=== PATIENT | female | born 1985 | race Caucasian/White ===

== ENCOUNTER → 2019-12-25 13:24 | Outpatient (BNVA) | payer OTHER, SELFPAY | PROVIDERS: Family Provider Family Medicine; Visit Provider Nurse Practitioner Family | DX: J02.0 Streptococcal pharyngitis (principal) | CPT/HCPCS: 87880 ==

== ENCOUNTER 2020-05-31 12:28 | Emergency (ER) | payer SELFPAY ==
[2020-05-31] VITALS (7 sets, daily range): BP systolic 106–176; BP diastolic 87–99; PULSE 81–88; RESP 15–20; TEMP 36.7; O2SAT 95–100; BMI 77.4
--- NOTE | 2020-05-31 13:11 | XRR_ITS ---
PROCEDURE INFORMATION: Exam: XR Chest, 1 View Exam date and time: 05/31/2020 1:32 PM Age: 35 years old Clinical indication: Chest pain; Type not specified; Patient HX: C/O pain left side of neck and radiates down arm and chest pressure TECHNIQUE: Imaging protocol: XR of the chest Views: 1 view. COMPARISON: CR Chest 1 [place] [id number] 03/29/2019 8:18 PM FINDINGS: Lungs: Unremarkable. No consolidation. Pleural space: Unremarkable. No pleural effusion. No pneumothorax. Heart/Mediastinum: Unremarkable. No cardiomegaly. Bones/joints: Unremarkable. XR/XR chest 1V portable [id number] IMPRESSION: No acute findings.
--- NOTE | 2020-05-31 13:11 | ECG_ITS ---
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 Measurements Intervals [place] Rate: 91 P: 27 MI: 183 QRS: 8 QRSD: 82 T: 18 QT: 357 QTc: 441 Interpretive Statements SINUS RHYTHM Left ventricular hypertrophy Compared to ECG 03/29/2019 23:51:33 No significant changes Electronically Signed On 05-31-2020 14:09:14 CDT by Gabe Kunz M.D. [id number]
[2020-05-31] MEDS: nitroglycerin 0.4 mg sublingual Tablet SUBLINGUAL (13:54)
[2020-05-31 13:58] LABS: Basophils % 0.4 %; Eosinophils # 0.2 10^3/uL (0.0-0.8); Eosinophils % 2.4 %; Hematocrit 39.5 % (37.0-47.0); Hemoglobin 12.5 g/dL (11.5-15.3); Lymphocytes # 2.2 10^3/uL (0.8-4.8); Lymphocytes % 27.1 %; Mean Corpuscular HGB Conc 31.6 g/dL (30.0-36.0); Mean Corpuscular Hemoglobin 26.3 pg (28.0-34.0); Mean Corpuscular Volume 83.2 fL (81-99); Mean Platelet Volume 8.9 fL (7.4-10.4); Monocytes # 0.3 10^3/uL (0.2-0.9); Monocytes % 3.6 %; Neutrophils # 5.44 10^3/uL (1.8-7.7); Neutrophils % 66.1 %; Nucleated Red Blood Cells % 0 %; Platelet Count 198 10^3/cmm (130-400); Red Blood Count 4.75 10^6/uL (4.1-5.3); Red Cell Distribution Width 14.6 % (12.1-15.1); White Blood Count 8.2 10^3/uL (4.0-10.0)
[2020-05-31 14:06] LABS: Alanine Aminotransferase 14 U/L (0-33); Albumin Level 3.9 g/dL (3.5-5.2); Alkaline Phosphatase 74 IU/L (35-105); Anion Gap 13.2 (5-19); Aspartate Amino Transferase 16 U/L (0-32); Blood Urea Nitrogen 10 mg/dL (6-20); Calcium 8.8 mg/dL (8.5-10.5); Carbon Dioxide 28 mmol/L (22-29); Chloride 100 mmol/L (98-107); Globulin 3.2 g/dL (1.3-4.6); Glomerular Filtration Rate 140.4 mL/min (90-130); Glucose 123 mg/dL (65-115); Lipase 17 U/L (13-60); Osmolality Calculated 281 mOsm/kg (285-295); Potassium 4.2 mmol/L (3.5-5.1); Sodium 137 mmol/L (136-145); Total Bilirubin 0.3 mg/dL (0.15-1.2); Total Protein 7.1 g/dL (6.6-8.7)
[2020-05-31 14:07] LABS: Troponin(5th) Baseline 6 ng/L (0-10)
--- NOTE | 2020-05-31 15:11 | ECG_ITS ---
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 Measurements Intervals [place] Rate: 79 P: 34 ID: [id number] QRS: 7 QRSD: 92 T: 11 QT: 390 QTc: 447 Interpretive Statements SINUS RHYTHM MINIMAL VOLTAGE CRITERIA FOR LVH, CONSIDER NORMAL VARIANT [MEETS CRITERIA IN ONE OF: R(aVL), S(V1), R(V5), R(V5/V6)+S(V1)] Compared to ECG 05/31/2020 12:54:29 No significant changes Electronically Signed On 05-31-2020 16:12:25 CDT by Gabe Kunz M.D. [id number]
--- NOTE | 2020-05-31 15:17 | ED_ITS ---
HPI - Chest Pain General: Chief Complaint: Chest Pain Stated Complaint: Left neck/arm pain Time Seen by Provider: 05/31/20 12:56 Source: patient Mode of arrival: ambulatory Limitations: no limitations History of Present Illness: MD complaint: chest heaviness Onset (ago): hour(s) (3) Timing of current episode: constant Prior episodes: No Onset: during rest Pain location: left chest Pain radiation: left arm and neck Severity: moderate Quality: heaviness Relieving factors: nothing Exacerbating factors: nothing Associated symptoms: Reports no associated symptoms; Deny abdominal pain, dyspnea, fever(s), nausea, palpitations or vomiting Treatment prior to arrival: aspirin Review of Systems General: Reports: 10 or more systems reviewed and unremarkable except in HPI and below Const: Denies: fever(s), chills or body aches Eyes: Denies: change in vision or blurry vision ENMT: Denies: throat pain, enlarged tonsils, odynophagia, hoarseness, mouth pain or swelling of lips/tongue Card: Reports: chest pain; Denies: palpitations, irregular heart rhythm, edema or swelling of feet/ankles Resp: Denies: dyspnea, productive cough or non-productive cough GI: Denies: abdominal pain, nausea or vomiting : Denies: flank pain, difficulty voiding, dysuria, urinary frequency, urinary urgency or urinary hesitancy Musc: Denies: neck pain, back pain or extremity swelling Skin/Breast: Denies: rash, pruritus or erythema Neuro: Denies: headache(s), numbness in extremities or weakness in extremities Endo: Denies: polyuria, polydipsia or tired all the time PFS ED PFSH: Medical History (Reviewed 05/31/20 @ 15:22 by Amarilys Zhang [place] [facility] [place] Bowel obstruction Essential hypertension Surgical History (Reviewed 05/31/20 @ 15:22 by Amarilys Zhang MD, [facility] [place] H/O: hysterectomy History of cholecystectomy Family History (Reviewed 05/31/20 @ 15:22 by Amarilys Zhang MD, [facility] Other CAD (coronary artery disease) Diabetes Hypertension Social History (Reviewed 05/31/20 @ 15:22 by mAarilys Zhang MD, [facility] Smoking and tobacco status: former smoker Alcohol intake: never Physical Exam Const: COMMON NORMALS: no acute distress, average body habitus, patient oriented x3, no limitations, alert and well nourished NUTRITIONAL APPEARANCE: obese HENMT: COMMON NORMALS: normocephalic, atraumatic and moist oral mucous membranes HEAD & SCALP: normocephalic and atraumatic Neck/C-Spine: COMMON NORMALS: no meningeal signs and no JVD Resp: COMMON NORMALS: normal respiratory effort, No retractions, No use of accessory muscles, clear to auscultation bilaterally and percussion normal AUSCULTATION: clear to auscultation bilaterally PERCUSSION: percussion normal Cardio: COMMON NORMALS: no JVD, regular rate, regular rhythm, S1 normal heart sound present, S2 normal heart sound present, No gallops present (Cardio), No clicks present (Cardio), No murmurs present (Cardio), No rub (Cardio) and Peripheral pulses 2+ throughout RATE: regular rate RHYTHM: regular rhythm HEART SOUNDS: S1 normal heart sound present and S2 normal heart sound present PERIPHERAL PULSES: Peripheral pulses 2+ throughout GI: COMMON NORMALS: Normal to inspection, nondistended, normoactive bowel sounds present, Soft to palpation, non-tender, No hepatosplenomegaly present, no masses and no bruits PALPATION: Yes Soft to palpation and Yes No hepatosplenomegaly present Extremity: COMMON NORMALS: normal to inspection, full ROM, capillary refill normal, no calf tenderness and no pedal edema Neuro: COMMON NORMALS: patient oriented x3 SENSORIUM/ORIENTATION: Yes alert MENINGEAL SIGNS: Yes no meningeal signs Skin: COMMON NORMALS: no rashes or lesions noted, no wounds, turgor normal, no jaundice, no petechiae and no mottling GENERAL SKIN EXAM: no rashes or lesions noted and turgor normal Course Reevaluation(s): Reevaluation #1: Discussed her lab and imaging findings with her, negative for acute findings. Negative high-sensitivity troponin x2. Using the PERC rules she is very low risk for PE. We will discharge her home with no new orders. She voiced understanding and is in agreement with the plan Time: 16:35 Vital Signs: Vital signs: Vital Signs Temperature 98.0 F 05/31/20 12:42 Pulse Rate 82 05/31/20 16:40 Respiratory Rate 15 05/31/20 16:40 Blood Pressure 106/87 05/31/20 16:40 Pulse Oximetry 97 05/31/20 16:40 MDM - Chest Pain MDM Narrative: Medical decision making narrative: 35-year-old female patient who presents with chest pain of a few hours duration. Evaluation in the emergency department was unremarkable with negative high-sensitivity troponin x2. By the PERC rules PE is ruled out. She is discharged home with no new orders. Differential Diagnosis: Cardiac arrest differential diagnosis: Likely acute massive pulmonary embolism, acute respiratory failure and acute myocardial infarction Medical Records: Attestation: I reviewed the patient's medical records. Lab Data: Attestation: I reviewed the patient's lab results. Labs: Lab Results 05/31/20 05/31/20 05/31/20 Range/Units 13:38 13:38 13:38 WBC 8.2 (4.0-10.0) 10^3/ uL RBC 4.75 (4.1-5.3) 10^6/u L Hgb 12.5 (11.5-15.3) g/dL Hct 39.5 (37.0-47.0) % MCV 83.2 (81-99) fL MCH 26.3 L (28.0-34.0) pg MCHC 31.6 (30.0-36.0) g/dL RDW 14.6 (12.1-15.1) % Plt Count 198 (130-400) 10^3/c mm MPV 8.9 (7.4-10.4) fL Neut % (Auto) 66.1 % Lymph % (Auto) 27.1 % [place] % (Auto) 3.6 % Eos % (Auto) 2.4 % Baso % (Auto) 0.4 % Neut # (Auto) 5.44 (1.8-7.7) 10^3/u L Lymph # (Auto) 2.2 (0.8-4.8) 10^3/u L [place] # (Auto) 0.3 (0.2-0.9) 10^3/u L Eos # (Auto) 0.2 (0.0-0.8) 10^3/u L Baso # (Auto) 0.0 (0.0-0.1) 10^3/u L Nucleated RBC % (a uto) 0 % Nucleated RBCs # 0.0 /100WBC Sodium 137 (136-145) mmol/L Potassium 4.2 (3.5-5.1) mmol/L Chloride 100 (98-107) mmol/L Carbon Dioxide 28 (22-29) mmol/L Anion Gap 13.2 (5-19) BUN 10 (6-20) mg/dL Creatinine 0.5 (0.5-0.9) mg/dL GFR Calculation 140.4 H (90-130) mL/min Glucose 123 H (65-115) mg/dL Calculated Osmolal ity 281 L (285-295) mOsm/k g Calcium 8.8 (8.5-10.5) mg/dL Total Bilirubin 0.3 (0.15-1.2) mg/dL AST 16 (0-32) U/L ALT 14 (0-33) U/L Alkaline Phosphata se 74 (35-105) IU/L Troponin T Baselin e 6 (0-10) ng/L Troponin T 120 Min agdaagux (0-10) ng/L Delta Troponin T (0-10) ABS# Total Protein 7.1 (6.6-8.7) g/dL Albumin 3.9 (3.5-5.2) g/dL Globulin 3.2 (1.3-4.6) g/dL Lipase 17 (13-60) U/L / Range/Units 15:42 WBC (4.0-10.0) 10^3/ uL RBC (4.1-5.3) 10^6/u L Hgb (11.5-15.3) g/dL Hct (37.0-47.0) % MCV (81-99) fL MCH (28.0-34.0) pg MCHC (30.0-36.0) g/dL RDW (12.1-15.1) % Plt Count (130-400) 10^3/c mm MPV (7.4-10.4) fL Neut % (Auto) % Lymph % (Auto) % [place] % (Auto) % Eos % (Auto) % Baso % (Auto) % Neut # (Auto) (1.8-7.7) 10^3/u L Lymph # (Auto) (0.8-4.8) 10^3/u L [place] # (Auto) (0.2-0.9) 10^3/u L Eos # (Auto) (0.0-0.8) 10^3/u L Baso # (Auto) (0.0-0.1) 10^3/u L Nucleated RBC % (a uto) % Nucleated RBCs # /100WBC Sodium (136-145) mmol/L Potassium (3.5-5.1) mmol/L Chloride (98-107) mmol/L Carbon Dioxide (22-29) mmol/L Anion Gap (5-19) BUN (6-20) mg/dL Creatinine (0.5-0.9) mg/dL GFR Calculation (90-130) mL/min Glucose (65-115) mg/dL Calculated Osmolal ity (285-295) mOsm/k g Calcium (8.5-10.5) mg/dL Total Bilirubin (0.15-1.2) mg/dL AST (0-32) U/L ALT (0-33) U/L Alkaline Phosphata se (35-105) IU/L Troponin T Baselin e (0-10) ng/L Troponin T 120 Min agda[place] 6.00 (0-10) ng/L Delta Troponin T 0 (0-10) ABS# Total Protein (6.6-8.7) g/dL Albumin (3.5-5.2) g/dL Globulin (1.3-4.6) g/dL Lipase (13-60) U/L Imaging Data^: CXR: Radiologist's impression: [place] [address] XRay Report Signed Patient: Daniela Pulido #: [id number] : 1985Acct#:[id number] Age/Sex: 35 / FADM Date: 05/31/20 Loc: ERRoom/Bed: Attending Dr: Ordering Provider/Ordering MD: Amarilys Zhang [place] [facility] of Service: 05/31/20 Procedure(s): XR chest 1V portable 21999 Accession Number(s): [id number] Report Number: [id number] PROCEDURE INFORMATION: Exam: XR Chest, 1 View Exam date and time: 05/31/2020 1:32 PM Age: 35 years old Clinical indication: Chest pain; Type not specified; Patient HX: C/O pain left side of neck and radiates down arm and chest pressure TECHNIQUE: Imaging protocol: XR of the chest Views: 1 view. COMPARISON: CR Chest 1 [place] [id number] 03/29/2019 8:18 PM FINDINGS: Lungs: Unremarkable. No consolidation. Pleural space: Unremarkable. No pleural effusion. No pneumothorax. Heart/Mediastinum: Unremarkable. No cardiomegaly. Bones/joints: Unremarkable. XR/XR chest 1V portable [id number] IMPRESSION: No acute findings. Dictated By:Js Tavera MD Signed By:Js Tavera MDSigned Date/Time:05/31/201347 DD/ 46 Discharge Plan Discharge Patient Disposition: Home Clinical Impression: Non-cardiac chest pain Condition: Stable Prescriptions: Continued aspirin [Aspir-81] 81 mg tablet,delayed release (DR/EC) 81 mg PO DAILY RF: 0 metoprolol succinate 100 mg tablet extended release 24 hr 100 mg PO DAILY Qty: 30 RF: 0 amlodipine [Norvasc] 5 mg tablet 5 mg PO DAILY Qty: 30 RF: 0 metolazone 2.5 mg tablet 2.5 mg PO DAILY Qty: 30 RF: 0 cyclobenzaprine 10 mg tablet 10 mg PO BEDTIME RF: 0 Discharge Orders: Discharge Order (Routine); Ordered 05/31/20 Ordered By: Amarilys Zhang Referrals: Roxanna Love DO [Primary Care Provider] - 1-3 days Patient Instructions: Noncardiac Chest Pain (ED) Activity Restrictions/Additional Instructions: Return for any new or worsening symptoms. Follow-up with your primary care provider within 3 days. Discharge Date/Time: 05/31/20 16:46 Coding Level of Care Code ED Patient Observer for Chg Fwd Exam Comprehensive
[2020-05-31 16:24] LABS: Troponin 5 2HR Delta 0 ABS# (0-10)
== END 2020-05-31 16:46 | disposition home or self-care (01) ==
PROVIDERS: Emergency Provider Family Medicine; PCP Family Medicine
DX: R07.89 Other chest pain (principal); Z79.82 Long term (current) use of aspirin; I10 Essential (primary) hypertension; Z87.891 Personal history of nicotine dependence
CPT/HCPCS: 12345; 36415; 71045; 80053; 83690; 84484; 85025; 93005; 93010; 99283; 99284

== ENCOUNTER 2020-07-15 14:38 | Emergency (ER) | payer SELFPAY ==
[2020-07-15 14:39] VITALS: BP 166/100; PULSE 103; RESP 18; TEMP 36.6; O2SAT 96; BMI 77.4
[2020-07-15 15:10] VITALS: PULSE 84
--- NOTE | 2020-07-15 16:02 | USR_ITS ---
PROCEDURE INFORMATION: Exam: US Duplex Left Lower Extremity Veins, Limited Exam date and time: 07/15/2020 4:03 PM Age: 35 years old Clinical indication: Swelling (edema) of limb; Lower extremity, left; Additional info: Redness and pain to the left lower leg TECHNIQUE: Imaging protocol: Real-time Duplex ultrasound of the Left Lower Extremity with 2-D whitt scale, color Doppler flow and spectral waveform analysis with image documentation. Limited exam focused on the left lower extremity veins. COMPARISON: No relevant prior studies available. FINDINGS: Left deep veins: Unremarkable. The common femoral, femoral, proximal profunda femoral, popliteal, posterior tibial and peroneal veins are patent without thrombus. Normal compressibility, augmentation response and Doppler waveforms. Left superficial veins: Unremarkable. Saphenofemoral junction is patent without thrombus. Soft tissues: Unremarkable. US/CV venous duplex [facility] [address] IMPRESSION: No sonographic evidence of deep vein thrombosis.
--- NOTE | 2020-07-15 16:03 | ED_ITS ---
HPI - Extremity Problem General: Chief complaint: Extremity Injury, Lower Stated complaint: LEFT HIP AND LEG PAIN Time Seen by Provider: 07/15/20 15:56 History of Present Illness: HPI Narrative: 35-year-old female patient presents to the emergency department with a left lower extremity complaint. She reports sustained a fall 2 to 3 days ago, states tripped over the water hose. She reports since, she has experienced pain behind the left knee that radiates to the left calf. She reports history of sciatica but states her sciatic pain is not bad. She states pain to the left lower leg is new in onset, denies left knee pain. She reports pain is worse with ambulation. MD Complaint: extremity pain (Left lower leg) Onset (ago): day(s) (2) Pain Consistency: intermittent Location: left and lower extremity Severity scale (1-10): 4 Quality: burning, aching and dull Radiation: none Relieving factors: rest Exacerbating factors: range of motion and weight bearing Associated symptoms: Reports no associated symptoms; Deny chest pain, fever(s) or rash Review of Systems General: Reports: 10 or more systems reviewed and unremarkable except in HPI and below Const: Denies: fever(s), chills or diaphoresis Eyes: Denies: blurry vision or eye redness ENMT: Denies: throat pain, dental pain or disequilibrium Card: Denies: chest pain, palpitations or irregular heart rhythm Resp: Denies: dyspnea, productive cough, non-productive cough or wheezing GI: Denies: abdominal pain, nausea or vomiting : Denies: difficulty voiding or dysuria Musc: Reports: extremity pain (Left lower leg); Denies: neck pain or back pain Skin/Breast: Denies: rash or pruritus Neuro: Denies: headache(s), weakness in extremities or behavioral changes Yang/Lymph: Denies: easy bruising PFSH ED PFSH: Medical History (Updated 06/26/20 @ 10:11 by Roxanna Love DO) Bowel obstruction Essential hypertension Surgical History H/O: hysterectomy History of cholecystectomy Family History Other CAD (coronary artery disease) Diabetes Hypertension Social History (Reviewed 09/09/20 @ 09:53 by MARY Akbar Smoking and tobacco status: former smoker Alcohol intake: never Physical Exam Const: COMMON NORMALS: no acute distress, patient oriented x3, healthy appearing, alert and well nourished GENERAL APPEARANCE: cooperative, comfortable and well hydrated NUTRITIONAL APPEARANCE: obese HENMT: COMMON NORMALS: normocephalic, Normal external nose present and moist oral mucous membranes HEAD & SCALP: normocephalic NOSE: Normal external nose present Eye: COMMON NORMALS: Equal, round and reactive pupils present and EOMs intact bilaterally GENERAL EYE: appearance normal, both eyes and all related structures PUPIL: Yes Equal, round and reactive pupils present Neck/C-Spine: COMMON NORMALS: full ROM and no lymphadenopathy GENERAL: Yes normal visual inspection and Yes trachea midline CERVICAL SPINE: Yes cervical ROM normal, Yes normal cervical lordosis, No pain with cervical ROM, No Cervical spine tenderness and No Paracervical muscle tenderness Lymph: LYMPHATIC: no lymphadenopathy noted Chest: COMMONS NORMALS: normal inspection of the chest Resp: COMMON NORMALS: normal respiratory effort and clear to auscultation bilaterally AUSCULTATION: clear to auscultation bilaterally Cardio: COMMON NORMALS: regular rhythm, S1 normal heart sound present, S2 normal heart sound present and Peripheral pulses 2+ throughout RHYTHM: regular rhythm HEART SOUNDS: S1 normal heart sound present and S2 normal heart sound present PERIPHERAL PULSES: Peripheral pulses 2+ throughout GI: COMMON NORMALS: Soft to palpation and non-tender INSPECTION: Yes normal to inspection PALPATION: Yes Soft to palpation : COMMON NORMALS: Yes no CVA tenderness BLADDER/KIDNEY EXAM: Yes no CVA tenderness Back/Pelvis: COMMON NORMALS: no CVA tenderness and thoracic and lumbar spine normal to inspection Extremity: COMMON NORMALS: normal to inspection and capillary refill normal GENERAL: Yes normal exam except as noted LEFT LOWER EXTREMITY: Yes lower leg Left lower leg: Yes inspection (Lymphedema present, ) Neuro: COMMON NORMALS: patient oriented x3 and no focal motor deficits SENSORIUM/ORIENTATION: Yes alert Psych: COMMON NORMALS: mental status grossly normal, Normal thought process present and cooperative ACTIVITY/MOTOR BEHAVIOR: Yes appropriate eye contact THOUGHT PROCESS: Normal thought process present Skin: COMMON NORMALS: no rashes or lesions noted and turgor normal GENERAL SKIN EXAM: no rashes or lesions noted and turgor normal Course Vital Signs: Vital signs: Vital Signs Temperature 97.8 F 07/15/20 14:39 Pulse Rate 84 07/15/20 15:10 Respiratory Rate 18 07/15/20 14:39 Blood Pressure 166/100 07/15/20 14:39 Pulse Oximetry 96 07/15/20 14:39 Discharge Plan Discharge Prescriptions: No Action aspirin [Aspir-81] 81 mg tablet,delayed release (DR/EC) 81 mg PO DAILY RF: 0 bumetanide 0.5 mg tablet 0.5 mg PO DAILY Qty: 30 RF: 0 pantoprazole [Protonix] 40 mg tablet,delayed release (DR/EC) 40 mg PO DAILY Qty: 30 RF: 0 metoprolol succinate 100 mg tablet extended release 24 hr 100 mg PO DAILY Qty: 30 RF: 0 metolazone 2.5 mg tablet 2.5 mg PO DAILY Qty: 30 RF: 0 amlodipine [Norvasc] 5 mg tablet 5 mg PO DAILY Qty: 30 RF: 0 cyclobenzaprine 10 mg tablet 10 mg PO BEDTIME RF: 0 Coding Level of Care Code ED Undercollar Baster for Chg Fwd Exam Comprehensive
--- NOTE | 2020-07-15 17:32 | ED_ITS ---
HPI - Extremity Problem General: Chief complaint: Extremity Injury, Lower Stated complaint: LEFT HIP AND LEG PAIN Time Seen by Provider: 07/15/20 15:56 History of Present Illness: Pain Consistency: intermittent Location: left and lower extremity Severity scale (1-10): 4 Quality: burning, aching and dull Relieving factors: rest Exacerbating factors: range of motion and weight bearing Associated symptoms: Deny chest pain, fever(s) or rash Review of Systems General: Reports: 10 or more systems reviewed and unremarkable except in HPI and below Const: Denies: fever(s), chills or diaphoresis Eyes: Denies: blurry vision or eye redness ENMT: Denies: throat pain, dental pain or disequilibrium Card: Denies: chest pain, palpitations or irregular heart rhythm Resp: Denies: dyspnea, productive cough, non-productive cough or wheezing GI: Denies: abdominal pain, nausea or vomiting : Denies: difficulty voiding or dysuria Musc: Denies: back pain Skin/Breast: Denies: rash or pruritus Neuro: Reports: difficulty walking (LLE due to pain); Denies: headache(s), weakness in extremities or behavioral changes Yang/Lymph: Denies: easy bruising PFSH ED PFSH: Medical History (Updated 07/15/20 @ 17:34 by BERNIE Barrera) Bowel obstruction Essential hypertension Surgical History H/O: hysterectomy History of cholecystectomy Family History Other CAD (coronary artery disease) Diabetes Hypertension Social History Smoking and tobacco status: former smoker Alcohol intake: never Physical Exam Const: COMMON NORMALS: no acute distress, patient oriented x3, healthy appearing and alert GENERAL APPEARANCE: cooperative, comfortable and well hydrated HENMT: COMMON NORMALS: normocephalic, Normal external nose present and moist oral mucous membranes HEAD & SCALP: normocephalic NOSE: Normal external nose present Eye: COMMON NORMALS: Equal, round and reactive pupils present and EOMs intact bilaterally GENERAL EYE: appearance normal, both eyes and all related structures PUPIL: Yes Equal, round and reactive pupils present Neck/C-Spine: COMMON NORMALS: full ROM and no lymphadenopathy GENERAL: Yes normal visual inspection and Yes trachea midline CERVICAL SPINE: Yes cervical ROM normal Lymph: LYMPHATIC: no lymphadenopathy noted Chest: COMMONS NORMALS: normal inspection of the chest Resp: COMMON NORMALS: normal respiratory effort and clear to auscultation bilaterally AUSCULTATION: clear to auscultation bilaterally Cardio: COMMON NORMALS: regular rhythm, S1 normal heart sound present and S2 normal heart sound present RHYTHM: regular rhythm HEART SOUNDS: S1 normal heart sound present and S2 normal heart sound present GI: COMMON NORMALS: Soft to palpation and non-tender INSPECTION: Yes normal to inspection PALPATION: Yes Soft to palpation : COMMON NORMALS: Yes no CVA tenderness BLADDER/KIDNEY EXAM: Yes no CVA tenderness and No CVA tenderness Back/Pelvis: COMMON NORMALS: no CVA tenderness GENERAL BACK: No CVA tenderness THORACIC SPINE/UPPER BACK: Yes normal to inspection and Yes thoracic ROM normal LUMBAR SPINE/LOWER BACK: Yes straight leg raise positive left SACROILIAC JOINTS: Yes SI joint(s) abnormal SI joint details: tender to palpation (left) and pain elicited by compression of iliac crest maneuver SACRUM: no ecchymosis and no erythema COCCYX: no swelling Extremity: COMMON NORMALS: normal to inspection, full ROM and capillary refill normal GENERAL: Yes normal exam except as noted LEFT LOWER EXTREMITY: Yes lower leg (lymphedema present, ) Left lower leg: Yes inspection (no erythema or discoloration), Yes palpation (tenderness to the posterior knee and calf) and Yes neurovascular exam (intact distally) Neuro: COMMON NORMALS: patient oriented x3 and no focal motor deficits SENSORIUM/ORIENTATION: Yes alert Psych: COMMON NORMALS: mental status grossly normal, Normal thought process present and cooperative ACTIVITY/MOTOR BEHAVIOR: Yes appropriate eye contact THOUGHT PROCESS: Normal thought process present Skin: COMMON NORMALS: no rashes or lesions noted and turgor normal GENERAL SKIN EXAM: no rashes or lesions noted and turgor normal Course ED course: 35-year-old female patient presents to the emergency department with left lower extremity pain. She experienced a fall 2 days ago. Reports left lower extremity pain following the fall. Denied knee pain, left lower extremity venous ultrasound completed due to lymphedema and patient statement of redness and swelling with increased warmth of the area. No DVT appreciated on ultrasound. Presumed possible sciatic radiculopathy since she has longstanding history of sciatic pain. Questions were answered, results were discussed with the patient of testing completed today. She agrees to go home and apply heat and take Flexeril and Tylenol as needed for pain. Vital Signs: Vital signs: Vital Signs Temperature 97.8 F 07/15/20 14:39 Pulse Rate 84 07/15/20 15:10 Respiratory Rate 18 07/15/20 14:39 Blood Pressure 166/100 07/15/20 14:39 Pulse Oximetry 96 07/15/20 14:39 MDM - Extremity (Nontraumatic) Imaging Data^: US Vascular: Radiologist's impression: No sonographic evidence of DVT Discharge Plan Discharge Patient Disposition: Home Clinical Impression: Sciatic leg pain Acute leg pain Qualifiers: Laterality: left Qualified Code(s): M79.605 - Pain in left leg Condition: Stable Prescriptions: No Action aspirin [Aspir-81] 81 mg tablet,delayed release (DR/EC) 81 mg PO DAILY RF: 0 bumetanide 0.5 mg tablet 0.5 mg PO DAILY Qty: 30 RF: 0 pantoprazole [Protonix] 40 mg tablet,delayed release (DR/EC) 40 mg PO DAILY Qty: 30 RF: 0 metoprolol succinate 100 mg tablet extended release 24 hr 100 mg PO DAILY Qty: 30 RF: 0 metolazone 2.5 mg tablet 2.5 mg PO DAILY Qty: 30 RF: 0 amlodipine [Norvasc] 5 mg tablet 5 mg PO DAILY Qty: 30 RF: 0 cyclobenzaprine 10 mg tablet 10 mg PO BEDTIME RF: 0 Discharge Orders: Discharge Order (Routine); Ordered 07/15/20 Ordered By: Sophie Acuna Referrals: Roxanna Love DO [Primary Care Provider] - Discharge Diet: Advance as tolerated Discharge Activity: Resume usual activity Patient Instructions: Sciatica (ED), Fall Prevention (ED) Activity Restrictions/Additional Instructions: Warm compresses several times daily to the affected area Continue Flexeril as directed Keep the left lower extremity elevated to help with pain Monitor for redness and increased swelling, return to the emergency room if worsening symptoms occur such as inability to feel your leg or loss of bladder or bowel control Coding Level of Care Code 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
== END 2020-07-15 17:42 | disposition home or self-care (01) ==
PROVIDERS: Emergency Provider Nurse Practitioner Family; PCP Family Medicine
DX: M79.605 Pain in left leg (principal); Z79.82 Long term (current) use of aspirin; I10 Essential (primary) hypertension; Z87.891 Personal history of nicotine dependence
CPT/HCPCS: 12345; 93971; 99281; 99282

== ENCOUNTER 2020-07-18 06:32 | Emergency (ER) | payer SELFPAY ==
[2020-07-18 06:33] VITALS: BP 164/101; PULSE 97; RESP 19; TEMP 36.7; O2SAT 96; BMI 77.4
[2020-07-18 06:39] VITALS: BP 164/101; PULSE 94; RESP 16; O2SAT 97
--- NOTE | 2020-07-18 06:41 | XR_ITS ---
WS: [id number] Left femur and thigh, AP and lateral views, 07/18/2020 Clinical Data: fall, pain Comparison: None. Findings: No fractures or dislocations are seen. The soft tissues are normal. The visualized knee shows no abno rmalities. XR/XR femur LT min 2V* [id number] Impression: Negative left femur and thigh.
--- NOTE | 2020-07-18 06:41 | XR_ITS ---
WS: [id number] Left leg including the tibia and fibula, AP and lateral views, 07/18/2020 Clinical Data: fall, pain Comparison: None. Findings: No fractures or dislocations are seen. The tibia and fibula are intact. The soft tissues are normal. XR/XR tibia fibula LT 2V [id number] Impression: Negative for fracture.
--- NOTE | 2020-07-18 06:47 | W.ED.EXTPRO ---
HPI - Extremity Problem General: Chief complaint: Extremity Injury, Lower Stated complaint: LEG/HIP PAIN Time Seen by Provider: 07/18/20 06:35 History of Present Illness: HPI Narrative: This patient is a 35-year-old female who comes in today for evaluation of left leg pain. She fell 4 or 5 days ago and was seen 2 days ago here in the ER for continued leg pain. She had an ultrasound of the leg which did not show a DVT. She has a history of sciatica and the pain was attributed to that. She returns today by ambulance with continued severe pain. She has been taking Tylenol at home for it. She said the whole leg feels numb. The pain is mainly along the lateral and posterior thigh and lower leg. She says that when she fell she tripped over a hose and fell forward doing a face plant . She does not think she landed directly on her knee or hip. She is morbidly obese with a BMI of 77. She has significant lymphedema in both legs chronically. She has not been able to ambulate due to the pain. Dr. Love is her PCP. She takes medications for high blood pressure and also takes a diuretic. She also has reflux and takes pantoprazole. MD Complaint: extremity pain Onset (ago): day(s) (4-5) Location: left Severity scale (1-10): 10 Quality: burning, aching and constant Radiation: distal Relieving factors: nothing Exacerbating factors: range of motion and palpation Associated symptoms: Reports no associated symptoms; Deny chest pain, fever(s) or rash Context: other (Recent fall, history of sciatica) Review of Systems General: Reports: 10 or more systems reviewed and unremarkable except in HPI and below Const: Denies: fever(s), chills, fatigue or malaise Eyes: Denies: change in vision ENMT: Denies: odynophagia Card: Denies: chest pain or swelling of feet/ankles Resp: Denies: dyspnea, productive cough or non-productive cough GI: Reports: abdominal pain (Left lower quadrant); Denies: nausea or vomiting : Denies: flank pain or difficulty voiding Musc: Reports: extremity pain; Denies: neck pain or back pain Skin/Breast: Denies: rash Neuro: Reports: numbness in extremities (Entire left leg); Denies: headache(s) or weakness in extremities Yang/Lymph: Denies: easy bruising or easy bleeding [facility] ED PFSH: Medical History (Updated 07/18/20 @ 09:49 by Snow Beck MD) Bowel obstruction Essential hypertension Morbid obesity with BMI of 70 and over, adult Surgical History H/O: hysterectomy History of cholecystectomy Family History Other CAD (coronary artery disease) Diabetes Hypertension Social History Smoking and tobacco status: former smoker Alcohol intake: never Physical Exam Const: COMMON NORMALS: patient oriented x3, no limitations and alert GENERAL APPEARANCE: cooperative HENMT: HEAD & SCALP: normal to inspection FACE & SINUS: normal facial exam Eye: GENERAL EYE: appearance normal, both eyes and all related structures Neck/C-Spine: COMMON NORMALS: supple, no meningeal signs and no JVD Chest: COMMONS NORMALS: normal inspection of the chest Resp: COMMON NORMALS: normal respiratory effort, No use of accessory muscles and clear to auscultation bilaterally AUSCULTATION: clear to auscultation bilaterally Cardio: COMMON NORMALS: no JVD, regular rate, regular rhythm and No murmurs present (Cardio) RATE: regular rate RHYTHM: regular rhythm GI: COMMON NORMALS: Soft to palpation INSPECTION: Yes normal to inspection AUSCULTATION: Yes normoactive bowel sounds PALPATION: Yes Soft to palpation Back/Pelvis: COMMON NORMALS: thoracic and lumbar spine normal to inspection Extremity: NARRATIVE EXTREMITY EXAM: Exam is markedly limited by obesity and lymphedema. Not able to palpate any deformities or visualize any ecchymosis on the left lower extremity. She screams with touching the leg anywhere. I was able to detect a DP pulse with the Doppler. She seemed to have normal sensation over the leg and foot. Any attempt to move the leg also elicited screams. Neuro: COMMON NORMALS: patient oriented x3, moves all extremities, no focal motor deficits and no sensory deficits noted SENSORIUM/ORIENTATION: Yes alert MENINGEAL SIGNS: Yes no meningeal signs Psych: COMMON NORMALS: mental status grossly normal, cooperative and normal affect Skin: COMMON NORMALS: no rashes or lesions noted and turgor normal GENERAL SKIN EXAM: no rashes or lesions noted and turgor normal Course ED course: Initial concern was for a missed popliteal artery injury given that she was complaining initially of falling on her knee. After exam and history I think that is unlikely. The foot is pink and warm. There is a DP pulse. The mechanism is not consistent with a knee dislocation. I am more suspicious of a back injury or sciatica. Unfortunately the patient is too large for our CT scanner. I will get plain x-rays of the leg which were not done previously, just to make sure there are no occult fractures. I will try pain control and treatment for sciatica but if this is not successful she may require transfer to a facility capable of imaging. Reevaluation(s): Reevaluation #1: After pain medication patient was much calmer and I was able to get a better exam. She does have numbness on the lateral aspect of her lower extremity and foot. It is difficult to evaluate for motor function because of her pain and difficult to elicit reflexes due to her body habitus. I think she probably needs imaging of her lumbar spine as she may have a disc rupture related to her fall. She is too large for our CT table here and I will try to find another facility that might be able to accommodate her. Vital Signs: Vital signs: Vital Signs Temperature 98.0 F 07/18/20 06:33 Pulse Rate 86 07/18/20 11:19 Respiratory Rate 18 07/18/20 11:19 Blood Pressure 146/94 07/18/20 11:19 Pulse Oximetry 97 07/18/20 11:19 MDM - Extremity (Nontraumatic) Lab Data: Labs: Lab Results 07/18/20 07/18/20 07/18/20 Range/Units 07:45 07:45 07:45 WBC 8.6 (4.0-10.0) 10^3/ uL RBC 4.32 (4.1-5.3) 10^6/u L Hgb 11.0 L (11.5-15.3) g/dL Hct 35.5 L (37.0-47.0) % MCV 82.2 (81-99) fL MCH 25.5 L (28.0-34.0) pg MCHC 31.0 (30.0-36.0) g/dL RDW 14.3 (12.1-15.1) % Plt Count 158 (130-400) 10^3/c mm MPV 8.5 (7.4-10.4) fL Neut % (Auto) 73.8 % Lymph % (Auto) 20.0 % Cannon % (Auto) 4.3 % Eos % (Auto) 1.0 % Baso % (Auto) 0.2 % Neut # (Auto) 6.32 (1.8-7.7) 10^3/u L Lymph # (Auto) 1.7 (0.8-4.8) 10^3/u L Cannon # (Auto) 0.4 (0.2-0.9) 10^3/u L Eos # (Auto) 0.1 (0.0-0.8) 10^3/u L Baso # (Auto) 0.0 (0.0-0.1) 10^3/u L Nucleated RBC % (a uto) 0 % Nucleated RBCs # 0.0 /100WBC Sodium 137 (136-145) mmol/L Potassium 3.8 (3.5-5.1) mmol/L Chloride 101 (98-107) mmol/L Carbon Dioxide 26 (22-29) mmol/L Anion Gap 13.8 (5-19) BUN 12 (6-20) mg/dL Creatinine 0.4 L (0.5-0.9) mg/dL GFR Calculation 181.6 H (90-130) mL/min Glucose 137 H (65-115) mg/dL Calculated Osmolal ity 286 (285-295) mOsm/k g Calcium 8.8 (8.5-10.5) mg/dL Total Bilirubin 0.2 (0.15-1.2) mg/dL AST 15 (0-32) U/L ALT 16 (0-33) U/L Alkaline Phosphata se 54 (35-105) IU/L Total Protein 7.0 (6.6-8.7) g/dL Albumin 3.7 (3.5-5.2) g/dL Globulin 3.3 (1.3-4.6) g/dL HCG, Qual Negative (Negative) Discharge Plan Discharge Patient Disposition: Transfer to ED Clinical Impression: Morbid obesity with BMI of 70 and over, adult, Acute left lumbar radiculopathy Acute leg pain Qualifiers: Laterality: left Qualified Code(s): M79.605 - Pain in left leg Condition: Stable Prescriptions: No Action aspirin [Aspir-81] 81 mg tablet,delayed release (DR/EC) 81 mg PO DAILY RF: 0 bumetanide 0.5 mg tablet 0.5 mg PO DAILY Qty: 30 RF: 0 pantoprazole [Protonix] 40 mg tablet,delayed release (DR/EC) 40 mg PO DAILY Qty: 30 RF: 0 metoprolol succinate 100 mg tablet extended release 24 hr 100 mg PO DAILY Qty: 30 RF: 0 metolazone 2.5 mg tablet 2.5 mg PO DAILY Qty: 30 RF: 0 amlodipine [Norvasc] 5 mg tablet 5 mg PO DAILY Qty: 30 RF: 0 cyclobenzaprine 10 mg tablet 10 mg PO BEDTIME Qty: 30 RF: 1 Referrals: Roxanna Love DO [Primary Care Provider] - Discharge Date/Time: 07/18/20 11:23 Coding Level of Care Code ED Home Based Assistant for Chg Fwd Exam Comprehensive
[2020-07-18 07:41] VITALS: RESP 18; O2SAT 98
[2020-07-18] MEDS: fentaNYL 50 mcg/mL INJ 2mL 100 MCG IVP ×3 (07:41→11:17)
[2020-07-18 07:56] LABS: Basophils % 0.2 %; Eosinophils # 0.1 10^3/uL (0.0-0.8); Hematocrit 35.5 % (37.0-47.0); Lymphocytes # 1.7 10^3/uL (0.8-4.8); Mean Corpuscular Hemoglobin 25.5 pg (28.0-34.0); Mean Corpuscular Volume 82.2 fL (81-99); Mean Platelet Volume 8.5 fL (7.4-10.4); Monocytes # 0.4 10^3/uL (0.2-0.9); Monocytes % 4.3 %; Neutrophils # 6.32 10^3/uL (1.8-7.7); Neutrophils % 73.8 %; Nucleated Red Blood Cells % 0 %; Platelet Count 158 10^3/cmm (130-400); Red Blood Count 4.32 10^6/uL (4.1-5.3); Red Cell Distribution Width 14.3 % (12.1-15.1); White Blood Count 8.6 10^3/uL (4.0-10.0)
[2020-07-18 08:09] LABS: Alanine Aminotransferase 16 U/L (0-33); Albumin Level 3.7 g/dL (3.5-5.2); Alkaline Phosphatase 54 IU/L (35-105); Anion Gap 13.8 (5-19); Aspartate Amino Transferase 15 U/L (0-32); Blood Urea Nitrogen 12 mg/dL (6-20); Calcium 8.8 mg/dL (8.5-10.5); Carbon Dioxide 26 mmol/L (22-29); Chloride 101 mmol/L (98-107); Globulin 3.3 g/dL (1.3-4.6); Glomerular Filtration Rate 181.6 mL/min (90-130); Glucose 137 mg/dL (65-115); Osmolality Calculated 286 mOsm/kg (285-295); Potassium 3.8 mmol/L (3.5-5.1); Sodium 137 mmol/L (136-145); Total Bilirubin 0.2 mg/dL (0.15-1.2)
[2020-07-18 08:12] LABS: HCG, Serum Qual Negative (Negative)
[2020-07-18 08:26] VITALS: RESP 18
[2020-07-18] MEDS: dexamethasone 10 mg/mL INJ IVP (09:33)
[2020-07-18 11:17] VITALS: RESP 18; O2SAT 98
[2020-07-18 11:19] VITALS: BP 146/94; PULSE 86; RESP 18; O2SAT 97
== END 2020-07-18 11:23 ==
PROVIDERS: Emergency Provider Emergency Medicine; PCP Family Medicine
DX: M79.605 Pain in left leg (principal); M54.16 Radiculopathy, lumbar region; Z79.82 Long term (current) use of aspirin; E66.01 Morbid (severe) obesity due to excess calories; Z68.45 Body mass index [BMI] 70 or greater, adult; I10 Essential (primary) hypertension; Z87.891 Personal history of nicotine dependence
CPT/HCPCS: 12345; 36415; 51702; 73552; 73590; 80053; 84703; 85025; 96374; 96375; 96376; 99282; 99285; J1100; J3010

== ENCOUNTER 2021-03-08 00:03 | Emergency (ER) | payer SELFPAY ==
[2021-03-08] VITALS (9 sets, daily range): BP systolic 152–208; BP diastolic 107–120; PULSE 100–120; RESP 13–28; TEMP 36.6–36.7; O2SAT 95–98; BMI 79.9
--- NOTE | 2021-03-08 00:07 | XRR_ITS ---
PROCEDURE INFORMATION: Exam: XR Chest Exam date and time: 03/08/2021 12:11 AM Age: 35 years old Clinical indication: Chest pressure; Patient HX: Chest pain TECHNIQUE: Imaging protocol: XR of the chest. Views: 1 view. COMPARISON: CR XR chest 1V portable [id number] 05/31/2020 1:22 PM FINDINGS: Lungs: The lungs are clear. Pleural spaces: Unremarkable. No pleural effusion. No pneumothorax. Heart/Mediastinum: Unremarkable. No cardiomegaly. Bones/joints: Unremarkable. XR/XR chest 1V portable [id number] IMPRESSION: Normal study.
--- NOTE | 2021-03-08 00:11 | W.ED.CHESTPA ---
HPI - Chest Pain General: Chief Complaint: Chest Pain Stated Complaint: CP Time Seen by Provider: 03/08/21 00:05 Source: patient Mode of arrival: ambulatory Limitations: no limitations History of Present Illness: HPI narrative: Patient is a 35-year-old female who presents to ED today for evaluation of chest pain that occurred early this morning while at rest. She states pain has been intermittent and fluctuating throughout the day. She describes the pain as a heaviness. There is no radiation to her discomfort. She feels mildly short of breath. She has had similar chest pains previously that were noncardiac. She has no known cardiac or pulmonary history. She does have a history of HTN which is untreated stating she lost her insurance. Patient is morbidly obese. She has a BMI of almost 80. She has chronic lower extremity lymphedema. She is complaining of pain to the left lateral aspect of her leg. She tells me this has been present for almost 8 months now. She has not noticed any redness or swelling to the extremity. MD complaint: chest pain Onset (ago): hour(s) Prior episodes: Yes Onset: during rest Pain location: left chest Pain radiation: none Quality: heaviness Relieving factors: nothing Exacerbating factors: nothing Associated symptoms: Reports dyspnea; Deny abdominal pain, fever(s), nausea, palpitations, syncope or vomiting Treatment prior to arrival: none Risk Factors: Coronary artery disease risk factors: hypertension Thoracic aortic dissection risk factors: none Related Data: On Oral Contraceptives: No Review of Systems Const: Denies: fever(s), chills, body aches, fatigue or malaise Eyes: Denies: change in vision or blurry vision Card: Reports: chest pain and edema (chronic); Denies: palpitations, irregular heart rhythm, lightheadedness, syncope, pre-syncope, dyspnea on exertion or leg pain with exertion Resp: Reports: dyspnea; Denies: productive cough, pain on inspiration, hemoptysis or chest congestion GI: Denies: abdominal pain, nausea, vomiting, heartburn or diarrhea : Denies: dysuria Musc: Reports: extremity pain (lateral left leg pain-present for over 8 mo ) and extremity swelling (chronic bilateral LEs); Denies: neck pain, back pain, joint pain or joint swelling Skin/Breast: Denies: rash Neuro: Denies: headache(s), numbness in extremities, weakness in extremities, sensory changes or dizziness [facility] ED PFSH: Medical History (Updated 03/08/21 @ 01:05 by MALISSA Jacome) Bowel obstruction Essential hypertension Morbid obesity with BMI of 70 and over, adult Surgical History H/O: hysterectomy History of cholecystectomy Family History Other CAD (coronary artery disease) Diabetes Hypertension Social History Smoking and tobacco status: former smoker Alcohol intake: never Physical Exam Const: COMMON NORMALS: no acute distress, patient oriented x3, no limitations and alert GENERAL APPEARANCE: cooperative NUTRITIONAL APPEARANCE: obese morbidly obese (BMI is almost 80) ORIENTATION/CONSCIOUSNESS: Yes awake, Yes oriented to person, Yes oriented to place and Yes oriented to time HENMT: COMMON NORMALS: normocephalic and atraumatic HEAD & SCALP: normocephalic and atraumatic Resp: COMMON NORMALS: normal respiratory effort and clear to auscultation bilaterally AUSCULTATION: clear to auscultation bilaterally Cardio: COMMON NORMALS: regular rate and regular rhythm RATE: regular rate RHYTHM: regular rhythm Extremity: NARRATIVE EXTREMITY EXAM: bilateral LE lymphedema Neuro: COMMON NORMALS: patient oriented x3 SENSORIUM/ORIENTATION: Yes alert, Yes oriented to person, Yes oriented to place and Yes oriented to time Course Vital Signs: Vital signs: Vital Signs Temperature 98.0 F 03/08/21 01:22 Pulse Rate 101 H 03/08/21 01:22 Respiratory Rate 18 03/08/21 01:22 Blood Pressure 152/115 03/08/21 01:22 Pulse Oximetry 96 03/08/21 01:22 MDM - Chest Pain MDM Narrative: Medical decision making narrative: Patient initially tachycardic but that was immediately after walking to her room. This improved with rest. She was very hypertensive upon arrival. She states she does not take her BP reguarly at home but when she does it is often very elevated. This was being treated with metoprolol but states she hasn't had this medications in several months due to loss of insurance. Patient's work up here including trop was negative. CXR normal. EKG w/o ischemic changes. Will place pt back on her BP meds and have CM work on getting her financial aids officer and PCP. We spoke about weight loss and looking into bariatric surgery which she seemed receptive to-states she actually had sought this out previously but had some other medical issues at the time that needed addressed. Return to ED precautions given regarding worsening chest pains/SOB. Lab Data: Labs: Lab Results 03/08/21 03/08/21 03/08/21 Range/Units 00:24 00:24 00:24 WBC 10.9 H (4.0-10.0) 10^3/ uL RBC 5.25 (4.1-5.3) 10^6/u L Hgb 13.3 (11.5-15.3) g/dL Hct 42.8 (37.0-47.0) % MCV 81.5 (81-99) fL MCH 25.3 L (28.0-34.0) pg MCHC 31.1 (30.0-36.0) g/dL RDW 13.5 (12.1-15.1) % Plt Count 203 (130-400) 10^3/c mm MPV 8.7 (7.4-10.4) fL Neut % (Auto) 65.0 % Lymph % (Auto) 28.3 % Beaver % (Auto) 4.4 % Eos % (Auto) 1.6 % Baso % (Auto) 0.2 % Neut # (Auto) 7.08 (1.8-7.7) 10^3/u L Lymph # (Auto) 3.1 (0.8-4.8) 10^3/u L Beaver # (Auto) 0.5 (0.2-0.9) 10^3/u L Eos # (Auto) 0.2 (0.0-0.8) 10^3/u L Baso # (Auto) 0.0 (0.0-0.1) 10^3/u L Nucleated RBC % (a uto) 0 % Nucleated RBCs # 0.0 /100WBC Sodium 141 (136-145) mmol/L Potassium 3.7 (3.5-5.1) mmol/L Chloride 102 (98-107) mmol/L Carbon Dioxide 27 (22-29) mmol/L Anion Gap 15.7 (5-19) BUN 12 (6-20) mg/dL Creatinine 0.5 (0.5-0.9) mg/dL GFR Calculation 140.4 H (90-130) mL/min Glucose 121 H (65-115) mg/dL Calculated Osmolal ity 293 (285-295) mOsm/k g Calcium 8.9 (8.5-10.5) mg/dL Total Bilirubin 0.2 (0.15-1.2) mg/dL AST 13 (0-32) U/L ALT 12 (0-33) U/L Alkaline Phosphata se 79 (35-105) IU/L Troponin T Baselin e 6 (0-10) ng/L Total Protein 7.8 (6.6-8.7) g/dL Albumin 4.2 (3.5-5.2) g/dL Globulin 3.6 (1.3-4.6) g/dL Imaging Data^: CXR: Radiologist's impression: [address] [id number] ReportSigned Patient: Daniela Pulido #: [id number]: [id number]#:[id number]/Sex: 35 / FADM Date: 03/08/21Loc: ERRoom/Bed:Attending Dr: Ordering Provider/Ordering MD: Michelle King Date of Service: 03/08/21 Procedure(s): XR chest 1V portable [id number] Accession Number(s): [id number] Report Number: [id number] PROCEDURE INFORMATION: Exam: XR Chest Exam date and time: 03/08/2021 12:11 AM Age: 35 years old Clinical indication: Chest pressure; Patient HX: Chest pain TECHNIQUE: Imaging protocol: XR of the chest. Views: 1 view. COMPARISON: CR XR chest 1V portable [id number] 05/31/2020 1:22 PM FINDINGS: Lungs: The lungs are clear. Pleural spaces: Unremarkable. No pleural effusion. No pneumothorax. Heart/Mediastinum: Unremarkable. No cardiomegaly. Bones/joints: Unremarkable. XR/XR chest 1V portable [id number] IMPRESSION: Normal study. Dictated By:Iker Godoy MDSigned By:Iker Godoy MDSigned Date/Time:03/08/21 0126DD/ 0124 EKG Data^: EKG 1: EKG interpretation date: 03/08/21 EKG interpretation time: 00:22 Interpretation: Sinus tachycardia Rate [address] elevation or depression changes noted Signed off by Dr. Macdonald Discharge Plan Discharge Patient Disposition: Home Clinical Impression: Lymphedema, Non-cardiac chest pain Hypertension Qualifiers: Hypertension type: essential hypertension Qualified Code(s): I10 - Essential (primary) hypertension Condition: Stable Prescriptions: New metoprolol succinate 50 mg tablet extended release 24 hr 50 mg PO BID Qty: 60 RF: 0 Discontinued metoprolol succinate 100 mg tablet extended release 24 hr 100 mg PO DAILY Qty: 14 RF: 0 No Action aspirin [Aspir-81] 81 mg tablet,delayed release (DR/EC) 81 mg PO DAILY RF: 0 pantoprazole [Protonix] 40 mg tablet,delayed release (DR/EC) 40 mg PO DAILY Qty: 30 RF: 0 cyclobenzaprine 10 mg tablet 10 mg PO BEDTIME Qty: 14 RF: 0 bumetanide 0.5 mg tablet 0.5 mg PO DAILY Qty: 14 RF: 0 metolazone 2.5 mg tablet 2.5 mg PO DAILY Qty: 14 RF: 0 amlodipine [Norvasc] 5 mg tablet 5 mg PO DAILY Qty: 14 RF: 0 Discharge Orders: Discharge ED (Routine); Ordered 03/08/21 Ordered By: Michelle King Patient Instructions: Chest Pain - Noncardiac Activity Restrictions/Additional Instructions: As discussed case management should reach out to you in regards to setting you up with a primary care provider. Please fill your blood pressure medication and begin taking it. Please keep a blood pressure log to follow-up with primary care. Return to the emergency department for worsening or nonresolving chest pain, severe shortness of breath/difficulty breathing, fevers, any other concerns you may have. Coding Level of Care Code ED Manager Civil for Chg Fwd Exam Expanded Problem Focused
[2021-03-08 00:34] LABS: Basophils % 0.2 %; Eosinophils # 0.2 10^3/uL (0.0-0.8); Eosinophils % 1.6 %; Hematocrit 42.8 % (37.0-47.0); Hemoglobin 13.3 g/dL (11.5-15.3); Lymphocytes # 3.1 10^3/uL (0.8-4.8); Lymphocytes % 28.3 %; Mean Corpuscular HGB Conc 31.1 g/dL (30.0-36.0); Mean Corpuscular Hemoglobin 25.3 pg (28.0-34.0); Mean Corpuscular Volume 81.5 fL (81-99); Mean Platelet Volume 8.7 fL (7.4-10.4); Monocytes # 0.5 10^3/uL (0.2-0.9); Monocytes % 4.4 %; Neutrophils # 7.08 10^3/uL (1.8-7.7); Nucleated Red Blood Cells % 0 %; Platelet Count 203 10^3/cmm (130-400); Red Blood Count 5.25 10^6/uL (4.1-5.3); Red Cell Distribution Width 13.5 % (12.1-15.1); White Blood Count 10.9 10^3/uL (4.0-10.0)
[2021-03-08] MEDS: metoprolol tartrate 1 mg/1 mL SDV 5 mL 5 MG IV (00:34)
[2021-03-08 00:50] LABS: Troponin(5th) Baseline 6 ng/L (0-10)
[2021-03-08 00:52] LABS: Alanine Aminotransferase 12 U/L (0-33); Albumin Level 4.2 g/dL (3.5-5.2); Alkaline Phosphatase 79 IU/L (35-105); Anion Gap 15.7 (5-19); Aspartate Amino Transferase 13 U/L (0-32); Blood Urea Nitrogen 12 mg/dL (6-20); Calcium 8.9 mg/dL (8.5-10.5); Carbon Dioxide 27 mmol/L (22-29); Chloride 102 mmol/L (98-107); Globulin 3.6 g/dL (1.3-4.6); Glomerular Filtration Rate 140.4 mL/min (90-130); Glucose 121 mg/dL (65-115); Osmolality Calculated 293 mOsm/kg (285-295); Potassium 3.7 mmol/L (3.5-5.1); Sodium 141 mmol/L (136-145); Total Bilirubin 0.2 mg/dL (0.15-1.2); Total Protein 7.8 g/dL (6.6-8.7)
--- NOTE | 2021-03-11 14:34 | DCPLANNER ---
Addendum entered by Elena Aggarwal 03/11/21 14:53: Patient returned lining caser phone call, would like to be set up at [facility]. career services manager will fax patients information to [facility], and informed patient to call [facility] next week and ask about getting established with a provider. Original Note: career services manager had message to speak with patient about getting established with a primary care physician. career services manager called phone number [phone], unable to speak with patient at this time, a voicemail was left for patient to return lining caser phone call.
== END 2021-03-08 01:39 | disposition home or self-care (01) ==
PROVIDERS: Emergency Provider Physician Assistant
DX: R07.89 Other chest pain (principal); I89.0 Lymphedema, not elsewhere classified; I10 Essential (primary) hypertension; Z79.82 Long term (current) use of aspirin; Z87.891 Personal history of nicotine dependence
CPT/HCPCS: 71045; 80053; 84484; 85025; 96374; 99284; J3490

== ENCOUNTER 2022-07-08 12:38 | Emergency (ER) | payer BC, MEDICAID, SELFPAY ==
[2022-07-08 13:23] VITALS: BP 153/97; PULSE 118; RESP 16; TEMP 36.7; O2SAT 96; BMI 78.2
[2022-07-08 14:08] LABS: Basophils % 0.2 %; Eosinophils # 0.1 10^3/uL (0.0-0.8); Eosinophils % 0.5 %; Hematocrit 44.2 % (37.0-47.0); Hemoglobin 14.4 g/dL (11.5-15.3); Lymphocytes # 1.8 10^3/uL (0.8-4.8); Lymphocytes % 16.5 %; Mean Corpuscular HGB Conc 32.6 g/dL (30.0-36.0); Mean Corpuscular Hemoglobin 27.6 pg (28.0-34.0); Mean Corpuscular Volume 84.8 fl (81-99); Mean Platelet Volume 9.1 fL (7.4-10.4); Monocytes # 0.4 10^3/uL (0.2-0.9); Monocytes % 3.3 %; Neutrophils # 8.56 10^3/uL (1.8-7.7); Nucleated Red Blood Cells % 0 %; Platelet Count 222 10^3/cmm (130-400); Red Blood Count 5.21 10^6/uL (4.1-5.3); Red Cell Distribution Width 13.5 % (12.1-15.1); White Blood Count 10.8 10^3/uL (4.0-10.0)
[2022-07-08 14:26] LABS: Alanine Aminotransferase 11 U/L (0-33); Albumin Level 4.2 g/dL (3.5-5.2); Alkaline Phosphatase 73 U/L (35-105); Anion Gap 16.7 (5-19); Aspartate Amino Transferase 13 U/L (0-32); Blood Urea Nitrogen 6 mg/dL (6-20); Calcium 9.4 mg/dL (8.5-10.5); Carbon Dioxide 26 mmol/L (22-29); Chloride 100 mmol/L (98-107); Glomerular Filtration Rate 138.8 mL/min (90-130); Glucose 116 mg/dL (65-115); Lipase 17 U/L (13-60); Osmolality Calculated 287 mOsm/kg (285-295); Potassium 3.7 mmol/L (3.5-5.1); Sodium 139 mmol/L (136-145); Total Bilirubin 0.4 mg/dL (0.15-1.2); Total Protein 8.2 g/dL (6.6-8.7)
--- NOTE | 2022-07-08 19:03 | W.ED.ABDPA2 ---
HPI - Abdominal Pain General: Chief Complaint: Abdominal Pain Stated Complaint: abd pain Time Seen by Provider: 07/08/22 18:56 History of Present Illness: 37-year-old female presents with abdominal pain. Patient reports that it started this morning when she was awake. That located in lower left quadrant to the umbilicus. She not sure if it started in the low middle or the side but she is kind that generalized area now. She complains of some pain in her left leg. She has some nausea and vomiting but no diarrhea. Patient is passing gas. Patient reports that she has had a history of a prior bowel obstruction, hysterectomy and a gallbladder surgery. She denies any fever, chills, cough. She denies any burning or stinging with urination Associated Symptoms: Reports nausea and vomiting; Denies chills, constipation, diarrhea, dysuria and fever(s) Review of Systems Const: Denies: fever(s) or chills Eyes: Denies: change in vision or blurry vision ENMT: Denies: throat pain or ear or mastoid pain Card: Reports: lightheadedness; Denies: chest pain or palpitations Resp: Denies: dyspnea, productive cough or wheezing GI: Reports: abdominal pain, nausea and vomiting; Denies: diarrhea or constipation : Denies: flank pain, difficulty voiding or dysuria Musc: Denies: neck pain or back pain Skin/Breast: Denies: rash or pruritus Neuro: Denies: headache(s) [facility] ED PFSH: Medical History (Updated 07/08/22 @ 20:55 by Adin Reyes DO) Bowel obstruction Essential hypertension Morbid obesity with BMI of 70 and over, adult Surgical History H/O: hysterectomy History of cholecystectomy Family History Other CAD (coronary artery disease) Diabetes Hypertension Social History Smoking and tobacco status: former smoker Alcohol intake: never Physical Exam Const: GENERAL APPEARANCE: cooperative NUTRITIONAL APPEARANCE: obese morbidly obese HENMT: COMMON NORMALS: hearing grossly normal bilaterally and moist oral mucous membranes Resp: COMMON NORMALS: normal respiratory effort, No use of accessory muscles and clear to auscultation bilaterally AUSCULTATION: clear to auscultation bilaterally Cardio: COMMON NORMALS: regular rhythm RATE: tachycardic RHYTHM: regular rhythm GI: COMMON NORMALS: Soft to palpation PALPATION: Yes Soft to palpation and Yes Tenderness to palpation present (GI) Details: LUQ : COMMON NORMALS: Yes no CVA tenderness BLADDER/KIDNEY EXAM: Yes no CVA tenderness Back/Pelvis: COMMON NORMALS: no CVA tenderness Extremity: COMMON NORMALS: capillary refill normal OTHER: Bilateral lower extremity lymphedema Neuro: COMMON NORMALS: moves all extremities and no focal motor deficits Psych: COMMON NORMALS: mental status grossly normal, Normal thought process present, cooperative and normal affect THOUGHT PROCESS: Normal thought process present Skin: COMMON NORMALS: no rashes or lesions noted GENERAL SKIN EXAM: no rashes or lesions noted Course Vital Signs: Vital signs: Vital Signs Temperature 98.1 F 07/08/22 13:23 Pulse Rate 110 H 07/08/22 19:39 Respiratory Rate 18 07/08/22 19:39 Blood Pressure 160/107 07/08/22 19:39 Pulse Oximetry 95 07/08/22 19:39 Oxygen Delivery Me thod 07/08/22 19:39 MDM - Abdominal Pain Medical Decision Making Patient with questionable diverticulitis on CT with questionable urinary tract infection. I will treat her for both with Cipro and Flagyl. Better with some nausea medication and a couple hydrocodone's. If her symptoms continue or worsen she is to follow-up with her primary care provider. Patient stable and discharged home Lab Data : 07/08/22 14:03 07/08/22 14:03 Labs/Radiology: Radiology Impressions Abdomen/Pelvis CT 07/08/22 20:02 IMPRESSION: 1. Mid sigmoid colon demonstrates several diverticula with perhaps minimal edema seen about 1 diverticula, series 4, image 84, perhaps reflecting a mild diverticulitis in the appropriate clinical setting. 2. Cholecystectomy. Laboratory Results WBC 10.8 10^3/uL (4.0-10.0) H 07/08/22 14:03 RBC 5.21 10^6/uL (4.1-5.3) 07/08/22 14:03 Hgb 14.4 g/dL (11.5-15.3) 07/08/22 14:03 Hct 44.2 % (37.0-47.0) 07/08/22 14:03 MCV 84.8 fl (81-99) 07/08/22 14:03 MCH 27.6 pg (28.0-34.0) L 07/08/22 14:03 MCHC 32.6 g/dL (30.0-36.0) 07/08/22 14:03 RDW 13.5 % (12.1-15.1) 07/08/22 14:03 Plt Count 222 10^3/cmm (130-400) 07/08/22 14:03 MPV 9.1 fL (7.4-10.4) 07/08/22 14:03 Neut % (Auto) 79.0 % 07/08/22 14:03 Lymph % (Auto) 16.5 % 07/08/22 14:03 Braxton % (Auto) 3.3 % 07/08/22 14:03 Eos % (Auto) 0.5 % 07/08/22 14:03 Baso % (Auto) 0.2 % 07/08/22 14:03 Neut # (Auto) 8.56 10^3/uL (1.8-7.7) H 07/08/22 14:03 Lymph # (Auto) 1.8 10^3/uL (0.8-4.8) 07/08/22 14:03 Braxton # (Auto) 0.4 10^3/uL (0.2-0.9) 07/08/22 14:03 Eos # (Auto) 0.1 10^3/uL (0.0-0.8) 07/08/22 14:03 Baso # (Auto) 0.0 10^3/uL (0.0-0.1) 07/08/22 14:03 Nucleated RBC % (auto) 0 % 07/08/22 14:03 Nucleated RBCs # 0.0 /100WBC 07/08/22 14:03 Sodium 139 mmol/L (136-145) 07/08/22 14:03 Potassium 3.7 mmol/L (3.5-5.1) 07/08/22 14:03 Chloride 100 mmol/L (98-107) 07/08/22 14:03 Carbon Dioxide 26 mmol/L (22-29) 07/08/22 14:03 Anion Gap 16.7 (5-19) 07/08/22 14:03 BUN 6 mg/dL (6-20) 07/08/22 14:03 Creatinine 0.5 mg/dL (0.5-0.9) 07/08/22 14:03 GFR Calculation 138.8 mL/min (90-130) H 07/08/22 14:03 Glucose 116 mg/dL (65-115) H 07/08/22 14:03 Calculated Osmolality 287 mOsm/kg (285-295) 07/08/22 14:03 Calcium 9.4 mg/dL (8.5-10.5) 07/08/22 14:03 Total Bilirubin 0.4 mg/dL (0.15-1.2) 07/08/22 14:03 AST 13 U/L (0-32) 07/08/22 14:03 ALT 11 U/L (0-33) 07/08/22 14:03 Alkaline Phosphatase 73 U/L (35-105) 07/08/22 14:03 Total Protein 8.2 g/dL (6.6-8.7) 07/08/22 14:03 Albumin 4.2 g/dL (3.5-5.2) 07/08/22 14:03 Globulin 4.0 g/dL (1.3-4.6) 07/08/22 14:03 Lipase 17 U/L (13-60) 07/08/22 14:03 Urine Color Yellow (Yellow) 07/08/22 19:25 Urine Appearance Sl hazy (CLEAR) 07/08/22 19:25 Urine pH 6 (5-7) 07/08/22 19:25 Ur Specific Gaylord 1.015 (1.005-1.030) 07/08/22 19:25 Urine Protein Neg (Negative) 07/08/22 19:25 Urine Glucose (UA) Norm (Normal) 07/08/22 19:25 Urine Ketones 2+ (Negative) H 07/08/22 19:25 Urine Blood Neg (Negative) 07/08/22 19:25 Urine Nitrate Negative (Negative) 07/08/22 19:25 Urine Bilirubin Neg (Negative) 07/08/22 19:25 Urine Urobilinogen Norm mg/dL (Negative) 07/08/22 19:25 Ur Leukocyte Esterase Negative (Negative) 07/08/22 19:25 Urine RBC 0-4 /hpf (0-2) H 07/08/22 19:25 Urine WBC 0-4 /hpf (0-5) H 07/08/22 19:25 Ur Squamous Epith Cells 5-10 /hpf (0-5) H 07/08/22 19:25 Amorphous Sediment Not Reportable 07/08/22 19:25 Urine Bacteria 4+ /hpf (NONE) H 07/08/22 19:25 Urine Mucus 2+ /hpf 07/08/22 19:25 Discharge Plan Discharge Patient Disposition: Home Clinical Impression: Diverticulitis Condition: Stable Prescriptions: New ciprofloxacin HCl 500 mg tablet 500 mg PO Q12H Qty: 14 0RF metronidazole 500 mg tablet 500 mg PO Q8H 7 Days Qty: 21 0RF ondansetron HCl 4 mg tablet 4 mg PO Q6H PRN (Reason: nausea and vomiting) Qty: 20 0RF hydrocodone-acetaminophen 5-325 mg tablet 1 tab PO Q12H PRN (Reason: pain) Qty: 5 0RF No Action aspirin [Aspir-81] 81 mg tablet,delayed release (DR/EC) 81 mg PO DAILY pantoprazole [Protonix] 40 mg tablet,delayed release (DR/EC) 40 mg PO DAILY Qty: 30 0RF Rx Instructions: 340 B cyclobenzaprine 10 mg tablet 10 mg PO BEDTIME Qty: 14 0RF bumetanide 0.5 mg tablet 0.5 mg PO DAILY Qty: 14 0RF metolazone 2.5 mg tablet 2.5 mg PO DAILY Qty: 14 0RF amlodipine [Norvasc] 5 mg tablet 5 mg PO DAILY Qty: 14 0RF metoprolol succinate 50 mg tablet extended release 24 hr 50 mg PO BID Qty: 60 0RF Discharge Orders: Discharge ED (Routine); Ordered 07/08/22 Ordered By: Adin Reyes Discharge Diet: Advance as tolerated Discharge Activity: Resume usual activity Patient Instructions: Opioid Safety, Pain Management, Diverticulitis (ED), Diverticulitis Diet (ED) Activity Restrictions/Additional Instructions: Follow-up with your primary care provider in 5 to 7 days for recheck of your symptoms and further outpatient evaluation as needed Coding Level of Care Code ED Diamond Cleaver for g Fwd Exam Comprehensive
[2022-07-08] MEDS: ondansetron 2 mg/ML SDV 2 mL 4 MG IVP (19:34)
[2022-07-08] MEDS: ketorolac 30 mg/mL INJ 15 MG IVP (19:34)
[2022-07-08 19:39] VITALS: BP 160/107; PULSE 110; RESP 18; O2SAT 95
[2022-07-08 19:46] LABS: Add Urine Microscopic? YES; Bacteria Urine 4+ /hpf; Bilirubin Urine Neg (Negative); Blood Urine Neg (Negative); Glucose Urine UA Norm (Normal); Ketones Urine 2+ (Negative); Leukocyte Esterase Urine Negative (Negative); Mucus Urine 2+ /hpf; Nitrate Urine Negative (Negative); Protein Urine Neg (Negative); RBC Urine 0-4 /hpf (0-2); Specific Gravity, Urine 1.015 (1.005-1.030); Urine Appearance SL Hazy (CLEAR); Urine Color Yellow (Yellow); Urobilinogen Urine Norm (Negative); WBC Urine 0-4 /hpf (0-5); pH Urine 6 (5-7)
[2022-07-08 19:47] LABS: Add Urine Culture? Yes
--- NOTE | 2022-07-08 20:02 | CTR_ITS ---
PROCEDURE INFORMATION: Exam: CT Abdomen And Pelvis With Contrast Exam date and time: 07/08/2022 8:12 PM Age: 37 years old Clinical indication: Abdominal pain; Generalized; Prior surgery; Surgery date: 6+ months; Surgery type: Hyst, bowel obstruction, gall bladder; Additional info: Stone vs divertic TECHNIQUE: Imaging protocol: Computed tomography of the abdomen and pelvis with contrast. Radiation optimization: All CT scans at this facility use at least one of these dose optimization techniques: automated exposure control; mA and/or kV adjustment per patient size (includes targeted exams where dose is matched to clinical indication); or iterative reconstruction. Contrast material: OMNIPAQUE 350; Contrast volume: 80 ml; Contrast route: INTRAVENOUS (IV); COMPARISON: CT abdomen pelvis w con* [id number] 09/10/2017 12:04 AM RADIATION DOSE METRICS: Total DLP (mGy-cm): 1989.7 FINDINGS: Liver: Normal. No mass. Gallbladder and bile ducts: Cholecystectomy. Pancreas: Normal. No ductal dilation. Spleen: Normal. No splenomegaly. Adrenal glands: Normal. No mass. Kidneys and ureters: Normal. No hydronephrosis. Stomach and bowel: Mid sigmoid colon demonstrates several diverticula with perhaps minimal edema seen about 1 diverticula, series 4, image 84, perhaps reflecting a mild diverticulitis in the appropriate clinical setting. Appendix: No evidence of appendicitis. Intraperitoneal space: Unremarkable. No free air. No significant fluid collection. Vasculature: Unremarkable. No abdominal aortic aneurysm. Lymph nodes: Unremarkable. No enlarged lymph nodes. Urinary bladder: Unremarkable as visualized. Reproductive: Unremarkable as visualized. Bones/joints: Unremarkable. No acute fracture. Soft tissues: Unremarkable. CT/CT abdomen pelvis w con* [id number] IMPRESSION: 1. Mid sigmoid colon demonstrates several diverticula with perhaps minimal edema seen about 1 diverticula, series 4, image 84, perhaps reflecting a mild diverticulitis in the appropriate clinical setting. 2. Cholecystectomy.
[2022-07-08] MEDS: iohexol 350 mg/mL 100 mL Btl IV (20:13)
[2022-07-08 21:17] VITALS: BP 149/97; PULSE 102; RESP 16; TEMP 36.6; O2SAT 95
== END 2022-07-08 21:35 | disposition home or self-care (01) ==
PROVIDERS: Family Medicine; Emergency Provider Student in an Organized Health Care Education/Training Program
DX: K57.92 Diverticulitis of intestine, part unspecified, without perforation or abscess without bleeding (principal); Z79.82 Long term (current) use of aspirin; I10 Essential (primary) hypertension; Z87.891 Personal history of nicotine dependence
CPT/HCPCS: 36415; 74177; 80053; 81001; 83690; 85025; 87086; 96374; 96375; 99285; J1885; J2405; Q9967

== ENCOUNTER 2023-02-16 19:51 | Emergency (ER) | payer BC, MEDICAID, SELFPAY ==
[2023-02-16 20:05] VITALS: BP 163/116; PULSE 99; RESP 18; TEMP 36.7; O2SAT 96; BMI 66.4
[2023-02-16 21:10] LABS: Basophils % 0.2 %; Eosinophils # 0.2 10^3/uL (0.0-0.8); Eosinophils % 1.5 %; Hematocrit 41.4 % (37.0-47.0); Hemoglobin 12.9 g/dL (11.5-15.3); Lymphocytes # 2.7 10^3/uL (0.8-4.8); Lymphocytes % 23.3 %; Mean Corpuscular HGB Conc 31.2 g/dL (30.0-36.0); Mean Corpuscular Hemoglobin 25.5 pg (28.0-34.0); Mean Platelet Volume 8.7 fL (7.4-10.4); Monocytes # 0.4 10^3/uL (0.2-0.9); Monocytes % 3.4 %; Neutrophils # 8.18 10^3/uL (1.8-7.7); Neutrophils % 71.2 %; Nucleated Red Blood Cells % 0 %; Platelet Count 195 10^3/cmm (130-400); Red Blood Count 5.05 10^6/uL (4.1-5.3); Red Cell Distribution Width 13.9 % (12.1-15.1); White Blood Count 11.5 10^3/uL (4.0-10.0)
[2023-02-16 21:26] LABS: HCG, Serum Qual Negative (Negative)
[2023-02-16 21:31] LABS: Alanine Aminotransferase 8 U/L (0-33); Alkaline Phosphatase 81 U/L (35-105); Anion Gap 15.4 (5-19); Aspartate Amino Transferase 12 U/L (0-32); Blood Urea Nitrogen 8 mg/dL (6-20); Calcium 9.1 mg/dL (8.5-10.5); Carbon Dioxide 26 mmol/L (22-29); Chloride 99 mmol/L (98-107); Globulin 3.9 g/dL (1.3-4.6); Glomerular Filtration Rate 138.8 mL/min (90-130); Glucose 103 mg/dL (65-115); Lipase 41 U/L (13-60); Osmolality Calculated 283 mOsm/kg (285-295); Potassium 3.4 mmol/L (3.5-5.1); Sodium 137 mmol/L (136-145); Total Bilirubin 0.2 mg/dL (0.15-1.2); Total Protein 7.9 g/dL (6.6-8.7)
--- NOTE | 2023-02-16 22:11 | CTR_ITS ---
PROCEDURE INFORMATION: Exam: CT Abdomen And Pelvis With Contrast Exam date and time: 02/16/2023 10:54 PM Age: 37 years old Clinical indication: Nausea and vomiting; Abdominal pain; Generalized; Prior surgery; Surgery type: Gb. Hysterectomy; Patient HX: Diffuse abd pain with n/v. History of diverticulitis. TECHNIQUE: Imaging protocol: Computed tomography of the abdomen and pelvis with contrast. Radiation optimization: All CT scans at this facility use at least one of these dose optimization techniques: automated exposure control; mA and/or kV adjustment per patient size (includes targeted exams where dose is matched to clinical indication); or iterative reconstruction. Contrast material: OMNI 350; Contrast volume: 100 ml; Contrast route: INTRAVENOUS (IV); REPORTING DATA: Count of CT and Cardiac NM exams in prior 12 months: This patient has received [address] and 0 known cardiac nuclear medicine studies in the 12 months prior to the current study. COMPARISON: CT abdomen pelvis w con* [id number] 07/08/2022 8:12 PM RADIATION DOSE METRICS: Total DLP (mGy-cm): 1305.7 FINDINGS: Liver: Liver is enlarged measuring 24 cm which is unchanged. Gallbladder and bile ducts: Cholecystectomy is unchanged. Pancreas: Normal. No ductal dilation. Spleen: The spleen is mildly enlarged measuring 13 cm which is also similar. Adrenal glands: Normal. No mass. Kidneys and ureters: Normal. No hydronephrosis. Stomach and bowel: There is wall thickening of the colon beyond the mid transverse segment extending to the rectum. There are sigmoid colonic diverticuli present which do not appear to be the source of inflammation. There is no evidence of bowel obstruction. Appendix: No evidence of appendicitis. Intraperitoneal space: Unremarkable. No free air. No significant fluid collection. Vasculature: Unremarkable. No abdominal aortic aneurysm. Lymph nodes: Unremarkable. No enlarged lymph nodes. Urinary bladder: Unremarkable as visualized. Reproductive: Hysterectomy changes are stable. Bones/joints: Unremarkable. No acute fracture. Soft tissues: Fat containing supraumbilical ventral abdominal wall hernias are unchanged. CT/CT abdomen pelvis w con* [id number] IMPRESSION: 1. Wall thickening of the mid to distal colon suspicious for colitis. This is likely infectious/inflammatory. No bowel obstruction. Colonic diverticuli are again seen which do not themselves appear inflamed. 2. Stable hepatosplenomegaly.
--- NOTE | 2023-02-16 22:14 | ED_ITS ---
HPI - Abdominal Pain General: Chief Complaint: Abdominal Pain Stated Complaint: abd pain vomiting Time Seen by Provider: 02/16/23 21:47 Source: patient Mode of arrival: ambulatory Limitations: no limitations History of Present Illness: 37-year-old female states she has been having abdominal pain over the last 2 days she states she is also been having some diarrhea she denies any constipation she has a history of bowel obstruction in the past. States pain is in her left lower quadrant rates it a 5 out of 10 she has had no dysuria denies any fevers Associated Symptoms: Reports nausea and vomiting; Denies chills, diarrhea, dysuria and fever(s) Review of Systems Const: Denies: fever(s), chills, body aches or change in appetite Eyes: Denies: eye discomfort ENMT: Denies: throat pain or dental pain Card: Denies: chest pain Resp: Denies: dyspnea GI: Reports: abdominal pain, nausea and vomiting; Denies: diarrhea : Denies: dysuria Musc: Denies: neck pain or back pain Skin/Breast: Denies: rash Neuro: Denies: headache(s) PFSH ED PFSH: Medical History Bowel obstruction Essential hypertension Morbid obesity with BMI of 70 and over, adult Surgical History H/O: hysterectomy History of cholecystectomy Family History Other CAD (coronary artery disease) Diabetes Hypertension Social History Smoking and tobacco status: former smoker Alcohol intake: never Substance/Drug Use: never Physical Exam Const: COMMON NORMALS: no acute distress and patient oriented x3 HENMT: COMMON NORMALS: normocephalic and atraumatic HEAD & SCALP: normocephalic and atraumatic Eye: COMMON NORMALS: conjunctivae normal CONJUNCTIVA: Yes conjunctivae normal Neck/C-Spine: COMMON NORMALS: full ROM and supple Chest: COMMONS NORMALS: normal inspection of the chest and normal palpation of entire chest wall Resp: COMMON NORMALS: normal respiratory effort, No retractions, No use of accessory muscles and clear to auscultation bilaterally AUSCULTATION: clear to auscultation bilaterally Cardio: COMMON NORMALS: regular rate, regular rhythm and No murmurs present (Cardio) RATE: regular rate RHYTHM: regular rhythm GI: COMMON NORMALS: Normal to inspection, nondistended, normoactive bowel sounds present, Soft to palpation, non-tender and no masses PALPATION: Yes Soft to palpation Extremity: COMMON NORMALS: normal to inspection and full ROM Neuro: COMMON NORMALS: patient oriented x3, moves all extremities and no focal motor deficits Psych: COMMON NORMALS: mental status grossly normal, Normal thought process present and cooperative THOUGHT PROCESS: Normal thought process present Skin: COMMON NORMALS: no rashes or lesions noted and no wounds GENERAL SKIN EXAM: no rashes or lesions noted Course Vital Signs: Vital signs: Vital Signs Temperature 98.0 F 02/16/23 20:05 Pulse Rate 97 02/16/23 22:32 Respiratory Rate 16 02/16/23 22:35 Blood Pressure 137/109 02/16/23 22:32 Pulse Oximetry 95 02/16/23 22:32 Oxygen Delivery Me thod Room Air 02/16/23 20:05 MDM - Abdominal Pain Medical Decision Making Patient presents with abdominal pain CT does show a colitis her pains improved here abdominal discharge is benign we will start her on Cipro Flagyl along with [place] and Zofran she is to follow-up with PCP and return if worsening. Lab Data 02/16/23 21:00 02/16/23 21:00 Labs/Radiology: Radiology Impressions Abdomen/Pelvis CT 02/16/23 22:11 IMPRESSION: 1. Wall thickening of the mid to distal colon suspicious for colitis. This is likely infectious/inflammatory. No bowel obstruction. Colonic diverticuli are again seen which do not themselves appear inflamed. 2. Stable hepatosplenomegaly. Laboratory Results WBC 11.5 10^3/uL (4.0-10.0) H 02/16/23 21:00 RBC 5.05 10^6/uL (4.1-5.3) 02/16/23 21:00 Hgb 12.9 g/dL (11.5-15.3) 02/16/23 21:00 Hct 41.4 % (37.0-47.0) 02/16/23 21:00 MCV 82.0 fl (81-99) 02/16/23 21:00 MCH 25.5 pg (28.0-34.0) L 02/16/23 21:00 MCHC 31.2 g/dL (30.0-36.0) 02/16/23 21:00 RDW 13.9 % (12.1-15.1) 02/16/23 21:00 Plt Count 195 10^3/cmm (130-400) 02/16/23 21:00 MPV 8.7 fL (7.4-10.4) 02/16/23 21:00 Neut % (Auto) 71.2 % 02/16/23 21:00 Lymph % (Auto) 23.3 % 02/16/23 21:00 [place] % (Auto) 3.4 % 02/16/23 21:00 Eos % (Auto) 1.5 % 02/16/23 21:00 Baso % (Auto) 0.2 % 02/16/23 21:00 Neut # (Auto) 8.18 10^3/uL (1.8-7.7) H 02/16/23 21:00 Lymph # (Auto) 2.7 10^3/uL (0.8-4.8) 02/16/23 21:00 [place] # (Auto) 0.4 10^3/uL (0.2-0.9) 02/16/23 21:00 Eos # (Auto) 0.2 10^3/uL (0.0-0.8) 02/16/23 21:00 Baso # (Auto) 0.0 10^3/uL (0.0-0.1) 02/16/23 21:00 Nucleated RBC % (auto) 0 % 02/16/23 21:00 Nucleated RBCs # 0.0 /100WBC 02/16/23 21:00 Sodium 137 mmol/L (136-145) 02/16/23 21:00 Potassium 3.4 mmol/L (3.5-5.1) L 02/16/23 21:00 Chloride 99 mmol/L (98-107) 02/16/23 21:00 Carbon Dioxide 26 mmol/L (22-29) 02/16/23 21:00 Anion Gap 15.4 (5-19) 02/16/23 21:00 BUN 8 mg/dL (6-20) 02/16/23 21:00 Creatinine 0.5 mg/dL (0.5-0.9) 02/16/23 21:00 GFR Calculation 138.8 mL/min (90-130) H 02/16/23 21:00 Glucose 103 mg/dL (65-115) 02/16/23 21:00 Calculated Osmolality 283 mOsm/kg (285-295) L 02/16/23 21:00 Calcium 9.1 mg/dL (8.5-10.5) 02/16/23 21:00 Total Bilirubin 0.2 mg/dL (0.15-1.2) 02/16/23 21:00 AST 12 U/L (0-32) 02/16/23 21:00 ALT 8 U/L (0-33) 02/16/23 21:00 Alkaline Phosphatase 81 U/L (35-105) 02/16/23 21:00 Total Protein 7.9 g/dL (6.6-8.7) 02/16/23 21:00 Albumin 4.0 g/dL (3.5-5.2) 02/16/23 21:00 Globulin 3.9 g/dL (1.3-4.6) 02/16/23 21:00 Lipase 41 U/L (13-60) 02/16/23 21:00 HCG, Qual Negative (Negative) 02/16/23 21:00 Discharge Plan Discharge Patient Disposition: Home Clinical Impression: Colitis Condition: Stable Prescriptions: New hydrocodone-acetaminophen 5-325 mg tablet 1 tab PO Q6H PRN (Reason: pain) Qty: 14 0RF metronidazole 500 mg tablet 500 mg PO Q8H 7 Days Qty: 21 0RF Cipro 500 mg tablet 500 mg PO BID Qty: 14 0RF ondansetron 4 mg tablet,disintegrating 4 mg PO Q6H PRN (Reason: nausea and vomiting) Qty: 14 0RF No Action aspirin [Aspir-81] 81 mg tablet,delayed release (DR/EC) 81 mg PO DAILY pantoprazole [Protonix] 40 mg tablet,delayed release (DR/EC) 40 mg PO DAILY Qty: 30 0RF Rx Instructions: 340 B cyclobenzaprine 10 mg tablet 10 mg PO BEDTIME Qty: 14 0RF bumetanide 0.5 mg tablet 0.5 mg PO DAILY Qty: 14 0RF metolazone 2.5 mg tablet 2.5 mg PO DAILY Qty: 14 0RF amlodipine [Norvasc] 5 mg tablet 5 mg PO DAILY Qty: 14 0RF metoprolol succinate 50 mg tablet extended release 24 hr 50 mg PO BID Qty: 60 0RF ciprofloxacin HCl 500 mg tablet 500 mg PO Q12H Qty: 14 0RF ondansetron HCl 4 mg tablet 4 mg PO Q6H PRN (Reason: nausea and vomiting) Qty: 20 0RF hydrocodone-acetaminophen 5-325 mg tablet 1 tab PO Q12H PRN (Reason: pain) Qty: 5 0RF Discharge Orders: Discharge ED (Routine); Ordered 02/17/23 Ordered By: Alessia Macdonald Referrals: Iker Jama MD [Primary Care Provider] - 1-3 days Discharge Diet: Advance as tolerated Discharge Activity: Resume usual activity Patient Instructions: Colitis (ED), Opioid Safety Coding Level of Care Code ED Refresh Technician for Lissette Parker
[2023-02-16 22:32] VITALS: BP 137/109; PULSE 97; RESP 16; O2SAT 95
[2023-02-16] MEDS: ondansetron 2 mg/ML SDV 2 mL 4 MG IVP (22:34)
[2023-02-16 22:35] VITALS: RESP 16
[2023-02-16] MEDS: HYDROmorphone 1 mg/mL INJ 1 mL IVP (22:35)
[2023-02-16] MEDS: iohexol 350 mg/mL 500 mL Btl (per mL) IV (22:57)
[2023-02-17 00:25] VITALS: BP 138/102; PULSE 95; RESP 16; O2SAT 95
== END 2023-02-17 00:27 | disposition home or self-care (01) ==
PROVIDERS: Emergency Provider Emergency Medicine; PCP Family Medicine
DX: K52.9 Noninfective gastroenteritis and colitis, unspecified (principal); Z79.82 Long term (current) use of aspirin; I10 Essential (primary) hypertension; Z87.891 Personal history of nicotine dependence
CPT/HCPCS: 36415; 74177; 80053; 83690; 84703; 85025; J1170; J2405; Q9967

== ENCOUNTER 2023-11-25 14:14 | Outpatient (RCR) | payer OTHER, SELFPAY | END 2023-11-25 23:59 | disposition home or self-care (01) | LOC: SPT 14:14 | PROVIDERS: PCP Physician Assistant; Visit Provider Physician Assistant | DX: I89.0 Lymphedema, not elsewhere classified (principal) | CPT/HCPCS: 97161 ==

== ENCOUNTER 2023-12-16 11:17 | Inpatient (IN) | payer OTHER, SELFPAY ==
[2023-12-16] VITALS (8 sets, daily range): BP systolic 121–168; BP diastolic 72–100; PULSE 93–121; RESP 17–20; TEMP 36.9–38.7; O2SAT 92–98; BMI 61.3
--- NOTE | 2023-12-16 11:49 | XR_ITS ---
WS: [id number] Exam: XR chest 1V portable [id number] Date/Time of Exam: 12/16/2023 11:49 AM Reason For Exam: fever Comparison 03/08/2021. Findings: The lungs are clear and fully expanded. Costophrenic angles are sharp. No infiltrates. Bronchovascula r relief appears normal. Cardiac silhouette is unremarkable. Bony elements are intact. IMPRESSION: Unremarkable chest radiograph.
[2023-12-16] MEDS: sodium chloride 0.9% 1,000 ML 999 ML IV ×3 (11:51→13:20)
[2023-12-16] MEDS: ondansetron 2 mg/ML SDV 2 mL 4 MG IVP ×2 (11:51→20:56)
[2023-12-16] MEDS: acetaminophen 500 mg Tablet 1000 MG PO (11:51)
[2023-12-16 11:52] LABS: Basophils % 0.2 %; Hematocrit 39.1 % (36-47); Lymphocytes # 1.3 10^3/uL (0.8-4.8); Lymphocytes % 6.3 %; Mean Corpuscular HGB Conc 31.7 g/dL (30-55); Mean Corpuscular Hemoglobin 25.9 pg (27-33); Mean Corpuscular Volume 81.8 fl (85-98); Mean Platelet Volume 8.5 fL (7.4-10.4); Monocytes # 0.5 10^3/uL (0.2-0.9); Monocytes % 2.3 %; Neutrophils % 90.4 %; Nucleated Red Blood Cells % 0 %; Platelet Count 167 10^3/cmm (157-399); Red Blood Count 4.78 10^6/uL (3.85-5.65); Red Cell Distribution Width 13.9 % (12.1-15.1); White Blood Count 19.79 10^3/uL (3.29-11.43)
--- NOTE | 2023-12-16 11:58 | ED_ITS ---
HPI - Nausea/Vomiting/Diarrhea 2 General: Chief complaint: Nausea/Vomiting/Diarrhea Stated complaint: n/v/d, fever Time Seen by Provider: 12/16/23 11:28 Source: patient Mode of arrival: ambulatory Limitations: no limitations History of Present Illness: 38-year-old female states she had nausea vomiting diarrhea along with fever over the last 2 days. States she also has erythema to her right lower leg and some burning in her abdomen. She denies any chest pain or shortness of breath. She states she has felt like this before when she had cellulitis in the past she is also had a history of C. difficile has had some diarrhea. Associated nausea: Yes Associated symtoms: Reports nausea; Denies chest pain, dysuria or headache(s) Review of Systems 2 Const: Reports: fever(s) and chills; Denies: change in appetite Eyes: Denies: eye discomfort ENMT: Denies: throat pain or dental pain Card: Denies: chest pain Resp: Denies: dyspnea GI: Reports: abdominal pain, nausea, vomiting and diarrhea : Denies: dysuria Musc: Denies: neck pain or back pain Skin/Breast: Reports: rash Neuro: Denies: headache(s) PFSH ED 2 PFSH: Medical History Bowel obstruction Essential hypertension Morbid obesity with BMI of 70 and over, adult Surgical History H/O: hysterectomy History of cholecystectomy Family History Other CAD (coronary artery disease) Diabetes Hypertension Social History Smoking and tobacco/nicotine status: former use of tobacco/nicotine Alcohol intake: never Substance/Drug Use: never Physical Exam 2 Const: COMMON NORMALS: patient oriented x3 GENERAL APPEARANCE: ill appearing HENMT: COMMON NORMALS: normocephalic and atraumatic HEAD & SCALP: n ormocephalic and atraumatic Eye: COMMON NORMALS: conjunctivae normal CONJUNCTIVA: Yes conjunctivae normal Neck/C-Spine: COMMON NORMALS: full ROM and supple Chest: COMMONS NORMALS: normal inspection of the chest Resp: COMMON NORMALS: normal respiratory effort, No retractions, No use of accessory muscles and clear to auscultation bilaterally AUSCULTATION: clear to auscultation bilaterally Cardio: COMMON NORMALS: regular rate, regular rhythm and No murmurs present (Cardio) RATE: regular rate RHYTHM: regular rhythm GI: COMMON NORMALS: Normal to inspection, nondistended, normoactive bowel sounds present, Soft to palpation, non-tender and no masses PALPATION: Yes Soft to palpation Extremity: COMMON NORMALS: full ROM NARRATIVE EXTREMITY EXAM: Erythema noted to right lower leg Neuro: COMMON NORMALS: patient oriented x3, moves all extremities and no focal motor deficits Psych: COMMON NORMALS: mental status grossly normal, Normal thought process present and cooperative THOUGHT PROCESS: Normal thought process present Skin: COMMON NORMALS: no rashes or lesions noted and no wounds GENERAL SKIN EXAM: no rashes or lesions noted Course 2 Vital Signs: Vital signs: Vital Signs Temperature 101.6 F H 12/16/23 11:25 Pulse Rate 121 H 12/16/23 11:25 Respiratory Rate 17 12/16/23 11:25 Blood Pressure 148/86 12/16/23 11:25 Pulse Oximetry 98 12/16/23 11:25 Oxygen Delivery Me thod Room Air 12/16/23 11:25 MDM - Nausea/Vomiting/Diarrhea Medical Decision Making Patient presents here with fever she does have cellulitis to her right lower leg she has an elevated white count patient was given sepsis fluid boluses based off her ideal body weight as her BMI is greater than 30. She is given antibiotics and had blood cultures done here as well spoke to hospitalist will admit. Medical Records I reviewed the patient's medical records. Lab Data I reviewed the patient's lab results. 12/16/23 11:46 12/16/23 11:46 Laboratory Results WBC 19.79 10^3/uL (3.29-11.43) H 12/16/23 11:46 RBC 4.78 10^6/uL (3.85-5.65) 12/16/23 11:46 Hgb 12.40 g/dL (11.27-16.99) 12/16/23 11:46 Hct 39.1 % (36-47) 12/16/23 11:46 MCV 81.8 fl (85-98) L 12/16/23 11:46 MCH 25.9 pg (27-33) L 12/16/23 11:46 MCHC 31.7 g/dL (30-55) 12/16/23 11:46 RDW 13.9 % (12.1-15.1) 12/16/23 11:46 Plt Count 167 10^3/cmm (157-399) 12/16/23 11:46 MPV 8.5 fL (7.4-10.4) 12/16/23 11:46 Neut % (Auto) 90.4 % 12/16/23 11:46 Lymph % (Auto) 6.3 % 12/16/23 11:46 [place] % (Auto) 2.3 % 12/16/23 11:46 Eos % (Auto) 0.0 % 12/16/23 11:46 Baso % (Auto) 0.2 % 12/16/23 11:46 Neut # (Auto) 17.90 10^3/uL (1.8-7.7) H 12/16/23 11:46 Lymph # (Auto) 1.3 10^3/uL (0.8-4.8) 12/16/23 11:46 [place] # (Auto) 0.5 10^3/uL (0.2-0.9) 12/16/23 11:46 Eos # (Auto) 0.0 10^3/uL (0.0-0.8) 12/16/23 11:46 Baso # (Auto) 0.0 10^3/uL (0.0-0.1) 12/16/23 11:46 Nucleated RBC % (auto) 0 % 12/16/23 11:46 Nucleated RBCs # 0.0 /100WBC 12/16/23 11:46 Sodium 134 mmol/L (136-145) L 12/16/23 11:46 Potassium 3.8 mmol/L (3.5-5.1) 12/16/23 11:46 Chloride 97 mmol/L (98-107) L 12/16/23 11:46 Carbon Dioxide 26 mmol/L (22-29) 12/16/23 11:46 Anion Gap 14.8 (5-19) 12/16/23 11:46 BUN 6 mg/dL (6-20) 12/16/23 11:46 Creatinine 0.5 mg/dL (0.5-0.9) 12/16/23 11:46 GFR Calculation 138.1 mL/min (90-130) H 12/16/23 11:46 Glucose 109 mg/dL (65-115) 12/16/23 11:46 Calculated Osmolality 276 mOsm/kg (285-295) L 12/16/23 11:46 Lactic Acid 1.1 mmol/L (0.5-2.2) 12/16/23 11:46 Calcium 8.9 mg/dL (8.5-10.5) 12/16/23 11:46 Total Bilirubin 0.4 mg/dL (0.15-1.2) 12/16/23 11:46 AST 14 U/L (0-32) 12/16/23 11:46 ALT 11 U/L (0-33) 12/16/23 11:46 Alkaline Phosphatase 85 U/L (35-105) 12/16/23 11:46 Total Protein 7.7 g/dL (6.6-8.7) 12/16/23 11:46 Albumin 3.6 g/dL (3.5-5.2) 12/16/23 11:46 Globulin 4.1 g/dL (1.3-4.6) 12/16/23 11:46 Lipase 15 U/L (13-60) 12/16/23 11:46 HCG, Qual Negative (Negative) 12/16/23 11:46 Urine Color Yellow (Yellow) 12/16/23 14:00 Urine Appearance Sl hazy (CLEAR) A 12/16/23 14:00 Urine pH 7 (5-7) 12/16/23 14:00 Ur Specific [place] 1.000 (1.005-1.030) L 12/16/23 14:00 Urine Protein Neg (Negative) 12/16/23 14:00 Urine Glucose (UA) Norm (Normal) 12/16/23 14:00 Urine Ketones Negative (Negative) 12/16/23 14:00 Urine Blood 2+ (Negative) H 12/16/23 14:00 Urine Nitrate Negative (Negative) 12/16/23 14:00 Urine Bilirubin Neg (Negative) 12/16/23 14:00 Urine Urobilinogen Norm mg/dL (Negative) 12/16/23 14:00 Ur Leukocyte Esterase Trace (Negative) H 12/16/23 14:00 Urine RBC 0-4 /hpf (0-2) H 12/16/23 14:00 Urine WBC 0-4 /hpf (0-5) H 12/16/23 14:00 Ur Squamous Epith Cells 5-10 /hpf (0-5) H 12/16/23 14:00 Amorphous Sediment Not Reportable 12/16/23 14:00 Urine Bacteria 1+ /hpf (NONE) H 12/16/23 14:00 Influenza Type A Ag negative (Negative) 12/16/23 12:14 Influenza Type B Ag negative (Negative) 12/16/23 12:14 SARS-CoV-2 Ag (Rapid) negative (Negative) 12/16/23 12:14 All radiology interpretation(s) finalized by discharge Discharge Plan Discharge Patient Disposition: Admitted As Inpatient Clinical Impression: Cellulitis Condition: Stable Coding Level of Care Code ED Early Breastfeeding Care Specialist for Lissette Pakrer
--- NOTE | 2023-12-16 11:59 | CT_ITS ---
WS: [id number] CT ABDOMEN AND PELVIS WITH CONTRAST HISTORY: abd pain TECHNIQUE: Imaging performed of the abdomen and pelvis with IV contrast. Single phase imaging of the abdomen. Coronal and sagittal reformats are submitted. All CT scans at [facility] use at [address] one of these dose optimization techniques: automated exposure control; mA and/or kV adjustment per patient size (includes targeted exams where dose is matched to clinical indication); or iterative re construction. IV CONTRAST: Omnipaque 350; 100 mL IV. Oral contrast: No DLP: 1407.02 mGy.cm COMPARISON: 02/16/2023 Lower thorax: Lung bases are clear. Heart is normal size. Small hiatal hernia. Liver/biliary system: Normal size with no intrahepatic dilatation. Gallbladder: Prior cholecystectomy. Pancreas: Normal size pancreas and pancreatic duct. No adjacent inflammation. Spleen: Normal size spleen. No mass or infarct. Adrenal glands: Normal. Right kidney: Normal. Left kidney: Normal. Aorta: Normal. Lymphadenopathy: None. Free fluid: None. GI tract: Normal stomach. No small bowel obstruction. Moderate diverticular disease in the distal col on. There is no evidence for acute diverticulitis. Quality of the imaging is suboptimal due to body h abitus. Abdominal wall: Ventral abdominal wall hernias. There are multiple cysts ventral abdominal wall herni as along the midline containing fat only. Pelvis: No free fluid or adenopathy within the pelvis. Small inguinal lymph nodes. Bones: Unremarkable. IMPRESSION: 1. No renal calcification or obstruction. 2. Sigmoid diverticulosis without acute diverticulitis. 3. Prior cholecystectomy. 4. Midline abdominal wall hernias containing fat only. 5. No adenopathy or ascites.
[2023-12-16 12:15] LABS: HCG, Serum Qual Negative (Negative)
[2023-12-16 12:34] LABS: Alanine Aminotransferase 11 U/L (0-33); Albumin Level 3.6 g/dL (3.5-5.2); Alkaline Phosphatase 85 U/L (35-105); Anion Gap 14.8 (5-19); Aspartate Amino Transferase 14 U/L (0-32); Blood Urea Nitrogen 6 mg/dL (6-20); Calcium 8.9 mg/dL (8.5-10.5); Carbon Dioxide 26 mmol/L (22-29); Chloride 97 mmol/L (98-107); Creatinine Clr Calc Pharmacy 251.7335; Globulin 4.1 g/dL (1.3-4.6); Glomerular Filtration Rate 138.1 mL/min (90-130); Glucose 109 mg/dL (65-115); Lipase 15 U/L (13-60); Osmolality Calculated 276 mOsm/kg (285-295); Potassium 3.8 mmol/L (3.5-5.1); Sodium 134 mmol/L (136-145); Total Bilirubin 0.4 mg/dL (0.15-1.2); Total Protein 7.7 g/dL (6.6-8.7)
[2023-12-16 12:37] LABS: Lactic Sepsis W/Reflex 1.1 mmol/L (0.5-2.2)
[2023-12-16] MEDS: iohexol 350 mg/mL 500 mL Btl (per mL) IV (12:45)
[2023-12-16 12:46] LABS: Influenza A by IFA negative (Negative); Influenza B by IFA negative (Negative)
[2023-12-16 12:47] LABS: SARS Covid-2 Antigen negative (Negative)
--- NOTE | 2023-12-16 12:58 | PC.PHAR ---
Pt states she lost significant amount of weight and has been taken off all meds except for Omeprazole 40 mg daily. 12/16/23
[2023-12-16] MEDS: vancomycin 1,000 MG in sodium chloride 0.9% 250 ML 250 MG IV (14:18)
[2023-12-16 14:32] LABS: Glucose Urine UA Norm (Normal); Ketones Urine Negative (Negative); Protein Urine Neg (Negative); Urine Appearance SL Hazy (CLEAR); Urine Color Yellow (Yellow); pH Urine 7 (5-7)
[2023-12-16 14:33] LABS: Add Urine Microscopic? YES; Bacteria Urine 1+ /hpf; Bilirubin Urine Neg (Negative); Blood Urine 2+ (Negative); Leukocyte Esterase Urine Trace (Negative); Nitrate Urine Negative (Negative); RBC Urine 0-4 /hpf (0-2); Urobilinogen Urine Norm (Negative); WBC Urine 0-4 /hpf (0-5)
[2023-12-16 14:34] LABS: Add Urine Culture? No
[2023-12-16 14:52] LABS: Erythrocyte Sedimentation Rate 36 mm/hr (0-15)
[2023-12-16 15:29] LABS: NT Pro B Type Natriuretic Pept 443 pg/mL (0-125); Procalcitonin 2.12 ng/mL (0-0.5)
[2023-12-16 15:40] LABS: C Reactive Protein 167.4 mg/L (0.0-4.9)
--- NOTE | 2023-12-16 16:33 | P.HP_ITS ---
Providers/Chief Complaint 2 Admitting Physician: Tip Anderson MD Primary Care Provider: Makenzie Wheleer Chief Complaint: n/v/d, fever History of Present Illness Daniela Pulido is a 38 year old female with a past medical history of morbid obesity, history of right lower extremity cellulitis, history of lymphedema, GERD, history of bowel obstruction, history of hysterectomy, who presents [facility] due to 3-day history of nausea vomiting diarrhea fatigue, malaise, feeling unwell now developing right lower extremity erythema swelling, tenderness. Patient tells me that her symptoms started about 3 days ago with nausea vomiting diarrhea no recent travel no known exposures, no bloody or black stools, poor oral intake, did feel lightheaded, she did report nonspecific diffuse abdominal pain she has had diverticulitis in the past, she tells me it does not seem similar to that. But starting the last 24 hours she started to develop right lower extremity swelling, erythema, tenderness, she tells me that she has had cellulitis in this area before, requiring IV antibiotics. She does report a prior history of C. difficile colitis back in August Review of Systems 2 Const: Reports: fever(s), chills, body aches, fatigue and malaise Card: Denies: chest pain Resp: Denies: dyspnea GI: Reports: abdominal pain, nausea and vomiting Musc: Denies: back pain Neuro: Denies: headache(s), numbness in extremities or weakness in extremities Medications/Allergies Home Medications Medication Instructions Recorded Confirmed Last Taken Type omeprazole 40 mg capsule,delayed 40 mg PO DAILY 12/16/23 12/16/23 12/15/23 History release Allergies Allergy/AdvReac Type Severity Reaction Status Date / Time amphetamine [From Adderall] Allergy SOB Verified 03/08/21 00:16 dextroamphetamine Allergy SOB Verified 03/08/21 00:16 [From Adderall] morphine Allergy RASH Verified 03/08/21 00:16 PFSH Acute 2 PFSH: Medical History Morbid obesity with BMI of 70 and over, adult Bowel obstruction Essential hypertension Surgical History H/O: hysterectomy History of cholecystectomy Family History Other CAD (coronary artery disease) Diabetes Hypertension Social History Smoking and tobacco/nicotine status: former use of tobacco/nicotine Alcohol intake: never Substance/Drug Use: never Vitals/I&O/Wt Last Vital Signs Temp 101.6 F H 12/16/23 11:25 Pulse 96 12/16/23 16:05 Resp 17 12/16/23 16:05 BP 148/86 12/16/23 16:05 Pulse Ox 97 12/16/23 16:05 O2 Del Method Room Air 12/16/23 15:45 12/16/23 12/16/23 12/16/23 06:59 14:59 22:59 Intake Total 666 / 666 1000 / 1666 Balance 666 / 666 1000 / 1666 Weight last 48 hrs Weight 172.365 kg Physical Exam 2 Const: COMMON NORMALS: no acute distress and patient oriented x3 HENMT: COMMON NORMALS: normocephalic HEAD & SCALP: normocephalic Eye: COMMON NORMALS: Equal, round and reactive pupils present and EOMs intact bilaterally Neck/C-Spine: COMMON NORMALS: no JVD OTHER: Kernig's sign negative, Brudzinski sign negative Resp: COMMON NORMALS: normal respiratory effort, No retractions, No use of accessory muscles and clear to auscultation bilaterally AUSCULTATION: clear to auscultation bilaterally Cardio: COMMON NORMALS: no JVD, regular rate, regular rhythm, S1 normal heart sound present and S2 normal heart sound present RATE: regular rate RHYTHM: regular rhythm HEART SOUNDS: S1 normal heart sound present and S2 normal heart sound present GI: COMMON NORMALS: Normal to inspection, nondistended, normoactive bowel sounds present, Soft to palpation and non-tender Extremity: COMMON NORMALS: no pedal edema OTHER: Right lower extremity, right todd, erythema, swelling, tenderness measuring 10 x 10 cm Neuro: COMMON NORMALS: patient oriented x3, CN's II-XII intact bilaterally, moves all extremities and no focal motor deficits Psych: COMMON NORMALS: mental status grossly normal Data 12/16/23 11:46 12/16/23 11:46 Micro: Microbiology 12/16/23 14:00 Blood Culture - Preliminary Blood SPECIMEN COLLECTED 12/16/23 14:05 Blood Culture - Preliminary Blood SPECIMEN COLLECTED A&P Assessment and plan (1) Diarrhea: (2) Cellulitis: (3) Dehydration: (4) Sepsis: (5) Morbid obesity with BMI of 70 and over, adult: (6) GERD (gastroesophageal reflux disease): Qualifiers: Esophagitis presence: esophagitis presence not specified Qualified Code(s): K21.9 - Gastro-esophageal reflux disease without esophagitis (7) Sinus tachycardia: Plan Diarrhea, intractable nausea, vomiting -CT scan abdomen pelvis no acute findings but does have history of diverticulitis, does have diverticula -Abdominal pain is nonspecific, no significant abdominal tenderness on examination, no guarding, no rebound, rigidity -Has a history of C. difficile Plan -Viral versus bacterial versus C. difficile diarrhea -For now IV hydration -Stool studies -Clear liquid diet -Monitor closely Cellulitis with evidence of sepsis -Patient is febrile, source of infection right lower extremity cellulitis, elevated Pro-Efren at 2, CRP 167.4, white blood cell count 19, febrile at 101.6, tachycardic heart rate of 121 Plan -Will monitor closely -Blood cultures -Broad-spectrum antibiotic therapy, vancomycin, Zosyn -Venous ultrasound for DVT Dehydration IV fluids Morbid obesity Spoke to patient ? Spoke to nursing staff ? Spoke to ER provider Full code ?Lovenox for DVT prophylaxis Attestations 2 Medical Necessity Statement*: Patient requires hospitalization, inpatient, greater than 2 midnights, for dehydration, diarrhea, viral versus bacterial versus C. difficile diarrhea, dehydration, with evidence of sepsis right lower extremity cellulitis Diagnoses Diarrhea R19.7 Cellulitis L03.90 Dehydration E86.0 Sepsis A41.9 Morbid obesity with BMI of 70 and over, adult E66.01; Z68.45 Gastroesophageal reflux disease, esophagitis presence not specified K21.9 Esophagitis presence: esophagitis presence not specified Sinus tachycardia R00.0
--- NOTE | 2023-12-16 16:36 | USCV_ITS ---
Daniela Pulido Age: 38 Gender: F : 1985 Exam Date: 12/16/2023 20:47 Ordering Phys: Tip Anderson MD Technologist: LUISA Exam Location: [facility] – [place] Indication: chronic cellulitis RLE since August 2023. No history of DVT per patient. 5'6 380 lbs HISTORY: chronic cellulitis RLE since August 2023. No history of DVT per patient. 5'6 380 lbs PROCEDURES: Venous duplex imaging was performed in only the right lower extremity. The following venous structures were evaluated: common femoral vein, profunda vein, proximal portion of the greater saphenous vein, superficial femoral vein, and the popliteal vein. In addition, the posterior tibial veins were evaluated. FINDINGS: Normal 2-D Doppler and augmentation and compressibility throughout the lower extremity venous structures. Additional imaging through the proximal calf veins also reveals no thrombus. Limited evaluation of the greater saphenous vein is patent with no thrombus. CONCLUSIONS No DVT right lower extremity. Dr. Erlinda Delong DO (Electronically Signed) Final Date: 17 December 2023 07:42 S
[2023-12-16] MEDS: sodium chloride 0.9% 1,000 ML 75 ML IV (17:08)
[2023-12-16] MEDS: enoxaparin 40 mg/0.4 mL Syringe SUBCUT (17:09)
[2023-12-16] MEDS: piperacillin-tazobactam 3.375 GM in sodium chloride 0.9% (plus) 50 ML IV (17:09)
[2023-12-16 17:24] LABS: Chol HDL Ratio 2.07 mg/dL (0.0-4.40); Cholesterol 120 mg/dL (0-200); HDL Cholesterol 58 mg/dL (60-100); LDL Cholesterol Calculated 54 mg/dL (50-129); LDL HDL Ratio 0.93 RATIO (0.00-3.22); Thyroid Stimulating Hormone 1.34 uIU/mL (0.27-4.20); Triglycerides 42 mg/dL (0-150)
[2023-12-16] MEDS: pantoprazole 40 mg SDV IVP (17:28)
[2023-12-16 17:32] LABS: Estmated Average Glucose 103; Hemoglobin A1C 5.2 % (4.0-6.0)
[2023-12-16 20:03] LABS: Adenovirus Not Detected (NOT DETECT); Chlamydia Pneumoniae Not Detected (NOT DETECT); Coronavirus 229E,HKU1,NL63,OC4 Not Detected (NOT DETECT); Human Metapneumovirus Not Detected (NOT DETECT); Human Rhinovirus/Enterovirus Not Detected (NOT DETECT); Influenza A Not Detected (NOT DETECT); Influenza A H1 Not Detected (NOT DETECT); Influenza A H1-2009 Not Detected (NOT DETECT); Influenza A H3 Not Detected (NOT DETECT); Influenza B Not Detected (NOT DETECT); Mycoplasma Pneumoniae Not Detected (NOT DETECT); Parainfluenza Virus Type 1 Not Detected (NOT DETECT); Parainfluenza Virus Type 2 Not Detected (NOT DETECT); Parainfluenza Virus Type 3 Not Detected (NOT DETECT); Parainfluenza Virus Type 4 Not Detected (NOT DETECT); Respiratory Syncytial Virus A Not Detected (NOT DETECT); Respiratory Syncytial Virus B Not Detected (NOT DETECT); SARS-COV-2 Not Detected (NOT DETECT)
[2023-12-16] MEDS: oxyCODONE-APAP 5-325 mg Tablet 1 TAB PO (21:38)
[2023-12-16] MEDS: vancomycin 1,250 MG/250 ML PIGGYBACK 250 MG IV (22:41)
[2023-12-17] VITALS (11 sets, daily range): BP systolic 112–137; BP diastolic 70–86; PULSE 85–94; RESP 16–18; TEMP 36.7–37.1; O2SAT 94–96
[2023-12-17] MEDS: piperacillin-tazobactam 3.375 GM in sodium chloride 0.9% (plus) 50 ML IV ×3 (01:16→17:38)
[2023-12-17] MEDS: oxyCODONE-APAP 5-325 mg Tablet 1 TAB PO ×2 (05:01→19:37)
[2023-12-17] MEDS: vancomycin 1,250 MG/250 ML PIGGYBACK 250 MG IV ×3 (06:24→23:34)
[2023-12-17] MEDS: sodium chloride 0.9% 1,000 ML 75 ML IV ×2 (06:25→23:34)
--- NOTE | 2023-12-17 08:27 | XR_ITS ---
WS: [id number] Exam: XR tibia fibula RT 2V [id number] Date/Time of Exam: 12/17/2023 8:27 AM Reason For Exam: right leg pain No acute fracture or dislocation. No sign of bone destruction. No significant soft tissue abnormality . IMPRESSION: 1. Unremarkable RIGHT tibia and fibula.
--- NOTE | 2023-12-17 09:59 | PC.CHAP ---
Pastoral Care Encounter/Spiritual Assessment Type of Contact [] Declined archival records clerk visit [] Patient/Family/Request visit [] Outpatient visit [] Follow-up visit [] Physician referral [] Code/Alert [x] Routine visit [] Staff referral [] Actively dying [] Patient sleeping [] Family support [] [] Out of room [] Palliative care [] [] Receiving care in room [] Pre-surgical visit [] Trauma [] Long length of stay [] ICU visit [] Other: Relational/Emotional Strength [x] Patient feels connected with others/family/visitors/staff [] Distress [] Loneliness/isolation [] Abandonment Spirituality of Patient [x] Person of Bailey [] Attends Orthodoxy of their Bailey [x] Believes in Prayer [] Reads Bible or Evangelical materials [] There are Spiritual issues to be addressed Sweat Band Separator Interventions [x] Prayer [x] Active listening [] Non-anxious presence [x] Spiritual/emotional support [] Crisis/trauma care [] Spiritual counseling [] Bereavement support [] Provided bereavement packet [] Provided Bible/devotional materials [] Provided toy/stuffed animal, coloring book to patient or family member [] Provided Communion [] Anointing/Childwold [] Salvation [x] Completed spiritual assessment [] Other: Impact on Illness or Injury [] Angry [] Fearful [] Anxious [] Often cries [] Exhaustion [] Unable to work [] Unable to attend jainism [] Unable to walk/stand [] Unable to read [] Unable to drive [] Unable to eat/drink [] Unable to sleep [] Unable to be with family [] Patient intubated [] Other: Summary Time spent with patient 5 min
[2023-12-17 10:09] LABS: Basophils % 0.3 %; Eosinophils # 0.1 10^3/uL (0.0-0.8); Eosinophils % 1.4 %; Hematocrit 33.9 % (36-47); Lymphocytes # 1.3 10^3/uL (0.8-4.8); Lymphocytes % 18.5 %; Mean Corpuscular HGB Conc 31.3 g/dL (30-55); Mean Corpuscular Volume 83.3 fl (85-98); Mean Platelet Volume 8.5 fL (7.4-10.4); Monocytes # 0.4 10^3/uL (0.2-0.9); Monocytes % 5.3 %; Neutrophils # 5.18 10^3/uL (1.8-7.7); Neutrophils % 74.2 %; Nucleated Red Blood Cells % 0 %; Platelet Count 117 10^3/cmm (157-399); Red Blood Count 4.07 10^6/uL (3.85-5.65); Red Cell Distribution Width 13.9 % (12.1-15.1); White Blood Count 6.98 10^3/uL (3.29-11.43)
[2023-12-17 10:30] LABS: Alanine Aminotransferase 12 U/L (0-33); Alkaline Phosphatase 72 U/L (35-105); Anion Gap 13.2 (5-19); Aspartate Amino Transferase 16 U/L (0-32); Blood Urea Nitrogen 6 mg/dL (6-20); Calcium 7.8 mg/dL (8.5-10.5); Carbon Dioxide 25 mmol/L (22-29); Chloride 102 mmol/L (98-107); Creatinine Clr Calc Pharmacy 212.4182; Globulin 3.4 g/dL (1.3-4.6); Glomerular Filtration Rate 111.9 mL/min (90-130); Glucose 85 mg/dL (65-115); Magnesium 1.7 mg/dL (1.7-2.3); Osmolality Calculated 281 mOsm/kg (285-295); Phosphorus 2.9 mg/dL (2.5-4.5); Potassium 3.2 mmol/L (3.5-5.1); Sodium 137 mmol/L (136-145); Total Bilirubin 0.2 mg/dL (0.15-1.2); Total Protein 6.4 g/dL (6.6-8.7)
--- NOTE | 2023-12-17 11:05 | P.PN_ITS ---
Subjective 2 Subjective: Patient was seen this morning, she denies any fevers overnight, her diarrhea has improved she wants to try something more substantial to eat, her right lower extremity cellulitis continues to be red hot she tells me venous ultrasound is negative for DVT will order x-ray Vitals/I&O/Wt Last Vital Signs Temp 98.0 F 12/17/23 08:00 Pulse 94 12/17/23 08:00 Resp 16 12/17/23 08:00 BP 128/83 12/17/23 08:00 Pulse Ox 95 12/17/23 08:00 O2 Del Method Room Air 12/17/23 08:00 12/16/23 12/17/23 12/17/23 22:59 06:59 14:59 Intake Total 2019.4 1896.25 / 5514.65 300 / 300 Balance 2019.4 189. / 5514.65 300 / 300 Weight last 48 hrs Weight 175.654 kg Weight 172.365 kg Physical Exam 2 Const: COMMON NORMALS: no acute distress and patient oriented x3 Resp: COMMON NORMALS: normal respiratory effort, No retractions, No use of accessory muscles and clear to auscultation bilaterally AUSCULTATION: clear to auscultation bilaterally Cardio: COMMON NORMALS: regular rate, regular rhythm, S1 normal heart sound present and S2 normal heart sound present RATE: regular rate RHYTHM: r egular rhythm HEART SOUNDS: S1 normal heart sound present and S2 normal heart sound present GI: COMMON NORMALS: Normal to inspection, nondistended, normoactive bowel sounds present and non-tender Extremity: COMMON NORMALS: no pedal edema NARRATIVE EXTREMITY EXAM: Right leg, tibia, fibula just above the ankle significant erythema, swelling, measuring now 5 x 10 cm, irregular borders, red, hot, erythematous Neuro: COMMON NORMALS: patient oriented x3 Psych: COMMON NORMALS: mental status grossly normal Data 12/17/23 10:00 12/17/23 10:00 Micro: Microbiology 12/16/23 14:00 Blood Culture - Preliminary Blood SPECIMEN COLLECTED 12/16/23 14:05 Blood Culture - Preliminary Blood SPECIMEN COLLECTED A&P Assessment and plan (1) Diarrhea: (2) Cellulitis: (3) Dehydration: (4) Sepsis: (5) Morbid obesity with BMI of 70 and over, adult: (6) GERD (gastroesophageal reflux disease): Qualifiers: Esophagitis presence: esophagitis presence not specified Qualified Code(s): K21.9 - Gastro-esophageal reflux disease without esophagitis (7) Sinus tachycardia: Plan Diarrhea, intractable nausea, vomiting -CT scan abdomen pelvis no acute findings but does have history of diverticulitis, does have diverticula -Abdominal pain is nonspecific, no significant abdominal tenderness on examination, no guarding, no rebound, rigidity -Has a history of C. difficile Plan -Viral versus bacterial versus C. difficile diarrhea -For now continue IV hydration -Stool studies -Advance to GI soft diet -Monitor closely Cellulitis with evidence of sepsis -Patient is febrile, source of infection right lower extremity cellulitis, elevated Pro-Efren at 2, CRP 167.4, white blood cell count 19, febrile at 101.6, tachycardic heart rate of 121 Plan -Will monitor closely -Blood cultures -Broad-spectrum antibiotic therapy, vancomycin, Zosyn -Venous ultrasound for DVT negative for DVT -As erythema continues to worsen, and continues to extend will do CT right lower extremity Dehydration IV fluids Morbid obesity Spoke to patient ? Spoke to nursing staff ? Spoke to ER provider Full code ?Lovenox for DVT prophylaxis Plan for today continue IV antibiotics, x-ray right lower extremity, CT right lower extremity, advance diet, continue IV fluids Attestations 2 Medical Necessity Statement*: Patient requires hospitalization for diarrhea, cellulitis right lower extremity Diagnoses Diarrhea R19.7 Cellulitis L03.90 Dehydration E86.0 Sepsis A41.9 Morbid obesity with BMI of 70 and over, adult E66.01; Z68.45 Gastroesophageal reflux disease, esophagitis presence not specified K21.9 Esophagitis presence: esophagitis presence not specified Sinus tachycardia R00.0
--- NOTE | 2023-12-17 11:06 | CT_ITS ---
WS: [id number] CT RIGHT LOWER EXTREMITY, NONCONTRAST HISTORY: swelling, erythema, pain Technique: All CT scans at [facility] use at least one of these dose optimization techniques: automated exposure control; mA and/or kV adjustment per patient size (includes targeted exams where dose is matched to clinical indication); or iterative reconstruction. DLP: 412.27 mGy.cm COMPARISON: Radiograph 12/17/2023 There is extensive subcutaneous edema increasing distally in the lower extremity. There is a large am ount of dependent edema but there is no focal collection identified. Majority of the edema is subcuta neous with a small amount extending into the muscle groups. No mass or mass effect. No significant radha int effusion. Mild lateral subluxation of the patella. No fractures. IMPRESSION: Extensive subcutaneous edema. No focal collections identified on this unenhanced exam. Findings are m ost consistent with pitting edema and possible cellulitis. No fracture.
[2023-12-17] MEDS: pantoprazole 40 mg SDV IVP (16:29)
[2023-12-17] MEDS: enoxaparin 40 mg/0.4 mL Syringe SUBCUT (17:25)
[2023-12-17] MEDS: ondansetron 2 mg/ML SDV 2 mL 4 MG IVP (19:37)
[2023-12-18] VITALS (7 sets, daily range): BP systolic 111–151; BP diastolic 73–91; PULSE 68–89; RESP 16–18; TEMP 36.4–36.9; O2SAT 94–98
[2023-12-18] MEDS: piperacillin-tazobactam 3.375 GM in sodium chloride 0.9% (plus) 50 ML IV ×3 (01:49→17:58)
[2023-12-18] MEDS: acetaminophen 325 mg Tablet 650 MG PO (01:53)
[2023-12-18 03:12] LABS: Basophils % 0.3 %; Eosinophils # 0.2 10^3/uL (0.0-0.8); Eosinophils % 2.9 %; Hematocrit 34.4 % (36-47); Lymphocytes # 1.7 10^3/uL (0.8-4.8); Lymphocytes % 26.9 %; Mean Corpuscular HGB Conc 30.5 g/dL (30-55); Mean Corpuscular Hemoglobin 25.5 pg (27-33); Mean Corpuscular Volume 83.5 fl (85-98); Mean Platelet Volume 9.1 fL (7.4-10.4); Monocytes # 0.3 10^3/uL (0.2-0.9); Monocytes % 4.8 %; Neutrophils # 4.01 10^3/uL (1.8-7.7); Neutrophils % 64.8 %; Nucleated Red Blood Cells % 0 %; Platelet Count 138 10^3/cmm (157-399); Red Blood Count 4.12 10^6/uL (3.85-5.65); Red Cell Distribution Width 13.6 % (12.1-15.1)
[2023-12-18 03:42] LABS: Alanine Aminotransferase 12 U/L (0-33); Albumin Level 3.1 g/dL (3.5-5.2); Alkaline Phosphatase 84 U/L (35-105); Aspartate Amino Transferase 13 U/L (0-32); Blood Urea Nitrogen 6 mg/dL (6-20); Calcium 7.9 mg/dL (8.5-10.5); Carbon Dioxide 26 mmol/L (22-29); Chloride 104 mmol/L (98-107); Creatinine Clr Calc Pharmacy 254.9019; Globulin 3.3 g/dL (1.3-4.6); Glomerular Filtration Rate 138.1 mL/min (90-130); Glucose 101 mg/dL (65-115); Magnesium 1.7 mg/dL (1.7-2.3); Osmolality Calculated 288 mOsm/kg (285-295); Phosphorus 2.7 mg/dL (2.5-4.5); Sodium 140 mmol/L (136-145); Total Bilirubin 0.2 mg/dL (0.15-1.2); Total Protein 6.4 g/dL (6.6-8.7)
[2023-12-18] MEDS: vancomycin 1,250 MG/250 ML PIGGYBACK 250 MG IV ×2 (08:15→16:34)
[2023-12-18 09:49] LABS: C.Diff PCR (Lab) POSITIVE (Negative); Clostridioides Difficile Toxin NEGATIVE (Negative)
[2023-12-18] MEDS: potassium chloride ER 20 mEq Tablet 40 MEQ PO (11:16)
[2023-12-18] MEDS: vancomycin 125 mg Capsule PO ×3 (11:17→21:37)
[2023-12-18] MEDS: sodium chloride 0.9% 1,000 ML 50 ML IV (14:03)
--- NOTE | 2023-12-18 15:03 | P.PN_ITS ---
Subjective 2 Subjective: Patient was seen this morning, she was ambulatory to the bathroom, her right lower extremity cellulitis area is improving her C. difficile was positive, her diarrhea is persisting, we discussed starting on p.o. vancomycin, she is agreeable this is her second episode of C. difficile Vitals/I&O/Wt Last Vital Signs Temp 98.2 F 12/18/23 12:23 Pulse 89 12/18/23 12:23 Resp 18 12/18/23 12:23 BP 146/91 12/18/23 12:23 Pulse Ox 96 12/18/23 12:23 O2 Del Method Room Air 12/18/23 12:23 12/18/23 12/18/23 12/18/23 06:59 14:59 22:59 Intake Total 300 / 2120 2500.0 / 2500.0 Balance 300 / 2120 2500.0 / 2500.0 Weight last 48 hrs Weight 175.54 kg Weight 175.654 kg Physical Exam 2 Const: COMMON NORMALS: no acute distress and patient oriented x3 Resp: COMMON NORMALS: normal respiratory effort, No retractions, No use of accessory muscles and clear to auscultation bilaterally AUSCULTATION: clear to auscultation bilaterally Cardio: COMMON NORMALS: regular rate, regular rhythm, S1 normal heart sound present and S2 normal heart sound present RATE: regular rate RHYTHM: r egular rhythm HEART SOUNDS: S1 normal heart sound present and S2 normal heart sound present GI: COMMON NORMALS: Normal to inspection, nondistended, normoactive bowel sounds present and non-tender Extremity: COMMON NORMALS: no pedal edema Neuro: COMMON NORMALS: patient oriented x3 Psych: COMMON NORMALS: mental status grossly normal Data 12/18/23 02:36 12/18/23 02:36 Micro: Microbiology 12/18/23 06:38 Stool Lactoferrin - Final Stool Occult Blood (FIT) - Final 12/16/23 14:00 Blood Culture - Preliminary Blood NEGATIVE TO DATE 12/16/23 14:05 Blood Culture - Preliminary Blood NEGATIVE TO DATE A&P Assessment and plan (1) Diarrhea: (2) Cellulitis: (3) Dehydration: (4) Sepsis: (5) Morbid obesity with BMI of 70 and over, adult: (6) GERD (gastroesophageal reflux disease): Qualifiers: Esophagitis presence: esophagitis presence not specified Qualified Code(s): K21.9 - Gastro-esophageal reflux disease without esophagitis (7) Sinus tachycardia: (8) C. difficile diarrhea: Plan Diarrhea, intractable nausea, vomiting -CT scan abdomen pelvis no acute findings but does have history of diverticulitis, does have diverticula -Abdominal pain is nonspecific, no significant abdominal tenderness on examination, no guarding, no rebound, rigidity -C. difficile diarrhea Plan -Start p.o. vancomycin -For now continue IV hydration -Stool studies -Advance to GI soft diet -Monitor closely Cellulitis with evidence of sepsis -Patient is febrile, source of infection right lower extremity cellulitis, elevated Pro-Efren at 2, CRP 167.4, white blood cell count 19, febrile at 101.6, tachycardic heart rate of 121 -CT extensive subcutaneous edema. No focal collections identified on this unenhanced exam. Findings are most consistent with pitting edema and possible cellulitis. No fracture. -Area of erythema, is improving Plan -Will monitor closely -Blood cultures -Broad-spectrum antibiotic therapy, vancomycin, Zosyn -Venous ultrasound for DVT negative for DVT Dehydration IV fluids Morbid obesity Spoke to patient ? Spoke to nursing staff ? Spoke to ER provider Full code ?Lovenox for DVT prophylaxis Plan for today continue IV antibiotics, add p.o. vancomycin, plan on discharging the next 24 hours Attestations 2 Medical Necessity Statement*: Patient requires hospitalization for C. difficile colitis, C. difficile diarrhea, cellulitis requiring IV antibiotics Diagnoses Diarrhea R19.7 Cellulitis L03.90 Dehydration E86.0 Sepsis A41.9 Morbid obesity with BMI of 70 and over, adult E66.01; Z68.45 Gastroesophageal reflux disease, esophagitis presence not specified K21.9 Esophagitis presence: esophagitis presence not specified Sinus tachycardia R00.0 C. difficile diarrhea A04.72
[2023-12-18 16:21] LABS: Vancomycin Trough 14.9 ug/mL (10-15)
[2023-12-18] MEDS: pantoprazole 40 mg SDV IVP (16:34)
[2023-12-18] MEDS: enoxaparin 40 mg/0.4 mL Syringe SUBCUT (16:37)
[2023-12-18] MEDS: oxyCODONE-APAP 5-325 mg Tablet 1 TAB PO (21:42)
[2023-12-19] VITALS: BP 143/83; PULSE 74; RESP 17; TEMP 36.6; O2SAT 96
[2023-12-19] MEDS: vancomycin 1,250 MG/250 ML PIGGYBACK 250 MG IV ×2 (00:16→08:16)
[2023-12-19 02:30] VITALS: PULSE 80
[2023-12-19] MEDS: vancomycin 125 mg Capsule PO ×2 (02:58→09:01)
[2023-12-19] MEDS: piperacillin-tazobactam 3.375 GM in sodium chloride 0.9% (plus) 50 ML IV ×2 (02:59→10:11)
[2023-12-19 03:51] VITALS: BP 110/72; PULSE 76; RESP 18; TEMP 36.3; O2SAT 96
[2023-12-19 04:30] LABS: Basophils % 0.4 %; Eosinophils # 0.2 10^3/uL (0.0-0.8); Hematocrit 32.6 % (36-47); Lymphocytes # 1.8 10^3/uL (0.8-4.8); Lymphocytes % 32.3 %; Mean Corpuscular HGB Conc 30.7 g/dL (30-55); Mean Corpuscular Hemoglobin 25.4 pg (27-33); Mean Corpuscular Volume 82.7 fl (85-98); Mean Platelet Volume 9.8 fL (7.4-10.4); Monocytes # 0.3 10^3/uL (0.2-0.9); Monocytes % 4.6 %; Neutrophils # 3.38 10^3/uL (1.8-7.7); Neutrophils % 59.5 %; Nucleated Red Blood Cells % 0 %; Platelet Count 128 10^3/cmm (157-399); Red Blood Count 3.94 10^6/uL (3.85-5.65); Red Cell Distribution Width 13.6 % (12.1-15.1); White Blood Count 5.67 10^3/uL (3.29-11.43)
[2023-12-19 04:42] LABS: Alanine Aminotransferase 14 U/L (0-33); Albumin Level 3.1 g/dL (3.5-5.2); Alkaline Phosphatase 92 U/L (35-105); Anion Gap 10.2 (5-19); Aspartate Amino Transferase 25 U/L (0-32); Blood Urea Nitrogen 5 mg/dL (6-20); Carbon Dioxide 25 mmol/L (22-29); Chloride 104 mmol/L (98-107); Globulin 3.2 g/dL (1.3-4.6); Glomerular Filtration Rate 178.6 mL/min (90-130); Glucose 87 mg/dL (65-115); Magnesium 1.7 mg/dL (1.7-2.3); Osmolality Calculated 279 mOsm/kg (285-295); Phosphorus 2.8 mg/dL (2.5-4.5); Potassium 3.2 mmol/L (3.5-5.1); Sodium 136 mmol/L (136-145); Total Bilirubin 0.2 mg/dL (0.15-1.2); Total Protein 6.3 g/dL (6.6-8.7)
[2023-12-19 06:27] VITALS: PULSE 73
[2023-12-19 07:47] VITALS: BP 145/83; PULSE 73; RESP 16; TEMP 36.7; O2SAT 98
[2023-12-19] MEDS: sodium chloride 0.9% 1,000 ML 50 ML IV (08:16)
[2023-12-19] MEDS: ondansetron 2 mg/ML SDV 2 mL 4 MG IVP (09:46)
[2023-12-19] MEDS: potassium chloride ER 20 mEq Tablet 40 MEQ PO (10:11)
--- NOTE | 2023-12-19 11:58 | P.DS_ITS ---
Discharge Providers Date of Admission: 12/16/23 13:46 Date of Discharge: December 19, 2023 Attending Provider at Admission: Tip Anderson MD Attending Provider at Discharge: Tip Anderson MD Primary Care Provider: Makenzie Wheeler Diagnoses at Discharge Discharge Diagnosis (1) Diarrhea: Status: Acute (2) Cellulitis: Status: Acute (3) Dehydration: Status: Acute (4) Sepsis: Status: Acute (5) Morbid obesity with BMI of 70 and over, adult: Status: Acute (6) GERD (gastroesophageal reflux disease): Status: Acute Qualifiers: Esophagitis presence: esophagitis presence not specified Qualified Code(s): K21.9 - Gastro-esophageal reflux disease without esophagitis (7) Sinus tachycardia: Status: Acute (8) C. difficile diarrhea: Status: Acute Reason for Visit Reason for Visit: n/v/d, fever Hospital Course Hospital Course Daniela Pulido is a 38 year old female with a past medical history of morbid obesity, history of right lower extremity cellulitis, history of lymphedema, GERD, history of bowel obstruction, history of hysterectomy, who presents [facility] due to 3-day history of nausea vomiting diarrhea fatigue, malaise, feeling unwell now developing right lower extremity erythema swelling, tenderness. Patient tells me that her symptoms started about 3 days ago with nausea vomiting diarrhea no recent travel no known exposures, no bloody or black stools, poor oral intake, did feel lightheaded, she did report nonspecific diffuse abdominal pain she has had diverticulitis in the past, she tells me it does not seem similar to that. But starting the last 24 hours she started to develop right lower extremity swelling, erythema, tenderness, she tells me that she has had cellulitis in this area before, requiring IV antibiotics. She does report a prior history of C. difficile colitis back in August Patient presented to [facility] for diarrhea, intractable nausea, vomiting, received IV fluids, stool studies positive for C. difficile diarrhea, received p.o. vancomycin, overall clinically improved, having regular soft bowel movement, Patient had evidence of cellulitis with evidence of sepsis during hospitalization, CT showed no underlying abscess, received IV antibiotics, overall clinically improved, discharged on p.o. doxycycline Physical Exam Const: COMMON NORMALS: no acute distress and patient oriented x3 Resp: COMMON NORMALS: normal respiratory effort, No retractions, No use of accessory muscles and clear to auscultation bilaterally AUSCULTATION: clear to auscultation bilaterally Cardio: COMMON NORMALS: regular rate, regular rhythm, S1 normal heart sound present and S2 normal heart sound present RATE: regular rate RHYTHM: regular rhythm HEART SOUNDS: S1 normal heart sound present and S2 normal heart sound present GI: COMMON NORMALS: Normal to inspection, nondistended, normoactive bowel sounds present and non-tender Extremity: COMMON NORMALS: no pedal edema Neuro: COMMON NORMALS: patient oriented x3 Psych: COMMON NORMALS: mental status grossly normal Discharge Data Studies Completed and Pending Completed Studies During Hospitalization Category Date Time Status CT abdomen pelvis w con* [id number] Stat Cat Scan 12/16/23 11:[address] lower leg RT wo con* [id number] Routine Cat Scan 12/17/23 11:06 Completed CXRP [XR chest 1V portable [id number]] Stat Exams 12/16/23 11:49 Completed XR tibia fibula RT 2V [id number] Routine Exams 12/17/23 08:27 [place] [id number] Routine Ultrasound 12/16/23 16:36 Completed Pending at discharge Category Date Time Status Blood Culture Stat Lab 12/16/23 14:00 Results OVA and Parasites, Conc and PE Routine Lab 12/16/23 06:38 Received Salmonella / Shigella / Campy Routine Lab 12/16/23 06:38 Received Laboratory Results WBC 5.67 10^3/uL (3.29-11.43) 12/19/23 02:23 RBC 3.94 10^6/uL (3.85-5.65) 12/19/23 02:23 Hgb 10.00 g/dL (11.27-16.99) L 12/19/23 02:23 Hct 32.6 % (36-47) L 12/19/23 02:23 MCV 82.7 fl (85-98) L 12/19/23 02:23 MCH 25.4 pg (27-33) L 12/19/23 02:23 MCHC 30.7 g/dL (30-55) 12/19/23 02:23 RDW 13.6 % (12.1-15.1) 12/19/23 02:23 Plt Count 128 10^3/cmm (157-399) L 12/19/23 02:23 MPV 9.8 fL (7.4-10.4) 12/19/23 02:23 Neut % (Auto) 59.5 % 12/19/23 02:23 Lymph % (Auto) 32.3 % 12/19/23 02:23 [place] % (Auto) 4.6 % 12/19/23 02:23 Eos % (Auto) 3.0 % 12/19/23 02:23 Baso % (Auto) 0.4 % 12/19/23 02:23 Neut # (Auto) 3.38 10^3/uL (1.8-7.7) 12/19/23 02:23 Lymph # (Auto) 1.8 10^3/uL (0.8-4.8) 12/19/23 02:23 [place] # (Auto) 0.3 10^3/uL (0.2-0.9) 12/19/23 02:23 Eos # (Auto) 0.2 10^3/uL (0.0-0.8) 12/19/23 02:23 Baso # (Auto) 0.0 10^3/uL (0.0-0.1) 12/19/23 02:23 Nucleated RBC % (auto) 0 % 12/19/23 02:23 Nucleated RBCs # 0.0 /100WBC 12/19/23 02:23 ESR 36 mm/hr (0-15) H 12/16/23 11:46 Sodium 136 mmol/L (136-145) 12/19/23 02:23 Potassium 3.2 mmol/L (3.5-5.1) L 12/19/23 02:23 Chloride 104 mmol/L (98-107) 12/19/23 02:23 Carbon Dioxide 25 mmol/L (22-29) 12/19/23 02:23 Anion Gap 10.2 (5-19) 12/19/23 02:23 BUN 5 mg/dL (6-20) L 12/19/23 02:23 Creatinine 0.4 mg/dL (0.5-0.9) L 12/19/23 02:23 GFR Calculation 178.6 mL/min (90-130) H 12/19/23 02:23 Glucose 87 mg/dL (65-115) 12/19/23 02:23 Estimat Average Glucose 103 12/16/23 11:46 Hemoglobin A1c 5.2 % (4.0-6.0) 12/16/23 11:46 Calculated Osmolality 279 mOsm/kg (285-295) L 12/19/23 02:23 Lactic Acid 1.1 mmol/L (0.5-2.2) 12/16/23 11:46 Calcium 8.0 mg/dL (8.5-10.5) L 12/19/23 02:23 Phosphorus 2.8 mg/dL (2.5-4.5) 12/19/23 02:23 Magnesium 1.7 mg/dL (1.7-2.3) 12/19/23 02:23 Total Bilirubin 0.2 mg/dL (0.15-1.2) 12/19/23 02:23 AST 25 U/L (0-32) 12/19/23 02:23 ALT 14 U/L (0-33) 12/19/23 02:23 Alkaline Phosphatase 92 U/L (35-105) 12/19/23 02:23 C-Reactive Protein 167.4 mg/L (0.0-4.9) H 12/16/23 11:46 NT-Pro-B Natriuret Pep 443 pg/mL (0-125) H 12/16/23 11:46 Total Protein 6.3 g/dL (6.6-8.7) L 12/19/23 02:23 Albumin 3.1 g/dL (3.5-5.2) L 12/19/23 02:23 Globulin 3.2 g/dL (1.3-4.6) 12/19/23 02:23 Triglycerides 42 mg/dL (0-150) 12/16/23 11:46 Cholesterol 120 mg/dL (0-200) 12/16/23 11:46 LDL Cholesterol, Calc 54 mg/dL (50-129) 12/16/23 11:46 HDL Cholesterol 58 mg/dL (60-100) L 12/16/23 11:46 LDL/HDL Ratio 0.93 RATIO (0.00-3.22) 12/16/23 11:46 Cholesterol/HDL Ratio 2.07 mg/dL (0.0-4.40) 12/16/23 11:46 Lipase 15 U/L (13-60) 12/16/23 11:46 Procalcitonin 2.12 ng/mL (0-0.5) H 12/16/23 11:46 TSH 1.34 uIU/mL (0.27-4.20) 12/16/23 11:46 HCG, Qual Negative (Negative) 12/16/23 11:46 Urine Color Yellow (Yellow) 12/16/23 14:00 Urine Appearance Sl hazy (CLEAR) A 12/16/23 14:00 Urine pH 7 (5-7) 12/16/23 14:00 Ur Specific [place] 1.000 (1.005-1.030) L 12/16/23 14:00 Urine Protein Neg (Negative) 12/16/23 14:00 Urine Glucose (UA) Norm (Normal) 12/16/23 14:00 Urine Ketones Negative (Negative) 12/16/23 14:00 Urine Blood 2+ (Negative) H 12/16/23 14:00 Urine Nitrate Negative (Negative) 12/16/23 14:00 Urine Bilirubin Neg (Negative) 12/16/23 14:00 Urine Urobilinogen Norm mg/dL (Negative) 12/16/23 14:00 Ur Leukocyte Esterase Trace (Negative) H 12/16/23 14:00 Urine RBC 0-4 /hpf (0-2) H 12/16/23 14:00 Urine WBC 0-4 /hpf (0-5) H 12/16/23 14:00 Ur Squamous Epith Cells 5-10 /hpf (0-5) H 12/16/23 14:00 Amorphous Sediment Not Reportable 12/16/23 14:00 Urine Bacteria 1+ /hpf (NONE) H 12/16/23 14:00 Vancomycin Trough 14.9 ug/mL (10-15) 12/18/23 15:48 Adenovirus (PCR) Not detected (NOT DETECT) 12/16/23 17:05 C. pneumoniae DNA (PCR) Not detected (NOT DETECT) 12/16/23 17:05 C. difficile (PCR) Positive (Negative) H 12/18/23 06:38 C.difficile Tox Confrm Negative (Negative) 12/18/23 06:38 Coronavirus 229E (PCR) Not detected (NOT DETECT) 12/16/23 17:05 Human Metapneumovir PCR Not detected (NOT DETECT) 12/16/23 17:05 Influenza A (H1) PCR Not detected (NOT DETECT) 12/16/23 17:05 Influ A (H1/09) PCR Not detected (NOT DETECT) 12/16/23 17:05 Influenza A (H3) PCR Not detected (NOT DETECT) 12/16/23 17:05 Influenza Type A Ag negative (Negative) 12/16/23 12:14 Influenza Type A (PCR) Not detected (NOT DETECT) 12/16/23 17:05 Influenza Type B Ag negative (Negative) 12/16/23 12:14 Influenza Type B (PCR) Not detected (NOT DETECT) 12/16/23 17:05 M. pneumoniae (PCR) Not detected (NOT DETECT) 12/16/23 17:05 Parainfluenza 1 (PCR) Not detected (NOT DETECT) 12/16/23 17:05 Parainfluenza 2 (PCR) Not detected (NOT DETECT) 12/16/23 17:05 Parainfluenza 3 (PCR) Not detected (NOT DETECT) 12/16/23 17:05 Parainfluenza 4 (PCR) Not detected (NOT DETECT) 12/16/23 17:05 RSV Type A (PCR) Not detected (NOT DETECT) 12/16/23 17:05 RSV Type B (PCR) Not detected (NOT DETECT) 12/16/23 17:05 Entero/Rhino (PCR) Not detected (NOT DETECT) 12/16/23 17:05 SARS-CoV-2 (PCR) Not detected (NOT DETECT) 12/16/23 17:05 SARS-CoV-2 Ag (Rapid) negative (Negative) 12/16/23 12:14 Vitals Last Vital Signs Temp 98.1 F 12/19/23 07:47 Pulse 73 12/19/23 07:47 Resp 16 12/19/23 07:47 BP 145/83 12/19/23 07:47 Pulse Ox 98 12/19/23 07:47 O2 Del Method Room Air 12/19/23 07:47 Discharge Plan Discharge Patient Disposition: Home Condition: Stable Prescriptions: New vancomycin 125 mg Capsule 125 mg PO Q6H 10 Days Qty: 40 0RF doxycycline hyclate 100 mg tablet 100 mg PO BID 7 Days Qty: 14 0RF Continued omeprazole 40 mg capsule,delayed release(DR/EC) 40 mg PO DAILY Discharge Orders: Discharge Order (Routine); Ordered 12/19/23 Ordered By: Tip Anderson Referrals: Makenzie Wheeler PA [Primary Care Provider] - 12/23/23 10:00 am Discharge Diet: Regular and Cardiac Discharge Activity: Resume usual activity Patient Instructions: C. Diff (Clostridioides Difficile) Infection (DC), Opioid Safety Activity Restrictions/Additional Instructions: - For your C. difficile infection please hand wash, try to use a different restroom facility for the rest of her family, avoid food handling -Continue antibiotics for cellulitis -Follow-up with primary care provider in 2 to 3 days Discharge Attestations Time Spent in Discharge Care*: greater than 30 min Quality Metrics Clinical Quality Measures [ No reported AMI, CVA or VTE this stay] Coding Level of Care Code 64917 Total time (in minutes) for Discharge: 45 Diagnoses Diarrhea R19.7 Cellulitis L03.90 Dehydration E86.0 Sepsis A41.9 Morbid obesity with BMI of 70 and over, adult E66.01; Z68.45 Gastroesophageal reflux disease, esophagitis presence not specified K21.9 Esophagitis presence: esophagitis presence not specified Sinus tachycardia R00.0 C. difficile diarrhea A04.72
== END 2023-12-19 13:33 | disposition home or self-care (01) | DRG 872 ==
LOC: ER 13:35 → MEDSURG 15:14
PROVIDERS: Admitting Provider Family Medicine; Emergency Provider Emergency Medicine; PCP Physician Assistant; Visit Provider Family Medicine
DX: A41.9 Sepsis, unspecified organism (principal); L03.115 Cellulitis of right lower limb; Z68.44 Body mass index [BMI] 60.0-69.9, adult; A04.71 Enterocolitis due to Clostridium difficile, recurrent; E66.01 Morbid (severe) obesity due to excess calories; K21.9 Gastro-esophageal reflux disease without esophagitis; I10 Essential (primary) hypertension; Z87.891 Personal history of nicotine dependence; Z11.52 Encounter for screening for COVID-19
CPT/HCPCS: 36415; 71045; 73590; 73700; 74177; 80053; 80061; 80202; 81001; 82274; 83036; 83605; 83630; 83690; 83735; 83880; 84100; 84145; 84443; 84703; 85025; 85651; 86140; 87040; 87045; 87177; 87209; 87324; 87426; 87427; 87449; 87486; 87493; 87581; 87633; 87804; 93971; 96365; 96366; 96372; 96375; 99285; C9113; J1650; J2405; J2543; J3370; J7030; J7050; Q9967

== ENCOUNTER 2024-08-04 12:26 | Emergency (ER) | payer OTHER, SELFPAY ==
[2024-08-04 12:35] VITALS: BP 161/88; PULSE 135; RESP 21; TEMP 37.9; O2SAT 97; BMI 62.1
--- NOTE | 2024-08-04 12:45 | ED_ITS ---
HPI - Abdominal Pain 2 General: Chief Complaint: Abdominal Pain Stated Complaint: NVD, abd pain, lockwood stool Time Seen by Provider: 08/04/24 12:40 Source: patient Mode of arrival: ambulatory Limitations: no limitations History of Present Illness: 39-year-old female states over the last few days been having abdominal cramping along with nausea vomiting diarrhea. She has had low-grade fevers as well states her diarrhea is getting very foul-smelling. States she has had multiple diagnoses of C. difficile in the past. Associated Symptoms: Reports diarrhea, fever(s), nausea and vomiting; Denies chills and dysuria Related Data Home Medications Medication Instructions Recorded Confirmed No Known Home Medications 08/04/24 08/04/24 Allergies Allergy/AdvReac Type Severity Reaction Status Date / Time amphetamine [From Adderall] Allergy SOB Verified 08/04/24 12:38 dextroamphetamine Allergy SOB Verified 08/04/24 12:38 [From Adderall] morphine Allergy RASH Verified 08/04/24 12:38 Review of Systems 2 Const: Reports: fever(s) and fatigue; Denies: chills, body aches or change in appetite Eyes: Denies: blurry vision or eye discomfort ENMT: Denies: throat pain or dental pain Card: Denies: chest pain Resp: Denies: dyspnea GI: Reports: abdominal pain, nausea, vomiting and diarrhea : Denies: dysuria Musc: Denies: neck pain or back pain Skin/Breast: Denies: rash Neuro: Denies: headache(s) PFSH ED 2 PFSH: Medical History Morbid obesity with BMI of 70 and over, adult Bowel obstruction Essential hypertension Surgical History H/O: hysterectomy History of cholecystectomy Family History Other CAD (coronary artery disease) Diabetes Hypertension Social History Smoking and tobacco/nicotine status: former use of tobacco/nicotine Alcohol intake: never Substance/Drug Use: never Physical Exam 2 Const: COMMON NORMALS: patient oriented x3 HENMT: COMMON NORMALS: normocephalic and atraumatic HEAD & SCALP: n ormocephalic and atraumatic Eye: COMMON NORMALS: conjunctivae normal CONJUNCTIVA: Yes conjunctivae normal Neck/C-Spine: COMMON NORMALS: full ROM and supple Chest: COMMONS NORMALS: normal inspection of the chest Resp: COMMON NORMALS: normal respiratory effort, No retractions, No use of accessory muscles and clear to auscultation bilaterally AUSCULTATION: clear to auscultation bilaterally Cardio: COMMON NORMALS: regular rate, regular rhythm and No murmurs present (Cardio) RATE: regular rate RHYTHM: regular rhythm GI: COMMON NORMALS: Normal to inspection, nondistended, normoactive bowel sounds present, Soft to palpation, non-tender and no masses PALPATION: Yes Soft to palpation Extremity: COMMON NORMALS: normal to inspection and full ROM Neuro: COMMON NORMALS: patient oriented x3, moves all extremities and no focal motor deficits Psych: COMMON NORMALS: mental status grossly normal, Normal thought process present and cooperative THOUGHT PROCESS: Normal thought process present Skin: COMMON NORMALS: no rashes or lesions noted and no wounds GENERAL SKIN EXAM: no rashes or lesions noted Course 2 Vital Signs: Vital signs: Vital Signs Temperature 101.1 F H 08/04/24 16:12 Pulse Rate 107 H 08/04/24 16:12 Respiratory Rate 21 H 08/04/24 12:35 Blood Pressure 163/118 08/04/24 16:12 Pulse Oximetry 96 08/04/24 16:12 Oxygen Delivery Me thod Room Air 08/04/24 12:35 MDM - Abdominal Pain Medical Decision Making Patient presents with fever does have a UTI CT scan of her abdomen is negative no signs of severe infections C. difficile is negative we will start her on Keflex she is follow-up with PCP she is return if worsening she understands agrees to plan Medical Records I reviewed the patient's medical records. Lab Data I reviewed the patient's lab results. 08/04/24 12:59 08/04/24 12:59 Labs/Radiology: Radiology Impressions Abdomen/Pelvis CT 08/04/24 13:57 IMPRESSION: 1. No evidence of acute intra-abdominal or pelvic pathology. 2. Multiple chronic and incidental findings as above. Laboratory Results WBC 16.51 10^3/uL (3.29-11.43) H 08/04/24 12:59 RBC 4.91 10^6/uL (3.85-5.65) 08/04/24 12:59 Hgb 12.50 g/dL (11.27-16.99) 08/04/24 12:59 Hct 40.2 % (36-47) 08/04/24 12:59 MCV 81.9 fl (85-98) L 08/04/24 12:59 MCH 25.5 pg (27-33) L 08/04/24 12:59 MCHC 31.1 g/dL (30-55) 08/04/24 12:59 RDW 14.4 % (12.1-15.1) 08/04/24 12:59 Plt Count 164 10^3/cmm (157-399) 08/04/24 12:59 MPV 8.8 fL (7.4-10.4) 08/04/24 12:59 Neut % (Auto) 92.5 % 08/04/24 12:59 Lymph % (Auto) 3.3 % 08/04/24 12:59 [place] % (Auto) 3.1 % 08/04/24 12:59 Eos % (Auto) 0.1 % 08/04/24 12:59 Baso % (Auto) 0.2 % 08/04/24 12:59 Neut # (Auto) 15.26 10^3/uL (1.8-7.7) H 08/04/24 12:59 Lymph # (Auto) 0.5 10^3/uL (0.8-4.8) L 08/04/24 12:59 [place] # (Auto) 0.5 10^3/uL (0.2-0.9) 08/04/24 12:59 Eos # (Auto) 0.0 10^3/uL (0.0-0.8) 08/04/24 12:59 Baso # (Auto) 0.0 10^3/uL (0.0-0.1) 08/04/24 12:59 Nucleated RBC % (auto) 0 % 08/04/24 12:59 Nucleated RBCs # 0.0 /100WBC 08/04/24 12:59 Sodium 136 mmol/L (136-145) 08/04/24 12:59 Potassium 3.7 mmol/L (3.5-5.1) 08/04/24 12:59 Chloride 98 mmol/L (98-107) 08/04/24 12:59 Carbon Dioxide 26 mmol/L (22-29) 08/04/24 12:59 Anion Gap 15.7 (5-19) 08/04/24 12:59 BUN 13 mg/dL (6-20) 08/04/24 12:59 Creatinine 0.6 mg/dL (0.5-0.9) 08/04/24 12:59 GFR Calculation 111.3 mL/min (90-130) 08/04/24 12:59 Glucose 132 mg/dL (65-115) H 08/04/24 12:59 Calculated Osmolality 284 mOsm/kg (285-295) L 08/04/24 12:59 Lactic Acid 1.9 mmol/L (0.5-2.2) 08/04/24 12:59 Calcium 8.7 mg/dL (8.5-10.5) 08/04/24 12:59 Total Bilirubin 0.4 mg/dL (0.15-1.2) 08/04/24 12:59 AST 19 U/L (0-32) 08/04/24 12:59 ALT 9 U/L (0-33) 08/04/24 12:59 Alkaline Phosphatase 105 U/L (35-105) 08/04/24 12:59 Total Protein 8.1 g/dL (6.6-8.7) 08/04/24 12:59 Albumin 4.2 g/dL (3.5-5.2) 08/04/24 12:59 Globulin 3.9 g/dL (1.3-4.6) 08/04/24 12:59 Lipase 18 U/L (13-60) 08/04/24 12:59 HCG, Qual Negative (Negative) 08/04/24 12:59 Urine Color Yellow (Yellow) 08/04/24 14:20 Urine Appearance Clear (CLEAR) 08/04/24 14:20 Urine pH 8.5 (5-7) A 08/04/24 14:20 Ur Specific [place] 1.023 (1.005-1.030) 08/04/24 14:20 Urine Protein Trace (Negative) A 08/04/24 14:20 Urine Glucose (UA) Negative (Normal) 08/04/24 14:20 Urine Ketones Negative (Negative) 08/04/24 14:20 Urine Blood Negative (Negative) 08/04/24 14:20 Urine Nitrate Negative (Negative) 08/04/24 14:20 Urine Bilirubin Negative (Negative) 08/04/24 14:20 Urine Urobilinogen 0.2 mg/dL (Negative) 08/04/24 14:20 Ur Leukocyte Esterase Trace (Negative) A 08/04/24 14:20 Urine RBC 11-20 /hpf (0-2) H 08/04/24 14:20 Urine WBC 0-5 /hpf (0-5) 08/04/24 14:20 Ur Squamous Epith Cells 6-10 /hpf (0-5) 08/04/24 14:20 Amorphous Sediment Not Reportable 08/04/24 14:20 Urine Bacteria 4+ /hpf (NONE) H 08/04/24 14:20 Hyaline Casts 2.05 /lpf 08/04/24 14:20 C. difficile (PCR) Negative (Negative) 08/04/24 13:15 All radiology interpretation(s) finalized by discharge Discharge Plan Discharge Patient Disposition: Home Clinical Impression: Acute cystitis Condition: Stable Prescriptions: No Action No Known Home Medications Discharge Orders: Discharge ED (Routine); Ordered 08/04/24 Ordered By: Alessia Macdonald Discharge Diet: Advance as tolerated Discharge Activity: Resume usual activity Patient Instructions: Urinary Tract Infection in Women (ED) Coding Level of Care Code ED Supervisor Modern Languages for Lissette Parker
[2024-08-04 13:35] LABS: Basophils % 0.2 %; Eosinophils % 0.1 %; Hematocrit 40.2 % (36-47); Lymphocytes # 0.5 10^3/uL (0.8-4.8); Lymphocytes % 3.3 %; Mean Corpuscular HGB Conc 31.1 g/dL (30-55); Mean Corpuscular Hemoglobin 25.5 pg (27-33); Mean Corpuscular Volume 81.9 fl (85-98); Mean Platelet Volume 8.8 fL (7.4-10.4); Monocytes # 0.5 10^3/uL (0.2-0.9); Monocytes % 3.1 %; Neutrophils # 15.26 10^3/uL (1.8-7.7); Neutrophils % 92.5 %; Nucleated Red Blood Cells % 0 %; Platelet Count 164 10^3/cmm (157-399); Red Blood Count 4.91 10^6/uL (3.85-5.65); Red Cell Distribution Width 14.4 % (12.1-15.1); White Blood Count 16.51 10^3/uL (3.29-11.43)
[2024-08-04 13:39] LABS: HCG, Serum Qual Negative (Negative)
[2024-08-04 13:41] VITALS: BP 149/86; PULSE 117; O2SAT 95
[2024-08-04 13:44] LABS: Lactic Sepsis W/Reflex 1.9 mmol/L (0.5-2.2)
[2024-08-04 13:45] LABS: Alanine Aminotransferase 9 U/L (0-33); Albumin Level 4.2 g/dL (3.5-5.2); Alkaline Phosphatase 105 U/L (35-105); Anion Gap 15.7 (5-19); Aspartate Amino Transferase 19 U/L (0-32); Blood Urea Nitrogen 13 mg/dL (6-20); Calcium 8.7 mg/dL (8.5-10.5); Carbon Dioxide 26 mmol/L (22-29); Chloride 98 mmol/L (98-107); Creatinine Clr Calc Pharmacy 209.5241; Globulin 3.9 g/dL (1.3-4.6); Glomerular Filtration Rate 111.3 mL/min (90-130); Glucose 132 mg/dL (65-115); Lipase 18 U/L (13-60); Osmolality Calculated 284 mOsm/kg (285-295); Potassium 3.7 mmol/L (3.5-5.1); Sodium 136 mmol/L (136-145); Total Bilirubin 0.4 mg/dL (0.15-1.2); Total Protein 8.1 g/dL (6.6-8.7)
--- NOTE | 2024-08-04 13:57 | CTR_ITS ---
PROCEDURE INFORMATION: Exam: CT Abdomen And Pelvis With Contrast Exam date and time: 08/04/2024 3:14 PM Age: 39 years old Clinical indication: Abdominal pain; Generalized; Additional info: Abd pain TECHNIQUE: Imaging protocol: Computed tomography of the abdomen and pelvis with contrast. Radiation optimization: All CT scans at this facility use at least one of these dose optimization techniques: automated exposure control; mA and/or kV adjustment per patient size (includes targeted exams where dose is matched to clinical indication); or iterative reconstruction. Contrast material: OMNIPAQUE 350; Contrast volume: 100 ml; Contrast route: INTRAVENOUS (IV); COMPARISON: CT abdomen pelvis w con* [id number] 12/16/2023 12:39 PM RADIATION DOSE METRICS: Total DLP (mGy-cm): 1389.23 FINDINGS: Lungs: Visualized lung bases are clear. Liver: Normal appearance of the liver. Gallbladder and biliary ducts: The patient is status post cholecystectomy. Pancreas: Normal appearance of the pancreas. No ductal dilation. Spleen: Normal appearance of the spleen. Adrenal glands: Normal appearance of both adrenal glands. Kidneys and ureters: Normal appearance of both kidneys. No evidence of nephrolithiasis or hydronephrosis. No renal mass or cyst is seen. Normal appearance of both ureters without hydroureter or ureteral stone. Stomach and bowel: Tiny hiatal hernia of the stomach.Normal appearance of the small bowel without luminal dilation suggested. There is mild scattered colonic diverticular disease without evidence of diverticulitis. Appendix: The appendix is identified and normal in appearance. No evidence of appendicitis. Intraperitoneal space: Unremarkable. No free air. No significant fluid collection. Vasculature: Pelvic calcifications, likely representing incidental phleboliths. Normal appearance of the abdominal aorta. No evidence of atherosclerotic disease or aneurysm. Lymph nodes: Unremarkable. No enlarged lymph nodes. Urinary bladder: Normal appearance of the urinary bladder. No intravesicular stone. Reproductive: Patient is status post hysterectomy. Bones/joints: Mild to moderate scattered spinal degenerative changes. No fracture or aggressive osseous lesion. Soft tissues: Multiple small fatty anterior abdominal wall hernias redemonstrated. CT/CT abdomen pelvis w con* [id number] IMPRESSION: 1. No evidence of acute intra-abdominal or pelvic pathology. 2. Multiple chronic and incidental findings as above.
[2024-08-04 14:11] LABS: C.Diff PCR (Lab) NEGATIVE (Negative)
[2024-08-04 14:18] VITALS: BP 152/94; PULSE 126; O2SAT 96
[2024-08-04 14:25] LABS: Bilirubin Urine Negative (Negative); Blood Urine Negative (Negative); Glucose Urine UA Negative (Normal); Ketones Urine Negative (Negative); Leukocyte Esterase Urine Trace (Negative); Nitrate Urine Negative (Negative); Protein Urine Trace (Negative); Specific Gravity, Urine 1.023 (1.005-1.030); Urine Appearance Clear (CLEAR); Urine Color Yellow (Yellow); Urobilinogen Urine 0.2 mg/dL (Negative); pH Urine 8.5 (5-7)
[2024-08-04 14:30] LABS: Add Urine Microscopic? YES; Bacteria Urine 4+ /hpf; Hyaline Casts Urine 2.05 /lpf; WBC Urine 0-5 /hpf (0-5)
[2024-08-04 14:41] LABS: UA Slide Review UA Slide Review Perf
[2024-08-04 14:42] LABS: Add Urine Culture? Yes
[2024-08-04] MEDS: sodium chloride 0.9% 1,000 ML 999 ML IV ×2 (15:05→16:49)
[2024-08-04] MEDS: iohexol 350 mg/mL 500 mL Btl (per mL) IV (15:25)
[2024-08-04 16:12] VITALS: BP 163/118; PULSE 107; TEMP 38.4; O2SAT 96
[2024-08-04] MEDS: cefTRIAXone 1,000 mg SDV 1000 MG IVP (16:49)
[2024-08-04] MEDS: acetaminophen 500 mg Tablet 1000 MG PO (16:50)
[2024-08-04 18:00] VITALS: BP 134/78; PULSE 119; TEMP 37.6; O2SAT 95
== END 2024-08-04 18:02 | disposition home or self-care (01) ==
PROVIDERS: Emergency Provider Emergency Medicine
DX: N30.00 Acute cystitis without hematuria (principal); Z87.891 Personal history of nicotine dependence; I10 Essential (primary) hypertension
CPT/HCPCS: 36415; 74177; 80053; 81001; 82274; 83605; 83630; 83690; 84703; 85025; 87040; 87045; 87086; 87177; 87209; 87427; 87449; 87493; 96361; 96374; 99285; J0696; J7030

== ENCOUNTER 2025-01-02 18:42 | Emergency (ER) | payer OTHER, SELFPAY ==
[2025-01-02] VITALS (8 sets, daily range): BP systolic 127–164; BP diastolic 80–103; PULSE 90–103; RESP 18; TEMP 36.8; O2SAT 94–100; BMI 67.8
--- NOTE | 2025-01-02 19:32 | ED_ITS ---
HPI - Abdominal Pain 2 General: Chief Complaint: Abdominal Pain Stated Complaint: n/v, abd pain Time Seen by Provider: 01/02/25 19:00 Source: patient Mode of arrival: ambulatory Limitations: no limitations History of Present Illness: Patient is a 39-year-old female with past medical history of small bowel obstruction and hypertension who presents to the emergency department complaining of left lower quadrant abdominal pain beginning this morning. States that the pain awoke her, has gradually worsened throughout the day has been constant. States that she feels like her entire abdomen is on fire. Also notes some epigastric pain that feels like reflux. Denies history of diverticulitis, does note 1 episode of diarrhea today as well as nausea and vomiting. Notes that the pain radiates across her right lower quadrant, she still has her appendix. History of cholecystectomy and hysterectomy. States that she tried to drink some water and this seemed to make it worse, however she does not report any other specific alleviating or exacerbating factors. States she has never had this specific pain before. She is not reporting any fevers, hematuria or dysuria, vaginal bleeding or discharge. Currently rating the pain a 9/10, is the worst it has been all day. She does arrive hypertensive, states that she does not take any medications for this. Otherwise is afebrile and minimally tachycardic. She does not have any other symptoms to report at this time, or any other pertinent historical factors. Notes that she took a Zofran a few hours prior to coming in. MD elicited complaint: abdominal pain Pertinent past history: other (Cholecystectomy, hysterectomy, SBO) Onset (ago): hour(s) Pain Consistency: constant Location: LLQ Severity: severe Pain scale (0-10): 9 Quality: burning Radiation: RLQ Exacerbating factors: eating (And drinking) Relieving factors: nothing Associated Symptoms: Reports diarrhea, nausea and vomiting; Denies bloating, change in stool character, chills, constipation, dysuria, fever(s), hematochezia and hematuria Related Data Allergies Allergy/AdvReac Type Severity Reaction Status Date / Time amphetamine (From Adderall) Allergy SOB Verified 01/02/25 19:01 dextroamphetamine (From Allergy SOB Verified 01/02/25 19:01 Adderall) morphine Allergy RASH Verified 01/02/25 19:01 Review of Systems 2 General: Reports: 10 or more systems reviewed and unremarkable except in HPI and below Const: Denies: fever(s), chills, change in appetite, change in weight or diaphoresis ENMT: Denies: throat pain or hoarseness Card: Denies: chest pain, palpitations or lightheadedness Resp: Denies: dyspnea, productive cough or wheezing GI: Reports: abdominal pain, nausea, vomiting and diarrhea; Denies: constipation, bloating, change in stool character or hematochezia : Denies: flank pain, difficulty voiding, dysuria, urinary frequency, urinary urgency, hematuria, vaginal bleeding or vaginal discharge Musc: Denies: neck pain or back pain Skin/Breast: Denies: rash or new lesions Neuro: Denies: headache(s) or dizziness PFSH ED 2 PFSH: Medical History Morbid obesity with BMI of 70 and over, adult Bowel obstruction Essential hypertension Surgical History H/O: hysterectomy History of cholecystectomy Family History Other CAD (coronary artery disease) Diabetes Hypertension Social History Smoking and tobacco/nicotine status: former use of tobacco/nicotine Alcohol intake: never Substance/Drug Use: never Physical Exam 2 Const: COMMON NORMALS: patient oriented x3, no limitations and alert G ENERAL APPEARANCE: cooperative and in distress (Clutching left lower quadrant) NUTRITIONAL APPEARANCE: obese morbidly obese ORIENTATION/CONSCIOUSNESS: Yes awake HENMT: COMMON NORMALS: normocephalic, atraumatic, hearing grossly normal bilaterally, external ears normal, Normal external nose present, Normal nasal mucous membranes and turbinates present and moist oral mucous membranes HEAD & SCALP: normocephalic and atraumatic NOSE: Normal external nose present and Normal nasal mucous membranes and turbinates present EXTERNAL EAR: Yes external ears normal Eye: COMMON NORMALS: Equal, round and reactive pupils present, EOMs intact bilaterally, conjunctivae normal and normal visual garibay by confrontation C ONJUNCTIVA: Yes conjunctivae normal PUPIL: Yes Equal, round and reactive pupils present Neck/C-Spine: COMMON NORMALS: full ROM, supple, no meningeal signs and no JVD Resp: COMMON NORMALS: normal respiratory effort, No retractions, No use of accessory muscles and clear to auscultation bilaterally AUSCULTATION: clear to auscultation bilaterally, no crackles, no rales, no rhonchi and no wheezes Cardio: COMMON NORMALS: no JVD, regular rate, regular rhythm, S1 normal heart sound present, S2 normal heart sound present, No gallops present (Cardio), No clicks present (Cardio), No murmurs present (Cardio), No rub (Cardio) and Peripheral pulses 2+ throughout RATE: regular rate RHYTHM: regular rhythm HEART SOUNDS: S1 normal heart sound present and S2 normal heart sound present PERIPHERAL PULSES: Peripheral pulses 2+ throughout GI: COMMON NORMALS: Normal to inspection, nondistended, normoactive bowel sounds present, Soft to palpation, No hepatosplenomegaly present and no masses INSPECTION: Yes central obesity AUSCULTATION: Yes normoactive bowel sounds PALPATION: Yes Soft to palpation, Yes Tenderness to palpation present (GI) Details: LLQ, No Guarding due to palpation present (GI), No Rigid due to palpation and Yes No hepatosplenomegaly present RECTAL EXAM: deferred : COMMON NORMALS: Yes no CVA tenderness BLADDER/KIDNEY EXAM: Yes no CVA tenderness Back/Pelvis: COMMON NORMALS: no CVA tenderness Extremity: COMMON NORMALS: normal to inspection and full ROM Neuro: COMMON NORMALS: patient oriented x3, moves all extremities, no focal motor deficits and no sensory deficits noted SENSORIUM/ORIENTATION: Yes alert MENINGEAL SIGNS: Yes no meningeal signs Psych: COMMON NORMALS: mental status grossly normal, cooperative and speech normal SPEECH: Yes normal speech Skin: COMMON NORMALS: no rashes or lesions noted GENERAL SKIN EXAM: no rashes or lesions noted Course 2 Vital Signs: Vital signs: Vital Signs Temperature 98.3 F 01/02/25 18:59 Pulse Rate 90 01/02/25 21:28 Respiratory Rate 18 01/02/25 18:59 Blood Pressure 139/88 01/02/25 21:28 Pulse Oximetry 100 01/02/25 21:28 Oxygen Delivery Me thod Room Air 01/02/25 21:28 MDM - Abdominal Pain Medical Decision Making Patient presenting with acute onset left lower quadrant pain this morning. No history of diverticulitis, did have a history of small bowel obstruction though has still been having normal bowel movements. Elevated blood pressure at time of exam, likely secondary to pain. Was started with an IV, given medications for nausea and pain that notably caused her blood pressure to normalize. Her lab work was all unremarkable with no signs of infection, urinalysis included. CT did not show any acute findings, specifically no signs of acute diverticulitis as she was primarily tender in the left lower quadrant. She is stable for discharge home and conservative treatment, I did encourage her to follow-up with her regular doctor next couple days to make sure that her condition is improving. In the meantime if she is having any worsening of her condition she is informed to return, she verbalized understanding with this. Lab Data 01/02/25 19:42 01/02/25 19:42 Labs/Radiology: Radiology Impressions Abdomen/Pelvis CT 01/02/25 19:54 IMPRESSION: 1. No acute abdominopelvic findings. 2. Mild colonic diverticulosis without CT evidence of acute diverticulitis. 3. Hepatomegaly. Laboratory Results WBC 9.36 10^3/uL (3.29-11.43) 01/02/25 19:42 RBC 4.99 10^6/uL (3.85-5.65) 01/02/25 19:42 Hgb 12.30 g/dL (11.27-16.99) 01/02/25 19:42 Hct 40.4 % (36-47) 01/02/25 19:42 MCV 81.0 fl (85-98) L 01/02/25 19:42 MCH 24.6 pg (27-33) L 01/02/25 19:42 MCHC 30.4 g/dL (30-55) 01/02/25 19:42 RDW 14.4 % (12.1-15.1) 01/02/25 19:42 Plt Count 209 10^3/cmm (157-399) 01/02/25 19:42 MPV 8.6 fL (7.4-10.4) 01/02/25 19:42 Neut % (Auto) 66.8 % 01/02/25 19:42 Lymph % (Auto) 27.1 % 01/02/25 19:42 [place] % (Auto) 3.6 % 01/02/25 19:42 Eos % (Auto) 1.6 % 01/02/25 19:42 Baso % (Auto) 0.3 % 01/02/25 19:42 Neut # (Auto) 6.24 10^3/uL (1.8-7.7) 01/02/25 19:42 Lymph # (Auto) 2.5 10^3/uL (0.8-4.8) 01/02/25 19:42 [place] # (Auto) 0.3 10^3/uL (0.2-0.9) 01/02/25 19:42 Eos # (Auto) 0.2 10^3/uL (0.0-0.8) 01/02/25 19:42 Baso # (Auto) 0.0 10^3/uL (0.0-0.1) 01/02/25 19:42 Nucleated RBC % (auto) 0 % 01/02/25 19:42 Nucleated RBCs # 0.0 /100WBC 01/02/25 19:42 Sodium 142 mmol/L (136-145) 01/02/25 19:42 Potassium 3.6 mmol/L (3.5-5.1) 01/02/25 19:42 Chloride 103 mmol/L (98-107) 01/02/25 19:42 Carbon Dioxide 29 mmol/L (22-29) 01/02/25 19:42 Anion Gap 13.6 (5-19) 01/02/25 19:42 BUN 9 mg/dL (6-20) 01/02/25 19:42 Creatinine 0.5 mg/dL (0.5-0.9) 01/02/25 19:42 GFR Calculation 137.4 mL/min (90-130) H 01/02/25 19:42 Glucose 109 mg/dL (65-115) 01/02/25 19:42 Calculated Osmolality 293 mOsm/kg (285-295) 01/02/25 19:42 Calcium 9.2 mg/dL (8.5-10.5) 01/02/25 19:42 Total Bilirubin 0.2 mg/dL (0.15-1.2) 01/02/25 19:42 AST 10 U/L (0-32) 01/02/25 19:42 ALT 9 U/L (0-33) 01/02/25 19:42 Alkaline Phosphatase 84 U/L (35-105) 01/02/25 19:42 Total Protein 7.7 g/dL (6.6-8.7) 01/02/25 19:42 Albumin 4.0 g/dL (3.5-5.2) 01/02/25 19:42 Globulin 3.7 g/dL (1.3-4.6) 01/02/25 19:42 Lipase 26 U/L (13-60) 01/02/25 19:42 HCG, Qual Negative (Negative) 01/02/25 19:42 Urine Color Yellow (Yellow) 01/02/25 19:30 Urine Appearance Clear (CLEAR) 01/02/25 19: Urine pH 6.0 (5-7) 01/02/25 19: Ur Specific [place] 1.022 (1.005-1.030) 01/02/25 19: Urine Protein Negative (Negative) 01/02/25 19: Urine Glucose (UA) Negative (Normal) 01/02/25 19: Urine Ketones Negative (Negative) 01/02/25 19:30 Urine Blood Negative (Negative) 01/02/25 19:30 Urine Nitrate Negative (Negative) 01/02/25 19:30 Urine Bilirubin Negative (Negative) 01/02/25 19: Urine Urobilinogen 0.2 mg/dL (Negative) 01/02/25 19:30 Ur Leukocyte Esterase Negative (Negative) 01/02/25 19:30 Urine RBC 0-2 /hpf (0-2) 01/02/25 19:30 Urine WBC 0-5 /hpf (0-5) 01/02/25 19:30 Ur Squamous Epith Cells 0-5 /hpf (0-5) 01/02/25 19:30 Amorphous Sediment Not Reportable 01/02/25 19:30 Urine Bacteria Trace /hpf (NONE) 01/02/25 19: Hyaline Casts 0.40 /lpf 01/02/25 19:30 All radiology interpretation(s) finalized by discharge Discharge Plan Discharge Patient Disposition: Home Clinical Impression: Abdominal pain Qualifiers: Abdominal location: left lower quadrant Qualified Code(s): R10.32 - Left lower quadrant pain Condition: Stable Discharge Orders: Discharge ED (Routine); Ordered 01/02/25 Ordered By: Darrel Froy Torres Patient Instructions: Abdominal Pain (ED) Activity Restrictions/Additional Instructions: Follow-up with your regular doctor for reevaluation. Drink plenty of fluids, GI soft diet. May try MiraLAX for any constipation. Please return if you start having any bloody stools, worsening pain, or any other concerns. Print Language: Ukrainian Coding Level of Care Code ED Manager Of Training for Lissette Parker
[2025-01-02] MEDS: ondansetron 2 mg/ML SDV 2 mL 8 MG IVP (19:41)
[2025-01-02] MEDS: HYDROmorphone 0.5 MG/0.5 ML INJ IVP ×2 (19:42→21:27)
[2025-01-02 19:46] LABS: Bilirubin Urine Negative (Negative); Blood Urine Negative (Negative); Glucose Urine UA Negative (Normal); Ketones Urine Negative (Negative); Leukocyte Esterase Urine Negative (Negative); Nitrate Urine Negative (Negative); Protein Urine Negative (Negative); Specific Gravity, Urine 1.022 (1.005-1.030); Urine Appearance Clear (CLEAR); Urine Color Yellow (Yellow); Urobilinogen Urine 0.2 mg/dL (Negative)
[2025-01-02 19:51] LABS: Add Urine Microscopic? YES; Bacteria Urine Trace /hpf; RBC Urine 0-2 /hpf (0-2); Squamous Epithelial Cell Urine 0-5 /hpf (0-5); WBC Urine 0-5 /hpf (0-5)
[2025-01-02 19:52] LABS: Basophils % 0.3 %; Eosinophils # 0.2 10^3/uL (0.0-0.8); Eosinophils % 1.6 %; Hematocrit 40.4 % (36-47); Lymphocytes # 2.5 10^3/uL (0.8-4.8); Lymphocytes % 27.1 %; Mean Corpuscular HGB Conc 30.4 g/dL (30-55); Mean Corpuscular Hemoglobin 24.6 pg (27-33); Mean Platelet Volume 8.6 fL (7.4-10.4); Monocytes # 0.3 10^3/uL (0.2-0.9); Monocytes % 3.6 %; Neutrophils # 6.24 10^3/uL (1.8-7.7); Neutrophils % 66.8 %; Nucleated Red Blood Cells % 0 %; Platelet Count 209 10^3/cmm (157-399); Red Blood Count 4.99 10^6/uL (3.85-5.65); Red Cell Distribution Width 14.4 % (12.1-15.1); White Blood Count 9.36 10^3/uL (3.29-11.43)
--- NOTE | 2025-01-02 19:54 | CTR_ITS ---
PROCEDURE INFORMATION: Exam: CT Abdomen And Pelvis With Contrast Exam date and time: 01/02/2025 8:52 PM Age: 39 years old Clinical indication: Abdominal pain; Generalized; Prior surgery; Surgery date: 6+ months; Surgery type: Gb, hysterectomy; Additional info: Severe llq pain, n/v TECHNIQUE: Imaging protocol: Computed tomography of the abdomen and pelvis with contrast. Radiation optimization: All CT scans at this facility use at least one of these dose optimization techniques: automated exposure control; mA and/or kV adjustment per patient size (includes targeted exams where dose is matched to clinical indication); or iterative reconstruction. Contrast material: OMNIPAQUE 350; Contrast volume: 100 ml; Contrast route: INTRAVENOUS (IV); COMPARISON: CT abdomen pelvis w con* [id number] 08/04/2024 3:14 PM RADIATION DOSE METRICS: Total DLP (mGy-cm): 1448.83 FINDINGS: Lungs: Unremarkable. Liver: Hepatomegaly. Gallbladder and biliary ducts: Status post cholecystectomy. Pancreas: Normal. No ductal dilation. Spleen: Normal. No splenomegaly. Adrenal glands: Normal. No mass. Kidneys and ureters: Normal. No hydronephrosis. Stomach and bowel: Mild colonic diverticulosis. Appendix: No evidence of appendicitis. Intraperitoneal space: Unremarkable. No free air. No significant fluid collection. Vasculature: Unremarkable. No abdominal aortic aneurysm. Lymph nodes: Unremarkable. No enlarged lymph nodes. Urinary bladder: Unremarkable as visualized. Reproductive: Uterus is surgically absent. Bones/joints: Unremarkable. No acute fracture. Soft tissues: Small fat containing umbilical and paraumbilical hernias. CT/CT abdomen pelvis w con* [id number] IMPRESSION: 1. No acute abdominopelvic findings. 2. Mild colonic diverticulosis without CT evidence of acute diverticulitis. 3. Hepatomegaly.
[2025-01-02 20:01] LABS: HCG, Serum Qual Negative (Negative)
[2025-01-02 20:08] LABS: Alanine Aminotransferase 9 U/L (0-33); Alkaline Phosphatase 84 U/L (35-105); Anion Gap 13.6 (5-19); Aspartate Amino Transferase 10 U/L (0-32); Blood Urea Nitrogen 9 mg/dL (6-20); Calcium 9.2 mg/dL (8.5-10.5); Carbon Dioxide 29 mmol/L (22-29); Chloride 103 mmol/L (98-107); Creatinine Clr Calc Pharmacy 266.5728; Globulin 3.7 g/dL (1.3-4.6); Glomerular Filtration Rate 137.4 mL/min (90-130); Glucose 109 mg/dL (65-115); Lipase 26 U/L (13-60); Osmolality Calculated 293 mOsm/kg (285-295); Potassium 3.6 mmol/L (3.5-5.1); Sodium 142 mmol/L (136-145); Total Bilirubin 0.2 mg/dL (0.15-1.2); Total Protein 7.7 g/dL (6.6-8.7)
[2025-01-02] MEDS: iohexol 350 mg/mL 500 mL Btl (per mL) IV (20:53)
== END 2025-01-02 22:27 | disposition home or self-care (01) ==
PROVIDERS: Emergency Provider Physician Assistant
DX: R10.32 Left lower quadrant pain (principal); Z87.891 Personal history of nicotine dependence; I10 Essential (primary) hypertension
CPT/HCPCS: 74177; 80053; 81001; 83690; 84703; 85025; 96374; 96375; 96376; 99285; J1171; J2405

== ENCOUNTER 2025-01-03 20:25 | Emergency (ER) | payer OTHER, SELFPAY ==
[2025-01-03 20:27] VITALS: BP 157/103; PULSE 98; RESP 18; TEMP 36.6; O2SAT 100; BMI 67.8
--- NOTE | 2025-01-03 21:31 | XRR_ITS ---
PROCEDURE INFORMATION: Exam: XR Chest Exam date and time: 01/03/2025 9:34 PM Age: 39 years old Clinical indication: Pain; Right-sided; Additional info: Upper abd pain TECHNIQUE: Imaging protocol: Radiologic exam of the chest. Views: 1 view. COMPARISON: CR XR chest 1V portable [id number] 03/08/2021 12:19 AM FINDINGS: Lungs: Unremarkable. No consolidation. Pleural spaces: Unremarkable. No pleural effusion. No pneumothorax. Heart/Mediastinum: Cardiomegaly. Bones/joints: Unremarkable. XR/XR chest 1V portable [id number] IMPRESSION: 1. Cardiomegaly. 2. No focal consolidation.
[2025-01-03 21:34] LABS: Basophils % 0.2 %; Eosinophils # 0.2 10^3/uL (0.0-0.8); Eosinophils % 1.6 %; Hematocrit 38.7 % (36-47); Lymphocytes # 2.2 10^3/uL (0.8-4.8); Lymphocytes % 23.4 %; Mean Corpuscular Hemoglobin 24.9 pg (27-33); Mean Corpuscular Volume 80.3 fl (85-98); Mean Platelet Volume 8.4 fL (7.4-10.4); Monocytes # 0.4 10^3/uL (0.2-0.9); Neutrophils # 6.63 10^3/uL (1.8-7.7); Neutrophils % 70.4 %; Nucleated Red Blood Cells % 0 %; Platelet Count 194 10^3/cmm (157-399); Red Blood Count 4.82 10^6/uL (3.85-5.65); Red Cell Distribution Width 14.4 % (12.1-15.1); White Blood Count 9.42 10^3/uL (3.29-11.43)
--- NOTE | 2025-01-03 21:37 | ED_ITS ---
HPI - Abdominal Pain 2 General: Chief Complaint: Abdominal Pain Stated Complaint: n/v abd pain into back Time Seen by Provider: 01/03/25 21:26 Source: patient Mode of arrival: ambulatory Limitations: no limitations History of Present Illness: Patient is a 39-year-old female with history of hypertension and morbid obesity who is presenting to the emergency department for the second time in the past 24 hours due to continued abdominal pain. I did personally see this patient yesterday where she had complete abdominal workup to include labs that were unremarkable, as well as a normal CT. She states she went home and the pain is continued and is now more in the left upper quadrant radiating towards her back. States she has had continued nausea and vomiting, no diarrhea and no urinary symptoms. No fevers, she is stating that she has had multiple episodes of C. difficile in the past but is not having any diarrhea as mentioned. States that she feels like her insides are burning. Vitals unremarkable at this time aside from mild hypertension. Denies any cardiac history. MD elicited complaint: abdominal pain Onset (ago): day(s) Pain Consistency: constant Location: LUQ Severity: severe Pain scale (0-10): 10 Quality: burning Radiation: back Associated Symptoms: Reports nausea and vomiting; Denies bloating, change in stool character, chills, constipation, diarrhea, dysuria, fever(s) and hematochezia Treatments prior to arrival: other (zofran) Related Data Previous Rx's ?Medication ?Instructions ?Recorded amoxicillin 875 mg-potassium 1 tab PO BID 10 days #20 tabs 01/03/25 clavulanate 125 mg tablet hydrocodone 5 mg-acetaminophen 325 1 tab PO Q4H PRN pa in #10 tabs 01/03/25 mg tablet prednisone 20 mg tablet 60 mg (3 x 20 mg) PO ONCE 5 days 01/03/25 #15 tabs Allergies Allergy/AdvReac Type Severity Reaction Status Date / Time amphetamine (From Adderall) Allergy SOB Verified 01/02/25 19:01 dextroamphetamine (From Allergy SOB Verified 01/02/25 19:01 Adderall) morphine Allergy RASH Verified 01/02/25 19:01 Review of Systems 2 General: Reports: 10 or more systems reviewed and unremarkable except in HPI and below Const: Denies: fever(s), chills, change in appetite, change in weight or diaphoresis ENMT: Denies: throat pain or hoarseness Card: Denies: chest pain, palpitations or lightheadedness Resp: Denies: dyspnea, productive cough or wheezing GI: Reports: abdominal pain, nausea and vomiting; Denies: diarrhea, constipation, bloating, change in stool character or hematochezia : Denies: flank pain, difficulty voiding, dysuria, urinary frequency or urinary urgency Musc: Denies: neck pain or back pain Skin/Breast: Denies: rash or new lesions Neuro: Denies: headache(s) or dizziness PFSH ED 2 PFSH: Medical History Morbid obesity with BMI of 70 and over, adult Bowel obstruction Essential hypertension Surgical History H/O: hysterectomy History of cholecystectomy Family History Other CAD (coronary artery disease) Diabetes Hypertension Social History Smoking and tobacco/nicotine status: former use of tobacco/nicotine Alcohol intake: never Substance/Drug Use: never Physical Exam 2 Const: COMMON NORMALS: patient oriented x3, no limitations, alert and well nourished GENERAL APPEARANCE: cooperative NUTRITIONAL APPEARANCE: obese morbidly obese ORIENTATION/CONSCIOUSNESS: Yes awake Eye: COMMON NORMALS: Equal, round and reactive pupils present, EOMs intact bilaterally, conjunctivae normal and normal visual garibay by confrontation C ONJUNCTIVA: Yes conjunctivae normal PUPIL: Yes Equal, round and reactive pupils present Neck/C-Spine: COMMON NORMALS: full ROM, supple, no meningeal signs and no JVD Resp: COMMON NORMALS: normal respiratory effort, No retractions, No use of accessory muscles and clear to auscultation bilaterally AUSCULTATION: clear to auscultation bilaterally, no crackles, no rales, no rhonchi and no wheezes Cardio: COMMON NORMALS: no JVD, regular rate, regular rhythm, S1 normal heart sound present, S2 normal heart sound present, No gallops present (Cardio), No clicks present (Cardio), No murmurs present (Cardio), No rub (Cardio) and Peripheral pulses 2+ throughout RATE: regular rate RHYTHM: regular rhythm HEART SOUNDS: S1 normal heart sound present and S2 normal heart sound present PERIPHERAL PULSES: Peripheral pulses 2+ throughout GI: COMMON NORMALS: Normal to inspection, nondistended, normoactive bowel sounds present, Soft to palpation, No hepatosplenomegaly present and no masses INSPECTION: Yes central obesity AUSCULTATION: Yes normoactive bowel sounds PALPATION: Yes Soft to palpation, Yes Tenderness to palpation present (GI) Details: LUQ, No Guarding due to palpation present (GI), No Rigid due to palpation and Yes No hepatosplenomegaly present RECTAL EXAM: deferred : COMMON NORMALS: Yes no CVA tenderness BLADDER/KIDNEY EXAM: Yes no CVA tenderness Back/Pelvis: COMMON NORMALS: no CVA tenderness Extremity: COMMON NORMALS: full ROM NARRATIVE EXTREMITY EXAM: Bilateral lower extremity lymphedema Neuro: COMMON NORMALS: patient oriented x3, moves all extremities, no focal motor deficits and no sensory deficits noted SENSORIUM/ORIENTATION: Yes alert MENINGEAL SIGNS: Yes no meningeal signs Psych: COMMON NORMALS: mental status grossly normal, cooperative and speech normal SPEECH: Yes normal speech Skin: COMMON NORMALS: no rashes or lesions noted GENERAL SKIN EXAM: no rashes or lesions noted Course 2 Vital Signs: Vital signs: Vital Signs Temperature 97.8 F 01/03/25 20:27 Pulse Rate 90 01/03/25 22:25 Respiratory Rate 18 01/03/25 20:27 Blood Pressure 153/101 01/03/25 22:04 Pulse Oximetry 97 01/03/25 22:25 Oxygen Delivery Me thod Room Air 01/03/25 22:25 MDM - Abdominal Pain Medical Decision Making Patient presented for the second time 24 hours for continued abdominal pain. Had a full workup yesterday including normal CT and normal labs. Labs repeated today which were normal. No need to reimage her. Yesterday she was more tender in the left lower quadrant, though there was no diverticulitis on CT there was evidence of diverticulosis. Patient stating the pain is only gotten worse she has had further nausea and vomiting. Pain meds were again given here as well as nausea medication. Tried a GI cocktail this did not help. Ordered an EKG that was normal, reviewed with physician. Chest x-ray also was unremarkable. I did speak with on-call general surgeon, Dr. Nichole, who recommends going ahead and treating for acute diverticulitis and have the patient follow-up with him in the office, and she may require a scope. Further history taking with the patient, she has only had an upper scope once in the past prior to her gallbladder removal. Also cannot rule out that this is potentially an inflammatory bowel disease, and would warrant colonoscopy to evaluate for this further. Do not suspect bowel obstruction as she is continue to have bowel movements. Her vitals have been normal aside from mild elevation in her blood pressure secondary to the pain. Will treat with some pain medications at home, and start her on Augmentin as well as prednisone. Informed her to return if she is continuing to have even more pain or other concerning symptoms, she agrees with this plan at this time. Lab Data 01/03/25:01/03/25: Labs/Radiology: Laboratory Results WBC 9.42 10^3/uL (3.29-11.43) 01/03/25: RBC 4.82 10^6/uL (3.85-5.65) 01/03/25: Hgb 12.00 g/dL (11.27-16.99) 01/03/25: Hct 38.7 % (36-47) 01/03/25: MCV 80.3 fl (85-98) L 01/03/25: MCH 24.9 pg (27-33) L 01/03/25: MCHC 31.0 g/dL (30-55) 01/03/25: RDW 14.4 % (12.1-15.1) 01/03/25: Plt Count 194 10^3/cmm (157-399) 01/03/25: MPV 8.4 fL (7.4-10.4) 01/03/25: Neut % (Auto) 70.4 % 01/03/25: Lymph % (Auto) 23.4 % 01/03/25: [place] % (Auto) 4.0 % 01/03/25: Eos % (Auto) 1.6 % 01/03/25: Baso % (Auto) 0.2 % 01/03/25: Neut # (Auto) 6.63 10^3/uL (1.8-7.7) 01/03/25: Lymph # (Auto) 2.2 10^3/uL (0.8-4.8) 01/03/25: [place] # (Auto) 0.4 10^3/uL (0.2-0.9) 01/03/25: Eos # (Auto) 0.2 10^3/uL (0.0-0.8) 01/03/25: Baso # (Auto) 0.0 10^3/uL (0.0-0.1) 01/03/25: Nucleated RBC % (auto) 0 % 01/03/25: Nucleated RBCs # 0.0 /100WBC 01/03/25: Sodium 136 mmol/L (136-145) 01/03/25: Potassium 3.5 mmol/L (3.5-5.1) 01/03/25: Chloride 100 mmol/L (98-107) 01/03/25: Carbon Dioxide 26 mmol/L (22-29) 01/03/25: Anion Gap 13.5 (5-19) 01/03/25: BUN 9 mg/dL (6-20) 01/03/25: Creatinine 0.6 mg/dL (0.5-0.9) 01/03/25: GFR Calculation 111.3 mL/min (90-130) 01/03/25: Glucose 118 mg/dL (65-115) H 01/03/25: Calculated Osmolality 282 mOsm/kg (285-295) L 01/03/25: Calcium 8.7 mg/dL (8.5-10.5) 01/03/25: Total Bilirubin 0.2 mg/dL (0.15-1.2) 01/03/25: AST 12 U/L (0-32) 01/03/25: ALT 8 U/L (0-33) 01/03/25: Alkaline Phosphatase 82 U/L (35-105) 01/03/25: Total Protein 7.9 g/dL (6.6-8.7) 01/03/25 21: Albumin 3.6 g/dL (3.5-5.2) 01/03/25 21: Globulin 4.3 g/dL (1.3-4.6) 01/03/25 21:25 Lipase 50 U/L (13-60) 01/03/25 21:25 Urine Color Yellow (Yellow) 01/03/25 21:35 Urine Appearance Clear (CLEAR) 01/03/25 21:35 Urine pH 5.0 (5-7) 01/03/25 21:35 Ur Specific [place] 1.032 (1.005-1.030) H 01/03/25 21:35 Urine Protein Trace (Negative) A 01/03/25 21:35 Urine Glucose (UA) Negative (Normal) 01/03/25 21:35 Urine Ketones Negative (Negative) 01/03/25 21:35 Urine Blood Negative (Negative) 01/03/25 21:35 Urine Nitrate Negative (Negative) 01/03/25 21:35 Urine Bilirubin Negative (Negative) 01/03/25 21:35 Urine Urobilinogen 1.0 mg/dL (Negative) 01/03/25 21:35 Ur Leukocyte Esterase Negative (Negative) 01/03/25 21:35 Urine RBC 0-2 /hpf (0-2) 01/03/25 21:35 Urine WBC 0-5 /hpf (0-5) 01/03/25 21:35 Ur Squamous Epith Cells 0-5 /hpf (0-5) 01/03/25 21:35 Amorphous Sediment Not Reportable 01/03/25 21:35 Urine Bacteria Trace /hpf (NONE) 01/03/25 21:35 Hyaline Casts 2.87 /lpf 01/03/25 21:35 XR interpretation done by ED provider, pending radiology final review ED provider radiology interpretation(s): No acute cardiopulmonary process on chest x-ray. Discharge Plan Discharge Patient Disposition: Home Clinical Impression: Diverticulitis Condition: Stable Prescriptions: New hydrocodone-acetaminophen 5-325 mg tablet 1 tab PO Q4H PRN (Reason: pain) Qty: 10 0RF prednisone 20 mg tablet 60 mg PO ONCE 5 Days Qty: 15 0RF amoxicillin-pot clavulanate 875-125 mg tablet 1 tab PO BID 10 Days Qty: 20 0RF Discharge Orders: Discharge ED (Routine); Ordered 01/03/25 Ordered By: Darrel Torres Patient Instructions: Diverticulitis (ED) Activity Restrictions/Additional Instructions: Take antibiotics as prescribed. Take prednisone as prescribed. Pain medications as directed. GI soft/bland diet. Follow-up with general surgery for further evaluation and potential scope as we discussed. Return with any new concerns that you have. Print Language: Mexican Coding Level of Care Code ED Manager Nuclear for Lissette Parker
[2025-01-03 21:45] LABS: Bilirubin Urine Negative (Negative); Blood Urine Negative (Negative); Glucose Urine UA Negative (Normal); Ketones Urine Negative (Negative); Leukocyte Esterase Urine Negative (Negative); Nitrate Urine Negative (Negative); Protein Urine Trace (Negative); Urine Appearance Clear (CLEAR); Urine Color Yellow (Yellow)
[2025-01-03 21:49] LABS: Alanine Aminotransferase 8 U/L (0-33); Albumin Level 3.6 g/dL (3.5-5.2); Alkaline Phosphatase 82 U/L (35-105); Anion Gap 13.5 (5-19); Aspartate Amino Transferase 12 U/L (0-32); Blood Urea Nitrogen 9 mg/dL (6-20); Calcium 8.7 mg/dL (8.5-10.5); Carbon Dioxide 26 mmol/L (22-29); Chloride 100 mmol/L (98-107); Globulin 4.3 g/dL (1.3-4.6); Glomerular Filtration Rate 111.3 mL/min (90-130); Glucose 118 mg/dL (65-115); Osmolality Calculated 282 mOsm/kg (285-295); Potassium 3.5 mmol/L (3.5-5.1); Sodium 136 mmol/L (136-145); Total Bilirubin 0.2 mg/dL (0.15-1.2); Total Protein 7.9 g/dL (6.6-8.7)
[2025-01-03 21:49] LABS: Add Urine Microscopic? YES; Bacteria Urine Trace /hpf; Hyaline Casts Urine 2.87 /lpf; RBC Urine 0-2 /hpf (0-2); Squamous Epithelial Cell Urine 0-5 /hpf (0-5); WBC Urine 0-5 /hpf (0-5)
[2025-01-03 21:50] LABS: Specific Gravity, Urine 1.032 (1.005-1.030)
[2025-01-03] MEDS: lidocaine 2% viscous 15 ML, aluminum-mag hydrox-simethicon 30 ML, sucralfate oral liq 1 GM PO (21:50)
--- NOTE | 2025-01-03 21:56 | ECG_ITS ---
[facility] Test Date: 2025-01-03 Pat Name: Daniela Pulido Department: Room: Gender: Female Fulfillment Associate: : 1985 Requested By: Darrel Mcduffie Order Number: [id number] Rodriguez MD: Patricia Dunlap M.D. Measurements Intervals [place] Rate: 89 P: 57 MA: 190 QRS: 50 QRSD: 90 T: 42 QT: 353 QTc: 431 Interpretive Statements SINUS RHYTHM Compared to ECG 05/31/2020 14:53:14 No significant changes Electronically Signed On 01-03-2025 22:10:46 CDT by Patricia Dunlap M.D. [email or web address]
[2025-01-03 22:04] VITALS: BP 153/101; PULSE 90; O2SAT 96
[2025-01-03] MEDS: ondansetron 2 mg/ML SDV 2 mL 8 MG IVP (22:17)
[2025-01-03] MEDS: HYDROmorphone 0.5 MG/0.5 ML INJ 1 MG IVP (22:18)
[2025-01-03 22:25] VITALS: PULSE 90; O2SAT 97
[2025-01-03 22:45] LABS: Lipase 50 U/L (13-60)
[2025-01-03] MEDS: amoxicillin-clav 875-125 mg Tablet 1 TAB PO (22:45)
[2025-01-03] MEDS: dexamethasone 10 mg/mL INJ IVP (22:47)
[2025-01-03 23:10] VITALS: BP 157/90; PULSE 93; O2SAT 96
--- NOTE | 2025-01-04 16:12 | DCPLANNER ---
faxed referral packet to [facility]
== END 2025-01-03 23:11 | disposition home or self-care (01) ==
PROVIDERS: Emergency Medicine; Emergency Provider Physician Assistant
DX: K57.92 Diverticulitis of intestine, part unspecified, without perforation or abscess without bleeding (principal); Z87.891 Personal history of nicotine dependence; I10 Essential (primary) hypertension
CPT/HCPCS: 36415; 71045; 80053; 81001; 83690; 85025; 93005; 96374; 96375; 99285; J1100; J1171; J2405; J9999

== ENCOUNTER 2025-04-10 23:24 | Emergency (ER) | payer OTHER, SELFPAY ==
--- OUTSIDE RECORDS SUMMARY | 2025-04-10 23:30 | XMS_ITS | Clinical Summary ---
Author Organization [facility] Address [address] [place] [address] Phone Care Team Providers Care Needle Loom Operator Name Role Phone Nevaeh Hernández MD Primary Care Provider [phone] Allergies Active Allergy Reactions Criticality Noted Date Comments Dextroamphetamine-Amphetam ine Shortness of Breath/Wheezing,Itching High 01/09/2025 Morphine Itching Low 07/09/2022 Medications ferrous sulfate 325 mg (65 mg iron) tabletIndication s:Low ferritin,Microcy tosis Take 1 Tablet (325 mg) by mouth daily. 90 Tablet 1 03/09/2025 Active Active Problems Problem Noted Date Diagnosed Date Gastroenteritis 01/09/2025 Sepsis due to cellulitis 01/09/2025 Thrombocytopenia 04/08/2024 Prediabetes 03/09/2024 History of hysterectomy 03/09/2024 Hx of Clostridium difficile infection 02/03/2024 C. difficile diarrhea 08/18/2023 LAD (lymphadenopathy) 08/16/2023 Lymphedema 08/16/2023 Abdominal pain, acute, left lower quadrant 08/15 Morbid obesity with BMI of 60.0-69.9, adult 07/19 Cellulitis of right lower extremity 08/15/2023 Resolved Problems Problem Noted Date Diagnosed Date Resolved Date Generalized abdominal pain 04/08/2024 0 04/09/2024 Fever 04/08/2024 04/09/2024 Leukocytosis (leucocytosis) 04/08/2024 04/09/2024 Hyponatremia 04/08/2024 04/09/2024 Hypokalemia 04/08/2024 04/09/2024 N&V (nausea and vomiting) 08/15/2023 Acute diarrhea 08/15/2023 04/09/2024 Thrombocytopenia 08/15/2023 03/09/2024 Encounters Date Type Department Care Team Description 04/10/2025 External Device Data [facility] ABSTRACTION Provider, Abstract 04/10/2025 External Device Data [facility] ABSTRACTION Provider, Abstract 03/09/2025 External Device Data Initial Department [address] [facility] [address] MACHADO: [place] [address] [facility], 03/09/2025 Results Follow-Up [address] [phone] Katheryn Singh NP CBC WITH DIFFERENTIAL, FERRITIN, IRON, TIBC, AND PERCENT SATURATION, Additional followed-up results: 2 03/08/2025 2:45 PM CDT Office Visit [address] [phone] Katheryn Singh NP Other fatigue (Primary Dx); Prediabetes; H/O total hysterectomy; Microcytosis; Declined influenza vaccine; Morbid obesity with BMI of 60.0-69.9, adult ([facility]) 03/02/[address] [phone] Nevaeh Hernández MD ED f/u Appointment 02/27/[address] [phone] Daniel Potts PA-C Hospital Follow Up 02/06/2025 External Device Data [facility] AB[facility]CTION Provider, Abstract 02/06/2025 External Device Data [facility] ABSTRACTION Provider, Abstract 02/06/2025 External Device Data [facility] Provider, Abstract 01/30/2025 External Device Data [facility] Provider, Abstract 01/23/[address] [phone] Daniel Potts PA-C APPT; Information 01/23/2025 Telephone [facility] [address] [place] [phone] Daniel Potts PA-C appointment 01/16/2025 External Device Data [facility] ABSTRACTION Provider, Abstract 01/16/2025 External Device Data [facility] ABSTRACTION Provider, Abstract 01/16/2025 External Device Data [facility] ABSTRACTION Provider, Abstract 01/16/2025 Telephone [facility] [address] [place] [phone] Nevaeh Hernández MD Hospital Follow Up 01/15/2025 External Device Data Initial Department [address] [place] [address] Dr MACHADO: [place] [address] [facility] 01/11/2025 [facility] [id number] [place] [phone] Bryan Jain FNP [facility] 01/11/2025 External Device Data Initial Department [address] [place] [address] Dr MACHADO: [place] [address] [facility] 01/09/2025 4:12 PM CDT - 01/11/2025 2:10 PM CDT Hospital Encounter [facility] [address] [place] [phone] Thai Moreno MD Bengani, Shreyans, MD Sepsis due to cellulitis ([facility]) Discharge Disposition: Home or Self Care 01/09/2025 Travel from Last 3 Months Immunizations Immunization Administration Dates Next Due Influenza Seasonal Unspecified Formulation IM Family History Medical History Relation Name Comments No Known Problems Daughter No Known Problems Father Diabetes Mother No Known Problems Sister 1 No Known Problems Sister 2 No Known Problems Son Relation Name Status Comments Daughter Alive Father Alive Mother Alive Sister 1 Alive Sister 2 Alive Son Alive Social History Tobacco Use Types Packs/Day Years Used Date Smoking Tobacco: Never Smokeless Tobacco: Never Tobacco Cessation:Counseling Given: Not Answered Alcohol Use Standard Drinks/Week Comments Not Currently 0 (1 standard drink = 0.6 oz pur e alcohol) Feeling Safe Answer Date Recorded Are you in a relationship wi th someone who hurts you emotionally and/or physically? No 01/09/2025 Food Insecurity Answer Date Recorded Patient needs follow up regardin 02/08/2025 Transportation Needs Answer Date Record ed Patient needs follow up regardin 02/08/2025 Housing Stability Answer Date Recorded Social/Environmental Concerns No concerns Utility Needs Answer Date Recorded Patient needs follow up regardin 02/08/2025 Comments No Sex and Gender Information Value Date Recorded Sex Assigned at Not on file Legal Sex Female 3:58 PM CDT Gender Identity Not on file Sexual Orientation Not on file Last Filed Vital Signs Vital Sign Reading Time Taken Comments Blood Pressure 132/84 03/08/2025 2:44 PM CDT Pulse 89 03/08/2025 2:44 PM CDT Temperature 37 C (98.6 F) 03/08/2025 2:44 PM CDT Respiratory Rate 18 03/08/2025 2:44 PM CDT Oxygen Saturation 98% 03/08/2025 2:44 PM CDT Inhaled Oxygen Concentration - - Weight 194.1 kg (428 lb) 03/08/2025 2:44 PM CDT Height 167.6 cm (5' 6 ) 03/08/2025 2:44 PM CDT Body Mass Index 69.08 03/08/2025 2:44 PM CDT Plan of Treatment Health Maintenance Due Date Last Done Comments DTAP/TDAP/TD VACCINES (2 - Tdap) 08/22/1998 08/21/1998 HEPATITIS B VACCINES (2 of 3 - 3-dose series) 09/18/1998 08/21/1998 Pre-Diabetes and Diabetes Screening 03/08/2028 03/08/2025, 02/04/2024 INFLUENZA VACCINE Completed 03/08/2025, 03/08/2025, 07/28/2023 HPV VACCINES Aged Out No longer eligi ble based on patient's age to complete this topic Procedures Procedure Name Priority Date/Time Associated Diagnosis Comments HEMOGLOBIN A1C Routine 03/08/2025 3:08 PM CDT Prediabetes VITAMIN B12 AND FOLATE Routine 03/08/2025 3:08 PM CDT Other fatigue Microcytosis IRON, TIBC, AND PERCENT SATURATION Routine 03/08/2025 3:08 PM CDT Other fatigue Microcytosis FERRITIN Routine 03/08/2025 3:08 PM CDT Other fatigue Microcytosis CBC WITH DIFFERENTIAL Routine 03/08/2025 3:08 PM CDT Other fatigue Microcytosis TELEMETRY REPORT 01/23/2025 2:57 PM CDT TROPONIN 6 HR, 5TH GEN Timed Study 01/11/2025 5:43 AM CDT CBC WITH DIFFERENTIAL Routine 01/11/2025 5:43 AM CDT COMPREHENSIVE METABOLIC PANEL Routine 01/11/2025 5:43 AM CDT MAGNESIUM LEVEL Routine 01/11/2025 5:43 AM CDT PHOSPHORUS Routine 01/11/2025 5:43 AM CDT TROPONIN 2 HR, 5TH GEN Timed Study 01/11/2025 2:00 AM CDT TROPONIN BASELINE, 5TH GEN Stat 01/10/2025 11:52 PM CDT XR CHEST PA OR AP 1 VW Stat 01/10/2025 11:49 PM CDT EKG 12-LEAD Stat 01/10/2025 11:40 PM CDT VANCOMYCIN LEVEL TROUGH Timed Study 01/10/2025 4:10 PM CDT POC GLUCOSE Routine 01/10/2025 7:15 AM CDT CBC WITH DIFFERENTIAL Routine 01/10/2025 4:00 AM CDT COMPREHENSIVE METABOLIC PANEL Routine 01/10/2025 4:00 AM CDT MAGNESIUM LEVEL Routine 01/10/2025 4:00 AM CDT PHOSPHORUS Routine 01/10/2025 4:00 AM CDT POC GLUCOSE Routine 01/09/2025 6:46 PM CDT LACTIC ACID Stat 01/09/2025 5:02 PM CDT BLOOD CULTURE Stat 01/09/2025 5:02 PM CDT BLOOD CULTURE Stat 01/09/2025 5:02 PM CDT BLOOD CULTURE Stat 01/09/2025 4:55 PM CDT BLOOD CULTURE Stat 01/09/2025 4:55 PM CDT DIFFERENTIAL, MANUAL Stat 01/09/2025 4:14 PM CDT COMPREHENSIVE METABOLIC PANEL Stat 01/09/2025 4:14 PM CDT CBC WITH DIFFERENTIAL Stat 01/09/2025 4:14 PM CDT URINALYSIS MICROSCOPY ONLY Stat 01/09/2025 3:53 PM CDT URINALYSIS W/REFLEX MICROSCOPIC Stat 01/09/2025 3:53 PM CDT from Last 3 Months Results * VITAMIN B12 AND FOLATE (03/08/2025 3:08 PM CDT) Pathologist [facility] VITAMIN B12 502 200 - 1100 pg/mL [facility] FOLATE, SERUM 13.4 ng/mL [facility] Comment: Reference Range Low: <3.4 Borderline: 3.4-5.4 Normal: >5.4 FASTING:NO FASTING: NO Test Performed at: [facility] [id number] [place] [address] Patsy Raymundo MD Blood 03/08/2025 3:08 PM CDT 03/08/2025 3:09 PM CDT Katheryn RobleroPR Slides POSITION CLASSIFICATION SPECIALIST CHEMISTRY ORDERABLES Final Resul t Performing Organization Address City/[facility] Co de Phone Number [facility] [phone] [facility] [address] [place] [phone] * IRON, TIBC, AND PERCENT SATURATION (03/08/2025 3:08 PM CDT) Pathologist [facility] IRON 60 40 - 190 mcg/dL [facility] TIBC 353 250 - 450 mcg/dL (calc) [facility] IRON % SATURATION 17 16 - 45 % (calc) [facility] Comment: FASTING:NO FASTING: NO Test Performed at: [facility] [address] Patsy Raymundo MD Blood 03/08/2025 3:08 PM CDT 03/08/2025 3:09 PM CDT [facility] AnnikaPR Slides POSITION CLASSIFICATION SPECIALIST CHEMISTRY ORDERABLES Final Resul t Performing Organization Address [facility] de Phone Number [facility] [phone] [facility] [phone] * (ABNORMAL) CBC WITH DIFFERENTIAL (03/08/2025 3:08 PM CDT) Only the most recent of4 resultswithin the time period is included. Pathologist [facility] WBC 6.2 3.8 - 10.8 Thousand/u L [facility] RBC 4.81 3.80 - 5.10 Million/uL [facility] HEMOGLOBIN 12.2 11.7 - 15.5 g/dL [facility] HEMATOCRIT 39.4 35.0 - 45.0 % [facility] MCV 81.9 80.0 - 100.0 fL [facility] MCH 25.4(L) 27.0 - 33.0 pg [facility] MCHC 31.0(L) 32.0 - 36.0 g/dL [facility] Comment: For adults, a slight decrease in the calculated MCHC value (in the range of 30 to 32 g/dL) is most likely not clinically significant; however, it should be interpreted with caution in correlation with other red cell parameters and the patient's clinical condition. RDW 14.3 11.0 - 15.0 % [facility] PLATELETS 178 140 - 400 Thousand/u L [facility] MPV 9.3 7.5 - 12.5 fL [facility] NEUTROPHIL ABSOLUTE 3,708 1,500 - 7,800 cells/uL [facility] LYMPHOCYTE ABSOLUTE 2,027 850 - 3,900 cells/uL [facility] MONOCYTE ABSOLUTE 322 200 - 950 cells/uL [facility] EOSINOPHIL ABSOLUTE 112 15 - 500 cells/uL [facility] BASOPHILS ABSOLUTE 31 0 - 200 cells/uL [facility] NEUTROPHIL 59.8 % [facility] LYMPHOCYTES 32.7 % [facility] MONOCYTE 5.2 % [facility] EOSINOPHILS 1.8 % [facility] BASOPHILS 0.5 % [facility] Comment: FASTING:NO FASTING: NO Test Performed at: [facility] [id number] [address] Patsy Raymundo MD Blood 03/08/2025 3:08 PM CDT 03/08/2025 3:09 PM CDT Katheryn Singh NP HEMATOLOGY ORDERABLES Final Resu lt [facility] [phone] [facility] [address] [phone] * (ABNORMAL) HEMOGLOBIN A1C (03/08/2025 3:08 PM CDT) HEMOGLOBIN A1C 5.8(H) <5.7 % [facility] Comment: For someone without known diabetes, a hemoglobin A1c value between 5.7% and 6.4% is consistent with prediabetes and should be confirmed with a follow-up test. For someone with known diabetes, a value <7% indicates that their diabetes is well controlled. A1c targets should be individualized based on duration of diabetes, age, comorbid conditions, and other considerations. This assay result is consistent with an increased risk of diabetes. Currently, no consensus exists regarding use of hemoglobin A1c for diagnosis of diabetes for children. ESTIMATED AVERAGE GLUCOSE (MG/DL) 120 mg/dL [facility] ESTIMATED AVERAGE GLUCOSE (MMOL/L) 6.6 mmol/L [facility] Comment: FASTING:NO FASTING: NO Test Performed at: [facility] [address] Patsy Raymundo MD Blood 03/08/2025 3:08 PM CDT 03/08/2025 3:09 PM CDT us Katheryn Singh NP CHEMISTRY ORDERABLES Final Resul t Performing Organization Address City/[facility]/ZIP Co de Phone Number [facility] [phone] [facility] [address] * (ABNORMAL) FERRITIN (03/08/2025 3:08 PM CDT) FERRITIN 14(L) 16 - 154 ng/mL [facility] Comment: Test Performed at: [facility] [address] Patsy Raymundo MD Blood 03/08/2025 3:08 PM CDT 03/08/2025 3:09 PM CDT us Katheryn Singh NP CHEMISTRY ORDERABLES Final Resul t [facility] [phone] [facility] [address] * TELEMETRY REPORT (01/23/2025 2:57 PM CDT) us Provider Scanning ECG ORDERABLES Final Result * TROPONIN 6 HR, 5TH GEN (01/11/2025 5:43 AM CDT) TROPONIN T, 6 HR 5TH GEN <6 <11 ng/L 01/11/2025 6:20 AM CDT [facility] Blood Venipuncture / Unknown 01/11/2025 5:43 AM CDT 01/11/2025 5:48 AM CDT Narrative [facility] - 01/11/2025 6:20 AM CDT Troponin Undetectable Unable to calculate delta. Jarad Manuel MD CHEMISTRY ORDERABLES Final Resul t [facility] [id number] [address] [place] [address] * (ABNORMAL) PHOSPHORUS (01/11/2025 5:43 AM CDT) Only the most recent of2 resultswithin the time period is included. PHOSPHORUS 2.3(L) 2.5 - 4.5 mg/dL 01/11/2025 6:26 AM CDT [facility] Blood Venipuncture / Unknown 01/11/2025 5:43 AM CDT 01/11/2025 5:48 AM CDT Cassius Wallace MD CHEMISTRY ORDERABLES Final R esult [facility] CLIA # [id number] [address] [place] [address] * MAGNESIUM LEVEL (01/11/2025 5:43 AM CDT) Only the most recent of2 resultswithin the time period is included. MAGNESIUM 1.8 1.6 - 2.6 mg/dL 01/11/2025 6:26 AM CDT [facility] Blood Venipuncture / Unknown 01/11/2025 5:43 AM CDT 01/11/2025 5:48 AM CDT us Cassius Wallace MD CHEMISTRY ORDERABLES Final R esult [facility] GAY # [id number] [address] [place] [address] * (ABNORMAL) COMPREHENSIVE METABOLIC PANEL (01/11/2025 5:43 AM CDT) Only the most recent of3 resultswithin the time period is included. SODIUM 131(L) 136 - 145 mmol/L 01/11/2025 6:26 AM [facility] POTASSIUM 3.6 3.5 - 5.1 mmol/L 01/11/2025 6:26 AM [facility] CHLORIDE 97(L) 98 - 107 mmol/L 01/11/2025 6:26 AM [facility] CO2 27 22 - 29 mmol/L 01/11/2025 6:26 AM [facility] CALCIUM 7.9(L) 8.6 - 10.0 mg/dL 01/11/2025 6:26 AM [facility] BUN 6 6 - 20 mg/dL 01/11/2025 6:26 AM [facility] CREATININE 0.60 0.51 - 0.95 mg/dL 01/11/2025 6:26 AM [facility] GLUCOSE 114(H) 74 - 99 mg/dL 01/11/2025 6:26 AM [facility] TOTAL PROTEIN 6.7 6.6 - 8.7 g/dL 01/11/2025 6:26 AM [facility] ALBUMIN 2.9(L) 3.5 - 5.2 g/dL 01/11/2025 6:26 AM [facility] BILIRUBIN TOTAL 0.3 <=1.2 mg/dL 01/11/2025 6:26 AM [facility] ALKALINE PHOSPHATASE 66 35 - 104 U/L 01/11/2025 6:26 AM [facility] AST 8(L) 10 - 35 U/L 01/11/2025 6:26 AM CDT [facility] ALT 7(L) 10 - 35 U/L 01/11/2025 6:26 AM CDT [facility] GFR >60 >=60 mL/min/1.7 3 sq meter 01/11/2025 6:26 AM T [facility] Comment:eGFR calculated with 2020 CKD-EPI equation. Vegetarian diet, extremely high or low muscle mass, and may affect results. Cystatin C with Glomerular Filtration Rate is a suitable alternative for these patients. ANION GAP 7(L) 10 - 20 mmol/L 01/11/2025 6:26 AM CDT [facility] Blood Venipuncture / Unknown 01/11/2025 5:43 AM CDT 01/11/2025 5:48 AM CDT us Cassius Wallace MD CHEMISTRY ORDERABLES Final R esult [facility] CLIA # [id number] [address] [place] [address] * TROPONIN 2 HR, 5TH GEN (01/11/2025 2:00 AM CDT) TROPONIN T, 2 HR 5TH GEN <6 <=10 ng/L 01/11/2025 3:00 AM CDT [facility] Blood Venipuncture / Unknown 01/11/2025 2:00 AM CDT 01/11/2025 2:14 AM CDT Narrative [facility] - 01/11/2025 3:00 AM CDT Troponin Undetectable Unable to calculate delta. us Jarad Manuel MD CHEMISTRY ORDERABLES Final Resul t [facility] CLIA # [id number] [address] [place] [address] * TROPONIN BASELINE, 5TH GEN (01/10/2025 11:52 PM CDT) TROPONIN T, BASELINE 5TH GEN 6 <=10 ng/L 01/11/2025 12:28 AM CDT [facility] Blood Venipuncture / Unknown 01/10/2025 11:52 PM CDT 01/10/2025 11:52 PM CDT Narrative [facility] - 01/11/2025 12:28 AM CDT Troponin Detectable but normal range. us Jarad Manuel MD CHEMISTRY ORDERABLES Final Resul t [facility] CLIA # [id number] [address] [place] [address] * XR CHEST PA OR AP 1 VW (01/10/2025 11:49 PM CDT) Anatomical Region Laterality Modality Chest Computed Radiogr aphy 01/10/2025 11:5 0 PM CDT Impressions 01/11/2025 12:09 AM CDT IMPRESSION: Please see below. Exam: XR CHEST PA OR AP 1 VW Date/Time of Exam: 01/10/2025 11:49 PM Reason For Exam: Chest Pain. Diagnosis: Sepsis, due to unspecified organism, unspecified whether acute organ dysfunction present (CMS/HCC); Cellulitis of right lower extremity. Findings: The portable AP upright study is compared to the exam of 08/16/2023. The right IJ central line is no longer present. The lungs are well-inflated. There is no pneumothorax. The lungs are clear. The cardiac silhouette is not enlarged. The pulmonary vessels are unremarkable. The bony thorax is grossly intact. IMPRESSION: No acute radiographic abnormality. Narrative Procedure Note Cristal Cole MD - 01/11/2025 IMPRESSION: Please see below. Exam: XR CHEST PA OR AP 1 VW Date/Time of Exam: 01/10/2025 11:49 PM Reason For Exam: Chest Pain. Diagnosis: Sepsis, due to unspecified organism, unspecified whether acute organ dysfunction present (CMS/HCC); Cellulitis of right lower extremity. Findings: The portable AP upright study is compared to the exam of 08/16/2023. The right IJ central line is no longer present. The lungs are well-inflated. There is no pneumothorax. The lungs are clear. The cardiac silhouette is not enlarged. The pulmonary vessels are unremarkable. The bony thorax is grossly intact. IMPRESSION: No acute radiographic abnormality. 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1985 Requested By: Order Number: [id number] Reading MD: Deep Bean Measurements Intervals Decker Rate: 103 P: 36 LA: 176 QRS: 6 QRSD: 88 T: 23 QT: 352 QTc: 461 Interpretive Statements Sinus tachycardia Otherwise normal ECG Electronically Signed On 01-11-2025 21:29:56 CDT by Deep Bean Procedure Note Deep Bean MD - 01/11/[address] [place] [address] Test Date: 2025-01-10 Pat Name: DANIELA PULIDO Department: 80 Room: 120 02 Gender: Female 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1985 Requested By: Order Number: [id number] Reading : Deep Bean Measurements Intervals Decker Rate: 103 P: 36 LA: 176 QRS: 6 QRSD: 88 T: 23 QT: 352 QTc: 461 Interpretive Statements Sinus tachycardia Otherwise normal ECG Electronically Signed On 01-11-2025 21:29:56 CDT by Deep Bean us Jarad Manuel MD ECG ORDERABLES Final Result INTERFACE SYSTEM Refer to clinic/hospital department * VANCOMYCIN LEVEL TROUGH (01/10/2025 4:10 PM CDT) VANCOMYCIN, TROUGH 13.8 10.0 - 17.0 ug/mL 01/10/2025 4:36 PM CDT [facility] Blood Venipuncture / Unknown 01/10/2025 4:10 PM CDT 01/10/2025 4:13 PM CDT Cassius Wallace MD CHEMISTRY ORDERABLES Final R esult Performing Organization Address [facility]/ZIP Co de Phone Number [facility] CLIA # [id number] [address] [place] [address] * (ABNORMAL) POC GLUCOSE (01/10/2025 7:15 AM CDT) Only the most recent of2 resultswithin the time period is included. Pathologist [facility] GLUCOSE POC 121(H) 74 - 99 mg/dL 01/10/2025 7:15 AM CDT [facility] SPECIMEN SOURCE, GLUCOSE POC Whole Blood 01/10/2025 7:15 AM CDT [facility] Blood, whole 01/10/2025 7:15 AM CDT 01/10/2025 7:49 AM CDT Cassius Wallace MD POINT OF CARE TESTING Final Result Performing Organization Address City/[facility]/ZIP Co de Phone Number [facility] CLIA # [id number] [address] [place] [address] * LACTIC ACID (01/09/2025 5:02 PM CDT) Pathologist [facility] LACTIC ACID 1.4 <=2.0 mmol/L 01/09/2025 5:19 PM CDT [facility] Blood BLOOD SPECIMEN / Unknown Venipuncture / Unknown 01/09/2025 5:02 PM CDT 01/09/2025 5:03 PM CDT us Thai Moreno MD CHEMISTRY ORDERABLES Fin al Result [facility] CLIA # [id number] [address] [place] [address] * BLOOD CULTURE (01/09/2025 5:02 PM CDT) Only the most recent of2 resultswithin the time period is included. [facility] BLOOD CULTURE No growth 01/15/2025 2:48 PM CDT [facility] Blood (Peripheral) Venipuncture / Unknown 01/09/2025 5:02 PM CDT 01/09/2025 5:02 PM CDT us Thai Moreno MD MICROBIOLOGY - GENERAL O RDERABLES Final Result Performing Organization Address City/[facility] Co de Phone Number [facility] CLIA # [id number] [facility] [address] * (ABNORMAL) MANUAL DIFFERENTIAL (01/09/2025 4:14 PM CDT) [facility] SEGMENTED NEUTROPHILS 91(H) 36 - 66 % 01/09/2025 4:56 PM CDT [facility] LYMPHOCYTES RELATIVE 7(L) 24 - 44 % 01/09/2025 4:56 PM CDT [facility] MONOCYTES RELATIVE 2(L) 4 - 10 % 01/09/2025 4:56 PM CDT [facility] NEUTROPHILS ABSOLUTE COUNT 23.75(H) 1.40 - 6.50 K/uL 01/09/2025 4:56 PM CDT [facility] LYMPHOCYTES ABSOLUTE 1.83 1.20 - 4.00 K/uL 01/09/2025 4:56 PM CDT [facility] MONOCYTES ABSOLUTE 0.52 0.10 - 0.60 K/uL 01/09/2025 4:56 PM CDT [facility] TOTAL CELLS COUNTED IN DIFF 100 01/09/2025 4:56 PM CDT [facility] PLATELET EST. Adequate 01/09/2025 4:56 PM CDT [facility] RBC MORPHOLOGY Normal 01/09/2025 4:56 PM CDT [facility] VACUOLATED NEUTROPHILS Present /hpf 01/09/2025 4:56 PM CDT [facility] Blood Collection / Unknown 01/09/2025 4:14 PM CDT 01/09/2025 4:23 PM CDT us Protocol Jr Wiggins MD HEMATOLOGY ORDERABLES COM Final Result [facility] CLIA # [id number] [address] [place] [address] * (ABNORMAL) URINALYSIS MICROSCOPY ONLY (01/09/2025 3:53 PM CDT) WBC UA 3-5(A) 0 - 2 /hpf 01/09/2025 4:23 PM CDT [facility] RBC UA 0-2 0 - 2 /hpf 01/09/2025 4:23 PM CDT [facility] BACTERIA UA 1+(A) Negative /hpf 01/09/2025 4:23 PM CDT [facility] EPITHELIAL CELLS, URINE 6-10(A) 0 - 5 /hpf 01/09/2025 4:23 PM CDT [facility] Urine URINE SPECIMEN OBTAINED BY CLEAN CATCH PROCEDURE / Unknown Collection / Unknown 01/09/2025 3:53 PM CDT 01/09/2025 4:04 PM CDT us Thai Moreno MD URINE ORDERABLES Final R esult [facility] CLIA # [id number] [address] [place], [place] [id number] * (ABNORMAL) URINALYSIS WITH REFLEX MICROSCOPIC (01/09/2025 3:53 PM CDT) COLOR UA Yellow Pale to Dark Yellow 01/09/2025 4:23 PM CDT [facility] CLARITY UA Clear Clear 01/09/2025 4:23 PM CDT [facility] SPECIFIC GRAVITY UA 1.020 1.003 - 1.035 01/09/2025 4:23 PM CDT [facility] PH UA 7.0 5.0 - 8.0 01/09/2025 4:23 PM CDT [facility] LEUKOCYTE ESTERASE UA Negative Negative 01/09/2025 4:23 PM CDT [facility] NITRITE UA Negative Negative 01/09/2025 4:23 PM CDT [facility] PROTEIN UA 2+(A) Negative 01/09/2025 4:23 PM CDT [facility] GLUCOSE UA Negative Negative 01/09/2025 4:23 PM T [facility] KETONES UA Trace(A) Negative 01/09/2025 4:23 PM CDT [facility] UROBILINOGEN UA 0.2 <2.0 mg/dL 4:23 PM CDT [facility] BILIRUBIN UA Negative Negative 01/09/2025 4:23 PM CDT [facility] BLOOD UA Negative Negative 01/09/2025 4:23 PM T [facility] Urine URINE SPECIMEN OBTAINED BY CLEAN CATCH PROCEDURE / Unknown Collection / Unknown 01/09/2025 3:53 PM CDT 01/09/2025 4:04 PM CDT us Thai Moreno MD URINE ORDERABLES Final R esult [facility] CLKAMALA # [id number] [address] [place] [id number] from Last 3 Months Insurance [address] [place] [address] RX [employer] (INTERNAL) [facility] RX [employer] [facility] Advance Directives For more information, please contact: [phone] * Full Code (Latest Code Status on File) Date Activated Date Inactivated Comments 01/09/2025 5:22 PM 01/11/2025 4:11 PM * Full Code Date Activated Date Inactivated Comments 04/08/2024 11:11 PM 04/09/2024 5:15 PM * Full Code Date Activated Date Inactivated Comments 02/03/2024 5:43 PM 02/06/2024 2:34 PM * Full Code Date Activated Date Inactivated Comments 08/15/2023 10:09 PM 08/18/2023 6:07 PM Care Teams Needle Loom Operator Relationship Specialty Start Date End Date Nevaeh Hernández MD [address] [place] [address] PCP - General Internal Medicine 03/09/24
--- OUTSIDE RECORDS SUMMARY | 2025-04-10 23:30 | XMS_ITS | Encounter Summary ---
Author Organization [employer] Address [address] [place] [address] Care Team Providers Care Gas Regulator Repairer Name Role Phone Nevaeh Hernández MD Primary Care Provider Encounter Details Date Type Department Care Team (Late st Contact Info) Description 04/10/2025 External Device Data [facility]STRACTION Provider, Abstract NO ADDRESS ON FILE Social History Tobacco Use Types Packs/Day Years Used Date Smoking Tobacco: Never Smokeless Tobacco: Never Alcohol Use Standard Drinks/Week Comments Not Currently [...] on file Sexual Orientation Not on file documented as of this encounter Plan of Treatment Not on file documented as of this encounter Visit Diagnoses Not on filedocumented in this encounter Care Teams 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
--- OUTSIDE RECORDS SUMMARY | 2025-04-10 23:30 | XMS_ITS | Patient Health Record ---
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
--- OUTSIDE RECORDS SUMMARY | 2025-04-10 23:30 | XMS_ITS | Data Portability ---
Author Organization [facility], [place], [facility] Address [address] [address] Assessment No assessment recorded. Plan of Treatment Reminders Order Date Submit Date Provider Last Modified By Organization Details Last Modified Time Details Appointments None recorded. Lab calprotecti n, stool 2022 023 [facility] ([facility]), [address] [place] [address], [phone], 4 05:00:58 H pylori Ag, qual immunoassay , stool 2022 023 [facility] ([facility]), [address] [place] [address], [address], 4 05:00:58 celiac disease comprehensi ve panel, serum 2022 023 bulletn. [facility], [address] [place] [address], [address], [place], [address], 3 04:27:31 CMP, serum or plasma 2022 [address], [address], [place], [address], 3 04:27:30 CBC 2022 023 [facility], [address] [place] [address], [address], [place], [address], 3 17:13:27 TSH, serum or plasma 2022 023 bulletn. [facility], [address] [facility] [address], [address], [place], [address], 3 04:27:32 food allergen panel, serum 2022 023 bulletn. [facility], [address], [address], [place], [address], 3 04:27:32 Referral gastroenter ologist referral 2023 024 [email or web address] Not available 4 14:21:13 physical therapist referral 2022 023 [email or web address] [facility], [address], [place], [address], 4 09:20:48 Procedures None recorded. Surgeries None recorded. Imaging RF, upper gastrointes tinal tract + small bowel, w/ contrast [facility] [address] [facility], [place], [address], 4 09:09:56 Medication Orders ondansetron 4 mg disintegrat ing tablet 2023 024 [facility]/Pharmacy #[id number], [address] [facility], [facility] [address], [place], [address], 4 10:12:21 omeprazole 40 mg capsule,del ayed release 2022 023 [email or web address] 276 [facility]/Pharmacy #[id number], [address], [facility], [place], [address], 4 09:37:31 prednisone 20 mg tablet 2022 023 [email or web address] [facility]/Pharmacy #[id number], [address], [facility], [place], [address], 3 15:26:37 ProAir HFA 90 mcg/actuati on aerosol inhaler 2022 023 [email or web address] 276 [facility]/Pharmacy #[id number], [address] [facility], [facility] [address], [place], [address], 4 09:37:34 Patient TargetsNo targets recorded. Patient InstructionsNo instructions recorded. Reason for Referral Physical Therapist Referral for Lymphedema of lower extremity Referring Physician: Makenzie Hardy [facility], Encounter Date: 09/17/2023 [facility] Referral for Clostridium difficile colitis Referring Physician: Makenzie Hardy [facility], Encounter Date: 12/23/2023 Results Created Date Observation Date Name Description Value Unit Range Abnormal Flag Note LastModifiedBy Organization Detail LastModifiedTime 10/07/20 23 10/07/2023 CBC WBC 7.6 x10 4.0-10 .5 Not Available [facility] [address] [facility], [place], [address], 10/07/2023 17:13:27 10/07/20 23 10/07/2023 CBC RBC 4.94 x10 3.50-5 .50 Not Available [facility] [address] [facility], [place], [address], 10/07/2023 17:13:27 10/07/20 23 10/07/2023 CBC HGB 13.2 g/dL 12.0-1 6.0 Not Available [facility] [address] [facility] 1, [place], [address], 10/07/2023 17:13:27 10/07/20 23 10/07/2023 CBC HCT 40.0 % 37.0-4 7.0 Not Available [facility] [address] [facility] [address], [place], [address], 10/07/2023 17:13:27 10/07/20 23 10/07/2023 CBC MCV 80.9 fL 80.0-9 9.9 Not Available [facility] [address] [facility] 1, [place], [address], 10/07/2023 17:13:27 10/07/20 23 10/07/2023 CBC MCH 26.7 pg 27.0-3 2.0 low Not Available [facility] [address] [facility] 1, [place], [address], 10/07/2023 17:13:27 10/07/20 23 10/07/2023 CBC MCHC 33.0 g/dL 32.0-3 6.0 Not Available [facility] [address] [facility] 1, [place], [address], 10/07/2023 17:13:27 10/07/20 23 10/07/2023 CBC RDW 15.6 % 11.5-1 4.6 high Not Available [facility] [address] [facility] 1, [place], [address], 10/07/2023 17:13:27 10/07/20 23 10/07/2023 CBC plt 182.9 x10 140.0- 451.0 Not Available [facility] [address] [facility] 1, [place], [address], 10/07/2023 17:13:27 10/07/20 23 10/07/2023 CBC lymphocytes % 28.6 % 20.0-5 0.0 Not Available [facility] [address] [facility] 1, [place], [address], 10/07/2023 17:13:27 10/07/20 23 10/07/2023 CBC granulcytes % 64.1 % 30.0-7 0.0 Not Available [facility] [address] [address], [place], [address], 10/07/2023 17:13:27 10/07/20 23 10/07/2023 CBC monocytes % 4.0 % 2.0-10 .0 Not Available [facility] [address] [address], [place], [address], 10/07/2023 17:13:27 10/07/20 23 10/07/2023 CBC granulcytes# 4.9 x10 Not Mary ilable [facility] [address] [address], [place], [address], 10/07/2023 17:13:27 10/07/20 23 10/07/2023 CBC lymphocytes # 2.2 x10 Not Available [facility] [address] [address], [place], [address], 10/07/2023 17:13:27 10/07/20 23 10/07/2023 CBC monocytes # 0.3 x10 Not Avai lable [facility] [address] [address], [place], [address], 10/07/2023 17:13:27 10/07/20 23 10/08/2023 COMPR EHENS HIMANSHU METAB OLIC PANEL glucose 87 mg/dL 65-99 normal Fasti ng refer ence inter isadora Not Available [facility] [address] [place], [address], 10/08/2023 04:27:30 10/07/20 23 10/08/2023 COMPR EHENS HIMANSHU METAB OLIC PANEL urea nitrogen (BUN) 9 mg/dL 7-25 normal Not Available [facility] [address] [place], [address], 10/08/2023 04:27:30 10/07/20 23 10/08/2023 COMPR EHENS HIMANSHU METAB OLIC PANEL creatinine 0.63 mg/dL 0.50-0 .97 normal Not Available [address], [address], 10/08/2023 04:27:30 10/07/20 23 10/08/2023 COMPR EHENS HIMANSHU METAB OLIC PANEL eGFR 116 mL/mi n/1.7 3m2 > or = 60 normal Not Available [address], [address], 10/08/2023 04:27:30 10/07/20 23 10/08/2023 COMPR EHENS HIMANSHU METAB OLIC PANEL BUN/creatini ne ratio SEE NOTE: (calc ) 6-22 Not Repor koffi: BUN and Creat inine are withi n refer ence range . Not Available [address], [address], 10/08/2023 04:27:30 10/07/20 23 10/08/2023 COMPR EHENS HIMANSHU METAB OLIC PANEL sodium 139 mmol/ L 135-14 6 normal Not Available [address], [address], 10/08/2023 04:27:30 10/07/20 23 10/08/2023 COMPR EHENS HIMANSHU METAB OLIC PANEL potassium 3.7 mmol/ L 3.5-5. 3 normal Not Available [address], [address], 10/08/2023 04:27:30 10/07/20 23 10/08/2023 COMPR EHENS HIMANSHU METAB OLIC PANEL chloride 100 mmol/ L 98-110 normal Not Available [address], [address], 10/08/2023 04:27:30 10/07/20 23 10/08/2023 COMPR EHENS HIMANSHU METAB OLIC PANEL carbon dioxide 28 mmol/ L 20-32 normal Not Available [address], [address], 10/08/2023 04:27:30 10/07/20 23 10/08/2023 COMPR EHENS HIMANSHU METAB OLIC PANEL calcium 9.4 mg/dL 8.6-10 .2 normal Not Available [address], [address], 10/08/2023 04:27:30 10/07/20 23 10/08/2023 COMPR EHENS HIMANSHU METAB OLIC PANEL protein, total 7.8 g/dL 6.1-8. 1 normal Not Available [address], [address], 10/08/2023 04:27:30 10/07/20 23 10/08/2023 COMPR EHENS HIMANSHU METAB OLIC PANEL albumin 3.9 g/dL 3.6-5. 1 normal Not Available [address], [address], 10/08/2023 04:27:30 10/07/20 23 10/08/2023 COMPR EHENS HIMANSHU METAB OLIC PANEL globulin 3.9 g/dL_ (calc ) 1.9-3. 7 high Not Available [address], [address], 10/08/2023 04:27:30 10/07/20 23 10/08/2023 COMPR EHENS HIMANSHU METAB OLIC PANEL albumin/glob ulin ratio 1.0 (calc ) 1.0-2. 5 normal Not Available [address], [address], 10/08/2023 04:27:30 10/07/20 23 10/08/2023 COMPR EHENS HIMANSHU METAB OLIC PANEL bilirubin, total 0.4 mg/dL 0.2-1. 2 normal Not Available [address] [place], [address], 10/08/2023 04:27:30 10/07/20 23 10/08/2023 COMPR EHENS HIMANSHU METAB OLIC PANEL alkaline phosphatase 74 U/L 31-125 normal Not Available [address] [address] [place], [address], 10/08/2023 04:27:30 10/07/20 23 10/08/2023 COMPR EHENS HIMANSHU METAB OLIC PANEL AST 12 U/L 10-30 normal Not Available [address] [address] [place], [address], 10/08/2023 04:27:30 10/07/20 23 10/08/2023 COMPR EHENS HIMANSHU METAB OLIC PANEL ALT 8 U/L 6-29 normal Not Available [address] [address] [place], [address], 10/08/2023 04:27:30 10/07/20 23 10/12/2023 BRANDON C DISEA SE COMPR EHENS HIMANSHU PANEL interpretati on No serol ogica l evide nce of brandon c disea se. Total serum IgA is eleva koffi. Consi dona mucos al infla mmato ry condi tions or under lying gammo martha . Not Available [address] [address] [place], [address], 10/12/2023 14:51:33 10/07/2010/12/2023 BRANDON C DISEA SE COMPR EHENS HIMANSHU PANEL tissue transglutami nase Ab, IgA <1.0 U/mL Value Inter preta tion ----- ----- ----- ---- <15.0 Antib emmanuel not detec koffi > or = 15.0 Antib emmanuel detec koffi Not Available [address] [address] [place], [address], 10/12/2023 14:51:33 10/07/20 23 10/12/2023 BRANDON C DISEA SE COMPR EHENS HIMANSHU PANEL immunoglobul in A 609 mg/dL 47-310 high Not Available [address], [address], 10/12/2023 14:51:33 10/07/20 23 10/08/2023 TSH TSH 2.73 mIU/L normal Refer ence Range > or = 20 Years 0.40- 4.50 Pregn gurpreet Range s First trime ster 0.26- 2.66 Secon d trime ster 0.55- 2.73 Third trime ster 0.43- 2.91 Not Available [address], [address], 10/08/2023 07:21:57 10/07/20 23 10/08/2023 FOOD ALLER GY PANEL (REFL ) egg white (F1) IgE Not Available [address], [address], 10/08/2023 04:27:32 10/07/20 23 10/08/2023 FOOD ALLER GY PANEL (REFL ) class Not Available [address], [address], 10/08/2023 04:27:32 10/07/20 23 10/08/2023 FOOD ALLER GY PANEL (REFL ) peanut (F13) IgE Not Available [address] [address] [place], [address], 10/08/2023 04:27:32 10/07/20 23 10/08/2023 FOOD ALLER GY PANEL (REFL ) class Not Available [address], [address], 10/08/2023 04:27:32 10/07/20 23 10/08/2023 FOOD ALLER GY PANEL (REFL ) wheat (F4) IgE Not Available [address], [address], 10/08/2023 04:27:32 10/07/20 23 10/08/2023 FOOD ALLER GY PANEL (REFL ) class Not Available [address] [address] [place], [address], 10/08/2023 04:27:32 10/07/20 23 10/08/2023 FOOD ALLER GY PANEL (REFL ) walnut (F256) IgE Not Available [address] [address] [place], [address], 10/08/2023 04:27:32 10/07/20 23 10/08/2023 FOOD ALLER GY PANEL (REFL ) class Not Available [address], [address], 10/08/2023 04:27:32 10/07/20 23 10/08/2023 FOOD ALLER GY PANEL (REFL ) codfish (F3) IgE Not Available [address], [address], 10/08/2023 04:27:32 10/07/20 23 10/08/2023 FOOD ALLER GY PANEL (REFL ) class Not Available [address], [address], 10/08/2023 04:27:32 10/07/20 23 10/08/2023 FOOD ALLER GY PANEL (REFL ) cow's milk (F2) IgE Not Available [address] [address] [place], [address], 10/08/2023 04:27:32 10/07/20 23 10/08/2023 FOOD ALLER GY PANEL (REFL ) class Not Available [address], [address], 10/08/2023 04:27:32 10/07/20 23 10/08/2023 FOOD ALLER GY PANEL (REFL ) soybean (F14) IgE Not Available [facility] [address] [address] [place], [address], 10/08/2023 04:27:32 10/07/20 23 10/08/2023 FOOD ALLER GY PANEL (REFL ) class Not Available [address] [address] [place], [address], 10/08/2023 04:27:32 10/07/20 23 10/08/2023 FOOD ALLER GY PANEL (REFL ) maize/corn (F8) IgE Not Available [address] [address] [place], [address], 10/08/2023 04:27:32 10/07/20 23 10/08/2023 FOOD ALLER GY PANEL (REFL ) class Not Available [address] [address] [place], [address], 10/08/2023 04:27:32 10/07/20 23 10/08/2023 FOOD ALLER GY PANEL (REFL ) shrimp (F24) IgE Not Available [address] [address] [place], [address], 10/08/2023 04:27:32 10/07/20 23 10/08/2023 FOOD ALLER GY PANEL (REFL ) class Not Available [address] [address] [place], [address], 10/08/2023 04:27:32 10/07/20 23 10/08/2023 FOOD ALLER GY PANEL (REFL ) scallop (F338) IgE Not Available [address] [address] [place], [address], 10/08/2023 04:27:32 10/07/20 23 10/08/2023 FOOD ALLER GY PANEL (REFL ) class Not Available [address] [address] [place], [address], 10/08/2023 04:27:32 10/07/20 23 10/08/2023 FOOD ALLER GY PANEL (REFL ) clam (F207) IgE Not Available [facility] [address] [address] [place], [address], 10/08/2023 04:27:32 10/07/20 23 10/08/2023 FOOD ALLER GY PANEL (REFL ) class Not Available [address] [address] [place], [address], 10/08/2023 04:27:32 10/07/20 23 10/08/2023 FOOD ALLER GY PANEL (REFL ) sesame seed (F10) IgE Not Available [facility] [address] [address] [place], [address], 10/08/2023 04:27:32 10/07/20 23 10/08/2023 FOOD ALLER GY PANEL (REFL ) class Not Available [address] [address] [place], [address], 10/08/2023 04:27:32 10/07/20 23 10/08/2023 INTER PRETA TION interpretati on Speci fic Level of Aller gen IGE Class kU/L Speci fic IGE Antib emmanuel ----- ----- ---- ----- ----- ----- ---- 0 <0.10 Absen t/Und etect able 0/1 0.10- 0.34 Very Low Level 1 0.35- 0.69 Low Level 2 0.70- 3.49 Moder ate Level 3 3.50- 17.4 High Level 4 17.5- 49.9 Very High Level 5 50-10 0 Very High Level 6 >100 Very High Level The clini juanis relev ance of aller gen resul ts of 0.10- 0.34 kU/L are undet ermin ed and inten ded for speci alist use. Aller gens denot ed with a inclu de resul ts using one or more jorge te speci fic reage nts. In those cases , the test was devel oped and its jorge tical perfo rmanc e cayla cteri stics have been deter mined by [facility] mallika fermin. It has not been clear ed or appro lor by the U.S. Food and Drug Admin istra tion. This assay has been valid ated pursu ant to the CLIA regul ation s and is used for clini juanis purpo ses. Not Available [facility] [address] [address] [place], [address], 10/08/2023 17:15:59 10/07/20 23 10/08/2023 FOOD ALLER GY PANEL (REFL ) egg white (F1) IgE Not Available [facility] [address] [address] [place], [address], 10/08/2023 07:21:58 10/07/20 23 10/08/2023 FOOD ALLER GY PANEL (REFL ) class Not Available [facility] [address] [address] [place], [address], 10/08/2023 07:21:58 10/07/20 23 10/08/2023 FOOD ALLER GY PANEL (REFL ) peanut (F13) IgE Not Available [facility] [address] [address] [place], [address], 10/08/2023 07:21:58 10/07/20 23 10/08/2023 FOOD ALLER GY PANEL (REFL ) class Not Available [facility] [address] [address] [place], [address], 10/08/2023 07:21:58 10/07/20 23 10/08/2023 FOOD ALLER GY PANEL (REFL ) wheat (F4) IgE Not Available [facility] [address] [address] [place], [address], 10/08/2023 07:21:58 10/07/20 23 10/08/2023 FOOD ALLER GY PANEL (REFL ) class Not Available [facility] [address] [address] [place], [address], 10/08/2023 07:21:58 10/07/20 23 10/08/2023 FOOD ALLER GY PANEL (REFL ) walnut (F256) IgE Not Available [address] [address] [place], [address], 10/08/2023 07:21:58 10/07/20 23 10/08/2023 FOOD ALLER GY PANEL (REFL ) class Not Available [address] [address] [place], [address], 10/08/2023 07:21:58 10/07/20 23 10/08/2023 FOOD ALLER GY PANEL (REFL ) codfish (F3) IgE Not Available [address] [address] [place], [address], 10/08/2023 07:21:58 10/07/20 23 10/08/2023 FOOD ALLER GY PANEL (REFL ) class Not Available [address] [address] [place], [address], 10/08/2023 07:21:58 10/07/20 23 10/08/2023 FOOD ALLER GY PANEL (REFL ) cow's milk (F2) IgE Not Available [address] [address] [place], [address], 10/08/2023 07:21:58 10/07/20 23 10/08/2023 FOOD ALLER GY PANEL (REFL ) class Not Available [address] [address] [place], [address], 10/08/2023 07:21:58 10/07/20 23 10/08/2023 FOOD ALLER GY PANEL (REFL ) soybean (F14) IgE Not Available [address] [address] [place], [address], 10/08/2023 07:21:58 10/07/20 23 10/08/2023 FOOD ALLER GY PANEL (REFL ) class Not Available [address] [address] [place], [address], 10/08/2023 07:21:58 10/07/20 23 10/08/2023 FOOD ALLER GY PANEL (REFL ) maize/corn (F8) IgE Not Available [address] [address] [place], [address], 10/08/2023 07:21:58 10/07/20 23 10/08/2023 FOOD ALLER GY PANEL (REFL ) class Not Available [address] [address] [place], [address], 10/08/2023 07:21:58 10/07/20 23 10/08/2023 FOOD ALLER GY PANEL (REFL ) shrimp (F24) IgE Not Available [address], [address], 10/08/2023 07:21:58 10/07/20 23 10/08/2023 FOOD ALLER GY PANEL (REFL ) class Not Available [address] [address] [place], [address], 10/08/2023 07:21:58 10/07/20 23 10/08/2023 FOOD ALLER GY PANEL (REFL ) scallop (F338) IgE Not Available [address] [address] [place], [address], 10/08/2023 07:21:58 10/07/20 23 10/08/2023 FOOD ALLER GY PANEL (REFL ) class Not Available [address] [address] [place], [address], 10/08/2023 07:21:58 10/07/20 23 10/08/2023 FOOD ALLER GY PANEL (REFL ) clam (F207) IgE Not Available [address] [address] [place], [address], 10/08/2023 07:21:58 10/07/20 23 10/08/2023 FOOD ALLER GY PANEL (REFL ) class Not Available [address] [address] [place], [address], 10/08/2023 07:21:58 10/07/20 23 10/08/2023 FOOD ALLER GY PANEL (REFL ) sesame seed (F10) IgE Not Available [address], [address], 10/08/2023 07:21:58 10/07/20 23 10/08/2023 FOOD ALLER GY PANEL (REFL ) class Not Available [address] [address] [place], [address], 10/08/2023 07:21:58 10/07/20 23 10/08/2023 FOOD ALLER GY PANEL (REFL ) egg white (F1) IgE <0.10 kU/L normal Not Available [address], [address], 10/08/2023 17:15:59 10/07/20 23 10/08/2023 FOOD ALLER GY PANEL (REFL ) class 0 Not Available [address], [address], 10/08/2023 17:15:59 10/07/20 23 10/08/2023 FOOD ALLER GY PANEL (REFL ) peanut (F13) IgE <0.10 kU/L normal Not Available [address], [address], 10/08/2023 17:15:59 10/07/20 23 10/08/2023 FOOD ALLER GY PANEL (REFL ) class 0 Not Available [address], [address], 10/08/2023 17:15:59 10/07/20 23 10/08/2023 FOOD ALLER GY PANEL (REFL ) wheat (F4) IgE <0.10 kU/L normal Not Available [address], [address], 10/08/2023 17:15:59 10/07/20 23 10/08/2023 FOOD ALLER GY PANEL (REFL ) class 0 Not Available [address], [address], 10/08/2023 17:15:59 10/07/20 23 10/08/2023 FOOD ALLER GY PANEL (REFL ) walnut (F256) IgE <0.10 kU/L normal Not Available [address] [address] [place], [address], 10/08/2023 17:15:59 10/07/20 23 10/08/2023 FOOD ALLER GY PANEL (REFL ) class 0 Not Available [address] [address] [place], [address], 10/08/2023 17:15:59 10/07/20 23 10/08/2023 FOOD ALLER GY PANEL (REFL ) codfish (F3) IgE <0.10 kU/L normal Not Available [address], [address], 10/08/2023 17:15:59 10/07/20 23 10/08/2023 FOOD ALLER GY PANEL (REFL ) class 0 Not Available [address] [address] [place], [address], 10/08/2023 17:15:59 10/07/20 23 10/08/2023 FOOD ALLER GY PANEL (REFL ) cow's milk (F2) IgE <0.10 kU/L normal Not Available [address] [address] [place], [address], 10/08/2023 17:15:59 10/07/20 23 10/08/2023 FOOD ALLER GY PANEL (REFL ) class 0 Not Available [address], [address], 10/08/2023 17:15:59 10/07/20 23 10/08/2023 FOOD ALLER GY PANEL (REFL ) soybean (F14) IgE <0.10 kU/L normal Not Available [address], [address], 10/08/2023 17:15:59 10/07/20 23 10/08/2023 FOOD ALLER GY PANEL (REFL ) class 0 Not Available [address], [address], 10/08/2023 17:15:59 10/07/20 23 10/08/2023 FOOD ALLER GY PANEL (REFL ) maize/corn (F8) IgE <0.10 kU/L normal Not Available [address], [address], 10/08/2023 17:15:59 10/07/20 23 10/08/2023 FOOD ALLER GY PANEL (REFL ) class 0 Not Available [address] [address] [place], [address], 10/08/2023 17:15:59 10/07/20 23 10/08/2023 FOOD ALLER GY PANEL (REFL ) shrimp (F24) IgE <0.10 kU/L normal Not Available [address] [address] [place], [address], 10/08/2023 17:15:59 10/07/20 23 10/08/2023 FOOD ALLER GY PANEL (REFL ) class 0 Not Available [address] [address] [place], [address], 10/08/2023 17:15:59 10/07/20 23 10/08/2023 FOOD ALLER GY PANEL (REFL ) scallop (F338) IgE Not Available [address] [address] [place], [address], 10/08/2023 17:15:59 10/07/20 23 10/08/2023 FOOD ALLER GY PANEL (REFL ) class Not Available [address] [address] [place], [address], 10/08/2023 17:15:59 10/07/20 23 10/08/2023 FOOD ALLER GY PANEL (REFL ) clam (F207) IgE <0.10 kU/L normal Not Available [address], [address], 10/08/2023 17:15:59 10/07/20 23 10/08/2023 FOOD ALLER GY PANEL (REFL ) class 0 Not Available [address], [address], 10/08/2023 17:15:59 10/07/20 23 10/08/2023 FOOD ALLER GY PANEL (REFL ) sesame seed (F10) IgE <0.10 kU/L normal Not Available [address], [address], 10/08/2023 17:15:59 10/07/20 23 10/08/2023 FOOD ALLER GY PANEL (REFL ) class 0 Not Available [address], [address], 10/08/2023 17:15:59 10/07/20 23 10/12/2023 FOOD ALLER GY PANEL (REFL ) egg white (F1) IgE <0.10 kU/L normal Not Available [address], [address], 10/12/2023 14:01:44 10/07/20 23 10/12/2023 FOOD ALLER GY PANEL (REFL ) class 0 Not Available [address], [address], 10/12/2023 14:01:44 10/07/20 23 10/12/2023 FOOD ALLER GY PANEL (REFL ) peanut (F13) IgE <0.10 kU/L normal Not Available [address], [address], 10/12/2023 14:01:44 10/07/20 23 10/12/2023 FOOD ALLER GY PANEL (REFL ) class 0 Not Available [address], [address], 10/12/2023 14:01:44 10/07/20 23 10/12/2023 FOOD ALLER GY PANEL (REFL ) wheat (F4) IgE <0.10 kU/L normal Not Available [address], [address], 10/12/2023 14:01:44 10/07/20 23 10/12/2023 FOOD ALLER GY PANEL (REFL ) class 0 Not Available [address], [address], 10/12/2023 14:01:44 10/07/20 23 10/12/2023 FOOD ALLER GY PANEL (REFL ) walnut (F256) IgE <0.10 kU/L normal Not Available [address], [address], 10/12/2023 14:01:44 10/07/20 23 10/12/2023 FOOD ALLER GY PANEL (REFL ) class 0 Not Available [address], [address], 10/12/2023 14:01:44 10/07/20 23 10/12/2023 FOOD ALLER GY PANEL (REFL ) codfish (F3) IgE <0.10 kU/L normal Not Available [address], [address], 10/12/2023 14:01:44 10/07/20 23 10/12/2023 FOOD ALLER GY PANEL (REFL ) class 0 Not Available [address], [address], 10/12/2023 14:01:44 10/07/20 23 10/12/2023 FOOD ALLER GY PANEL (REFL ) cow's milk (F2) IgE <0.10 kU/L normal Not Available [address], [address], 10/12/2023 14:01:44 10/07/20 23 10/12/2023 FOOD ALLER GY PANEL (REFL ) class 0 Not Available [address] [address] [place], [address], 10/12/2023 14:01:44 10/07/20 23 10/12/2023 FOOD ALLER GY PANEL (REFL ) soybean (F14) IgE <0.10 kU/L normal Not Available [address], [address], 10/12/2023 14:01:44 10/07/20 23 10/12/2023 FOOD ALLER GY PANEL (REFL ) class 0 Not Available [address] [address] [place], [address], 10/12/2023 14:01:44 10/07/20 23 10/12/2023 FOOD ALLER GY PANEL (REFL ) maize/corn (F8) IgE <0.10 kU/L normal Not Available [address], [address], 10/12/2023 14:01:44 10/07/20 23 10/12/2023 FOOD ALLER GY PANEL (REFL ) class 0 Not Available [address] [address] [place], [address], 10/12/2023 14:01:44 10/07/20 23 10/12/2023 FOOD ALLER GY PANEL (REFL ) shrimp (F24) IgE <0.10 kU/L normal Not Available [address], [address], 10/12/2023 14:01:44 10/07/20 23 10/12/2023 FOOD ALLER GY PANEL (REFL ) class 0 Not Available [address] [address] [place], [address], 10/12/2023 14:01:44 10/07/20 23 10/12/2023 FOOD ALLER GY PANEL (REFL ) scallop (F338) IgE <0.10 kU/L normal Not Available [address] [address] [place], [address], 10/12/2023 14:01:44 10/07/20 23 10/12/2023 FOOD ALLER GY PANEL (REFL ) class 0 Not Available [address] [address] [place], [address], 10/12/2023 14:01:44 10/07/20 23 10/12/2023 FOOD ALLER GY PANEL (REFL ) clam (F207) IgE <0.10 kU/L normal Not Available [address] [address] [place], [address], 10/12/2023 14:01:44 10/07/20 23 10/12/2023 FOOD ALLER GY PANEL (REFL ) class 0 Not Available [address] [address] [place], [address], 10/12/2023 14:01:44 10/07/20 23 10/12/2023 FOOD ALLER GY PANEL (REFL ) sesame seed (F10) IgE <0.10 kU/L normal Not Available [address] [address] [place], [address], 10/12/2023 14:01:44 10/07/20 23 10/12/2023 FOOD ALLER GY PANEL (REFL ) class 0 Not Available [address] [address] [place], [address], 10/12/2023 14:01:44 10/07/20 23 10/12/2023 FOOD ALLER GY PANEL (REFL ) egg white (F1) IgE <0.10 kU/L normal Not Available [address], [address], 10/12/2023 14:51:35 10/07/20 23 10/12/2023 FOOD ALLER GY PANEL (REFL ) class 0 Not Available [address], [address], 10/12/2023 14:51:35 10/07/20 23 10/12/2023 FOOD ALLER GY PANEL (REFL ) peanut (F13) IgE <0.10 kU/L normal Not Available [address], [address], 10/12/2023 14:51:35 10/07/20 23 10/12/2023 FOOD ALLER GY PANEL (REFL ) class 0 Not Available [address], [address], 10/12/2023 14:51:35 10/07/20 23 10/12/2023 FOOD ALLER GY PANEL (REFL ) wheat (F4) IgE <0.10 kU/L normal Not Available [address], [address], 10/12/2023 14:51:35 10/07/20 23 10/12/2023 FOOD ALLER GY PANEL (REFL ) class 0 Not Available [address], [address], 10/12/2023 14:51:35 10/07/20 23 10/12/2023 FOOD ALLER GY PANEL (REFL ) walnut (F256) IgE <0.10 kU/L normal Not Available [address], [address], 10/12/2023 14:51:35 10/07/20 23 10/12/2023 FOOD ALLER GY PANEL (REFL ) class 0 Not Available [address] [address] [place], [address], 10/12/2023 14:51:35 10/07/20 23 10/12/2023 FOOD ALLER GY PANEL (REFL ) codfish (F3) IgE <0.10 kU/L normal Not Available [address] [address] [place], [address], 10/12/2023 14:51:35 10/07/20 23 10/12/2023 FOOD ALLER GY PANEL (REFL ) class 0 Not Available [address] [address] [place], [address], 10/12/2023 14:51:35 10/07/20 23 10/12/2023 FOOD ALLER GY PANEL (REFL ) cow's milk (F2) IgE <0.10 kU/L normal Not Available [address] [address] [place], [address], 10/12/2023 14:51:35 10/07/20 23 10/12/2023 FOOD ALLER GY PANEL (REFL ) class 0 Not Available [address] [address] [place], [address], 10/12/2023 14:51:35 10/07/20 23 10/12/2023 FOOD ALLER GY PANEL (REFL ) soybean (F14) IgE <0.10 kU/L normal Not Available [address] [address] [place], [address], 10/12/2023 14:51:35 10/07/20 23 10/12/2023 FOOD ALLER GY PANEL (REFL ) class 0 Not Available [address] [address] [place], [address], 10/12/2023 14:51:35 10/07/20 23 10/12/2023 FOOD ALLER GY PANEL (REFL ) maize/corn (F8) IgE <0.10 kU/L normal Not Available [address], [address], 10/12/2023 14:51:35 10/07/20 23 10/12/2023 FOOD ALLER GY PANEL (REFL ) class 0 Not Available [address], [address], 10/12/2023 14:51:35 10/07/20 23 10/12/2023 FOOD ALLER GY PANEL (REFL ) shrimp (F24) IgE <0.10 kU/L normal Not Available [address], [address], 10/12/2023 14:51:35 10/07/20 23 10/12/2023 FOOD ALLER GY PANEL (REFL ) class 0 Not Available [address], [address], 10/12/2023 14:51:35 10/07/20 23 10/12/2023 FOOD ALLER GY PANEL (REFL ) scallop (F338) IgE <0.10 kU/L normal Not Available [address], [address], 10/12/2023 14:51:35 10/07/20 23 10/12/2023 FOOD ALLER GY PANEL (REFL ) class 0 Not Available [address], [address], 10/12/2023 14:51:35 10/07/20 23 10/12/2023 FOOD ALLER GY PANEL (REFL ) clam (F207) IgE <0.10 kU/L normal Not Available [address], [address], 10/12/2023 14:51:35 10/07/20 23 10/12/2023 FOOD ALLER GY PANEL (REFL ) class 0 Not Available [address], [address], 10/12/2023 14:51:35 10/07/20 23 10/12/2023 FOOD ALLER GY PANEL (REFL ) sesame seed (F10) IgE <0.10 kU/L normal Not Available [facility] [address] , [place], [address], 10/12/2023 14:51:35 10/07/20 23 10/12/2023 FOOD ALLER GY PANEL (REFL ) class 0 Not Available [facility] [address] , [place], [address], 10/12/2023 14:51:35 Result Notes None recorded. Problems Name Problem SNOMED Code Status Onset Date Resolution Date Notes Provider Name and Address Organization Details Recorded Time Palpitati ons 20723347 Active 2021 PALPITATIO N; 07/14/2022 1:05PM by Kiesha Dent, Office Visit; Promoted; acuity set as *; Not Available [facility] 3 03:15:48 History of tubal ligation 066304194 Active 2015 Tubal Ligation; 06/18/2016 10:34AM by Guerline Johnson RN, Office Visit; Promoted; acuity set as *; Not Available [facility] 3 03:15:49 Diverticu litis of colon 941237241 Active 2021 Diverticul itis Of Colon; 07/14/2022 1:48PM by Kiesha Dent, Office Visit; Promoted; acuity set as *; Not Available [facility] 3 03:15:49 Lymphedem a 475428244 Active 2021 LYMPH EDEMA; of leg; 07/14/2022 1:08PM by Kiesha Dent, Office Visit; Promoted; acuity set as *; Not Available Pending sale to [facility] 3 03:15:51 Gastroeso phageal reflux disease 835964991 Active 2023 LEE whitman [facility] 4 09:47:25 Problem Notes None recorded. Procedures Surgical History Date Name Laterality Status Provider Name and Address Organization Details Recorded Time 09/17/20 18 Laparoscopy completed MAKENZIE HARDY PA-C [address] [place], [address], [facility] 10/07/2023 16:15:21 09/17/20 18 cholecystectomy completed MAKENZIE HARDY PA-C [address] [place], [address], [facility] 10/07/2023 16:15:36 09/17/20 18 Total hysterectomy completed MAKENZIE HARDY PA-C [address] [place], [address], [facility] 10/07/2023 16:15:59 10/19/19 18 colonoscopy completed LEE WILEY [facility] 12/23/2023 08:10:54 Imaging Results None recorded. Procedure Notes None recorded. Medical Equipment None Reported. Allergies Allergen ID Allergen Name Allergen Category Reaction Reaction Severity Criticality Documentation Date Start Date Code Code System Note Provider Name and Address Organization Details Recorded Time 81035 morphine medicatio n anaphylax is severe high 09/17/2023 7052 RxNorm Doretha Tuttle [facility] 14:56:26 Medications Name Sig Start Date Stop Date Status Note LastModified by Organization Details LastModified Time ibuprofen 800 mg tablet 10/07 completed Not Available Not Available Not Available tizanidin e 4 mg tablet 10/07 completed Not Available Not Available Not Available hydrocodo ne 5 mg-acetam inophen 325 mg tablet TAKE 1 TABLET BY MOUTH EVERY 6 HOURS NEEDED FOR PAIN 09/29 completed Not Available Not Available Not Available ondansetr on HCl 4 mg tablet active Not Available Not Available No t Available prednison e 20 mg tablet TAKE 2 TABLETS BY MOUTH EVERY DAY FOR 5 DAYS 10/07 completed Not Available Not Available Not Available metronida zole 500 mg tablet TAKE 1 TABLET BY MOUTH EVERY 8 HOURS 09/29 completed Not Available Not Available Not Available ciproflox acin 500 mg tablet TAKE 1 TABLET BY MOUTH TWICE DAILY 09/29 completed Not Available Not Available Not Available omeprazol e 40 mg capsule,d elayed release TAKE 1 CAPSULE BY MOUTH EVERY DAY FOR 90 DAYS 09/30 completed Not Available Not Available Not Available vancomyci n 125 mg capsule 09/30 completed Not Available Not Available Not Available albuterol sulfate HFA 90 mcg/actua tion aerosol inhaler INHALE 2 PUFFS BY MOUTH EVERY 4 HOURS FOR BRONCHIT IS 09/30 completed Not Available Not Available Not Available ondansetr on 4 mg disintegr ating tablet Place 2 tablets twice a day by translin gual route as needed. active Not Available Not Available No t Available doxycycli ne hyclate 100 mg tablet TAKE 1 TABLET BY MOUTH TWICE DAILY FOR 7 DAYS 09/30 completed Not Available Not Available Not Available aspirin daily 10/07 completed 0; Recorded 07/14/20 22 1:06PM by Kiesha Dent, Office Visit; Not Available Not Available Not Available Vitals Date Recorded Body height Body mass index (BMI) Body weight Oxygen saturation Oxygen saturation in Arterial blood by Pulse oximetry Heart rate Respiratory rate Body temperature Systolic blood pressure Diastolic blood pressure Provider Name and Address Organization Details Last Updated DateTime 4 167.64 cm 60.8 kg/m2 464604. 32 g 99 % 99 % 82 /min 20 /min 98.8 [degF] 136 mm[Hg] 80 mm[Hg] LEE WILEY [facility] 4 10:57:48 Date Recorded Body height Body mass index (BMI) Body weight Oxygen saturation Oxygen saturation in Arterial blood by Pulse oximetry Heart rate Body temperature Systolic blood pressure Diastolic blood pressure Provider Name and Address Organization Details Last Updated DateTime 3 167.64 cm 58.7 kg/m2 264584. 47 g 97 % 97 % 107 /min 97.5 [degF] 140 mm[Hg] 92 mm[Hg] Doretha Tuttle [facility] 3 14:56:06 Date Recorded Body height Body mass index (BMI) Body weight Body temperature Heart rate Oxygen saturation Oxygen saturation in Arterial blood by Pulse oximetry Systolic blood pressure Diastolic blood pressure Provider Name and Address Organization Details Last Updated DateTime 4 167.64 cm 67 kg/m2 141274. 93 g 98.4 [degF] 103 /min 97 % 97 % 146 mm[Hg] 80 mm[Hg] Padmini Jarad [facility] 4 09:40:41 Date Recorded Body height Body mass index (BMI) Body weight Oxygen saturation Oxygen saturation in Arterial blood by Pulse oximetry Heart rate Respiratory rate Body temperature Systolic blood pressure Diastolic blood pressure Provider Name and Address Organization Details Last Updated DateTime 3 167.64 cm 59.1 kg/m2 634444. 81 g 97 % 97 % 82 /min 20 /min 98 [degF] 140 mm[Hg] 80 mm[Hg] LEE WILEY [facility] 3 15:24:51 Social History None recorded. Functional Status None recorded. Mental Status None recorded. Family History Nothing Reported. Medical History No medical history recorded. Gynecological HistoryNo gynecological history recorded. Obstetrics History GPAL:G 0 P 0 0 0 0 Immunizations Vaccine Type Date Status Note Provider Nam e and Address Organization Details Recorded Time Td(adult) unspecified formulation 6 completed Not Available Pending sale to [facility] 05/15/2023 02:46:01 Influenza, split virus, trivalent, preservative 4 completed Not Available Pending sale to [facility] 05/15/2023 02:46:01 Past Encounters Encounter ID Performer Location Encounter Start Date Encounter Closed Date Diagnosis/Indication Diagnosis SNOMED-CT Code Diagnosis ICD10 Code Diagnosis Note [id number] MAKENZIE HARDY PA-C [facility] ([facility]) [address] [place] [address] 09/17/2023 14:27:37 09/17/2023 16:25:06 Acute bronchitis 80057397 J20.9 trying to avoid antibiotic s since she is just out of the hospital with c.diff. Lymphedema of lower extremity 314902302 I89.0 [id number] MAKENZIE HARDY PA-C [facility] ([facility]) [address] [place] [address] 10/07/2023 14:53:34 10/08/2023 15:46:04 Gastroesophageal reflux disease 945450059 K21.00 Chronic vomiting 0623337 8 R11.10 Chronic diarrhea 8517823 09 K52.9 [id number] MAKENZIE HARDY PA-C [facility] ([facility]) [address] [place] [address] 12/23/2023 10:33:17 12/23/2023 17:43:04 Clostridium difficile colitis 766952800 A04.72 reoccurent . positive lactoferri n and c.diff. neg for all other stool bacter, [facility] npatient stay within past 30 days 4592624539 106 Z76.89 Cellulitis of lower limb 955309566 L03.119 resolved. [id number] JENNA HERNANDEZ [facility] ([facility]) [address] [place] [address] 09/30/2024 09:29:43 09/30/2024 10:20:39 Viral gastroenteritis 444657953 A08.4 Health Concerns Section Related Observation LastModified by Organization Detai ls LastModified Time None Recorded Concern Status LastModified by Organization Details LastModified Time None Recorded Advance Directives Directive None Recorded Payers Insurance Date Sequence Insurance Name Policy Number Policy Wilson Covered Member ID Wilson Member ID Guarantor Name 09/30/2024 1 ALIX [facility]URPH[facility] [id number] Daniela Pulido [id number] Daniela Pulido Notes Date Note Type Note Provider Name and Address Organization Details Recorded Time 3 text/html CoughReported bypatient.Quality:dry; barking Severity:worsening; moderate Duration:constant; acute (<3 weeks) Onset/Timing:becomes worse as the day goes on Context:worse at night Modifying Factors:OTC medication Associated Symptoms:no fever; no chills; no chest pain; no heartburn; no nausea; no vomiting; no sputum production; no chest wall tenderness;wheezing;throat clearing;nasal discharge; no depressionEdemaReported bypatient.Notes:hx of lymphedema due to being 600 lb at one point in her life. Day 4 of illness.just getting over C. diff MAKENZIE HARDY PA-C [address] [place], [address], [facility], L[facility]on[facility]. 09/17/2023 15:45:43 3 text/html EdemaReported bypatient.Location:BLE; feet Quality:legs swell equally Severity:moderate Duration:constant Onset/Timing:started 2 years ago Context:no prior history of deep vein thrombosis; no new medications; no recent travel Modifying Factors:nothing gives relief; nothing makes it worse Associated Symptoms:no shortness of breath; no shortness of breath during exertion Pt with persistant Gerd, nausea, AM vomiting of bile. she has diarrhea.Hx of bowel obstruction 5 yrs ago.Has had GB out and complete hysterectomy.she has had a 150 lb wt loss so far. Her wt has resulted is severe lymphedema of her lower legs that she is waiting to hear from [facility] therapy dept to get wraps.She eats about 800 juanis a day a vegan diet. MAKENZIE HARDY PA-C [address] [place], [address], [facility], LCompaLCompaC. 10/08/2023 08:24:22 4 text/html DiarrheaReported bypatient.Quality:soft Severity:improving Duration:acute (<14 days) Onset/Timing:frequent Context:no one else with similar symptoms; no recent camping; no recent picnic; no recent travel; no well water; has had a colonoscopy; drinks bottled water/colonoscopy 10-19-17 Alleviating Factors:oral rehydration Pt went to ER with fever, N/V,/D. She was found to have WBC 20,000 and CRP >150. She was admited and treated for c.diff and cellulitis. responded well to IV antibiotics and released after 3 days. hospital followup from 12-16-23 for c-diff and cellulitis in rll. says she should have test for IBS or Chrones. still on vanc and doxy and have a few days left on them. Feels her stools are forming more and but still soft. 3x/day.Without the c.diff tends to be constipated. MAKENZIE HARDY PA-C [address] [place], [address], [facility], [place] 12/23/2023 17:40:13 text/html VomitingReported bypatient.Duration:1 days Associated Symptoms:fever;nausea;[facility], [facility], sinus congestion and diarrhea since yesterday. JENNA HERNANDEZ [address] [place], [address], [facility], [place] 09/30/2024 10:12:34 OBGyn Episode No OBEpisode recorded.
--- OUTSIDE RECORDS SUMMARY | 2025-04-10 23:30 | XMS_ITS | Encounter Summary ---
Author Organization [employer] Address [address] [place] [address] Care Team Providers Care Occupational Medicine Specialist Name Role Phone Nevaeh Hernández MD Primary Care Provider [phone] Encounter Details Date Type Department Care Team [...] on filedocumented in this encounter Care Teams Occupational Medicine Specialist Relationship Specialty Start Date End Date Nevaeh Hernández MD [address] [place] [address] PCP - General Internal Medicine 03/09/24 documented as of this encounter
--- NOTE | 2025-04-10 23:34 | ECG_ITS ---
[facility]: 2025-04-10 Pat Name: Daniela Pulido Department: Room: Gender: Female Office Analyst: : 1985 Requested By: Cathie Scott Order Number: [id number] Reading MD: Measurements Intervals [place] Rate: 100 P: 55 SD: 189 QRS: 31 QRSD: 88 T: 55 QT: 340 QTc: 439 Interpretive Statements SINUS TACHYCARDIA LOW QRS VOLTAGE IN PRECORDIAL LEADS [QRS DEFLECTION < 1.0 mV IN CHEST LEADS] ABNORMAL RHYTHM ECG [email or web address]
[2025-04-10 23:35] VITALS: BP 186/105; PULSE 92; RESP 19; TEMP 36.6; O2SAT 99; BMI 66.9
--- NOTE | 2025-04-10 23:47 | XRR_ITS ---
PROCEDURE INFORMATION: Exam: XR Chest Exam date and time: 04/10/2025 11:54 PM Age: 39 years old Clinical indication: Shortness of breath; Additional info: Short of breath TECHNIQUE: Imaging protocol: Radiologic exam of the chest. Views: 1 view. COMPARISON: CR XR chest 1V portable [id number] 01/03/2025 9:34 PM FINDINGS: Lungs: See Heart/Mediastinum finding. Pleural spaces: Unremarkable. No pleural effusion. No pneumothorax. Heart/Mediastinum: Cardiomegaly, negative for infiltrate. Bones/joints: Unremarkable. XR/XR chest 1V portable [id number] IMPRESSION: Cardiomegaly, negative for infiltrate.
[2025-04-11] LABS: Basophils % 0.3 %; Eosinophils # 0.2 10^3/uL (0.0-0.8); Eosinophils % 2.2 %; Hematocrit 37.9 % (36-47); Lymphocytes # 2.4 10^3/uL (0.8-4.8); Mean Corpuscular HGB Conc 31.7 g/dL (30-55); Mean Corpuscular Hemoglobin 25.2 pg (27-33); Mean Corpuscular Volume 79.5 fl (85-98); Monocytes # 0.3 10^3/uL (0.2-0.9); Monocytes % 4.4 %; Neutrophils # 4.73 10^3/uL (1.8-7.7); Neutrophils % 61.7 %; Nucleated Red Blood Cells % 0 %; Platelet Count 169 10^3/cmm (157-399); Red Blood Count 4.77 10^6/uL (3.85-5.65); White Blood Count 7.67 10^3/uL (3.29-11.43)
--- NOTE | 2025-04-11 00:01 | ED_ITS ---
HPI - SOB/Dyspnea 2 General: Chief Complaint: Shortness of Breath/Dyspnea Stated Complaint: SOB Time Seen by Provider: 04/10/25 23:28 History of Present Illness: HPI Narrative: Patient is 39-year-old female with history of chronic lymphedema, morbid obesity, not on home medications, that presents to ED with shortness of breath. This started earlier this morning and has worsened throughout the day. She does not have any chest pain. She just feels like it is hard to take a deep breath. No cold or recent illness other than upper respiratory symptoms 1 week ago. No chest pain or discomfort. She does not have history of known sleep apnea. She does have recent hospitalization 6 months ago for cellulitis related to her chronic lymphedema however did not follow-up with primary care. She states she just moved back to this area 2 months ago. Denies recent surgery, no oncological history. No recent car trips. Associated symptoms: Deny abdominal pain, chest pain, fever(s), nausea, palpitations or vomiting Related Data Previous Rx's ?Medication ?Instructions ?Recorded hydrocodone 5 mg-acetaminophen 325 1 tab PO Q4H PRN pa in #10 tabs 01/03/25 mg tablet albuterol sulfate 90 mcg/actuation 2 inh inhalation Q6 H PRN shortness 04/11/25 aerosol inhaler (Ventolin HFA) of breath or wheezing # 6.7 grams doxycycline hyclate 100 mg capsule 100 mg PO BID 10 da ys #20 caps 04/11/25 prednisone 5 mg tablet See Rx Instructions PO .COMP ASCENCION 04/11/25 #36 tabs Allergies Allergy/AdvReac Type Severity Reaction Status Date / Time amphetamine (From Adderall) Allergy SOB Verified 01/02/25 19:01 dextroamphetamine (From Allergy SOB Verified 01/02/25 19:01 Adderall) morphine Allergy RASH Verified 01/02/25 19:01 Review of Systems 2 Const: Denies: fever(s) or chills ENMT: Denies: throat pain Card: Denies: chest pain or palpitations Resp: Reports: dyspnea, non-productive cough, wheezing and pain on inspiration (more difficult to take a deep breath) GI: Denies: abdominal pain, nausea or vomiting : Denies: flank pain or difficulty voiding Musc: Denies: neck pain or back pain Skin/Breast: Denies: rash or pruritus Neuro: Denies: headache(s) or numbness in extremities Psych: Denies: anxiety or depression PFSH ED 2 PFSH: Medical History Morbid obesity with BMI of 70 and over, adult Bowel obstruction Essential hypertension Surgical History H/O: hysterectomy History of cholecystectomy Family History Other CAD (coronary artery disease) Diabetes Hypertension Social History Smoking and tobacco/nicotine status: former use of tobacco/nicotine Alcohol intake: never Substance/Drug Use: never Physical Exam 2 Const: COMMON NORMALS: patient oriented x3 HENMT: COMMON NORMALS: normocephalic, atraumatic, hearing grossly normal bilaterally, TM's normal bilaterally and Normal external nose present HEAD & SCALP: normocephalic and atraumatic FACE & SINUS: sinuses nontender NOSE: Normal external nose present and Nasal discharge present clear TYMPANIC MEMBRANE: TM's normal bilaterally MOUTH: Normal oral and palatal mucosa present THROAT: posterior oropharynx normal Eye: COMMON NORMALS: Equal, round and reactive pupils present, EOMs intact bilaterally and conjunctivae normal CONJUNCTIVA: Yes conjunctivae normal P UPIL: Yes Equal, round and reactive pupils present Resp: COMMON NORMALS: No retractions and No use of accessory muscles EFFORT & INSPECTION: Yes able to speak in complete sentences, Yes symmetric chest movement and Yes abnormal respiratory pattern (pauses when she is taking a deep breath) AUSCULTATION: bronchial breath sounds, no egophony and no vesicular sounds Cardio: COMMON NORMALS: regular rate and regular rhythm RATE: regular rate RHYTHM: regular rhythm GI: COMMON NORMALS: Normal to inspection, nondistended, normoactive bowel sounds present, Soft to palpation and non-tender PALPATION: Yes Soft to palpation : COMMON NORMALS: Yes no CVA tenderness BLADDER/KIDNEY EXAM: Yes no CVA tenderness Back/Pelvis: COMMON NORMALS: no CVA tenderness Extremity: COMMON NORMALS: normal to inspection, full ROM and capillary refill normal GENERAL: No calf tenderness, Yes edema (chronic without change and no pain on palpitations) and Yes hypertrophy Neuro: COMMON NORMALS: patient oriented x3, CN's II-XII intact bilaterally and moves all extremities Psych: COMMON NORMALS: mental status grossly normal and Normal thought process present ATTITUDE: Yes calm THOUGHT PROCESS: Normal thought process present Skin: COMMON NORMALS: no rashes or lesions noted and no wounds GENERAL SKIN EXAM: no rashes or lesions noted Course 2 Vital Signs: Vital signs: Vital Signs Temperature 97.9 F 04/10/25 23:35 Pulse Rate 96 04/11/25 00:30 Respiratory Rate 12 04/11/25 00:30 Blood Pressure 142/96 04/11/25 00:30 Pulse Oximetry 98 04/11/25 00:30 Oxygen Delivery Me thod Room Air 04/11/25 00:14 MDM - SOB/Dyspnea Medical Decision Making Wells PE score is 0. No need for additional testing such as D-dimer/lower extremity ultrasound/CTA. Patient does have chronic lymphedema however there is no change from baseline. Symptoms are consistent with viral respiratory etiology. Will check for COVID/flu, check x-ray, give Lasix x 1, Solu-Medrol, and DuoNeb as well as routine labs CBC, CMP, BNP. Lab Data 04/10/25 23:50 04/10/25 23:50 Labs/Radiology: Radiology Impressions Chest X-Ray 04/10/25 23:47 IMPRESSION: Cardiomegaly, negative for infiltrate. Laboratory Results WBC 7.67 10^3/uL (3.29-11.43) 04/10/25 23:50 RBC 4.77 10^6/uL (3.85-5.65) 04/10/25 23:50 Hgb 12.00 g/dL (11.27-16.99) 04/10/25 23:50 Hct 37.9 % (36-47) 04/10/25 23:50 MCV 79.5 fl (85-98) L 04/10/25 23:50 MCH 25.2 pg (27-33) L 04/10/25 23:50 MCHC 31.7 g/dL (30-55) 04/10/25 23:50 RDW 14.0 % (12.1-15.1) 04/10/25 23:50 Plt Count 169 10^3/cmm (157-399) 04/10/25 23:50 MPV 9.0 fL (7.4-10.4) 04/10/25 23:50 Neut % (Auto) 61.7 % 04/10/25 23:50 Lymph % (Auto) 31.0 % 04/10/25 23:50 Stokes % (Auto) 4.4 % 04/10/25 23:50 Eos % (Auto) 2.2 % 04/10/25 23:50 Baso % (Auto) 0.3 % 04/10/25 23:50 Neut # (Auto) 4.73 10^3/uL (1.8-7.7) 04/10/25 23:50 Lymph # (Auto) 2.4 10^3/uL (0.8-4.8) 04/10/25 23:50 Stokes # (Auto) 0.3 10^3/uL (0.2-0.9) 04/10/25 23:50 Eos # (Auto) 0.2 10^3/uL (0.0-0.8) 04/10/25 23:50 Baso # (Auto) 0.0 10^3/uL (0.0-0.1) 04/10/25 23:50 Nucleated RBC % (auto) 0 % 04/10/25 23:50 Nucleated RBCs # 0.0 /100WBC 04/10/25 23:50 Sodium 141 mmol/L (136-145) 04/10/25 23:50 Potassium 3.9 mmol/L (3.5-5.1) 04/10/25 23:50 Chloride 104 mmol/L (98-107) 04/10/25 23:50 Carbon Dioxide 26 mmol/L (22-29) 04/10/25 23:50 Anion Gap 14.9 (5-19) 04/10/25 23:50 BUN 13 mg/dL (6-20) 04/10/25 23:50 Creatinine 0.6 mg/dL (0.5-0.9) 04/10/25 23:50 GFR Calculation 111.3 mL/min (90-130) 04/10/25 23:50 Glucose 114 mg/dL (65-115) 04/10/25 23:50 Calculated Osmolality 293 mOsm/kg (285-295) 04/10/25 23:50 Calcium 9.3 mg/dL (8.5-10.5) 04/10/25 23:50 Total Bilirubin 0.2 mg/dL (0.15-1.2) 04/10/25 23:50 AST 21 U/L (0-32) 04/10/25 23:50 ALT 17 U/L (0-33) 04/10/25 23:50 Alkaline Phosphatase 79 U/L (35-105) 04/10/25 23:50 NT-Pro-B Natriuret Pep < 36 pg/mL (0-125) 04/10/25 23:50 Total Protein 7.7 g/dL (6.6-8.7) 04/10/25 23:50 Albumin 3.8 g/dL (3.5-5.2) 04/10/25 23:50 Globulin 3.9 g/dL (1.3-4.6) 04/10/25 23:50 Influenza A (PCR) Negative (Negative) 04/10/25 23:50 Influenza Type B (PCR) Negative (Negative) 04/10/25 23:50 RSV (PCR) Negative (Negative) 04/10/25 23:50 SARS-CoV-2 (PCR) Negative (Negative) 04/10/25 23:50 All radiology interpretation(s) finalized by discharge ED provider radiology interpretation(s): cardiomegaly EKG Data EKG 1: Interpretation: Normal sinus rhythm, normal axis, good R wave progression, QTc 397 Discharge Plan Discharge Patient Disposition: Home Clinical Impression: Cardiomegaly, Uncontrolled hypertension, Lymphedema due to chronic inflammation, Morbid obesity with BMI of 60.0-69.9, adult Asthma with exacerbation Qualifiers: Asthma severity: mild Asthma persistence: intermittent Qualified Code(s): J 45.21 - Mild intermittent asthma with (acute) exacerbation Condition: Stable Prescriptions: New prednisone 5 mg tablet See Rx Instructions .ROUTE .COMPLEX Qty: 36 0RF Rx Instructions: prednisone 5 mg: take 8 tablets (40 mg) on Day 1; 7 tablets (35 mg) on Day 2; then decrease by 1 tablet every day until finished doxycycline hyclate 100 mg capsule 100 mg PO BID 10 Days Qty: 20 0RF albuterol sulfate [Ventolin HFA] 90 mcg/actuation HFA aerosol inhaler 2 inh inhalation Q6H PRN (Reason: shortness of breath or wheezing) Qty: 6.7 0RF No Action hydrocodone-acetaminophen 5-325 mg tablet 1 tab PO Q4H PRN (Reason: pain) Qty: 10 0RF Discharge Orders: Discharge ED (Routine); Ordered 04/11/25 Ordered By: Cathie Scott Referrals: Makenzie Wheeler PA [Primary Care Provider, Physicians Direct Support Staff] Discharge Diet: Low Salt Patient Instructions: Asthma (ED), DASH Eating Plan (ED), Hypertension (ED), Lymphedema (ED), Patient Portal & Jag Instructions Activity Restrictions/Additional Instructions: Make an appointment with your primary care physician to follow-up at the end of this week or first of next week Wrap lower extremities?with rivera wrap to help compress Take medication as directed Return to ED for worsening shortness of breath Follow low-salt diet. Information regarding the DASH diet has been given above Print Language: Cape Verdean Coding Level of Care Code ED Slab Conditioner Supervisor for Lissette Parker
[2025-04-11 00:14] VITALS: PULSE 91; RESP 17; O2SAT 99
[2025-04-11] MEDS: ipratropium-albuterol 3 mL Neb INHALATION (00:14)
[2025-04-11] MEDS: FUROsemide 10 mg/mL SDV 4mL 40 MG IVP (00:16)
[2025-04-11] MEDS: methylPREDNISolone sod succ 125 mg/2 mL INJ 80 MG IV (00:19)
[2025-04-11 00:20] VITALS: PULSE 94
[2025-04-11 00:28] LABS: Alanine Aminotransferase 17 U/L (0-33); Albumin Level 3.8 g/dL (3.5-5.2); Alkaline Phosphatase 79 U/L (35-105); Anion Gap 14.9 (5-19); Aspartate Amino Transferase 21 U/L (0-32); Blood Urea Nitrogen 13 mg/dL (6-20); Calcium 9.3 mg/dL (8.5-10.5); Carbon Dioxide 26 mmol/L (22-29); Chloride 104 mmol/L (98-107); Creatinine Clr Calc Pharmacy 220.3412; Globulin 3.9 g/dL (1.3-4.6); Glomerular Filtration Rate 111.3 mL/min (90-130); Glucose 114 mg/dL (65-115); NT Pro B Type Natriuretic Pept < 36 pg/mL (0-125); Osmolality Calculated 293 mOsm/kg (285-295); Potassium 3.9 mmol/L (3.5-5.1); Sodium 141 mmol/L (136-145); Total Bilirubin 0.2 mg/dL (0.15-1.2); Total Protein 7.7 g/dL (6.6-8.7)
[2025-04-11 00:30] VITALS: BP 142/96; PULSE 96; RESP 12; O2SAT 98
[2025-04-11 00:40] LABS: Influenza A NEGATIVE (Negative); Influenza B NEGATIVE (Negative); Respiratory Syncytial Virus Ce NEGATIVE (Negative); SARS-CoV-2 PCR NEGATIVE (Negative)
[2025-04-11] MEDS: hyDROXYzine 25 mg Capsule PO (00:45)
[2025-04-11 01:07] VITALS: BP 165/108; PULSE 110; RESP 18; O2SAT 95
== END 2025-04-11 01:09 | disposition home or self-care (01) ==
PROVIDERS: Emergency Provider Physician Assistant; PCP Physician Assistant
DX: I51.7 Cardiomegaly (principal); I89.0 Lymphedema, not elsewhere classified; E66.01 Morbid (severe) obesity due to excess calories; Z68.44 Body mass index [BMI] 60.0-69.9, adult; J45.21 Mild intermittent asthma with (acute) exacerbation; I10 Essential (primary) hypertension; Z11.52 Encounter for screening for COVID-19; Z87.891 Personal history of nicotine dependence
CPT/HCPCS: 71045; 80053; 83880; 85025; 87637; 93005; 94640; 96374; 96375; 99285; J1938; J2919; J9999

== ENCOUNTER 2025-04-12 22:24 | Observation (INO) | payer OTHER, MEDICAID, SELFPAY ==
[2025-04-12 22:28] VITALS: BP 163/109; PULSE 114; RESP 16; TEMP 36.9; O2SAT 94
--- OUTSIDE RECORDS SUMMARY | 2025-04-12 22:32 | XMS_ITS | Encounter Summary ---
Author Organization [facility] [employer] Address [address] [place] [address] Care Team Providers Care Windows Vmware Administrator Name Role Phone Nevaeh Hernández MD Primary Care Provider [phone] Encounter Details Date Type Department Care Team [...] on filedocumented in this encounter Care Teams Windows Vmware Administrator Relationship Specialty Start Date End Date Nevaeh Hernández MD [address] [place] [address] PCP - General Internal Medicine 03/09/24 documented as of this encounter
--- OUTSIDE RECORDS SUMMARY | 2025-04-12 22:32 | XMS_ITS | Patient Health Record ---
Author Organization [facility] Address [address] [place] [address] Care Team Providers Care Performance Improvement Consultant Name Role Phone Daniel Whiting Unavailable [phone] Reason For Referral No Information Plan Of Treatment No Information
--- OUTSIDE RECORDS SUMMARY | 2025-04-12 22:32 | XMS_ITS | Encounter Summary ---
Author Organization [facility] Address [address] [place] [address] Care Team Providers Care Welfare Officer Name Role Phone Nevaeh Hernández MD Primary Care Provider [phone] Encounter Details Date Type Department Care Team [...] on filedocumented in this encounter Care Teams Welfare Officer Relationship Specialty Start Date End Date Nevaeh Hernández MD [address] [place] [address] PCP - General Internal Medicine 03/09/24 documented as of this encounter
--- OUTSIDE RECORDS SUMMARY | 2025-04-12 22:32 | XMS_ITS | Data Portability ---
Author Organization [facility], [place], [facility] Address [address] [address] Assessment No assessment recorded. Plan of Treatment Reminders Order Date Submit Date Provider Last Modified By Organization Details Last Modified Time Details Appointments HOSPITAL F/U 20 2024 09:00A M MAKENZIE HARDY PA-C Not available Not available Not available Lab calprotec tin, stool 2022 023 [facility] ([facility]), [address] [place], [address], 10/08/2024 05:00:58 H pylori Ag, qual immunoass ay, stool 2022 023 [facility] ([facility]), [address] [place], [address], 10/08/2024 05:00:58 celiac disease comprehen sive panel, serum 2022 023 [facility], [address] [place] [address] [address], [address], [place], [address], 10/08/2023 04:27:31 CMP, serum or plasma 2022 023 [facility], [address] [place] [address] 248, [address], [place], [address], 10/08/2023 04:27:30 CBC 2022 023 [place], [address], [address], [place], [address], 10/07/2023 17:13:27 TSH, serum or plasma 2022 023 [facility], [address], [address], [place], [address], 10/08/2023 04:27:32 food allergen panel, serum 2022 023 [facility], [address], [address], [place], [address], 10/08/2023 04:27:32 Referral gastroent erologist referral 2023 024 [email or web address] Not available 02/17/2024 14:21:13 physical therapist referral 2022 023 [email or web address] [facility], [address], [address], [place], [address], 10/25/2023 09:20:48 Procedures None recorded. Surgeries None recorded. Imaging RF, upper gastroint estinal tract + small bowel, w/ contrast [facility], [address], [place], [address], 11/10/2023 09:09:56 Medication Orders ondansetr on 4 mg disintegr ating tablet 2023 024 [id number], [address], [address], [place], [address], 09/30/2024 10:12:21 omeprazol e 40 mg capsule,d elayed release 2022 023 76 [id number], [address], [place], [address], 09/30/2024 09:37:31 prednison e 20 mg tablet 2022 023 [email or web address] [id number], [address], [address], [place], [address], 10/07/2023 15:26:37 ProAir HFA 90 mcg/actua tion aerosol inhaler 2022 023 [email or web address] [id number] [facility][id number], [address], [address], [place], [address], 09/30/2024 09:37:34 Patient TargetsNo targets recorded. Patient InstructionsNo instructions recorded. Reason for Referral Physical Therapist Referral for Lymphedema of lower extremity Referring Physician: Makenzie Hardy [facility], Encounter Date: 09/17/2023 Evening Or Night Nurse Supervisor Referral for Clostridium difficile colitis Referring Physician: Makenzie Hardy [facility], Encounter Date: 12/23/2023 Results Created Date Observation Date Name Description Value Unit Range Abnormal Flag Note LastModifiedBy Organization Detail LastModifiedTime 10/07/2010/07/2023 CBC WBC 7.6 x10 4.0-10 .5 Not Available [facility] [address], [place], [address], 10/07/2023 17:13:27 10/07/20 23 10/07/2023 CBC RBC 4.94 x10 3.50-5 .50 Not Available [facility] [address] [facility] [facility], [place], [address], 10/07/2023 17:13:27 10/07/20 23 10/07/2023 CBC HGB 13.2 g/dL 12.0-1 6.0 Not Available [facility] [address] [facility] 1, [place], [address], 10/07/2023 17:13:27 12/21/20 23 10/07/2023 CBC HCT 40.0 % 37.0-4 7.0 Not Available [facility] [address] [facility] 1, [place], [address], 10/07/2023 17:13:27 10/07/20 23 10/07/2023 CBC MCV 80.9 fL 80.0-9 9.9 Not Available [facility] [address] [facility] 1, [place], [address], 10/07/2023 17:13:27 10/07/20 23 10/07/2023 CBC MCH 26.7 pg 27.0-3 2.0 low Not Available [facility] [address] [facility] 1, [place], [address], 10/07/2023 17:13:27 10/07/20 23 10/07/2023 CBC MCHC 33.0 g/dL 32.0-3 6.0 Not Available [facility] [address] [facility] 1, [place], [address], 10/07/2023 17:13:27 10/07/20 23 10/07/2023 CBC RDW 15.6 % 11.5-1 4.6 high Not Available [facility] [address] [facility] 1, [place], [address], 10/07/2023 17:13:27 10/07/20 23 10/07/2023 CBC plt 182.9 x10 140.0- 451.0 Not Available [facility] [address] [facility] 1, [place], [address], 10/07/2023 17:13:27 10/07/20 23 10/07/2023 CBC lymphocytes % 28.6 % 20.0-5 0.0 Not Available [facility] [address] [facility] 1, [place], [address], 10/07/2023 17:13:27 10/07/20 23 10/07/2023 CBC granulcytes % 64.1 % 30.0-7 0.0 Not Available [facility] [address], [place], [address], 10/07/2023 17:13:27 10/07/20 23 10/07/2023 CBC monocytes % 4.0 % 2.0-10 .0 Not Available [facility] [address], [place], [address], 10/07/2023 17:13:27 10/07/20 23 10/07/2023 CBC granulcytes# 4.9 x10 Not Mary ilable [facility] [address] [facility] 1, [place], [address], 10/07/2023 17:13:27 10/07/20 23 10/07/2023 CBC lymphocytes # 2.2 x10 Not Available [facility] [address] [facility], [place], [address], 10/07/2023 17:13:27 10/07/20 23 10/07/2023 CBC monocytes # 0.3 x10 Not Avai lable [facility] [address] [facility] 1, [place], [address], 10/07/2023 17:13:27 10/07/20 23 10/08/2023 COMPR EHENS HIMANSHU METAB OLIC PANEL glucose 87 mg/dL 65-99 normal Fasti ng refer ence inter isadora Not Available [facility] [address] [place], [address], 10/08/2023 04:27:30 10/07/20 23 10/08/2023 COMPR EHENS HIMANSHU METAB OLIC PANEL urea nitrogen (BUN) 9 mg/dL 7-25 normal Not Available [address] [address] [place], [address], 10/08/2023 04:27:30 10/07/20 23 10/08/2023 COMPR EHENS HIAMNSHU METAB OLIC PANEL creatinine 0.63 mg/dL 0.50-0 .97 normal Not Available [address] [address] [place], [address], 10/08/2023 04:27:30 10/07/20 23 10/08/2023 COMPR EHENS HIMANSHU METAB OLIC PANEL eGFR 116 mL/mi n/1.7 3m2 > or = 60 normal Not Available [address], [address], 10/08/2023 04:27:30 10/07/20 23 10/08/2023 COMPR EHENS HIMANSHU METAB OLIC PANEL BUN/creatini ne ratio SEE NOTE: (calc ) 6-22 Not Repor koffi: BUN and Creat inine are withi n refer ence range . Not Available [address] [address] [place], [address], 10/08/2023 04:27:30 10/07/20 23 10/08/2023 COMPR EHENS HIMANSHU METAB OLIC PANEL sodium 139 mmol/ L 135-14 6 normal Not Available [address], [address], 10/08/2023 04:27:30 10/07/20 23 10/08/2023 COMPR EHENS HIMANSHU METAB OLIC PANEL potassium 3.7 mmol/ L 3.5-5. 3 normal Not Available [address], [address], 10/08/2023 04:27:30 10/07/20 23 10/08/2023 COMPR EHENS HIMANSHU METAB OLIC PANEL chloride 100 mmol/ L 98-110 normal Not Available [address] [address] [place], [address], 10/08/2023 04:27:30 10/07/20 23 10/08/2023 COMPR EHENS HIMANSHU METAB OLIC PANEL carbon dioxide 28 mmol/ L 20-32 normal Not Available [address], [address], 10/08/2023 04:27:30 10/07/20 23 10/08/2023 COMPR EHENS HIMANSHU METAB OLIC PANEL calcium 9.4 mg/dL 8.6-10 .2 normal Not Available [address], [address], 10/08/2023 04:27:30 10/07/20 23 10/08/2023 COMPR EHENS HIMANSHU METAB OLIC PANEL protein, total 7.8 g/dL 6.1-8. 1 normal Not Available [address], [address], 10/08/2023 04:27:30 10/07/20 23 10/08/2023 COMPR EHENS HIMANSHU METAB OLIC PANEL albumin 3.9 g/dL 3.6-5. 1 normal Not Available [address], [address], 10/08/2023 04:27:30 10/07/20 23 10/08/2023 COMPR EHENS HIMANSHU METAB OLIC PANEL globulin 3.9 g/dL_ (calc ) 1.9-3. 7 high Not Available [address], [address], 10/08/2023 04:27:30 10/07/20 23 10/08/2023 COMPR EHENS HIMANSHU METAB OLIC PANEL albumin/glob ulin ratio 1.0 (calc ) 1.0-2. 5 normal Not Available [address], [address], 10/08/2023 04:27:30 10/07/20 23 10/08/2023 COMPR EHENS HIMANSHU METAB OLIC PANEL bilirubin, total 0.4 mg/dL 0.2-1. 2 normal Not Available [address], [address], 10/08/2023 04:27:30 10/07/20 23 10/08/2023 COMPR EHENS HIMANSHU METAB OLIC PANEL alkaline phosphatase 74 U/L 31-125 normal Not Available [facility] [employer] [address], [address], 10/08/2023 04:27:30 10/07/20 23 10/08/2023 COMPR EHENS HIMANSHU METAB OLIC PANEL AST 12 U/L 10-30 normal Not Available [address], [address], 10/08/2023 04:27:30 10/07/20 23 10/08/2023 COMPR EHENS HIMANSHU METAB OLIC PANEL ALT 8 U/L 6-29 normal Not Available [address], [address], 10/08/2023 04:27:30 10/07/2010/12/2023 BRANDON C DISEA SE COMPR EHENS HIMANSHU PANEL interpretati on No serol ogica l evide nce of brandon c disea se. Total serum IgA is eleva koffi. Consi dona mucos al infla mmato ry condi tions or under lying gammo martha . Not Available [address], [address], 10/12/2023 14:51:33 10/07/20 23 10/12/2023 BRANDON C DISEA SE COMPR EHENS HIMANSHU PANEL tissue transglutami nase Ab, IgA <1.0 U/mL Value Inter preta tion ----- ----- ----- ---- <15.0 Antib emmanuel not detec koffi > or = 15.0 Antib emmanuel detec koffi Not Available [facility] [address] [address] [place], [address], 10/12/2023 14:51:33 10/07/20 23 10/12/2023 BRANDON C DISEA SE COMPR EHENS HIMANSHU PANEL immunoglobul in A 609 mg/dL 47-310 high Not Available [address], [address], 10/12/2023 14:51:33 10/07/20 23 10/08/2023 TSH TSH 2.73 mIU/L normal Refer ence Range > or = 20 Years 0.40- 4.50 Pregn gurpreet Range s First trime ster 0.26- 2.66 Secon d trime ster 0.55- 2.73 Third trime ster 0.43- 2.91 Not Available [address], [address], 10/08/2023 07:21:57 10/07/20 23 10/08/2023 FOOD ALLER GY PANEL (REFL ) egg white (F1) IgE Not Available [address], [address], 10/08/2023 04:27:32 10/07/20 23 10/08/2023 FOOD ALLER GY PANEL (REFL ) class Not Available [address], [address], 10/08/2023 04:27:32 10/07/20 23 10/08/2023 FOOD ALLER GY PANEL (REFL ) peanut (F13) IgE Not Available [address], [address], 10/08/2023 04:27:32 10/07/20 23 10/08/2023 FOOD ALLER GY PANEL (REFL ) class Not Available [facility] [address] [address] [address] [place], [address], 10/08/2023 04:27:32 10/07/20 23 10/08/2023 FOOD ALLER GY PANEL (REFL ) wheat (F4) IgE Not Available [address] [address] [place], [address], 10/08/2023 04:27:32 10/07/20 23 10/08/2023 FOOD ALLER GY PANEL (REFL ) class Not Available [address] [address] [place], [address], 10/08/2023 04:27:32 10/07/20 23 10/08/2023 FOOD ALLER GY PANEL (REFL ) walnut (F256) IgE Not Available [address] [address] [place], [address], 10/08/2023 04:27:32 10/07/20 23 10/08/2023 FOOD ALLER GY PANEL (REFL ) class Not Available [address] [address] [place], [address], 10/08/2023 04:27:32 10/07/20 23 10/08/2023 FOOD ALLER GY PANEL (REFL ) codfish (F3) IgE Not Available [address] [address] [place], [address], 10/08/2023 04:27:32 10/07/20 23 10/08/2023 FOOD ALLER GY PANEL (REFL ) class Not Available [address] [address] [place], [address], 10/08/2023 04:27:32 10/07/20 23 10/08/2023 FOOD ALLER GY PANEL (REFL ) cow's milk (F2) IgE Not Available [address] [address] [place], [address], 10/08/2023 04:27:32 10/07/20 23 10/08/2023 FOOD ALLER GY PANEL (REFL ) class Not Available [address] [address] [place], [address], 10/08/2023 04:27:32 10/07/20 23 10/08/2023 FOOD ALLER GY PANEL (REFL ) soybean (F14) IgE Not Available [address], [address], 10/08/2023 04:27:32 10/07/20 23 10/08/2023 FOOD ALLER GY PANEL (REFL ) class Not Available [address], [address], 10/08/2023 04:27:32 10/07/20 23 10/08/2023 FOOD ALLER GY PANEL (REFL ) maize/corn (F8) IgE Not Available [address], [address], 10/08/2023 04:27:32 10/07/20 23 10/08/2023 FOOD ALLER GY PANEL (REFL ) class Not Available [address] [address] [place], [address], 10/08/2023 04:27:32 10/07/20 23 10/08/2023 FOOD ALLER GY PANEL (REFL ) shrimp (F24) IgE Not Available [address], [address], 10/08/2023 04:27:32 10/07/20 23 10/08/2023 FOOD ALLER GY PANEL (REFL ) class Not Available [address] [address] [place], [address], 10/08/2023 04:27:32 10/07/20 23 10/08/2023 FOOD ALLER GY PANEL (REFL ) scallop (F338) IgE Not Available [address], [address], 10/08/2023 04:27:32 10/07/20 23 10/08/2023 FOOD ALLER GY PANEL (REFL ) class Not Available [address] [place], [address], 10/08/2023 04:27:32 10/07/20 23 10/08/2023 FOOD ALLER GY PANEL (REFL ) clam (F207) IgE Not Available [address] [address] [place], [address], 10/08/2023 04:27:32 10/07/20 23 10/08/2023 FOOD ALLER GY PANEL (REFL ) class Not Available [address] [address] [place], [address], 10/08/2023 04:27:32 10/07/20 23 10/08/2023 FOOD ALLER GY PANEL (REFL ) sesame seed (F10) IgE Not Available [address] [address] [place], [address], 10/08/2023 04:27:32 10/07/20 23 10/08/2023 FOOD ALLER GY PANEL (REFL ) class Not Available [address] [address] [place], [address], 10/08/2023 04:27:32 10/07/20 23 10/08/2023 INTER PRETA [...] cteri stics have been deter mined by [facility]. It has not been clear ed or appro lor by the U.S. Food and Drug Admin istra tion. This assay has been valid ated pursu ant to the CLIA regul ation s and is used for clini juanis purpo ses. Not Available [employer] [address], [address], 10/08/2023 17:15:59 10/07/20 23 10/08/2023 FOOD ALLER GY PANEL (REFL ) egg white (F1) IgE Not Available [employer] [address], [address], 10/08/2023 07:21:58 10/07/20 23 10/08/2023 FOOD ALLER GY PANEL (REFL ) class Not Available [employer] [address] [address] [place], [address], 10/08/2023 07:21:58 10/07/20 23 10/08/2023 FOOD ALLER GY PANEL (REFL ) peanut (F13) IgE Not Available [employer] [address], [address], 10/08/2023 07:21:58 10/07/20 23 10/08/2023 FOOD ALLER GY PANEL (REFL ) class Not Available [employer] [address], [address], 10/08/2023 07:21:58 10/07/20 23 10/08/2023 FOOD ALLER GY PANEL (REFL ) wheat (F4) IgE Not Available [employer] [address], [address], 10/08/2023 07:21:58 10/07/20 23 10/08/2023 FOOD ALLER GY PANEL (REFL ) class Not Available [employer] [address] [place], [address], 10/08/2023 07:21:58 10/07/20 23 10/08/2023 FOOD ALLER GY PANEL (REFL ) walnut (F256) IgE Not Available [address] [address] [place], [address], 10/08/2023 07:21:58 10/07/20 23 10/08/2023 FOOD ALLER GY PANEL (REFL ) class Not Available [address] [address] [place], [address], 10/08/2023 07:21:58 10/07/20 23 10/08/2023 FOOD ALLER GY PANEL (REFL ) codfish (F3) IgE Not Available [address] [address] [place], [address], 10/08/2023 07:21:58 10/07/20 23 10/08/2023 FOOD ALLER GY PANEL (REFL ) class Not Available [address] [address] [place], [address], 10/08/2023 07:21:58 10/07/20 23 10/08/2023 FOOD ALLER GY PANEL (REFL ) cow's milk (F2) IgE Not Available [address] [address] [place], [address], 10/08/2023 07:21:58 10/07/20 23 10/08/2023 FOOD ALLER GY PANEL (REFL ) class Not Available [address] [address] [place], [address], 10/08/2023 07:21:58 10/07/20 23 10/08/2023 FOOD ALLER GY PANEL (REFL ) soybean (F14) IgE Not Available [facility] [address] [address] [place], [address], 10/08/2023 07:21:58 10/07/20 23 10/08/2023 FOOD ALLER GY PANEL (REFL ) class Not Available [address] [address] [place], [address], 10/08/2023 07:21:58 10/07/20 23 10/08/2023 FOOD ALLER GY PANEL (REFL ) maize/corn (F8) IgE Not Available [address] [address] [place], [address], 10/08/2023 07:21:58 10/07/20 23 10/08/2023 FOOD ALLER GY PANEL (REFL ) class Not Available [address] [address] [place], [address], 10/08/2023 07:21:58 10/07/20 23 10/08/2023 FOOD ALLER GY PANEL (REFL ) shrimp (F24) IgE Not Available [address] [address] [place], [address], 10/08/2023 07:21:58 10/07/20 23 10/08/2023 FOOD ALLER GY PANEL (REFL ) class Not Available [address] [address] [place], [address], 10/08/2023 07:21:58 10/07/20 23 10/08/2023 FOOD ALLER GY PANEL (REFL ) scallop (F338) IgE Not Available [address] [address] [place], [address], 10/08/2023 07:21:58 10/07/20 23 10/08/2023 FOOD ALLER GY PANEL (REFL ) class Not Available [address] [address] [place], [address], 10/08/2023 07:21:58 10/07/20 23 10/08/2023 FOOD ALLER GY PANEL (REFL ) clam (F207) IgE Not Available [address] [address] [place], [address], 10/08/2023 07:21:58 10/07/20 23 10/08/2023 FOOD ALLER GY PANEL (REFL ) class Not Available [address], [address], 10/08/2023 07:21:58 10/07/20 23 10/08/2023 FOOD ALLER GY PANEL (REFL ) sesame seed (F10) IgE Not Available [address], [address], 10/08/2023 07:21:58 10/07/20 23 10/08/2023 FOOD ALLER GY PANEL (REFL ) class Not Available [address], [address], 10/08/2023 07:21:58 10/07/20 23 10/08/2023 FOOD ALLER GY PANEL (REFL ) egg white (F1) IgE <0.10 kU/L normal Not Available [address], [address], 10/08/2023 17:15:59 10/07/20 23 10/08/2023 FOOD ALLER GY PANEL (REFL ) class 0 Not Available [address], [address], 10/08/2023 17:15:59 10/07/20 23 10/08/2023 FOOD ALLER GY PANEL (REFL ) peanut (F13) IgE <0.10 kU/L normal Not Available [address], [address], 10/08/2023 17:15:59 10/07/20 23 10/08/2023 FOOD ALLER GY PANEL (REFL ) class 0 Not Available [address], [address], 10/08/2023 17:15:59 10/07/20 23 10/08/2023 FOOD ALLER GY PANEL (REFL ) wheat (F4) IgE <0.10 kU/L normal Not Available [address], [address], 10/08/2023 17:15:59 10/07/20 23 10/08/2023 FOOD ALLER GY PANEL (REFL ) class 0 Not Available [address], [address], 10/08/2023 17:15:59 10/07/20 23 10/08/2023 FOOD ALLER GY PANEL (REFL ) walnut (F256) IgE <0.10 kU/L normal Not Available [address], [address], 10/08/2023 17:15:59 10/07/20 23 10/08/2023 FOOD ALLER GY PANEL (REFL ) class 0 Not Available [address], [address], 10/08/2023 17:15:59 10/07/20 23 10/08/2023 FOOD ALLER GY PANEL (REFL ) codfish (F3) IgE <0.10 kU/L normal Not Available [address], [address], 10/08/2023 17:15:59 10/07/20 23 10/08/2023 FOOD ALLER GY PANEL (REFL ) class 0 Not Available [address] [address] [place], [address], 10/08/2023 17:15:59 10/07/20 23 10/08/2023 FOOD ALLER GY PANEL (REFL ) cow's milk (F2) IgE <0.10 kU/L normal Not Available [address], [address], 10/08/2023 17:15:59 10/07/20 23 10/08/2023 FOOD ALLER GY PANEL (REFL ) class 0 Not Available [address], [place], [address], 10/08/2023 17:15:59 10/07/20 23 10/08/2023 FOOD ALLER GY PANEL (REFL ) soybean (F14) IgE <0.10 kU/L normal Not Available [address] [address] [place], [address], 10/08/2023 17:15:59 10/07/20 23 10/08/2023 FOOD ALLER GY PANEL (REFL ) class 0 Not Available [address] [address] [place], [address], 10/08/2023 17:15:59 10/07/20 23 10/08/2023 FOOD ALLER GY PANEL (REFL ) maize/corn (F8) IgE <0.10 kU/L normal Not Available [address], [address], 10/08/2023 17:15:59 10/07/20 23 10/08/2023 FOOD ALLER GY PANEL (REFL ) class 0 Not Available [address] [address] [place], [address], 10/08/2023 17:15:59 10/07/20 23 10/08/2023 FOOD ALLER GY PANEL (REFL ) shrimp (F24) IgE <0.10 kU/L normal Not Available [address] [address] [place], [address], 10/08/2023 17:15:59 10/07/20 23 10/08/2023 FOOD ALLER GY PANEL (REFL ) class 0 Not Available [address], [address], 10/08/2023 17:15:59 10/07/20 23 10/08/2023 FOOD ALLER GY PANEL (REFL ) scallop (F338) IgE Not Available [address] [address] [place], [address], 10/08/2023 17:15:59 10/07/20 23 10/08/2023 FOOD ALLER GY PANEL (REFL ) class Not Available [address], [address], 10/08/2023 17:15:59 10/07/20 23 10/08/2023 FOOD ALLER GY PANEL (REFL ) clam (F207) IgE <0.10 kU/L normal Not Available [address] [address] [place], [address], 10/08/2023 17:15:59 10/07/20 23 10/08/2023 FOOD ALLER GY PANEL (REFL ) class 0 Not Available [address], [address], 10/08/2023 17:15:59 10/07/20 23 10/08/2023 FOOD ALLER GY PANEL (REFL ) sesame seed (F10) IgE <0.10 kU/L normal Not Available [address], [address], 10/08/2023 17:15:59 10/07/20 23 10/08/2023 FOOD ALLER GY PANEL (REFL ) class 0 Not Available [address], [address], 10/08/2023 17:15:59 10/07/20 23 10/12/2023 FOOD ALLER GY PANEL (REFL ) egg white (F1) IgE <0.10 kU/L normal Not Available [address], [address], 10/12/2023 14:01:44 10/07/20 23 10/12/2023 FOOD ALLER GY PANEL (REFL ) class 0 Not Available [address], [address], 10/12/2023 14:01:44 10/07/20 23 10/12/2023 FOOD ALLER GY PANEL (REFL ) peanut (F13) IgE <0.10 kU/L normal Not Available [address], [address], 10/12/2023 14:01:44 10/07/20 23 10/12/2023 FOOD ALLER GY PANEL (REFL ) class 0 Not Available [address], [address], 10/12/2023 14:01:44 10/07/20 23 10/12/2023 FOOD ALLER GY PANEL (REFL ) wheat (F4) IgE <0.10 kU/L normal Not Available [address], [address], 10/12/2023 14:01:44 10/07/20 23 10/12/2023 FOOD ALLER GY PANEL (REFL ) class 0 Not Available [address], [address], 10/12/2023 14:01:44 10/07/20 23 10/12/2023 FOOD ALLER GY PANEL (REFL ) walnut (F256) IgE <0.10 kU/L normal Not Available [address], [address], 10/12/2023 14:01:44 10/07/20 23 10/12/2023 FOOD ALLER GY PANEL (REFL ) class 0 Not Available [address], [address], 10/12/2023 14:01:44 10/07/20 23 10/12/2023 FOOD ALLER GY PANEL (REFL ) codfish (F3) IgE <0.10 kU/L normal Not Available [address], [address], 10/12/2023 14:01:44 10/07/20 23 10/12/2023 FOOD ALLER GY PANEL (REFL ) class 0 Not Available [address], [address], 10/12/2023 14:01:44 10/07/20 23 10/12/2023 FOOD ALLER GY PANEL (REFL ) cow's milk (F2) IgE <0.10 kU/L normal Not Available [address], [address], 10/12/2023 14:01:44 10/07/20 23 10/12/2023 FOOD ALLER GY PANEL (REFL ) class 0 Not Available [address], [address], 10/12/2023 14:01:44 10/07/20 23 10/12/2023 FOOD ALLER GY PANEL (REFL ) soybean (F14) IgE <0.10 kU/L normal Not Available [address], [address], 10/12/2023 14:01:44 10/07/20 23 10/12/2023 FOOD ALLER GY PANEL (REFL ) class 0 Not Available [address], [address], 10/12/2023 14:01:44 10/07/20 23 10/12/2023 FOOD ALLER GY PANEL (REFL ) maize/corn (F8) IgE <0.10 kU/L normal Not Available [address], [address], 10/12/2023 14:01:44 10/07/20 23 10/12/2023 FOOD ALLER GY PANEL (REFL ) class 0 Not Available [address], [address], 10/12/2023 14:01:44 10/07/20 23 10/12/2023 FOOD ALLER GY PANEL (REFL ) shrimp (F24) IgE <0.10 kU/L normal Not Available [facility] [place] [id number] [place], [address], 10/12/2023 14:01:44 10/07/20 23 10/12/2023 FOOD ALLER GY PANEL (REFL ) class 0 Not Available [address], [address], 10/12/2023 14:01:44 10/07/20 23 10/12/2023 FOOD ALLER GY PANEL (REFL ) scallop (F338) IgE <0.10 kU/L normal Not Available [address], [address], 10/12/2023 14:01:44 10/07/20 23 10/12/2023 FOOD ALLER GY PANEL (REFL ) class 0 Not Available [address], [address], 10/12/2023 14:01:44 10/07/20 23 10/12/2023 FOOD ALLER GY PANEL (REFL ) clam (F207) IgE <0.10 kU/L normal Not Available [address], [address], 10/12/2023 14:01:44 10/07/20 23 10/12/2023 FOOD ALLER GY PANEL (REFL ) class 0 Not Available [address], [address], 10/12/2023 14:01:44 10/07/20 23 10/12/2023 FOOD ALLER GY PANEL (REFL ) sesame seed (F10) IgE <0.10 kU/L normal Not Available [address], [address], 10/12/2023 14:01:44 10/07/20 23 10/12/2023 FOOD ALLER GY PANEL (REFL ) class 0 Not Available [address], [address], 10/12/2023 14:01:44 10/07/20 23 10/12/2023 FOOD ALLER GY PANEL (REFL ) egg white (F1) IgE <0.10 kU/L normal Not Available [address], [address], 10/12/2023 14:51:35 10/07/20 23 10/12/2023 FOOD ALLER GY PANEL (REFL ) class 0 Not Available [address], [address], 10/12/2023 14:51:35 10/07/20 23 10/12/2023 FOOD ALLER GY PANEL (REFL ) peanut (F13) IgE <0.10 kU/L normal Not Available [address], [address], 10/12/2023 14:51:35 10/07/20 23 10/12/2023 FOOD ALLER GY PANEL (REFL ) class 0 Not Available [address], [address], 10/12/2023 14:51:35 10/07/20 23 10/12/2023 FOOD ALLER GY PANEL (REFL ) wheat (F4) IgE <0.10 kU/L normal Not Available [address], [address], 10/12/2023 14:51:35 10/07/20 23 10/12/2023 FOOD ALLER GY PANEL (REFL ) class 0 Not Available [address], [address], 10/12/2023 14:51:35 10/07/20 23 10/12/2023 FOOD ALLER GY PANEL (REFL ) walnut (F256) IgE <0.10 kU/L normal Not Available [address], [address], 10/12/2023 14:51:35 10/07/20 23 10/12/2023 FOOD ALLER GY PANEL (REFL ) class 0 Not Available [address], [address], 10/12/2023 14:51:35 10/07/20 23 10/12/2023 FOOD ALLER GY PANEL (REFL ) codfish (F3) IgE <0.10 kU/L normal Not Available [address] [address] [place], [address], 10/12/2023 14:51:35 10/07/20 23 10/12/2023 FOOD ALLER GY PANEL (REFL ) class 0 Not Available [address], [address], 10/12/2023 14:51:35 10/07/20 23 10/12/2023 FOOD ALLER GY PANEL (REFL ) cow's milk (F2) IgE <0.10 kU/L normal Not Available [address] [address] [place], [address], 10/12/2023 14:51:35 10/07/20 23 10/12/2023 FOOD ALLER GY PANEL (REFL ) class 0 Not Available [address] [address] [place], [address], 10/12/2023 14:51:35 10/07/20 23 10/12/2023 FOOD ALLER GY PANEL (REFL ) soybean (F14) IgE <0.10 kU/L normal Not Available [address] [address] [place], [address], 10/12/2023 14:51:35 10/07/20 23 10/12/2023 FOOD ALLER GY PANEL (REFL ) class 0 Not Available [address] [address] [place], [address], 10/12/2023 14:51:35 10/07/20 23 10/12/2023 FOOD ALLER GY PANEL (REFL ) maize/corn (F8) IgE <0.10 kU/L normal Not Available [address], [address], 10/12/2023 14:51:35 10/07/20 23 10/12/2023 FOOD ALLER GY PANEL (REFL ) class 0 Not Available [address] [address] [place], [address], 10/12/2023 14:51:35 10/07/20 23 10/12/2023 FOOD ALLER GY PANEL (REFL ) shrimp (F24) IgE <0.10 kU/L normal Not Available [address], [address], 10/12/2023 14:51:35 10/07/20 23 10/12/2023 FOOD ALLER GY PANEL (REFL ) class 0 Not Available [address] [address] [place], [address], 10/12/2023 14:51:35 10/07/20 23 10/12/2023 FOOD ALLER GY PANEL (REFL ) scallop (F338) IgE <0.10 kU/L normal Not Available [address] [address] [place], [address], 10/12/2023 14:51:35 10/07/20 23 10/12/2023 FOOD ALLER GY PANEL (REFL ) class 0 Not Available [address] [address] [place], [address], 10/12/2023 14:51:35 10/07/20 23 10/12/2023 FOOD ALLER GY PANEL (REFL ) clam (F207) IgE <0.10 kU/L normal Not Available [address] [address] [place], [address], 10/12/2023 14:51:35 10/07/20 23 10/12/2023 FOOD ALLER GY PANEL (REFL ) class 0 Not Available [facility] [address] [address], [place], [address], 10/12/2023 14:51:35 10/07/20 23 10/12/2023 FOOD ALLER GY PANEL (REFL ) sesame seed (F10) IgE <0.10 kU/L normal Not Available [facility] [address], [place], [address], 10/12/2023 14:51:35 10/07/20 23 10/12/2023 FOOD ALLER GY PANEL (REFL ) class 0 Not Available [facility] [address] [address], [place], [address], 10/12/2023 14:51:35 Result Notes None recorded. Problems Name Problem SNOMED Code Status Onset Date Resolution Date Notes Provider Name and Address Organization Details Recorded Time Palpitati ons 96086460 Active 2021 PALPITATIO N; 07/14/2022 1:05PM by Kiesha Dent, Office Visit; Promoted; acuity set as *; Not Available [facility] 3 03:15:48 History of tubal ligation 227011136 Active 2015 Tubal Ligation; 06/18/2016 10:34AM by Guerline Johnson RN, Office Visit; Promoted; acuity set as *; Not Available [facility] 3 03:15:49 Diverticu litis of colon 019391277 Active 2021 Diverticul itis Of Colon; 07/14/2022 1:48PM by Kiesha Dent, Office Visit; Promoted; acuity set as *; [facility] 03:15:49 Lymphedem a 425364516 Active 2021 LYMPH EDEMA; of leg; 07/14/2022 1:08PM by Kiesha Dent, Office Visit; Promoted; acuity set as *; Not Available [facility] 3 03:15:51 Gastroeso phageal reflux disease 370858075 Active 2023 LEE HAEFFNER [facility] 4 09:47:25 Problem Notes None recorded. Procedures Surgical History Date Name Laterality Status Provider Name and Address Organization Details Recorded Time 09/17/20 18 Laparoscopy completed MAKENZIE HARDY PA-C [address] [place], [address], [facility] 10/07/2023 16:15:21 09/17/20 18 cholecystectomy completed MAKENZIE HARDY PA-C [address] [place], [address], [facility] 10/07/2023 16:15:36 09/17/20 18 Total hysterectomy completed MAKENZIE HARDY PA-C [address] [place], [address], [facility] 10/07/2023 16:15:59 10/19/19 18 colonoscopy completed LEE WILEY [facility] 12/23/2023 08:10:54 Imaging Results None recorded. Procedure Notes None recorded. Medical Equipment None Reported. Allergies Allergen ID Allergen Name Allergen Category Reaction Reaction Severity Criticality Documentation Date Start Date Code Code System Note Provider Name and Address Organization Details Recorded Time 89505 morphine medicatio n anaphylax is severe high 09/17/2023 7052 RxNorm Doretha Tuttle [facility] 14:56:26 Medications Name Sig Start Date Stop [...] Updated DateTime 4 167.64 cm 60.8 kg/m2 246912. 32 g 99 % 99 % 82 /min 20 /min 98.8 [degF] 136 mm[Hg] 80 mm[Hg] LEE WILEY [facility] 4 10:57:48 Date Recorded Body height Body mass index (BMI) Body weight Oxygen saturation Oxygen saturation in Arterial blood by Pulse oximetry Heart rate Body temperature Systolic blood pressure Diastolic blood pressure Provider Name and Address Organization Details Last Updated DateTime 3 167.64 cm 58.7 kg/m2 406870. 47 g 97 % 97 % 107 /min 97.5 [degF] 140 mm[Hg] 92 mm[Hg] Doretha Tuttle [facility] 3 14:56:06 Date Recorded Body height Body mass index (BMI) Body weight Body temperature Heart rate Oxygen saturation Oxygen saturation in Arterial blood by Pulse oximetry Systolic blood pressure Diastolic blood pressure Provider Name and Address Organization Details Last Updated DateTime 4 167.64 cm 67 kg/m2 380250. 93 g 98.4 [degF] 103 /min 97 % 97 % 146 mm[Hg] 80 mm[Hg] Padmini Jarad [facility] 4 09:40:41 Date Recorded Body height Body mass index (BMI) Body weight Oxygen saturation Oxygen saturation in Arterial blood by Pulse oximetry Heart rate Respiratory rate Body temperature Systolic blood pressure Diastolic blood pressure Provider Name and Address Organization Details Last Updated DateTime 3 167.64 cm 59.1 kg/m2 230238. 81 g 97 % 97 % 82 /min 20 /min 98 [degF] 140 mm[Hg] 80 mm[Hg] LEE WILEY [facility] 3 15:24:51 Social History None recorded. Functional Status None recorded. Mental Status None recorded. Family History Nothing Reported. Medical History No medical history recorded. Gynecological HistoryNo gynecological history recorded. Obstetrics History GPAL:G 0 P 0 0 0 0 Immunizations Vaccine Type Date Status Note Provider Nam e and Address Organization Details Recorded Time Td(adult) unspecified formulation 6 completed Not Available [facility] 05/15/2023 02:46:01 Influenza, split virus, trivalent, preservative 4 completed Not Available [facility] 05/15/2023 02:46:01 Past Encounters Encounter ID Performer Location Encounter Start Date Encounter Closed Date Diagnosis/Indication Diagnosis SNOMED-CT Code Diagnosis ICD10 Code Diagnosis Note [id number] MAKENZIE HARDY PA-C [facility] ([facility]) [address] [place] [address] 09/17/2023 14:27:37 09/17/2023 16:25:06 Acute bronchitis 36252268 J20.9 trying to avoid antibiotic s since she is just out of the hospital with c.diff. Lymphedema of lower extremity 422502794 I89.0 [id number] MAKENZIE HARDY PA-C [facility] ([facility]) [address] [place] [address] 10/07/2023 14:53:34 10/08/2023 15:46:04 Gastroesophageal reflux disease 506081352 K21.00 Chronic vomiting 6180760 8 R11.10 Chronic diarrhea 3881318 09 K52.9 [id number] MAKENZIE HARDY PA-C [facility] ([facility]) [address] [place] [address] 12/23/2023 10:33:17 12/23/2023 17:43:04 Clostridium difficile colitis 318480093 A04.72 reoccurent . positive lactoferri n and c.diff. neg for all other stool bacter, [facility] npatient stay within past 30 days 4338370638 106 Z76.89 Cellulitis of lower limb 400421340 L03.119 resolved. [id number] JENNA HERNANDEZ [facility] ([facility]) [address] [place] [address] 09/30/2024 09:29:43 09/30/2024 10:20:39 Viral gastroenteritis 718088977 A08.4 Health Concerns Section Related Observation LastModified by Organization Detai ls LastModified Time None Recorded Concern Status LastModified by Organization Details LastModified Time None Recorded Advance Directives Directive None Recorded Payers Insurance Date Sequence Insurance Name Policy Number Policy Wilson Covered Member ID Wilson Member ID Guarantor Name 09/30/2024 [address] [facility] PLAN (EPO) [id number] Daniela Pulido [id number] Daniela Pulido Notes Date Note Type [...] over C. diff MAKENZIE HARDY PA-C [address] [place], [address], [facility] LVeronique[facility]. 09/17/2023 15:45:43 3 text/html EdemaReported bypatient.Location:[place]; [...] that she is waiting to hear from [facility] therapy dept to get wraps.She eats about 800 juanis a day a vegan diet. MAKENZIE HARDY PA-C [address] [place], [address], [facility]. 10/08/2023 08:24:22 4 text/html DiarrheaReported bypatient.Quality:soft Severity:improving Duration:acute (<14 days) Onset/Timing:frequent Context:no one else with similar symptoms; no recent camping; no recent picnic; no recent travel; no well water; has had a colonoscopy; drinks bottled water/colonoscopy 18 Alleviating Factors:oral rehydration Pt went to ER [...] to be constipated. MAKENZIE HARDY PA-C [address] [place], [address], [facility], [place] 12/23/2023 17:40:13 text/html VomitingReported bypatient.Duration:1 days Associated Symptoms:fever;nausea;[facility] a [facility], [facility], sinus congestion and diarrhea since yesterday. JENNA HERNANDEZ [address] [place], [address], [facility] [place] 09/30/2024 10:12:34 OBGyn Episode No OBEpisode recorded.
--- OUTSIDE RECORDS SUMMARY | 2025-04-12 22:32 | XMS_ITS | Clinical Summary ---
Author Organization [facility] Address [address] [place] [address] Phone Care Team Providers Care Insurance Professional Name Role Phone Nevaeh Hernández MD Primary Care Provider [phone] Allergies Active Allergy Reactions Criticality Noted Date [...] 03/09/2025 External Device Data Initial Department [address] MACHADO: [place] [address] [facility], 03/09/2025 Results Follow-Up [address] [phone] Katheryn Singh NP CBC WITH DIFFERENTIAL, FERRITIN, IRON, TIBC, AND PERCENT SATURATION, Additional followed-up results: 2 03/08/2025 2:45 PM CDT Office Visit [address] [phone] Katheryn Singh NP Other fatigue (Primary Dx); Prediabetes; H/O total hysterectomy; Microcytosis; Declined influenza vaccine; Morbid obesity with BMI of 60.0-69.9, adult ([facility]) 03/02/[address] [address] Nevaeh Hernández MD ED f/u Appointment 02/27/[address] [phone] Daniel Potts PA-C Hospital Follow Up 02/06/2025 External Device Data [facility]STRACTION Provider, Abstract 02/06/2025 External Device Data [facility] Provider, Abstract 02/06/2025 External Device Data [facility] Provider, Abstract 01/30/2025 External Device Data [facility] Provider, Abstract 01/23/[address] [phone] Daniel Potts PA-C APPT; Information 01/23/2025 Telephone [facility] [address] [place] [phone] Daniel Potts PA-C appointment 01/16/2025 External Device Data [facility]STRACTION Provider, Abstract 01/16/2025 External Device Data [facility] Provider, Abstract 01/16/2025 External Device Data [facility]STRACTION Provider, Abstract 01/16/2025 Telephone [facility] [address] [place] [phone] Nevaeh Hernández MD Hospital Follow Up 01/15/2025 External Device Data Initial Department [address] [place] [address] Dr MACHADO: [place] [address] [facility] 01/11/2025 [facility] [id number] [place] [phone] Bryan Jain FNP [facility] 01/11/2025 External Device Data Initial Department [address] [place] [address] Dr MACHADO: [place] [address] [facility] 01/09/2025 4:12 PM CDT - 01/11/2025 2:10 PM CDT Hospital Encounter [facility] [address] [place] [phone] Thai Moreno MD Bengani, Shreyans, MD Sepsis due to cellulitis ([facility]) Discharge Disposition: Home or Self Care from Last 3 Months Immunizations Immunization Administration [...] CDT PHOSPHORUS Routine 01/10/2025 4:00 AM CDT from Last 3 Months Results * VITAMIN B12 AND FOLATE (03/08/2025 3:08 PM CDT) VITAMIN B12 502 200 - 1100 pg/mL [facility] FOLATE, SERUM 13.4 ng/mL [facility] Comment: Reference Range Low: <3.4 Borderline: 3.4-5.4 Normal: >5.4 FASTING:NO FASTING: NO Test Performed at: [facility] [facility] [place] [address] YolandaLaura Raymundo MD Blood 03/08/2025 3:08 PM CDT 03/08/2025 3:09 PM CDT Katheryn Singh NP CHEMISTRY ORDERABLES Final Resul t Performing Organization Address [facility] de Phone Number [facility] [phone] [employer] [address] [place], [place] [address] [address] * IRON, TIBC, AND PERCENT SATURATION (03/08/2025 3:08 PM CDT) Pathologist [facility] IRON 60 40 - 190 mcg/dL [facility] TIBC 353 250 - 450 mcg/dL (calc) [facility] IRON % SATURATION 17 16 - 45 % (calc) [facility] Comment: FASTING:NO FASTING: NO Test Performed at: [employer] [facility] [place] [address] YolandaLaura Raymundo MD Blood 03/08/2025 3:08 PM CDT 03/08/2025 3:09 PM CDT Katheryn Singh SUPERVISOR DATA PROCESSING CHEMISTRY ORDERABLES Final Resul t Performing Organization Address City/[facility]/ZIP Co de Phone Number [facility] [phone] [employer] [place] [address] * (ABNORMAL) CBC WITH DIFFERENTIAL (03/08/2025 3:08 PM CDT) Only the most recent of3 resultswithin the time period is included. WBC 6.2 3.8 - 10.8 Thousand/u L [...] Comment: FASTING:NO FASTING: NO Test Performed at: [facility] [address] [place] [address] Patsy Raymundo MD Blood 03/08/2025 3:08 PM CDT 03/08/2025 3:09 PM CDT Katheryn Singh NP HEMATOLOGY ORDERABLES Final Resu lt Performing Organization Address [facility] Co de Phone Number [facility] [phone] [facility] [address] [facility] [place] [address] * (ABNORMAL) HEMOGLOBIN A1C (03/08/2025 3:08 PM [...] children. ESTIMATED AVERAGE GLUCOSE (MG/DL) 120 mg/dL [facility] ESTIMATED AVERAGE GLUCOSE (MMOL/L) 6.6 mmol/L [facility] Comment: FASTING:NO FASTING: NO Test Performed at: [facility] [address] [facility] [place] [address] Patsy Raymundo MD Blood 03/08/2025 3:08 PM CDT 03/08/2025 3:09 PM CDT Katheryn Singh NP CHEMISTRY ORDERABLES Final Resul t Performing Organization Address City/[facility]/ZIP Co de Phone Number [facility] [phone] [facility] [address] [place] [address] * (ABNORMAL) FERRITIN (03/08/2025 3:08 PM CDT) FERRITIN 14(L) 16 - 154 ng/mL [facility] Comment: Test Performed at: [facility] [address] [place] [address] Patsy Raymundo MD Blood 03/08/2025 3:08 PM CDT 03/08/2025 3:09 PM CDT us Katheryn Singh NP CHEMISTRY ORDERABLES Final Resul t Performing Organization Address City/[facility]/ZIP Co de Phone Number [facility] [phone] [facility] [address] [place] [address] * TELEMETRY REPORT (01/23/2025 2:57 PM CDT) us Provider Scanning ECG ORDERABLES Final Result * TROPONIN 6 HR, 5TH GEN (01/11/2025 5:43 AM CDT) TROPONIN T, 6 HR 5TH GEN <6 <11 ng/L 01/11/2025 6:20 AM CDT [facility] Blood Venipuncture / Unknown 01/11/2025 5:43 AM CDT 01/11/2025 5:48 AM CDT Narrative [facility] - 01/11/2025 6:20 AM CDT Troponin Undetectable Unable to calculate delta. us Jarad Manuel MD CHEMISTRY ORDERABLES Final Resul t Performing Organization Address City/[facility]/ZIP Co de Phone Number [facility] # [id number] [address] [place] [address] * (ABNORMAL) PHOSPHORUS (01/11/2025 5:43 AM CDT) Only the most recent of2 resultswithin the time period is included. PHOSPHORUS 2.3(L) 2.5 - 4.5 mg/dL 01/11/2025 6:26 AM CDT [facility] Blood Venipuncture / Unknown 01/11/2025 5:43 AM CDT 01/11/2025 5:48 AM CDT Cassius Wallace MD CHEMISTRY ORDERABLES Final R esult Performing Organization Address City/[facility]/ZIP Co de Phone Number [facility] CLIA # [id number] [address] [place] [address] * MAGNESIUM LEVEL (01/11/2025 5:43 AM CDT) Only the most recent of2 resultswithin the time period is included. MAGNESIUM 1.8 1.6 - 2.6 mg/dL 01/11/2025 6:26 AM T [facility] Blood Venipuncture / Unknown 01/11/2025 5:43 AM CDT 01/11/2025 5:48 AM CDT Cassius Wallace MD CHEMISTRY ORDERABLES Final R [facility] Performing Organization Address City/[facility]/ZIP Co de Phone Number [facility] CLIA # [id number] [address] [place] [address] * (ABNORMAL) COMPREHENSIVE METABOLIC PANEL (01/11/2025 5:43 AM CDT) Only the most recent of2 resultswithin the time period is included. SODIUM 131(L) 136 - 145 mmol/L 01/11/2025 6:26 AM T [facility] POTASSIUM 3.6 3.5 - 5.1 mmol/L 01/11/2025 6:26 AM T [facility] CHLORIDE 97(L) 98 - 107 mmol/L 01/11/2025 6:26 AM T [facility] CO2 27 22 - 29 mmol/L 01/11/2025 6:26 AM T [facility] CALCIUM 7.9(L) 8.6 - 10.0 mg/dL 01/11/2025 6:26 AM T [facility] BUN 6 6 - 20 mg/dL 01/11/2025 6:26 AM T [facility] CREATININE 0.60 0.51 - 0.95 mg/dL 01/11/2025 6:26 AM [facility] GLUCOSE 114(H) 74 - 99 mg/dL 01/11/2025 6:26 AM [facility] TOTAL PROTEIN 6.7 6.6 - 8.7 g/dL 01/11/2025 6:26 AM [facility] ALBUMIN 2.9(L) 3.5 - 5.2 g/dL 01/11/2025 6:26 AM [facility] BILIRUBIN TOTAL 0.3 <=1.2 mg/dL 01/11/2025 6:26 AM [facility] ALKALINE PHOSPHATASE 66 35 - 104 U/L 01/11/2025 6:26 AM [facility] AST 8(L) 10 - 35 U/L 01/11/2025 6:26 AM [facility] ALT 7(L) 10 - 35 U/L 01/11/2025 6:26 AM [facility] GFR >60 >=60 mL/min/1.7 3 sq meter 01/11/2025 6:26 AM [facility] Comment:eGFR calculated with 2020 CKD-EPI equation. Vegetarian diet, extremely high or low muscle mass, and may affect results. Cystatin C with Glomerular Filtration Rate is a suitable alternative for these patients. ANION GAP 7(L) 10 - 20 mmol/L 01/11/2025 6:26 AM [facility] Blood Venipuncture / Unknown 01/11/2025 5:43 AM CDT 01/11/2025 5:48 AM CDT us Cassius Wallace MD CHEMISTRY ORDERABLES Final R esult [facility] CLIA # [id number] [address] [place] [address] * TROPONIN 2 HR, 5TH GEN (01/11/2025 2:00 AM CDT) TROPONIN T, 2 HR 5TH GEN <6 <=10 ng/L 01/11/2025 3:00 AM CDT [facility] Blood Venipuncture / Unknown 01/11/2025 2:00 AM CDT 01/11/2025 2:14 AM CDT [facility] - 01/11/2025 3:00 AM CDT Troponin Undetectable Unable to calculate delta. us Jarad Manuel MD CHEMISTRY ORDERABLES Final Resul t Performing Organization Address City/[facility]/ZIP Co de Phone Number [facility] CLIA # [id number] [address] [place] [address] * TROPONIN BASELINE, 5TH GEN (01/10/2025 11:52 PM CDT) TROPONIN T, BASELINE 5TH GEN 6 <=10 ng/L 01/11/2025 12:28 AM CDT [facility] Blood Venipuncture / Unknown 01/10/2025 11:52 PM CDT 01/10/2025 11:52 PM CDT [facility] - 01/11/2025 12:28 AM CDT Troponin Detectable but normal range. us Jarad Manuel MD CHEMISTRY ORDERABLES Final Resul t Performing Organization Address City/[facility]/ZIP Co de Phone Number [facility] CLIA # [id number] [address] [place] [address] * XR CHEST PA OR AP 1 [...] grossly intact. IMPRESSION: No acute radiographic abnormality. Jarad Manuel MD DIAGNOSTIC IMAGING ORDERABLES Fi nal Result * EKG 12-LEAD (01/10/2025 11:40 PM CDT) 01/10/2025 11:4 0 PM CDT Narrative INTERFACE SYSTEM - 01/11/2025 9:29 PM [address]T [address] [place] [address] Test Date: 2025-01-10 Pat Name: DANIELA PULIDO Department: 80 Room: 120 02 Gender: Female Emissions Inspector: mane : 1985 Requested By: Order Number: [id number] Reading MD: Deep Bean Measurements Intervals Murray Rate: 103 P: 36 [place]: 176 QRS: 6 QRSD: 88 T: 23 QT: 352 QTc: 461 Interpretive Statements Sinus tachycardia Otherwise normal ECG Electronically Signed On 01-11-2025 21:29:56 CDT by Deep Bean Procedure Note Deep Bean MD - 01/11/2025 [address] [place] [address] Test Date: 2025-01-10 Pat Name: DANIELA PULIDO Department: 80 Room: 120 02 Gender: Female Emissions Inspector: mane : 1985 Requested By: Order Number: [id number] Reading MD: Deep Bean Measurements Intervals Murray Rate: 103 P: 36 [place]: 176 QRS: 6 QRSD: 88 T: 23 QT: 352 QTc: 461 Interpretive Statements Sinus tachycardia Otherwise normal ECG Electronically Signed On 01-11-2025 21:29:56 CDT by Deep Bean us Jarad Manuel MD ECG ORDERABLES Final Result INTERFACE SYSTEM Refer to clinic/hospital department * VANCOMYCIN LEVEL TROUGH (01/10/2025 4:10 PM CDT) VANCOMYCIN, TROUGH 13.8 10.0 - 17.0 ug/mL 01/10/2025 4:36 PM CDT [facility] Blood Venipuncture / Unknown 01/10/2025 4:10 PM CDT 01/10/2025 4:13 PM CDT us Cassius Wallace MD CHEMISTRY ORDERABLES Final R esult [facility] # [id number] [address] [place] [address] * (ABNORMAL) POC GLUCOSE (01/10/2025 7:15 AM CDT) GLUCOSE POC 121(H) 74 - 99 mg/dL 01/10/2025 7:15 AM CDT [facility] SPECIMEN SOURCE, GLUCOSE POC Whole Blood 01/10/2025 7:15 AM CDT [facility] Blood, whole 01/10/2025 7:15 AM CDT 01/10/2025 7:49 AM CDT Cassius Wallace MD POINT OF CARE TESTING Final Result [facility] # [id number] [address] [place] [address] from Last 3 Months Insurance RX [employer] (INTERNAL) [facility] [employer] RX [facility] (INTERNAL) [employer] RX [facility] Commercial RX [employer] [place] Advance Directives For more information, please contact: [phone] * Full Code (Latest Code Status on File) Date Activated Date Inactivated Comments 01/09/2025 5:22 PM 01/11/2025 4:11 PM * Full Code Date Activated Date Inactivated Comments 04/08/2024 11:11 PM 04/09/2024 5:15 PM * Full Code Date Activated Date Inactivated Comments 02/03/2024 5:43 PM 02/06/2024 2:34 PM * Full Code Date Activated Date Inactivated Comments 08/15/2023 10:09 PM 08/18/2023 6:07 PM Care Teams Insurance Professional Relationship Specialty Start Date End Date Nevaeh Hernández MD [address] [place] [address] PCP - General Internal Medicine 03/09/24
[2025-04-13] VITALS (16 sets, daily range): BP systolic 111–153; BP diastolic 68–110; PULSE 84–102; RESP 12–16; TEMP 36.4–36.6; O2SAT 92–98
[2025-04-13 01:29] LABS: Basophils % 0.2 %; Eosinophils # 0.1 10^3/uL (0.0-0.8); Eosinophils % 0.9 %; Hematocrit 40.1 % (36-47); Lymphocytes # 3.2 10^3/uL (0.8-4.8); Mean Corpuscular HGB Conc 31.4 g/dL (30-55); Mean Corpuscular Hemoglobin 25.1 pg (27-33); Mean Corpuscular Volume 79.9 fl (85-98); Monocytes # 0.4 10^3/uL (0.2-0.9); Monocytes % 4.5 %; Neutrophils # 5.43 10^3/uL (1.8-7.7); Neutrophils % 59.1 %; Nucleated Red Blood Cells % 0 %; Platelet Count 187 10^3/cmm (157-399); Red Blood Count 5.02 10^6/uL (3.85-5.65); Red Cell Distribution Width 14.1 % (12.1-15.1); White Blood Count 9.18 10^3/uL (3.29-11.43)
[2025-04-13 01:52] LABS: Alanine Aminotransferase 15 U/L (0-33); Alkaline Phosphatase 90 U/L (35-105); Anion Gap 14.5 (5-19); Aspartate Amino Transferase 13 U/L (0-32); Blood Urea Nitrogen 12 mg/dL (6-20); Calcium 9.5 mg/dL (8.5-10.5); Carbon Dioxide 29 mmol/L (22-29); Chloride 102 mmol/L (98-107); Globulin 4.2 g/dL (1.3-4.6); Glomerular Filtration Rate 93.2 mL/min (90-130); Glucose 118 mg/dL (65-115); Osmolality Calculated 295 mOsm/kg (285-295); Potassium 3.5 mmol/L (3.5-5.1); Sodium 142 mmol/L (136-145); Total Bilirubin 0.2 mg/dL (0.15-1.2); Total Protein 8.2 g/dL (6.6-8.7)
[2025-04-13] MEDS: ondansetron 2 mg/ML SDV 2 mL 4 MG IVP (02:12)
[2025-04-13] MEDS: sodium chloride 0.9% 1,000 ML 999 ML IV (02:12)
[2025-04-13] MEDS: vancomycin 2,000 MG/400 ML PIGGYBACK 200 MG IV (03:57)
[2025-04-13 03:59] LABS: Bilirubin Urine Negative (Negative); Blood Urine Negative (Negative); Glucose Urine UA Negative (Normal); Ketones Urine Negative (Negative); Leukocyte Esterase Urine Trace (Negative); Nitrate Urine Negative (Negative); Protein Urine Trace (Negative); Urine Appearance Cloudy (CLEAR); Urine Color Yellow (Yellow)
[2025-04-13 04:00] LABS: Lactic Sepsis W/Reflex 0.9 mmol/L (0.5-2.2)
[2025-04-13 04:04] LABS: Add Urine Microscopic? YES; Bacteria Urine 4+ /hpf; Hyaline Casts Urine 2.05 /lpf; RBC Urine 21-50 /hpf (0-2); WBC Urine 21-50 /hpf (0-5)
[2025-04-13 04:39] LABS: Specific Gravity, Urine 1.039 (1.005-1.030); UA Slide Review UA Slide Review Perf
[2025-04-13 04:40] LABS: Add Urine Culture? No; Calcium Oxalate Crystals Urine 15-25 /hpf
--- NOTE | 2025-04-13 06:34 | P.HP_ITS ---
Providers/Chief Complaint 2 Admitting Physician: Nikhil Gardiner MD Primary Care Provider: Makenzie Wheeler Chief Complaint: N/V/D R Leg Red and swollen going up History of Present Illness Daniela Pulido is a 39 year old female with history of morbid obesity and recurrent leg cellulitis comes in with right lower extremity cellulitis. She was treated with doxycycline and prednisone for recent asthma exacerbation. Patient states she has never been diagnosed with sleep apnea. Her daughter states that she snores sometimes but not terribly. Patient has awakened short of breath on rare occasion. She denies daytime somnolence or narcolepsy. Patient's right leg started swelling and redness yesterday. She had nausea vomiting diarrhea. Patient has had cellulitis about 5-6 times in the right leg associated lymphedema. She denies fevers chills or sweats she denies chest pain or diabetes. Patient reports being overweight as high as 600 pounds in the past down to 380- 400 now. She quit tobacco 5 years ago she wants full code Patient has not been on weight loss medications. She admits to snacking on chips at times but is not with a sweet tooth. Mostly she does not eat candy or sweets. Mostly she does not drink her calories. She used to drink soda but has stopped. Review of Systems 2 Narrative: General positive for weight loss from 600 pounds down to 380-400. Cardiovascular no chest pain or palpitations she does have mild chronic leg swelling. Medications/Allergies Home Medications ?Medication ?Instructions ?Recorded ?Confirmed ?Last Taken ?Type hydrocodone 5 mg-acetaminophen 325 1 tab PO Q4H PRN pa in #10 tabs 01/03/25 Unknown Rx mg tablet albuterol sulfate 90 mcg/actuation 2 inh inhalation Q6 H PRN shortness 04/11/25 Unknown Rx aerosol inhaler (Ventolin HFA) of breath or wheezing # 6.7 grams doxycycline hyclate 100 mg capsule 100 mg PO BID 10 da ys #20 caps 04/11/25 Unknown Rx prednisone 5 mg tablet See Rx Instructions PO .COMP ASCENCION 04/11/25 Unknown Rx #36 tabs Allergies Allergy/AdvReac Type Severity Reaction Status Date / Time amphetamine (From Adderall) Allergy SOB Verified 01/02/25 19:01 dextroamphetamine (From Allergy SOB Verified 01/02/25 19:01 Adderall) morphine Allergy RASH Verified 01/02/25 19:01 PFSH Acute 2 PFSH: Medical History Morbid obesity with BMI of 70 and over, adult Bowel obstruction Essential hypertension Surgical History H/O: hysterectomy History of cholecystectomy Family History Other CAD (coronary artery disease) Diabetes Hypertension Social History (Updated 04/13/25 @ 06:39 by Nikhil Gardiner MD) Smoking and tobacco/nicotine status: former use of tobacco/nicotine Quit status (tobacco/nicotine): has quit using Year quit tobacco: 2019 Alcohol intake: never Substance/Drug Use: never Additional social history: Patient wants full code as discussed 04/12/2025 with Nikhil Gardiner MD Vitals/I&O/Wt Last Vital Signs Temp 98.4 F 04/12/25 22:28 Pulse 92 04/13/25 06:00 Resp 12 04/13/25 03:00 BP 129/91 04/13/25 06:00 Pulse Ox 98 04/13/25 06:00 O2 Del Method Room Air 04/13/25 05:00 04/12/25 04/12/25 04/13/25 14:59 22:59 06:59 Intake Total 1000 / 1000 Balance 1000 / 1000 Physical Exam 2 Narrative: General well-developed well-nourished morbidly obese female in no acute cardiopulmonary stress CV regular rate and rhythm Lungs clear to auscultation bilaterally Abdomen positive bowel sounds soft obese nontender Calves mostly just obesity. There is trace edema mild there is not thickening of the skin or venous stasis dermatitis. Skin she has a diffuse pale erythema of the right lower extremity from ankle to knee Data 04/13/25 01:19 04/13/25 01:19 Micro: Microbiology 04/13/25 03:50 Blood Culture - Preliminary Blood SPECIMEN COLLECTED 04/13/25 03:52 Blood Culture - Preliminary Blood SPECIMEN COLLECTED A&P Assessment and plan (1) Cellulitis and abscess of right leg: Patient received vancomycin but she is already on doxycycline which should have covered staff. Additionally she does not have ulcerations this is a pale erythema that came on rapidly with associated systemic symptoms more consistent with strep. I am going to treat her with high-dose cefazolin 3 g IV every 8 hours. If she responds to this which should clarify in 48 hours then she can go home on high-dose Keflex. Patient states she has not been treated with Keflex in the past. (2) Morbid obesity with BMI of 60.0-69.9, adult: We discussed daily weighing, calorie counting and trying to eat around 2200 juanis a day for a weight loss goal of 2 to 3 pounds a week. Additionally I think she should talk to somebody about GLP-1 agonist. She denies history of gallstones, pancreatitis or alcoholism. I did not cover with her thyroid illness. PDMP PDMP Reviewed: Not Reviewed Attestations 2 Medical Necessity Statement*: Patient will be placed in observation for cellulitis and IV antibiotics expected hospitalization 1 to 2 days. Will change to inpatient if worsened Coding Level of Care Code 13974 Diagnoses Cellulitis and abscess of right leg L03.115; L02.415 Morbid obesity with BMI of 60.0-69.9, adult E66.01; Z68.44 Time Spent (min) 55
--- NOTE | 2025-04-13 06:40 | W.ED.NAVMDI ---
HPI - Nausea/Vomiting/Diarrhea General: Chief complaint: Nausea/Vomiting/Diarrhea Stated complaint: N/V/D R Leg Red and swollen going up Time Seen by Provider: 04/13/25 01:20 History of Present Illness: Patient presents with a history of recurrent cellulitis in her right leg, reporting a flare-up today that began around 3 PM. She describes new redness in the affected leg, accompanied by vomiting and diarrhea, which she states typically occur with her cellulitis flares. She denies fever. She has a history of being septic twice from cellulitis and has had C. diff three times, usually after receiving antibiotics. She reports that oral antibiotics are ineffective and typically receives vancomycin infusions during hospitalizations. The left leg is never affected. She denies current symptoms of red man syndrome. She has not been drinking much today and feels she may be somewhat dehydrated. She declines medication for nausea at this time. Related Data Previous Rx's ?Medication ?Instructions ?Recorded hydrocodone 5 mg-acetaminophen 325 1 tab PO Q4H PRN pain #10 tabs 01/03/25 mg tablet albuterol sulfate 90 mcg/actuation 2 inh inhalation Q6H PRN shortness 04/11/25 aerosol inhaler (Ventolin HFA) of breath or wheezing #6.7 grams doxycycline hyclate 100 mg capsule 100 mg PO BID 10 days #20 caps 04/11/25 prednisone 5 mg tablet See Rx Instructions PO .COMPLEX 04/11/25 #36 tabs Allergies Allergy/AdvReac Type Severity Reaction Status Date / Time amphetamine (From Adderall) Allergy SOB Verified 01/02/25 19:01 dextroamphetamine (From Allergy SOB Verified 01/02/25 19:01 Adderall) morphine Allergy RASH Verified 01/02/25 19:01 [facility] ED PFSH: Medical History Morbid obesity with BMI of 70 and over, adult Bowel obstruction Essential hypertension Surgical History H/O: hysterectomy History of cholecystectomy Family History Other CAD (coronary artery disease) Diabetes Hypertension Social History (Updated 04/13/25 @ 06:39 by Nikhil Gardiner MD) Smoking and tobacco/nicotine status: former use of tobacco/nicotine Quit status (tobacco/nicotine): has quit using Year quit tobacco: 2019 Alcohol intake: never Substance/Drug Use: never Additional social history: Patient wants full code as discussed 04/12/2025 with Nikhil Gardiner MD Physical Exam Const: COMMON NORMALS: no acute distress, patient oriented x3 and alert HENMT: COMMON NORMALS: normocephalic and atraumatic HEAD & SCALP: normocephalic and atraumatic Eye: COMMON NORMALS: Equal, round and reactive pupils present, EOMs intact bilaterally and no scleral icterus PUPIL: Yes Equal, round and reactive pupils present Resp: COMMON NORMALS: normal respiratory effort and No retractions Cardio: COMMON NORMALS: regular rhythm and No murmurs present (Cardio) RHYTHM: regular rhythm OTHER: Tachycardic GI: COMMON NORMALS: Normal to inspection, nondistended, normoactive bowel sounds present, Soft to palpation and non-tender PALPATION: Yes Soft to palpation Extremity: NARRATIVE EXTREMITY EXAM: Massive lymphedema of the bilateral feet and legs Neuro: COMMON NORMALS: patient oriented x3 SENSORIUM/ORIENTATION: Yes alert Skin: OTHER: Significant warmth and erythema of the right anterior todd consistent with cellulitis Course Vital Signs: Vital signs: Vital Signs Temperature 98.4 F 04/12/25 22:28 Pulse Rate 86 04/13/25 06:30 Respiratory Rate 12 04/13/25 03:00 Blood Pressure 139/89 04/13/25 06:30 Pulse Oximetry 92 04/13/25 06:30 Oxygen Delivery Me thod Room Air 04/13/25 05:00 MDM - Nausea/Vomiting/Diarrhea Medical Decision Making In summary, patient is a 39-year-old female seen for recurrence of right lower extremity cellulitis. In the past, she has attempted oral antibiotics which have always failed and she has required hospitalization. Several times she has gotten septic. As such, she will be given IV vancomycin and admitted to the hospital service for definitive management of her cellulitis. She is agreeable to the plan Lab Data 04/13/25 01:19 04/13/25 01:19 Laboratory Results WBC 9.18 10^3/uL (3.29-11.43) 04/13/25 01:19 RBC 5.02 10^6/uL (3.85-5.65) 04/13/25 01:19 Hgb 12.60 g/dL (11.27-16.99) 04/13/25 01:19 Hct 40.1 % (36-47) 04/13/25 01:19 MCV 79.9 fl (85-98) L 04/13/25 01:19 MCH 25.1 pg (27-33) L 04/13/25 01:19 MCHC 31.4 g/dL (30-55) 04/13/25 01:19 RDW 14.1 % (12.1-15.1) 04/13/25 01:19 Plt Count 187 10^3/cmm (157-399) 04/13/25 01:19 MPV 9.0 fL (7.4-10.4) 04/13/25 01:19 Neut % (Auto) 59.1 % 04/13/25 01:19 Lymph % (Auto) 35.0 % 04/13/25 01:19 [place] % (Auto) 4.5 % 04/13/25 01:19 Eos % (Auto) 0.9 % 04/13/25 01:19 Baso % (Auto) 0.2 % 04/13/25 01:19 Neut # (Auto) 5.43 10^3/uL (1.8-7.7) 04/13/25 01:19 Lymph # (Auto) 3.2 10^3/uL (0.8-4.8) 04/13/25 01:19 [place] # (Auto) 0.4 10^3/uL (0.2-0.9) 04/13/25 01:19 Eos # (Auto) 0.1 10^3/uL (0.0-0.8) 04/13/25 01:19 Baso # (Auto) 0.0 10^3/uL (0.0-0.1) 04/13/25 01:19 Nucleated RBC % (auto) 0 % 04/13/25 01:19 Nucleated RBCs # 0.0 /100WBC 04/13/25 01:19 Sodium 142 mmol/L (136-145) 04/13/25 01:19 Potassium 3.5 mmol/L (3.5-5.1) 04/13/25 01:19 Chloride 102 mmol/L (98-107) 04/13/25 01:19 Carbon Dioxide 29 mmol/L (22-29) 04/13/25 01:19 Anion Gap 14.5 (5-19) 04/13/25 01:19 BUN 12 mg/dL (6-20) 04/13/25 01:19 Creatinine 0.7 mg/dL (0.5-0.9) 04/13/25 01:19 GFR Calculation 93.2 mL/min (90-130) 04/13/25 01:19 Glucose 118 mg/dL (65-115) H 04/13/25 01:19 Calculated Osmolality 295 mOsm/kg (285-295) 04/13/25 01:19 Lactic Acid 0.9 mmol/L (0.5-2.2) 04/13/25 01:19 Calcium 9.5 mg/dL (8.5-10.5) 04/13/25 01:19 Total Bilirubin 0.2 mg/dL (0.15-1.2) 04/13/25 01:19 AST 13 U/L (0-32) 04/13/25 01:19 ALT 15 U/L (0-33) 04/13/25 01:19 Alkaline Phosphatase 90 U/L (35-105) 04/13/25 01:19 Total Protein 8.2 g/dL (6.6-8.7) 04/13/25 01:19 Albumin 4.0 g/dL (3.5-5.2) 04/13/25 01:19 Globulin 4.2 g/dL (1.3-4.6) 04/13/25 01:19 Urine Color Yellow (Yellow) 04/13/25 03:45 Urine Appearance Cloudy (CLEAR) A 04/13/25 03:45 Urine pH 5.0 (5-7) 04/13/25 03:45 Ur Specific [place] 1.039 (1.005-1.030) H 04/13/25 03:45 Urine Protein Trace (Negative) A 04/13/25 03:45 Urine Glucose (UA) Negative (Normal) 04/13/25 03:45 Urine Ketones Negative (Negative) 04/13/25 03:45 Urine Blood Negative (Negative) 04/13/25 03:45 Urine Nitrate Negative (Negative) 04/13/25 03:45 Urine Bilirubin Negative (Negative) 04/13/25 03:45 Urine Urobilinogen 1.0 mg/dL (Negative) 04/13/25 03:45 Ur Leukocyte Esterase Trace (Negative) A 04/13/25 03:45 Urine RBC 21-50 /hpf (0-2) H 04/13/25 03:45 Urine WBC 21-50 /hpf (0-5) H 04/13/25 03:45 Ur Squamous Epith Cells 11-20 /hpf (0-5) H 04/13/25 03:45 Calcium Oxalate Crystal 15-25 /hpf H 04/13/25 03:45 Amorphous Sediment Not Reportable 04/13/25 03:45 Urine Bacteria 4+ /hpf (NONE) H 04/13/25 03:45 Hyaline Casts 2.05 /lpf 04/13/25 03:45 No radiology studies performed this visit Discharge Plan Discharge Patient Disposition: Admitted As Inpatient Clinical Impression: Cellulitis of leg, right Condition: Stable Discharge Diet: Advance as tolerated Discharge Activity: Increase activity as tolerated Coding Level of Care Code ED Internal Grinder Tender for Lissette Parker
[2025-04-13] MEDS: ceFAZolin 3,000 MG in sodium chloride 0.9% (plus) 100 ML 200 MG IV (07:04)
[2025-04-13 08:12] LABS: Iron 26 ug/dL (37-145); Percent Saturation 7.8 % (20-50); Total Iron Binding Capacity 331 mcg/dl; Unsaturated Iron Binding 305 ug/dL (112-347)
--- OUTSIDE RECORDS SUMMARY | 2025-04-13 08:34 | XMS_ITS | Clinical Summary ---
Author Organization [facility] Address [address] [place] [address] Phone Care Team Providers Care Electric Locomotive Crane Operator Name Role Phone Nevaeh Hernández MD Primary Care Provider [phone] Allergies Active Allergy Reactions Criticality Noted Date [...] 03/09/2025 External Device Data Initial Department [address] MACHADO: [place] [address] [facility], 03/09/2025 Results Follow-Up [address] [phone] Katheryn Singh NP CBC WITH DIFFERENTIAL, FERRITIN, IRON, TIBC, AND PERCENT SATURATION, Additional followed-up results: 2 03/08/2025 2:45 PM CDT Office Visit [address] [phone] Katheryn Singh NP Other fatigue (Primary Dx); Prediabetes; H/O total hysterectomy; Microcytosis; Declined influenza vaccine; Morbid obesity with BMI of 60.0-69.9, adult ([facility]) 03/02/[address] [address] Nevaeh Hernández MD ED f/u Appointment 02/27/[address] [phone] Daniel Potts PA-C Hospital Follow Up 02/06/2025 External Device Data [facility] ABSTRACTION Provider, Abstract 02/06/2025 External Device Data [facility] Provider, Abstract 02/06/2025 External Device Data [facility] Provider, Abstract 01/30/2025 External Device Data [facility] Provider, Abstract 01/23/[address] [phone] Daniel Potts PA-C APPT; Information 01/23/2025 Telephone [facility] [address] [place] [phone] Daniel Potts PA-C appointment 01/16/2025 External Device Data [facility] Provider, Abstract 01/16/2025 External Device Data [facility] Provider, Abstract 01/16/2025 External Device Data [facility] Provider, Abstract 01/16/2025 Telephone [facility] [address] [place] [phone] Nevaeh Hernández MD Hospital Follow Up 01/15/2025 External Device Data Initial Department [address] [place] [address] Dr MACHADO: [place] [address] [facility] 01/11/2025 [facility] [id number] [place] [phone] Bryan Jain FNP [facility] 01/11/2025 External Device Data Initial Department [address] [place] [address] Dr MACHADO: [place] [address] [facility] 01/09/2025 4:12 PM CDT - 01/11/2025 2:10 PM CDT Hospital Encounter [facility] [address] [place] [phone] Thai Moreno MD Bengani, Shreyans, MD Sepsis due to cellulitis ([facility]) Discharge Disposition: Home or Self Care from [...] GEN Timed Study 01/11/2025 2:00 AM CDT from Last 3 Months Results * VITAMIN B12 AND FOLATE (03/08/2025 3:08 PM CDT) VITAMIN B12 502 200 - 1100 pg/mL [facility] FOLATE, SERUM 13.4 ng/mL [facility] Comment: Reference Range Low: <3.4 Borderline: 3.4-5.4 Normal: >5.4 FASTING:NO FASTING: NO Test Performed at: [facility] [address] Patsy Raymundo MD Blood 03/08/2025 3:08 PM CDT 03/08/2025 3:09 PM CDT us Katheryn Singh NP CHEMISTRY ORDERABLES Final Resul t [facility] [phone] [facility] [address] [facility] [place] [address] * IRON, TIBC, AND PERCENT SATURATION (03/08/2025 3:08 PM CDT) [facility] IRON 60 40 - 190 mcg/dL [facility] TIBC 353 250 - 450 mcg/dL (calc) [facility] IRON % SATURATION 17 16 - 45 % (calc) [facility] Comment: FASTING:NO FASTING: NO Test Performed at: [facility] [address] [place] [address] Patsy Raymundo MD Blood 03/08/2025 3:08 PM CDT 03/08/2025 3:09 PM CDT us Katheryn Singh ASSOCIATE CONSULTING ENGINEER CHEMISTRY ORDERABLES Final Resul t [facility] [phone] [facility] [address] * (ABNORMAL) CBC WITH DIFFERENTIAL (03/08/2025 3:08 PM CDT) Only the most recent of2 resultswithin the time period is included. [facility] WBC 6.2 3.8 - 10.8 Thousand/u L [...] Comment: FASTING:NO FASTING: NO Test Performed at: [facility] [address] Patsy Raymundo MD Blood 03/08/2025 3:08 PM CDT 03/08/2025 3:09 PM CDT Katheryn Singh NP HEMATOLOGY ORDERABLES Final Resu lt [facility] [phone] [facility] [address] [place] [address] * (ABNORMAL) HEMOGLOBIN A1C (03/08/2025 3:08 PM [...] Comment: FASTING:NO FASTING: NO Test Performed at: [facility] [address] YolandaLaura Raymundo MD Blood 03/08/2025 3:08 PM CDT 03/08/2025 3:09 PM CDT Katheryn Singh NP CHEMISTRY ORDERABLES Final Resul t [facility] [phone] [facility] [address] * (ABNORMAL) FERRITIN (03/08/2025 3:08 PM CDT) FERRITIN 14(L) 16 - 154 ng/mL [facility] Comment: Test Performed at: [facility] [address] YolandaLaura Raymundo MD Blood 03/08/2025 3:08 PM CDT 03/08/2025 3:09 PM CDT Katheryn Singh NP CHEMISTRY ORDERABLES Final Resul t Performing Organization Address City/[facility]/ZIP Co de Phone Number [facility] [phone] [facility] Barbara[address] [address] * TELEMETRY REPORT (01/23/2025 2:57 PM CDT) us Provider Scanning ECG ORDERABLES Final Result * TROPONIN 6 HR, 5TH GEN (01/11/2025 5:43 AM CDT) TROPONIN T, 6 HR 5TH GEN <6 <11 ng/L 01/11/2025 6:20 AM CDT [facility] Blood Venipuncture / Unknown 01/11/2025 5:43 AM CDT 01/11/2025 5:48 AM CDT Narrative [facility] - 01/11/2025 6:20 AM CDT Troponin Undetectable Unable to calculate delta. Jarad Manuel MD CHEMISTRY ORDERABLES Final Resul t [facility] CLIA # [id number] [address] [place] [address] * (ABNORMAL) PHOSPHORUS (01/11/2025 5:43 AM CDT) PHOSPHORUS 2.3(L) 2.5 - 4.5 mg/dL 01/11/2025 6:26 AM CDT [facility] Blood Venipuncture / Unknown 01/11/2025 5:43 AM CDT 01/11/2025 5:48 AM CDT us Cassius Wallace MD CHEMISTRY ORDERABLES Final R esult Performing Organization Address City/[facility]/ZIP Co de Phone Number [facility] CLIA # [id number] [address] [place] [phone] * MAGNESIUM LEVEL (01/11/2025 5:43 AM CDT) MAGNESIUM 1.8 1.6 - 2.6 mg/dL 01/11/2025 6:26 AM CDT [facility] Blood Venipuncture / Unknown 01/11/2025 5:43 AM CDT 01/11/2025 5:48 AM CDT Cassius Wallace MD CHEMISTRY ORDERABLES Final R esult [facility] CLIA # [id number] [address] [place] [id number] * (ABNORMAL) COMPREHENSIVE METABOLIC PANEL (01/11/2025 5:43 AM CDT) SODIUM 131(L) 136 - 145 mmol/L 01/11/2025 6:26 AM [facility] POTASSIUM 3.6 3.5 - 5.1 mmol/L 01/11/2025 6:26 AM [facility] CHLORIDE 97(L) 98 - 107 mmol/L 01/11/2025 6:26 AM [facility] CO2 27 22 - 29 mmol/L 01/11/2025 6:26 AM [facility] CALCIUM 7.9(L) 8.6 - 10.0 mg/dL 01/11/2025 6:26 AM [facility] BUN 6 6 - 20 mg/dL 01/11/2025 6:26 AM [facility] CREATININE 0.60 0.51 - 0.95 mg/dL 01/11/2025 6:26 AM [facility] GLUCOSE 114(H) 74 - 99 mg/dL 01/11/2025 6:26 AM [facility] TOTAL PROTEIN 6.7 6.6 - 8.7 g/dL 01/11/2025 6:26 AM [facility] ALBUMIN 2.9(L) 3.5 - 5.2 g/dL 01/11/2025 6:26 AM [facility] BILIRUBIN TOTAL 0.3 <=1.2 mg/dL 01/11/2025 6:26 AM [facility] ALKALINE PHOSPHATASE 66 35 - 104 U/L 01/11/2025 6:26 AM [facility] AST 8(L) 10 - 35 U/L 01/11/2025 6:26 AM [facility] ALT 7(L) 10 - 35 U/L 01/11/2025 6:26 AM [facility] GFR >60 >=60 mL/min/1.7 3 sq meter 01/11/2025 6:26 AM [facility] Comment:eGFR calculated with 2020 CKD-EPI equation. Vegetarian diet, extremely high or low muscle mass, and may affect results. Cystatin C with Glomerular Filtration Rate is a suitable alternative for these patients. ANION GAP 7(L) 10 - 20 mmol/L 01/11/2025 6:26 AM CDT [facility] Blood Venipuncture / Unknown 01/11/2025 5:43 AM CDT 01/11/2025 5:48 AM CDT Cassius Wallace MD CHEMISTRY ORDERABLES Final R esult [facility] CLIA # [id number] [address] [place] [id number] * TROPONIN 2 HR, 5TH GEN (01/11/2025 2:00 AM CDT) TROPONIN T, 2 HR 5TH GEN <6 <=10 ng/L 01/11/2025 3:00 AM CDT [facility] Blood Venipuncture / Unknown 01/11/2025 2:00 AM CDT 01/11/2025 2:14 AM CDT Narrative [facility] - 01/11/2025 3:00 AM CDT Troponin Undetectable Unable to calculate delta. us Jarad Manuel MD CHEMISTRY ORDERABLES Final Resul t Performing Organization Address City/[facility]/ZIP Co de Phone Number [facility] CLIA # [id number] [address] [place] [phone] from Last 3 Months Insurance RX [employer] (INTERNAL) [facility] Internal Plans RX [facility] (INTERNAL) [facility] Internal Plans RX [facility] Commercial RX [employer] Express [facility] Advance Directives For more information, please contact: [phone] * Full Code (Latest Code Status on File) Date Activated Date Inactivated Comments 01/09/2025 5:22 PM 01/11/2025 4:11 PM * Full Code Date Activated Date Inactivated Comments 04/08/2024 11:11 PM 04/09/2024 5:15 PM * Full Code Date Activated Date Inactivated Comments 02/03/2024 5:43 PM 02/06/2024 2:34 PM * Full Code Date Activated Date Inactivated Comments 08/15/2023 10:09 PM 08/18/2023 6:07 PM Care Teams Electric Locomotive Crane Operator Relationship Specialty Start Date End Date Nevaeh Hernández MD [address] [place] [address] PCP - General Internal Medicine 03/09/24
--- OUTSIDE RECORDS SUMMARY | 2025-04-13 08:34 | XMS_ITS | Encounter Summary ---
Author Organization [facility] Address [address] [place] [address] Care Team Providers Care Kitchen Porter Name Role Phone Nevaeh Hernández MD Primary Care Provider [phone] Encounter Details Date Type Department Care Team [...] on filedocumented in this encounter Care Teams Kitchen Porter Relationship Specialty Start Date End Date Nevaeh Hernández MD [address] [place] [address] PCP - General Internal Medicine 03/09/24 documented as of this encounter
--- OUTSIDE RECORDS SUMMARY | 2025-04-13 08:34 | XMS_ITS | Encounter Summary ---
Author Organization [facility] Address [address] [place] [address] Care Team Providers Care Mobile Sales Consultant Name Role Phone Nevaeh Hernández MD Primary Care Provider [phone] Encounter Details Date Type Department Care Team [...] on filedocumented in this encounter Care Teams Mobile Sales Consultant Relationship Specialty Start Date End Date Nevaeh Hernández MD [address] [place] [address] PCP - General Internal Medicine 03/09/24 documented as of this encounter
--- OUTSIDE RECORDS SUMMARY | 2025-04-13 08:34 | XMS_ITS | Patient Health Record ---
Author Organization [facility] Address [address] [place] [address] Care Team Providers Care Senior Quality Control Inspector Name Role Phone Daniel Whiting Unavailable [phone] Reason For Referral No Information Plan Of Treatment No Information
[2025-04-13] MEDS: acetaminophen 325 mg Tablet 650 MG PO (09:31)
[2025-04-13] MEDS: enoxaparin 40 mg/0.4 mL Syringe SUBCUT (09:31)
[2025-04-13] MEDS: ibuprofen 200 mg Tablet 400 MG PO (14:55)
[2025-04-13] MEDS: ceFAZolin 2,000 mg SDV 2000 MG IVP ×2 (14:55→23:02)
--- NOTE | 2025-04-13 16:11 | PM.MISC ---
Miscellaneous Note Purpose of Documentation: Overnight labs and H&P reviewed. Patient presenting with cellulitis. Currently on cefazolin which we will continue with 2 g IV every 8 hours. Patient reports multiple episodes of right lower extremity cellulitis in the past, up to 5 episodes last year including episodes of sepsis. Patient does not recall if she was bacteremic with any of these episodes. Recurrent cellulitis relates to lymphedema of bilateral lower extremity, perhaps with intermittent fungal infection of the skin. Leading to increased risk of cellulitis. Patient would likely benefit from chronic suppression going forward, we will place her on chronic suppression with cefadroxil at discharge and establish with the infectious disease clinic.
[2025-04-13] MEDS: HYDROcodone-acetaminophen 5-325 mg Tablet 1 TAB PO (17:21)
[2025-04-14 01:02] VITALS: BP 110/73; PULSE 86; RESP 18; TEMP 36.6; O2SAT 96
[2025-04-14] MEDS: ceFAZolin 2,000 mg SDV 2000 MG IVP ×3 (06:01→23:03)
[2025-04-14 06:06] LABS: Basophils % 0.4 %; Eosinophils # 0.1 10^3/uL (0.0-0.8); Eosinophils % 2.4 %; Hematocrit 34.4 % (36-47); Lymphocytes # 2.1 10^3/uL (0.8-4.8); Lymphocytes % 38.6 %; Mean Corpuscular HGB Conc 31.1 g/dL (30-55); Mean Corpuscular Hemoglobin 25.2 pg (27-33); Mean Corpuscular Volume 81.1 fl (85-98); Mean Platelet Volume 9.2 fL (7.4-10.4); Monocytes # 0.4 10^3/uL (0.2-0.9); Monocytes % 6.8 %; Neutrophils % 51.4 %; Nucleated Red Blood Cells % 0 %; Platelet Count 143 10^3/cmm (157-399); Red Blood Count 4.24 10^6/uL (3.85-5.65); White Blood Count 5.44 10^3/uL (3.29-11.43)
[2025-04-14 06:31] LABS: Anion Gap 13.5 (5-19); Blood Urea Nitrogen 12 mg/dL (6-20); Calcium 8.1 mg/dL (8.5-10.5); Carbon Dioxide 25 mmol/L (22-29); Chloride 104 mmol/L (98-107); Creatinine Clr Calc Pharmacy 334.8388; Glomerular Filtration Rate 177.7 mL/min (90-130); Glucose 96 mg/dL (65-115); Osmolality Calculated 288 mOsm/kg (285-295); Potassium 3.5 mmol/L (3.5-5.1); Sodium 139 mmol/L (136-145)
[2025-04-14 06:50] VITALS: BP 108/74; PULSE 80; RESP 16; TEMP 36.7; O2SAT 97
[2025-04-14 07:36] VITALS: BP 118/83; PULSE 79; RESP 18; TEMP 36.4; O2SAT 96
[2025-04-14] MEDS: enoxaparin 40 mg/0.4 mL Syringe SUBCUT (07:56)
[2025-04-14 11:32] VITALS: BP 130/84; PULSE 83; RESP 17; TEMP 36.4; O2SAT 98
[2025-04-14 16:16] VITALS: BP 107/68; PULSE 75; RESP 17; TEMP 36.6; O2SAT 98
--- NOTE | 2025-04-14 18:32 | P.PN_ITS ---
Subjective 2 Subjective: Improving cellulitis of the right lower extremity. Less swollen and tender today. Medications: Reviewed: Yes Vitals/I&O/Wt Last Vital Signs Temp 98 F 04/14/25 16:16 Pulse 75 04/14/25 16:16 Resp 17 04/14/25 16:16 BP 107/68 04/14/25 16:16 Pulse Ox 98 04/14/25 16:16 O2 Del Method Room Air 04/14/25 16:16 04/14/25 04/14/25 04/14/25 06:59 14:59 22:59 Intake Total 240 / 980 1200 / 1200 680 / 1880 Output Total 600 / 600 Balance -360 / 380 1200 / 1200 680 / 1880 Weight last 48 hrs Weight 191.87 kg Weight 191.87 kg Weight 189.057 kg Physical Exam 2 Narrative: General: No acute distress, AO x3 HEENT: PERRLA, pupils bilaterally equal and reactive, pallors not present Chest: Normal vesicular breath sounds, no added sounds, equal good air entry bilaterally CVS: S1-S2 regular, no murmurs, no tachycardia, no gallops, no rubs Abdomen: Soft, nontender, no organomegaly, bowel sounds present Neuro: No focal deficits, no facial deformity, AO x3, power 5/5 in all limbs Extremities: Improving cellulitis of the right lower extremity. Data 04/14/25 05:30 04/14/25 05:30 Micro: Microbiology 04/13/25 03:52 Blood Culture - Preliminary Blood NEGATIVE TO DATE 04/13/25 03:50 Blood Culture - Preliminary Blood NEGATIVE TO DATE A&P Assessment and plan (1) Cellulitis and abscess of right leg: Patient received vancomycin but she is already on doxycycline which should have covered staff. Additionally she does not have ulcerations this is a pale erythema that came on rapidly with associated systemic symptoms more consistent with strep. I am going to treat her with high-dose cefazolin 3 g IV every 8 hours. If she responds to this which should clarify in 48 hours then she can go home on high-dose Keflex. Patient states she has not been treated with Keflex in the past. (2) Morbid obesity with BMI of 60.0-69.9, adult: We discussed daily weighing, calorie counting and trying to eat around 2200 juanis a day for a weight loss goal of 2 to 3 pounds a week. Additionally I think she should talk to somebody about GLP-1 agonist. She denies history of gallstones, pancreatitis or alcoholism. I did not cover with her thyroid illness. Plan April 13, 2025 Overnight labs and H&P reviewed. Patient presenting with cellulitis. Currently on cefazolin which we will continue with 2 g IV every 8 hours. Patient reports multiple episodes of right lower extremity cellulitis in the past, up to 5 episodes last year including episodes of sepsis. Patient does not recall if she was bacteremic with any of these episodes. Recurrent cellulitis relates to lymphedema of bilateral lower extremity, perhaps with intermittent fungal infection of the skin. Leading to increased risk of cellulitis. Patient would likely benefit from chronic suppression going forward, we will place her on chronic suppression with cefadroxil at discharge and establish with the infectious disease clinic. April 14, 2025 Cellulitis is improving today. Extremity is appearing less erythematous, less tender. Blood cultures remain negative so far. she is afebrile and hemodynamically stable. If cellulitis continues to improve and blood cultures remain negative at 48 hours, anticipate that patient may be able to discharge with oral antibiotics. Would choose cefadroxil 1 g p.o. twice daily over the next 1 week given noted improvement with cefazolin and thereafter recommend to remain on chronic suppression with cefadroxil 500 mg p.o. twice daily. Additionally will add clotrimazole ointment for local application for fungal infection between the skin folds and lower extremity. PDMP PDMP Reviewed: Not Reviewed Attestations 2 Medical Necessity Statement*: Continue need for IV antibiotics, continue to monitor blood culture. If improving, may be able to discharge over the next 24 hours Coding Level of Care Code Acute Code for [facility] Fwd Diagnoses Cellulitis and abscess of right leg L03.115; L02.415 Morbid obesity with BMI of 60.0-69.9, adult E66.01; Z68.44
[2025-04-14 19:01] LABS: Estmated Average Glucose 123; Hemoglobin A1C 5.9 % (4.0-6.0)
[2025-04-14 19:25] VITALS: BP 113/81; PULSE 99; RESP 16; TEMP 36.7; O2SAT 98
[2025-04-15 00:17] VITALS: BP 123/82; PULSE 96; RESP 17; TEMP 36.6; O2SAT 98
[2025-04-15 04:44] VITALS: BP 116/76; PULSE 91; RESP 14; TEMP 36.6; O2SAT 95
[2025-04-15 05:05] LABS: Basophils % 0.5 %; Eosinophils # 0.1 10^3/uL (0.0-0.8); Eosinophils % 2.1 %; Hematocrit 35.8 % (36-47); Mean Corpuscular HGB Conc 30.7 g/dL (30-55); Mean Corpuscular Hemoglobin 25.5 pg (27-33); Mean Corpuscular Volume 83.1 fl (85-98); Mean Platelet Volume 8.9 fL (7.4-10.4); Monocytes # 0.3 10^3/uL (0.2-0.9); Monocytes % 5.2 %; Neutrophils # 3.78 10^3/uL (1.8-7.7); Neutrophils % 59.7 %; Nucleated Red Blood Cells % 0 %; Platelet Count 149 10^3/cmm (157-399); Red Blood Count 4.31 10^6/uL (3.85-5.65); Red Cell Distribution Width 13.9 % (12.1-15.1); White Blood Count 6.32 10^3/uL (3.29-11.43)
[2025-04-15 05:23] LABS: Alanine Aminotransferase 9 U/L (0-33); Albumin Level 3.5 g/dL (3.5-5.2); Alkaline Phosphatase 70 U/L (35-105); Anion Gap 14.7 (5-19); Aspartate Amino Transferase 11 U/L (0-32); Blood Urea Nitrogen 10 mg/dL (6-20); Calcium 8.5 mg/dL (8.5-10.5); Carbon Dioxide 25 mmol/L (22-29); Chloride 104 mmol/L (98-107); Creatinine Clr Calc Pharmacy 267.8711; Globulin 2.8 g/dL (1.3-4.6); Glomerular Filtration Rate 137.4 mL/min (90-130); Glucose 106 mg/dL (65-115); Osmolality Calculated 289 mOsm/kg (285-295); Potassium 3.7 mmol/L (3.5-5.1); Sodium 140 mmol/L (136-145); Total Bilirubin 0.2 mg/dL (0.15-1.2); Total Protein 6.3 g/dL (6.6-8.7)
[2025-04-15] MEDS: ceFAZolin 2,000 mg SDV 2000 MG IVP (06:05)
[2025-04-15 07:28] VITALS: BP 112/68; PULSE 82; RESP 18; TEMP 36.6; O2SAT 95
[2025-04-15] MEDS: enoxaparin 40 mg/0.4 mL Syringe SUBCUT (08:34)
[2025-04-15] MEDS: lidocaine 2% viscous 15 ML, aluminum-mag hydrox-simethicon 30 ML, sucralfate oral liq 1 GM PO (09:32)
[2025-04-15 11:30] VITALS: BP 132/74; PULSE 87; RESP 20; TEMP 36.7; O2SAT 96
--- NOTE | 2025-04-15 12:22 | PC.NURSE ---
Discharge paperwork discussed with patient, all questions were answered. IV was removed. Patient ambulated to ER entrance with all belongings, escorted by MAURI Pickett at 1150.
[2025-04-15 12:23] VITALS: BP 132/74; PULSE 87; RESP 20; TEMP 36.7; O2SAT 96
--- NOTE | 2025-04-15 12:31 | PM.DCS ---
Discharge Providers Date of Admission: 04/13/25 06:48 Date of Discharge: April 15, 2025 Attending Provider at Admission: Nikhil Gardiner MD Attending Provider at Discharge: Yvonne Beck MD Primary Care Provider: Makenzie Wheeler Diagnoses at Discharge Discharge Diagnosis (1) Morbid obesity with BMI of 60.0-69.9, adult: Status: Acute (2) Cellulitis of leg, right: Status: Acute Reason for Visit Reason for Visit: N/V/D R Leg Red and swollen going up Hospital Course Hospital Course Patient is a 39-year-old female with a history of lymphedema which patient reports is related to obesity and weighing 600 pounds previously. She has lost a significant amount of weight almost 200 pounds but the lymphedema is still persisting in bilateral lower extremities. She has a history of recurrent cellulitis of the right leg, requiring frequent admissions to the hospital. Patient estimates that she has been admitted to the hospital 5 times in the past year due to sepsis related to cellulitis. She does not know if she has been bacteremic on any of her prior admits. She also has a history of C. difficile in the past. Patient was admitted to the hospital and started treatment with cefazolin 2 g IV every 8 hours. Her cellulitis improved significantly and is much improved today on the day of discharge. Given history of over 5 episodes in the past year and this being the third episode this year already, we discussed starting chronic suppression with cefadroxil as an outpatient. Offered her both a pill in pocket approach versus a daily suppressive approach. Out of the 2 options, given the frequency of her episodes she elected to start a daily suppressive approach. At discharge she is recommended to take cefadroxil 1 g p.o. twice daily treatment dose for the next 7 days. Thereafter instructed to drop her dose of cefadroxil to 500 mg p.o. twice daily every day. Also given instructions to minimize any potential trauma to the right leg. Asked her to particularly monitor the skin folds and watch for any skin breakdown. There is noted to be mild fungal infection in between the skin folds today for which clotrimazole ointment has been added. She is instructed to use this alongside of Neosporin ointment that she typically uses whenever she sees any noticeable injury. Instructed to keep the area as dry as possible. Discussed with her the side effects of chronic suppression including but not limited to C. difficile, diarrhea, bone marrow suppression, liver and kidney dysfunction. We will check labs in 1 month after starting chronic suppression. patient to call with any diarrhea. Patient feels well today and is discharged home in improved condition. Follow-up arranged with infectious disease clinic as outpatient. Physical Exam Narrative: General: No acute distress, AO x3 HEENT: PERRLA, pupils bilaterally equal and reactive, pallors not present Chest: Normal vesicular breath sounds, no added sounds, equal good air entry bilaterally CVS: S1-S2 regular, no murmurs, no tachycardia, no gallops, no rubs Abdomen: Soft, nontender, no organomegaly, bowel sounds present Neuro: No focal deficits, no facial deformity, AO x3, power 5/5 in all limbs Discharge Data Studies Completed and Pending Pending at discharge Category Date Time Status Blood Culture Stat Lab 04/13/25 03:50 Results Laboratory Results WBC 6.32 10^3/uL (3.29-11.43) 04/15/25 04:49 RBC 4.31 10^6/uL (3.85-5.65) 04/15/25 04:49 Hgb 11.00 g/dL (11.27-16.99) L 04/15/25 04:49 Hct 35.8 % (36-47) L 04/15/25 04:49 MCV 83.1 fl (85-98) L 04/15/25 04:49 MCH 25.5 pg (27-33) L 04/15/25 04:49 MCHC 30.7 g/dL (30-55) 04/15/25 04:49 RDW 13.9 % (12.1-15.1) 04/15/25 04:49 Plt Count 149 10^3/cmm (157-399) L 04/15/25 04:49 MPV 8.9 fL (7.4-10.4) 04/15/25 04:49 Neut % (Auto) 59.7 % 04/15/25 04:49 Lymph % (Auto) 32.0 % 04/15/25 04:49 Blair % (Auto) 5.2 % 04/15/25 04:49 Eos % (Auto) 2.1 % 04/15/25 04:49 Baso % (Auto) 0.5 % 04/15/25 04:49 Neut # (Auto) 3.78 10^3/uL (1.8-7.7) 04/15/25 04:49 Lymph # (Auto) 2.0 10^3/uL (0.8-4.8) 04/15/25 04:49 Blair # (Auto) 0.3 10^3/uL (0.2-0.9) 04/15/25 04:49 Eos # (Auto) 0.1 10^3/uL (0.0-0.8) 04/15/25 04:49 Baso # (Auto) 0.0 10^3/uL (0.0-0.1) 04/15/25 04:49 Nucleated RBC % (auto) 0 % 04/15/25 04:49 Nucleated RBCs # 0.0 /100WBC 04/15/25 04:49 Sodium 140 mmol/L (136-145) 04/15/25 04:49 Potassium 3.7 mmol/L (3.5-5.1) 04/15/25 04:49 Chloride 104 mmol/L (98-107) 04/15/25 04:49 Carbon Dioxide 25 mmol/L (22-29) 04/15/25 04:49 Anion Gap 14.7 (5-19) 04/15/25 04:49 BUN 10 mg/dL (6-20) 04/15/25 04:49 Creatinine 0.5 mg/dL (0.5-0.9) 04/15/25 04:49 GFR Calculation 137.4 mL/min (90-130) H 04/15/25 04:49 Glucose 106 mg/dL (65-115) 04/15/25 04:49 Estimat Average Glucose 123 04/14/25 01:19 Hemoglobin A1c 5.9 % (4.0-6.0) 04/14/25 01:19 Calculated Osmolality 289 mOsm/kg (285-295) 04/15/25 04:49 Lactic Acid 0.9 mmol/L (0.5-2.2) 04/13/25 01:19 Calcium 8.5 mg/dL (8.5-10.5) 04/15/25 04:49 Iron 26 ug/dL (37-145) L 04/13/25 01:19 TIBC 331 mcg/dl 04/13/25 01:19 % Saturation 7.8 % (20-50) L 04/13/25 01:19 Unsat Iron Binding 305 ug/dL (112-347) 04/13/25 01:19 Total Bilirubin 0.2 mg/dL (0.15-1.2) 04/15/25 04:49 AST 11 U/L (0-32) 04/15/25 04:49 ALT 9 U/L (0-33) 04/15/25 04:49 Alkaline Phosphatase 70 U/L (35-105) 04/15/25 04:49 Total Protein 6.3 g/dL (6.6-8.7) L 04/15/25 04:49 Albumin 3.5 g/dL (3.5-5.2) 04/15/25 04:49 Globulin 2.8 g/dL (1.3-4.6) 04/15/25 04:49 Urine Color Yellow (Yellow) 04/13/25 03:45 Urine Appearance Cloudy (CLEAR) A 04/13/25 03:45 Urine pH 5.0 (5-7) 04/13/25 03:45 Ur Specific [place]ink[place] 1.039 (1.005-1.030) H 04/13/25 03:45 Urine Protein Trace (Negative) A 04/13/25 03:45 Urine Glucose (UA) Negative (Normal) 04/13/25 03:45 Urine Ketones Negative (Negative) 04/13/25 03:45 Urine Blood Negative (Negative) 04/13/25 03:45 Urine Nitrate Negative (Negative) 04/13/25 03:45 Urine Bilirubin Negative (Negative) 04/13/25 03:45 Urine Urobilinogen 1.0 mg/dL (Negative) 04/13/25 03:45 Ur Leukocyte Esterase Trace (Negative) A 04/13/25 03:45 Urine RBC 21-50 /hpf (0-2) H 04/13/25 03:45 Urine WBC 21-50 /hpf (0-5) H 04/13/25 03:45 Ur Squamous Epith Cells 11-20 /hpf (0-5) H 04/13/25 03:45 Calcium Oxalate Crystal 15-25 /hpf H 04/13/25 03:45 Amorphous Sediment Not Reportable 04/13/25 03:45 Urine Bacteria 4+ /hpf (NONE) H 04/13/25 03:45 Hyaline Casts 2.05 /lpf 04/13/25 03:45 Vitals Last Vital Signs Temp 98.0 F 04/15/25 12:23 Pulse 87 04/15/25 12:23 Resp 20 H 04/15/25 12:23 BP 132/74 04/15/25 12:23 Pulse Ox 96 04/15/25 12:23 O2 Del Method Room Air 04/15/25 11:30 Discharge Plan Discharge Patient Disposition: Home Condition: Stable Prescriptions: New cefadroxil 500 mg capsule 500 mg PO BID Qty: 30 2RF clotrimazole 1 % cream 1 applic topical BID 56 Days Qty: 15 3RF Discharge Orders: Discharge Order (Routine); Ordered 04/15/25 Ordered By: Yvonne Beck Referrals: Infectious Disease Group [facility] [Provider Group, Infectious Disease] - 05/15/25 10:30 am Makenzie Wheeler PA [Primary Care Provider, [employer]] - 7-10 days Referral Note: Please call Wednesday to make a hospital follow up within 10 days of discharge. Discharge Diet: Advance as tolerated Discharge Activity: Increase activity as tolerated Patient Instructions: Cellulitis, Cefadroxil (By mouth), Betamethasone/Clotrimazole (On the skin), Opioid Safety, Patient Portal & Jag Instructions Activity Restrictions/Additional Instructions: It is very important to avoid injury or infections of your affected limb. To avoid injury: ?Keep your skin clean. Wash with a mild soap every day. ?Be careful with your nails. Don't pick at the skin around your nails or cut your cuticles. ?Use lotion to keep your skin from getting dry and cracked ?Use an electric razor instead of a razor blade to shave ?Always use sunscreen when you go outside ?If an arm is affected, wear gloves when gardening, cooking, or doing other things that could hurt your skin ?If a leg is affected, wear hard-soled shoes when outside ?If you do get a small cut, scrape, or bite on your arm, hand, leg, or foot, clean it well with soap and water. Then use an antibiotic cream, such as bacitracin. Call your doctor or nurse if it does not heal quickly or if you have signs of an infection. ?When possible, avoid shots, blood draws, or IV lines in the limb with lymphedema. Avoid other procedures that puncture the skin, like acupuncture or tattooing. ?If you have lymphedema in an arm, avoid routinely having your blood pressure taken on that side ?Avoid saunas, steam baths, and hot tubs To help reduce the amount of swelling: ?Wear loose-fitting clothes and jewelry, unless it is a special garment or bandage your doctor or nurse gives you ?Keep your weight under control ?Do not let your arm hang at your side for long periods of time without moving it. If your leg is affected, avoid standing for long periods of time. ?Keep your limb raised on pillows when you're sitting or lying down Stand Alone Forms: Work/School Release Discharge Attestations Time Spent in Discharge Care*: greater than 30 min Quality Metrics Clinical Quality Measures [ No reported AMI, CVA or VTE this stay] Coding Level of Care Code Acute Code for Chg Fwd Diagnoses Morbid obesity with BMI of 60.0-69.9, adult E66.01; Z68.44 Cellulitis of leg, right L03.115
== END 2025-04-15 11:50 | disposition home or self-care (01) ==
LOC: ER 04-13 06:43 → ER IP 04-13 08:06 → MEDSURG 04-13 13:37
PROVIDERS: Admitting Provider Internal Medicine; Emergency Provider Student in an Organized Health Care Education/Training Program; PCP Physician Assistant; Visit Provider Student in an Organized Health Care Education/Training Program
DX: L03.115 Cellulitis of right lower limb (principal); E66.01 Morbid (severe) obesity due to excess calories; Z68.44 Body mass index [BMI] 60.0-69.9, adult; Z87.891 Personal history of nicotine dependence; I10 Essential (primary) hypertension; Z82.49 Family history of ischemic heart disease and other diseases of the circulatory system
CPT/HCPCS: 36415; 80048; 80053; 81001; 83036; 83540; 83550; 83605; 85025; 87040; 96365; 96367; 96372; 96375; 96376; 99285; G0378; J0690; J1650; J2405; J3372; J7030; J9999

== ENCOUNTER 2025-05-01 06:53 | Emergency (ER) | payer MEDICAID, SELFPAY ==
--- NOTE | 2025-05-01 06:57 | XR_ITS ---
WS: [id number] XR chest 1V portable [id number] REASON FOR EXAM: Chest pain FINDINGS: The chest is unchanged compared to 04/10/2025. Mild tortuosity of the thoracic aorta. Mild cardiomegaly. Calcified granulomatous disease bilaterally. No acute pulmonary parenchymal or pleural abnormality. Moderate degenerative spondylosis in the mid and lower thoracic spine. XR/XR chest 1V portable [id number] IMPRESSION: Stable chest without acute abnormality.
--- NOTE | 2025-05-01 07:00 | ECG_ITS ---
[facility]01 Pat Name: Daniela Pulido Department: Room: Gender: Female Translation Director: : 1985 Requested By: Antonino Suarez Order Number: [id number] Jennifer MD: Patricia Dunlap M.D. Measurements Intervals [place] Rate: 105 P: 33 TN: 180 QRS: 12 QRSD: 94 T: 22 QT: 347 QTc: 460 Interpretive Statements SINUS TACHYCARDIA ABNORMAL RHYTHM ECG Compared to ECG 04/10/2025 23:41:38 No significant changes Electronically Signed On 05-01-2025 09:45:28 CDT by Patricia Dunlap M.D. [email or web address] [id number]
--- OUTSIDE RECORDS SUMMARY | 2025-05-01 07:00 | XMS_ITS | Data Portability ---
Author Organization [facility], [facility], [facility] Address [address] [address] Care Team Providers Care Lab Support Tech Name Role Phone MAKENZIE WHEELER Primary Care Provider Assessment No assessment recorded. Plan of Treatment Reminders Order Date Submit Date Provider Last Modified By Organization Details Last Modified Time Details Appointments OFFICE VISIT 2024 08:40A M MAKENZIE WHEELER PA-C Not available Not available Not available Lab calprotec tin, stool 2022 023 [facility] ([facility]), [address] [place], [address], 10/08/2024 05:00:58 H pylori Ag, qual immunoass ay, stool 2022 023 [facility] ([facility]), [address] [place], [address], 10/08/2024 05:00:58 celiac disease comprehen sive panel, serum 2022 023 [employer] [facility], [address] [place] [address], [address], [place], [address], 10/08/2023 04:27:31 CMP, serum or plasma 2022 023 [employer] [facility], [address] [place] [address], [address], [place], [address], 10/08/2023 04:27:30 CBC 2022 023 [facility], [address], [address], [place], [address], 10/07/2023 17:13:27 TSH, serum or plasma 2022 023 [employer] [facility], [address] [facility] [address], [address], [place], [address], 10/08/2023 04:27:32 food allergen panel, serum 2022 023 [employer] [facility], [address], [address], [place], [address], 10/08/2023 04:27:32 Referral gastroent erologist referral 2023 024 [email or web address] Not available 02/17/2024 14:21:13 physical therapist referral 2022 023 [email or web address] [facility], [address], [place], [address], 10/25/2023 09:20:48 Procedures polysomno graphy, diagnosti c (PROC) 2024 025 [facility], [address], [place], [address], 2025 12:59:22 Surgeries None recorded. Imaging US, echocardi ogram 2024 025 [facility] Imaging Orders, [address], [place], [address], 04/23/2025 15:04:40 RF, upper gastroint estinal tract + small bowel, w/ contrast PO 2022 023 [facility] Imaging Orders, [address], [place], [address], 11/10/2023 09:09:56 Medication Orders pantopraz ole 40 mg tablet,de layed release [address] [id number], [address], [place], [address], 04/19/2025 10:41:05 Zepbound 2.5 mg/0.5 mL subcutane ous pen injector [address] [id number], [address], [place], [address], 04/19/2025 10:41:06 Zepbound 5 mg/0.5 mL subcutane ous pen injector [address] [id number], [address], [address], [place], [address], 04/19/2025 10:41:04 losartan 50 mg-hydroc hlorothia zide 12.[address] tablet [address] [id number], [address], [address], [place], [address], 04/19/2025 10:41:05 ferrous sulfate 325 mg (65 mg iron) tablet [address] [id number], [address], [address], [place], [address], 04/19/2025 10:41:05 ondansetr on 4 mg disintegr ating tablet [address] [id number], [address], [address], [place], [address], 04/19/2025 10:00:56 omeprazol e 40 mg capsule,d elayed release 2022 023 [email or web address] 76 [facility][id number], [address], [address], [place], [address], 09/30/2024 09:37:31 prednison e 20 mg tablet 2022 023 [email or web address] [facility] #[id number], [address], [address], [place], [address], 04/16/2025 18:39:25 ProAir HFA 90 mcg/actua tion aerosol inhaler 2022 023 [email or web address] 76 [facility] #[id number], [address], [address], [place], [address], 09/30/2024 09:37:34 Patient TargetsNo targets recorded. 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 Referral for Clostridium difficile colitis Referring Physician: Makenzie Wheeler [facility] Medicine, Encounter Date: 12/23/2023 Results Created Date Observation Date Name Description Value Unit Range Abnormal Flag Note LastModifiedBy Organization Detail LastModifiedTime 10/07/2010/07/2023 CBC WBC 7.6 x10 4.0-10 .5 Not Available [facility] [address], [place], [address], 10/07/2023 17:13:27 10/07/20 23 10/07/2023 CBC RBC 4.94 x10 3.50-5 .50 Not Available [facility] [address], [place], [address], 10/07/2023 17:13:27 10/07/20 23 10/07/2023 CBC HGB 13.2 g/dL 12.0-1 6.0 Not Available [facility] [address], [place], [address], 10/07/2023 17:13:27 10/07/20 23 10/07/2023 CBC HCT 40.0 % 37.0-4 7.0 Not Available [facility] [address] [facility] 1, [place], [address], 10/07/2023 17:13:27 10/07/20 23 10/07/2023 CBC MCV 80.9 fL 80.0-9 9.9 Not Available [facility] [address] [facility] [facility] 1, [place], [address], 10/07/2023 17:13:27 10/07/20 23 10/07/2023 CBC MCH 26.7 pg 27.0-3 2.0 low Not Available [facility] [address] [facility] [facility] 1, [place], [address], 10/07/2023 17:13:27 10/07/20 23 10/07/2023 CBC MCHC 33.0 g/dL 32.0-3 6.0 Not Available [facility] [address] [facility] [facility] 1, [place], [address], 10/07/2023 17:13:27 10/07/20 23 10/07/2023 CBC RDW 15.6 % 11.5-1 4.6 high Not Available [facility] [address] [facility] [facility] 1, [place], [address], 10/07/2023 17:13:27 10/07/20 23 10/07/2023 CBC plt 182.9 x10 140.0- 451.0 Not Available [facility] [address] [facility] 1, [place], [address], 10/07/2023 17:13:27 10/07/20 23 10/07/2023 CBC lymphocytes % 28.6 % 20.0-5 0.0 Not Available [facility] [address] [facility] 1, [place], [address], 10/07/2023 17:13:27 10/07/20 23 10/07/2023 CBC granulcytes % 64.1 % 30.0-7 0.0 Not Available [facility] [address] [facility] 1, [place], [address], 10/07/2023 17:13:27 10/07/20 23 10/07/2023 CBC monocytes % 4.0 % 2.0-10 .0 Not Available [facility] [address] [address], [place], [address], 10/07/2023 17:13:27 10/07/20 23 10/07/2023 CBC granulcytes# 4.9 x10 Not Mary ilable [facility] [address] [facility] 1, [place], [address], 10/07/2023 17:13:27 10/07/20 23 10/07/2023 CBC lymphocytes # 2.2 x10 Not Available [facility] [address] [facility] 1, [place], [address], 10/07/2023 17:13:27 10/07/20 23 10/07/2023 CBC monocytes # 0.3 x10 Not Avai lable [facility] [address] [facility] 1, [place], [address], 10/07/2023 17:13:27 10/07/20 23 10/08/2023 COMPR EHENS HIMANSHU METAB OLIC PANEL glucose 87 mg/dL 65-99 normal Fasti ng refer ence inter isadora Not Available [address] [address] [place], [address], 10/08/2023 04:27:30 10/07/20 23 10/08/2023 COMPR EHENS HIMANSHU METAB OLIC PANEL urea nitrogen (BUN) 9 mg/dL 7-25 normal Not Available [address], [address], 10/08/2023 04:27:30 10/07/20 23 10/08/2023 COMPR EHENS HIMANSHU METAB OLIC PANEL creatinine 0.63 mg/dL 0.50-0 .97 normal Not Available [address], [address], 10/08/2023 04:27:30 10/07/20 23 10/08/2023 COMPR EHENS HIMANSHU METAB OLIC PANEL eGFR 116 mL/mi n/1.7 3m2 > or = 60 normal Not Available [address] [address] [place], [address], 10/08/2023 04:27:30 10/07/20 23 10/08/2023 COMPR EHENS HIMANSHU METAB OLIC PANEL BUN/creatini ne ratio SEE NOTE: (calc ) 6-22 Not Repor koffi: BUN and Creat inine are withi n refer ence range . Not Available [address], [address], 10/08/2023 04:27:30 10/07/20 23 10/08/2023 COMPR EHENS HIMANSHU METAB OLIC PANEL sodium 139 mmol/ L 135-14 6 normal Not Available [address], [address], 10/08/2023 04:27:30 10/07/20 23 10/08/2023 COMPR EHENS HIMANSHU METAB OLIC PANEL potassium 3.7 mmol/ L 3.5-5. 3 normal Not Available [address], [address], 10/08/2023 04:27:30 10/07/20 23 10/08/2023 COMPR EHENS HIMANSHU METAB OLIC PANEL chloride 100 mmol/ L 98-110 normal Not Available [address], [address], 10/08/2023 04:27:30 10/07/20 23 10/08/2023 COMPR EHENS HIMANSHU METAB OLIC PANEL carbon dioxide 28 mmol/ L 20-32 normal Not Available [address], [address], 10/08/2023 04:27:30 10/07/20 23 10/08/2023 COMPR EHENS HIMANSHU METAB OLIC PANEL calcium 9.4 mg/dL 8.6-10 .2 normal Not Available [address], [address], 10/08/2023 04:27:30 10/07/20 23 10/08/2023 COMPR EHENS HIMANSHU METAB OLIC PANEL protein, total 7.8 g/dL 6.1-8. 1 normal Not Available [address], [address], 10/08/2023 04:27:30 10/07/20 23 10/08/2023 COMPR EHENS HIMANSHU METAB OLIC PANEL albumin 3.9 g/dL 3.6-5. 1 normal Not Available [address], [address], 10/08/2023 04:27:30 10/07/20 23 10/08/2023 COMPR EHENS HIMANSHU METAB OLIC PANEL globulin 3.9 g/dL_ (calc ) 1.9-3. 7 high Not Available [address], [address], 10/08/2023 04:27:30 10/07/20 23 10/08/2023 COMPR EHENS HIMANSHU METAB OLIC PANEL albumin/glob ulin ratio 1.0 (calc ) 1.0-2. 5 normal Not Available [address], [address], 10/08/2023 04:27:30 10/07/20 23 10/08/2023 COMPR EHENS HIMANSHU METAB OLIC PANEL bilirubin, total 0.4 mg/dL 0.2-1. 2 normal Not Available [address], [address], 10/08/2023 04:27:30 10/07/20 23 10/08/2023 COMPR EHENS HIMANSHU METAB OLIC PANEL alkaline phosphatase 74 U/L 31-125 normal Not Available [address], [address], 10/08/2023 04:27:30 10/07/20 23 10/08/2023 COMPR EHENS HIMANSHU METAB OLIC PANEL AST 12 U/L 10-30 normal Not Available [address], [address], 10/08/2023 04:27:30 10/07/20 23 10/08/2023 COMPR EHENS HIMANSHU METAB OLIC PANEL ALT 8 U/L 6-29 normal Not Available [address], [address], 10/08/2023 04:27:30 10/07/20 23 10/12/2023 BRANDON C DISEA SE COMPR EHENS HIMANSHU PANEL interpretati on No serol ogica l evide nce of brandon c disea se. Total serum IgA is eleva koffi. Consi dona mucos al infla mmato ry condi tions or under lying gammo martha . Not Available [address], [address], 10/12/2023 14:51:33 10/07/20 23 10/12/2023 BRANDON C DISEA SE COMPR EHENS HIMANSHU PANEL tissue transglutami nase Ab, IgA <1.0 U/mL Value Inter preta tion ----- ----- ----- ---- <15.0 Antib emmanuel not detec koffi > or = 15.0 Antib emmanuel detec koffi Not Available [address], [address], 10/12/2023 14:51:33 10/07/20 23 10/12/2023 BRANDON C DISEA SE COMPR EHENS HIMANSHU PANEL immunoglobul in A 609 mg/dL 47-310 high Not Available [address], [address], 10/12/2023 14:51:33 10/07/20 23 10/08/2023 TSH TSH 2.73 mIU/L normal Refer ence Range > or = 20 Years 0.40- 4.50 Pregn gurpreet Range s First trime ster 0.26- 2.66 Secon d trime ster 0.55- 2.73 Third trime ster 0.43- 2.91 Not Available [address], [address], 10/08/2023 07:21:57 10/07/20 23 10/08/2023 FOOD ALLER GY PANEL (REFL ) egg white (F1) IgE Not Available [address], [address], 10/08/2023 04:27:32 10/07/20 23 10/08/2023 FOOD ALLER GY PANEL (REFL ) class Not Available [address], [address], 10/08/2023 04:27:32 10/07/20 23 10/08/2023 FOOD ALLER GY PANEL (REFL ) peanut (F13) IgE Not Available [address], [address], 10/08/2023 04:27:32 10/07/20 23 10/08/2023 FOOD ALLER GY PANEL (REFL ) class Not Available [address], [address], 10/08/2023 04:27:32 10/07/20 23 10/08/2023 FOOD ALLER GY PANEL (REFL ) wheat (F4) IgE Not Available [address], [address], 10/08/2023 04:27:32 10/07/20 23 10/08/2023 FOOD ALLER GY PANEL (REFL ) class Not Available [address], [address], 10/08/2023 04:27:32 10/07/20 23 10/08/2023 FOOD ALLER GY PANEL (REFL ) walnut (F256) IgE Not Available [address], [address], 10/08/2023 04:27:32 10/07/20 23 10/08/2023 FOOD ALLER GY PANEL (REFL ) class Not Available [address], [address], 10/08/2023 04:27:32 10/07/20 23 10/08/2023 FOOD ALLER GY PANEL (REFL ) codfish (F3) IgE Not Available [address] [address] [place], [address], 10/08/2023 04:27:32 10/07/20 23 10/08/2023 FOOD ALLER GY PANEL (REFL ) class Not Available [address], [address], 10/08/2023 04:27:32 10/07/20 23 10/08/2023 FOOD ALLER GY PANEL (REFL ) cow's milk (F2) IgE Not Available [address], [address], 10/08/2023 04:27:32 10/07/20 23 10/08/2023 FOOD ALLER GY PANEL (REFL ) class Not Available [address] [address] [place], [address], 10/08/2023 04:27:32 10/07/20 23 10/08/2023 FOOD ALLER GY PANEL (REFL ) soybean (F14) IgE Not Available [address] [address] [place], [address], 10/08/2023 04:27:32 10/07/20 23 10/08/2023 FOOD ALLER GY PANEL (REFL ) class Not Available [address] [address] [place], [address], 10/08/2023 04:27:32 10/07/20 23 10/08/2023 FOOD ALLER GY PANEL (REFL ) maize/corn (F8) IgE Not Available [address] [address] [place], [address], 10/08/2023 04:27:32 10/07/20 23 10/08/2023 FOOD ALLER GY PANEL (REFL ) class Not Available [address] [address] [place], [address], 10/08/2023 04:27:32 10/07/20 23 10/08/2023 FOOD ALLER GY PANEL (REFL ) shrimp (F24) IgE Not Available [address] [address] [place], [address], 10/08/2023 04:27:32 10/07/20 23 10/08/2023 FOOD ALLER GY PANEL (REFL ) class Not Available [address] [address] [place], [address], 10/08/2023 04:27:32 10/07/20 23 10/08/2023 FOOD ALLER GY PANEL (REFL ) scallop (F338) IgE Not Available [facility] [address] [address] [place], [address], 10/08/2023 04:27:32 10/07/20 23 10/08/2023 FOOD ALLER GY PANEL (REFL ) class Not Available [address] [address] [place], [address], 10/08/2023 04:27:32 10/07/20 23 10/08/2023 FOOD ALLER GY PANEL (REFL ) clam (F207) IgE Not Available [address] [address] [place], [address], 10/08/2023 04:27:32 10/07/20 23 10/08/2023 FOOD ALLER GY PANEL (REFL ) class Not Available [address] [address] [place], [address], 10/08/2023 04:27:32 10/07/20 23 10/08/2023 FOOD ALLER GY PANEL (REFL ) sesame seed (F10) IgE Not Available [address] [address] [place], [address], 10/08/2023 04:27:32 10/07/20 23 10/08/2023 FOOD ALLER GY PANEL (REFL ) class Not Available [address] [address] [place], [address], 10/08/2023 04:27:32 10/07/20 23 10/08/2023 INTER PRETA [...] cteri stics have been deter mined by [facility]. It has not been clear ed or appro lor by the U.S. Food and Drug Admin istra tion. This assay has been valid ated pursu ant to the CLIA regul ation s and is used for clini juanis purpo ses. Not Available [facility] [address] [address] [place], [address], 10/08/2023 17:15:59 10/07/20 23 10/08/2023 FOOD ALLER GY PANEL (REFL ) egg white (F1) IgE Not Available [facility] [address] [address] [place], [address], 10/08/2023 07:21:58 10/07/20 23 10/08/2023 FOOD ALLER GY PANEL (REFL ) class Not Available [facility] [address] [address] [place], [address], 10/08/2023 07:21:58 10/07/20 23 10/08/2023 FOOD ALLER GY PANEL (REFL ) peanut (F13) IgE Not Available [facility] [address] [address] [place], [address], 10/08/2023 07:21:58 10/07/20 23 10/08/2023 FOOD ALLER GY PANEL (REFL ) class Not Available [facility] [address] [address] [place], [address], 10/08/2023 07:21:58 10/07/20 23 10/08/2023 FOOD ALLER GY PANEL (REFL ) wheat (F4) IgE Not Available [address] [address] [place], [address], 10/08/2023 07:21:58 10/07/20 23 10/08/2023 FOOD ALLER GY PANEL (REFL ) class Not Available [address] [address] [place], [address], 10/08/2023 07:21:58 10/07/20 23 10/08/2023 FOOD ALLER GY PANEL (REFL ) walnut (F256) IgE Not Available [address] [address] [place], [address], 10/08/2023 07:21:58 10/07/20 23 10/08/2023 FOOD ALLER GY PANEL (REFL ) class Not Available [address] [address] [place], [address], 10/08/2023 07:21:58 10/07/20 23 10/08/2023 FOOD ALLER GY PANEL (REFL ) codfish (F3) IgE Not Available [address] [address] [place], [address], 10/08/2023 07:21:58 10/07/20 23 10/08/2023 FOOD ALLER GY PANEL (REFL ) class Not Available [address] [address] [place], [address], 10/08/2023 07:21:58 10/07/20 23 10/08/2023 FOOD ALLER GY PANEL (REFL ) cow's milk (F2) IgE Not Available [address] [address] [place], [address], 10/08/2023 07:21:58 10/07/20 23 10/08/2023 FOOD ALLER GY PANEL (REFL ) class Not Available [address] [address] [place], [address], 10/08/2023 07:21:58 10/07/20 23 10/08/2023 FOOD ALLER GY PANEL (REFL ) soybean (F14) IgE Not Available [address] [address] [place], [address], 10/08/2023 07:21:58 10/07/20 23 10/08/2023 FOOD ALLER GY PANEL (REFL ) class Not Available [address] [address] [place], [address], 10/08/2023 07:21:58 10/07/20 23 10/08/2023 FOOD ALLER GY PANEL (REFL ) maize/corn (F8) IgE Not Available [address], [address], 10/08/2023 07:21:58 10/07/20 23 10/08/2023 FOOD ALLER GY PANEL (REFL ) class Not Available [address] [address] [place], [address], 10/08/2023 07:21:58 10/07/20 23 10/08/2023 FOOD ALLER GY PANEL (REFL ) shrimp (F24) IgE Not Available [address] [address] [place], [address], 10/08/2023 07:21:58 10/07/20 23 10/08/2023 FOOD ALLER GY PANEL (REFL ) class Not Available [address] [address] [place], [address], 10/08/2023 07:21:58 10/07/20 23 10/08/2023 FOOD ALLER GY PANEL (REFL ) scallop (F338) IgE Not Available [address] [address] [place], [address], 10/08/2023 07:21:58 10/07/20 23 10/08/2023 FOOD ALLER GY PANEL (REFL ) class Not Available [address] [address] [place], [address], 10/08/2023 07:21:58 10/07/20 23 10/08/2023 FOOD ALLER GY PANEL (REFL ) clam (F207) IgE Not Available [address], [address], 10/08/2023 07:21:58 10/07/20 23 10/08/2023 FOOD ALLER GY PANEL (REFL ) class Not Available [address], [address], 10/08/2023 07:21:58 10/07/20 23 10/08/2023 FOOD ALLER GY PANEL (REFL ) sesame seed (F10) IgE Not Available [address], [address], 10/08/2023 07:21:58 10/07/20 23 10/08/2023 FOOD ALLER GY PANEL (REFL ) class Not Available [address], [address], 10/08/2023 07:21:58 10/07/20 23 10/08/2023 FOOD ALLER GY PANEL (REFL ) egg white (F1) IgE <0.10 kU/L normal Not Available [address], [address], 10/08/2023 17:15:59 10/07/20 23 10/08/2023 FOOD ALLER GY PANEL (REFL ) class 0 Not Available [address], [address], 10/08/2023 17:15:59 10/07/20 23 10/08/2023 FOOD ALLER GY PANEL (REFL ) peanut (F13) IgE <0.10 kU/L normal Not Available [address], [address], 10/08/2023 17:15:59 10/07/20 23 10/08/2023 FOOD ALLER GY PANEL (REFL ) class 0 Not Available [address], [address], 10/08/2023 17:15:59 10/07/20 23 10/08/2023 FOOD ALLER GY PANEL (REFL ) wheat (F4) IgE <0.10 kU/L normal Not Available [address], [address], 10/08/2023 17:15:59 10/07/20 23 10/08/2023 FOOD ALLER GY PANEL (REFL ) class 0 Not Available [address], [address], 10/08/2023 17:15:59 10/07/20 23 10/08/2023 FOOD ALLER GY PANEL (REFL ) walnut (F256) IgE <0.10 kU/L normal Not Available [address], [address], 10/08/2023 17:15:59 10/07/20 23 10/08/2023 FOOD ALLER GY PANEL (REFL ) class 0 Not Available [address], [address], 10/08/2023 17:15:59 10/07/20 23 10/08/2023 FOOD ALLER GY PANEL (REFL ) codfish (F3) IgE <0.10 kU/L normal Not Available [address] [address] [place], [address], 10/08/2023 17:15:59 10/07/20 23 10/08/2023 FOOD ALLER GY PANEL (REFL ) class 0 Not Available [address], [address], 10/08/2023 17:15:59 10/07/20 23 10/08/2023 FOOD ALLER GY PANEL (REFL ) cow's milk (F2) IgE <0.10 kU/L normal Not Available [address], [address], 10/08/2023 17:15:59 10/07/20 23 10/08/2023 FOOD ALLER GY PANEL (REFL ) class 0 Not Available [address], [address], 10/08/2023 17:15:59 10/07/20 23 10/08/2023 FOOD ALLER GY PANEL (REFL ) soybean (F14) IgE <0.10 kU/L normal Not Available [address], [address], 10/08/2023 17:15:59 10/07/20 23 10/08/2023 FOOD ALLER GY PANEL (REFL ) class 0 Not Available [address], [address], 10/08/2023 17:15:59 10/07/20 23 10/08/2023 FOOD ALLER GY PANEL (REFL ) maize/corn (F8) IgE <0.10 kU/L normal Not Available [address], [address], 10/08/2023 17:15:59 10/07/20 23 10/08/2023 FOOD ALLER GY PANEL (REFL ) class 0 Not Available [address], [address], 10/08/2023 17:15:59 10/07/20 23 10/08/2023 FOOD ALLER GY PANEL (REFL ) shrimp (F24) IgE <0.10 kU/L normal Not Available [address], [address], 10/08/2023 17:15:59 10/07/20 23 10/08/2023 FOOD ALLER GY PANEL (REFL ) class 0 Not Available [address] [place], [address], 10/08/2023 17:15:59 10/07/20 23 10/08/2023 FOOD ALLER GY PANEL (REFL ) scallop (F338) IgE Not Available [address], [address], 10/08/2023 17:15:59 10/07/20 23 10/08/2023 FOOD ALLER GY PANEL (REFL ) class Not Available [address], [address], 10/08/2023 17:15:59 10/07/20 23 10/08/2023 FOOD ALLER GY PANEL (REFL ) clam (F207) IgE <0.10 kU/L normal Not Available [address], [address], 10/08/2023 17:15:59 10/07/20 23 10/08/2023 FOOD ALLER GY PANEL (REFL ) class 0 Not Available [address], [address], 10/08/2023 17:15:59 10/07/20 23 10/08/2023 FOOD ALLER GY PANEL (REFL ) sesame seed (F10) IgE <0.10 kU/L normal Not Available [address], [address], 10/08/2023 17:15:59 10/07/20 23 10/08/2023 FOOD ALLER GY PANEL (REFL ) class 0 Not Available [address], [address], 10/08/2023 17:15:59 10/07/20 23 10/12/2023 FOOD ALLER GY PANEL (REFL ) egg white (F1) IgE <0.10 kU/L normal Not Available [address], [address], 10/12/2023 14:01:44 10/07/20 23 10/12/2023 FOOD ALLER GY PANEL (REFL ) class 0 Not Available [address], [address], 10/12/2023 14:01:44 10/07/20 23 10/12/2023 FOOD ALLER GY PANEL (REFL ) peanut (F13) IgE <0.10 kU/L normal Not Available [address], [address], 10/12/2023 14:01:44 10/07/20 23 10/12/2023 FOOD ALLER GY PANEL (REFL ) class 0 Not Available [address], [address], 10/12/2023 14:01:44 10/07/20 23 10/12/2023 FOOD ALLER GY PANEL (REFL ) wheat (F4) IgE <0.10 kU/L normal Not Available [address], [address], 10/12/2023 14:01:44 10/07/20 23 10/12/2023 FOOD ALLER GY PANEL (REFL ) class 0 Not Available [address] [address] [place], [address], 10/12/2023 14:01:44 10/07/20 23 10/12/2023 FOOD ALLER GY PANEL (REFL ) walnut (F256) IgE <0.10 kU/L normal Not Available [address], [address], 10/12/2023 14:01:44 10/07/20 23 10/12/2023 FOOD ALLER GY PANEL (REFL ) class 0 Not Available [address] [address] [place], [address], 10/12/2023 14:01:44 10/07/20 23 10/12/2023 FOOD ALLER GY PANEL (REFL ) codfish (F3) IgE <0.10 kU/L normal Not Available [address], [address], 10/12/2023 14:01:44 10/07/20 23 10/12/2023 FOOD ALLER GY PANEL (REFL ) class 0 Not Available [address], [address], 10/12/2023 14:01:44 10/07/20 23 10/12/2023 FOOD ALLER GY PANEL (REFL ) cow's milk (F2) IgE <0.10 kU/L normal Not Available [address], [address], 10/12/2023 14:01:44 10/07/20 23 10/12/2023 FOOD ALLER GY PANEL (REFL ) class 0 Not Available [address], [address], 10/12/2023 14:01:44 10/07/20 23 10/12/2023 FOOD ALLER GY PANEL (REFL ) soybean (F14) IgE <0.10 kU/L normal Not Available [address], [address], 10/12/2023 14:01:44 10/07/20 23 10/12/2023 FOOD ALLER GY PANEL (REFL ) class 0 Not Available [address], [address], 10/12/2023 14:01:44 10/07/20 23 10/12/2023 FOOD ALLER GY PANEL (REFL ) maize/corn (F8) IgE <0.10 kU/L normal Not Available [address], [address], 10/12/2023 14:01:44 10/07/20 23 10/12/2023 FOOD ALLER GY PANEL (REFL ) class 0 Not Available [address] [address] [place], [address], 10/12/2023 14:01:44 10/07/20 23 10/12/2023 FOOD ALLER GY PANEL (REFL ) shrimp (F24) IgE <0.10 kU/L normal Not Available [address], [address], 10/12/2023 14:01:44 10/07/20 23 10/12/2023 FOOD ALLER GY PANEL (REFL ) class 0 Not Available [address], [address], 10/12/2023 14:01:44 10/07/20 23 10/12/2023 FOOD ALLER GY PANEL (REFL ) scallop (F338) IgE <0.10 kU/L normal Not Available [address], [address], 10/12/2023 14:01:44 10/07/20 23 10/12/2023 FOOD ALLER GY PANEL (REFL ) class 0 Not Available [address], [address], 10/12/2023 14:01:44 10/07/20 23 10/12/2023 FOOD ALLER GY PANEL (REFL ) clam (F207) IgE <0.10 kU/L normal Not Available [address] [address] [place], [address], 10/12/2023 14:01:44 10/07/20 23 10/12/2023 FOOD ALLER GY PANEL (REFL ) class 0 Not Available [address], [address], 10/12/2023 14:01:44 10/07/20 23 10/12/2023 FOOD ALLER GY PANEL (REFL ) sesame seed (F10) IgE <0.10 kU/L normal Not Available [facility] [place] [address] [place], [address], 10/12/2023 14:01:44 10/07/20 23 10/12/2023 FOOD ALLER GY PANEL (REFL ) class 0 Not Available [address], [address], 10/12/2023 14:01:44 10/07/20 23 10/12/2023 FOOD ALLER GY PANEL (REFL ) egg white (F1) IgE <0.10 kU/L normal Not Available [address], [address], 10/12/2023 14:51:35 10/07/20 23 10/12/2023 FOOD ALLER GY PANEL (REFL ) class 0 Not Available [address], [address], 10/12/2023 14:51:35 10/07/20 23 10/12/2023 FOOD ALLER GY PANEL (REFL ) peanut (F13) IgE <0.10 kU/L normal Not Available [address], [address], 10/12/2023 14:51:35 10/07/20 23 10/12/2023 FOOD ALLER GY PANEL (REFL ) class 0 Not Available [address], [address], 10/12/2023 14:51:35 10/07/20 23 10/12/2023 FOOD ALLER GY PANEL (REFL ) wheat (F4) IgE <0.10 kU/L normal Not Available [address], [address], 10/12/2023 14:51:35 10/07/20 23 10/12/2023 FOOD ALLER GY PANEL (REFL ) class 0 Not Available [address], [address], 10/12/2023 14:51:35 10/07/20 23 10/12/2023 FOOD ALLER GY PANEL (REFL ) walnut (F256) IgE <0.10 kU/L normal Not Available [address], [address], 10/12/2023 14:51:35 10/07/20 23 10/12/2023 FOOD ALLER GY PANEL (REFL ) class 0 Not Available [address], [address], 10/12/2023 14:51:35 10/07/20 23 10/12/2023 FOOD ALLER GY PANEL (REFL ) codfish (F3) IgE <0.10 kU/L normal Not Available [address], [address], 10/12/2023 14:51:35 10/07/20 23 10/12/2023 FOOD ALLER GY PANEL (REFL ) class 0 Not Available [address], [address], 10/12/2023 14:51:35 10/07/20 23 10/12/2023 FOOD ALLER GY PANEL (REFL ) cow's milk (F2) IgE <0.10 kU/L normal Not Available [address], [address], 10/12/2023 14:51:35 10/07/20 23 10/12/2023 FOOD ALLER GY PANEL (REFL ) class 0 Not Available [address], [address], 10/12/2023 14:51:35 10/07/20 23 10/12/2023 FOOD ALLER GY PANEL (REFL ) soybean (F14) IgE <0.10 kU/L normal Not Available [address], [address], 10/12/2023 14:51:35 10/07/20 23 10/12/2023 FOOD ALLER GY PANEL (REFL ) class 0 Not Available [address], [address], 10/12/2023 14:51:35 10/07/20 23 10/12/2023 FOOD ALLER GY PANEL (REFL ) maize/corn (F8) IgE <0.10 kU/L normal Not Available [address] [address] [place], [address], 10/12/2023 14:51:35 10/07/20 23 10/12/2023 FOOD ALLER GY PANEL (REFL ) class 0 Not Available [address] [address] [place], [address], 10/12/2023 14:51:35 10/07/20 23 10/12/2023 FOOD ALLER GY PANEL (REFL ) shrimp (F24) IgE <0.10 kU/L normal Not Available [address] [address] [place], [address], 10/12/2023 14:51:35 10/07/20 23 10/12/2023 FOOD ALLER GY PANEL (REFL ) class 0 Not Available [address] [address] [place], [address], 10/12/2023 14:51:35 10/07/20 23 10/12/2023 FOOD ALLER GY PANEL (REFL ) scallop (F338) IgE <0.10 kU/L normal Not Available [address] [address] [place], [address], 10/12/2023 14:51:35 10/07/20 23 10/12/2023 FOOD ALLER GY PANEL (REFL ) class 0 Not Available [address] [address] [place], [address], 10/12/2023 14:51:35 10/07/20 23 10/12/2023 FOOD ALLER GY PANEL (REFL ) clam (F207) IgE <0.10 kU/L normal Not Available [address] [address] [place], [address], 10/12/2023 14:51:35 10/07/20 23 10/12/2023 FOOD ALLER GY PANEL (REFL ) class 0 Not Available [address] [address] [place], [address], 10/12/2023 14:51:35 10/07/20 23 10/12/2023 FOOD ALLER GY PANEL (REFL ) sesame seed (F10) IgE <0.10 kU/L normal Not Available [address] [address] [place], [address], 10/12/2023 14:51:35 10/07/20 23 10/12/2023 FOOD ALLER GY PANEL (REFL ) class 0 Not Available [address], [address], 10/12/2023 14:51:35 Result Notes None recorded. Problems Name Problem SNOMED Code Status Onset Date Resolution Date Notes Provider Name and Address Organization Details Recorded Time History of tubal ligation 262797735 Completed 201504/16/2025 Tubal Ligation; 6 10:34AM by Guerline Johnson RN, Office Visit; Promoted; acuity set as *; LEE whitman [facility] 5 18:38:43 [place] ma [id number] Completed 202104/16/2025 LYMPH EDEMA; of leg; 2 1:08PM by Kiesha Dent, Office Visit; Promoted; acuity set as *; LEE whitman [facility] 5 18:38:47 Gastroes ophageal reflux disease 020572809 Active 2023 LEE HAEFFNER [facility] 5 18:38:39 Morbid obesity 831212510 Active 2024 Erika Crawford [facility] 11:20:01 Problem Notes None recorded. Procedures Surgical History Date Name Laterality Status Provider Name and Address Organization Details Recorded Time 09/17/20 18 Laparoscopy completed MAKENZIE WHEELER PA-C [address] [place], [address], [facility] 10/07/2023 16:15:21 09/17/20 18 cholecystectomy completed MAKENZIE WHEELER PA-C [address] [place] [address], [address], [facility] 10/07/2023 16:15:36 09/17/20 18 Total hysterectomy completed MAKENZIE WHEELER PA-C [address] [place] [address], [address], [facility] 10/07/2023 16:15:59 10/19/19 18 colonoscopy completed LEE WILEY [facility] 12/23/2023 08:10:54 Imaging Results None recorded. Procedure Notes None recorded. Medical Equipment None Reported. Allergies Allergen ID Allergen Name Allergen Category Reaction Reaction Severity Criticality Documentation Date Start Date Code Code System Note Provider Name and Address Organization Details Recorded Time 10621 morphine medicatio n anaphylax is severe high 09/17/2023 7052 RxNorm Doretha Plshira [facility] 14:56:26 Medications Name Sig Start Date Stop Date Status Note LastModified by Organization Details LastModified Time Prescript ion - Renewal active Not Available Not Available Not Available doxycycli ne hyclate 100 mg capsule TAKE 1 CAPSULE BY MOUTH TWICE DAILY FOR 10 DAYS 04/16 completed Not Available Not Available Not Available ibuprofen 800 mg tablet 10/07 completed Not Available Not Available Not Available tizanidin e 4 mg tablet 10/07 completed Not Available Not Available Not Available hydrocodo ne 5 mg-acetam inophen 325 mg tablet TAKE 1 TABLET BY MOUTH EVERY 4 HOURS NEEDED FOR PAIN. 04/16 completed Not Available Not Available Not Available ondansetr on HCl 4 mg tablet active Not Available Not Available No t Available prednison e 20 mg tablet TAKE 3 TABLETS BY MOUTH DAILY FOR 5 DAYS 04/16 completed Not Available Not Available Not Available prednison e 5 mg tablet TAKE 8 TABLETS BY MOUTH ON DAY 1, THEN 7 TABLETS ON DAY 2, THEN DECREASE BY 1 TABLET DAILY UNTIL GONE FOR TOTAL OF 8 DAYS. 04/19 completed Not Available Not Available Not Available [...] completed Not Available Not Available Not Available cefadroxi l 500 mg capsule TAKE 1 CAPSULE BY MOUTH TWICE DAILY FOR CHRONIC SUPPRESS ION active Not Available Not Available No t Available pantopraz ole 40 mg tablet,de layed release TAKE 1 TABLET BY MOUTH EVERY DAY FOR 30 DAYS active Not Available Not Available No t Available ferrous sulfate 325 mg (65 mg iron) tablet TAKE 1 TABLET BY MOUTH EVERY DAY FOR 30 DAYS active Not Available Not Available No t Available albuterol sulfate HFA 90 mcg/actua tion aerosol inhaler INHALE 2 PUFFS BY MOUTH EVERY 6 HOURS NEEDED active Not Available Not Available No t Available losartan 50 mg-hydroc hlorothia zide 12.5 mg tablet TAKE 1 TABLET BY MOUTH EVERY DAY FOR 30 DAYS active Not Available Not Available No t Available ondansetr on 4 mg disintegr ating tablet Place 2 tablets twice a day by translin gual route as needed. 04/19 completed Not Available Not Available Not Available clotrimaz ole 1 % topical cream APPLY CREAM TOPICALL Y TO AFFECTED AREA TWICE DAILY FOR 8 WEEKS active Not Available Not Available No t Available doxycycli ne hyclate 100 mg tablet TAKE 1 TABLET BY MOUTH TWICE DAILY FOR 7 DAYS 09/30 completed Not Available Not Available Not Available amoxicill in 875 mg-potass ium clavulana te 125 mg tablet TAKE 1 TABLET BY MOUTH TWICE DAILY FOR 10 DAYS 04/16 completed Not Available Not Available Not Available aspirin daily 10/07 completed 0; Recorded 07/14/20 22 1:06PM by Kiesha Dent, Office Visit; Not Available Not Available Not Available Zepbound 5 mg/0.5 mL subcutane ous pen injector Inject 5 mg every week by subcutan eous route for 28 days. 2024 active Not Available Not Available Not Avai lable Zepbound 2.5 mg/0.5 mL subcutane ous pen injector active Not Available Not Available Not Available Vitals Date Recorded Body height Body mass index (BMI) Body weight Oxygen saturation Oxygen saturation in Arterial blood by Pulse oximetry Heart rate Respiratory rate Body temperature Systolic And Diastolic Provider Name and Address Organization Details Last Updated DateTime 4 167.64 cm 60.8 kg/m2 968263. 32 g 99 % 99 % 82 /min 20 /min 98.8 [degF] 136/80 mm[Hg] LEE WILEY [facility] 4 10:57:48 Date Recorded Body height Body mass index (BMI) Body weight Body temperature Heart rate Oxygen saturation Oxygen saturation in Arterial blood by Pulse oximetry Systolic And Diastolic Provider Name and Address Organization Details Last Updated DateTime 5 167.64 cm 65.9 kg/m2 985595. 69 g 97.6 [degF] 96 /min 96 % 96 % 166/108 mm[Hg] [facility] 09:54:13 Date Recorded Body height Body mass index (BMI) Body weight Oxygen saturation Oxygen saturation in Arterial blood by Pulse oximetry Heart rate Body temperature Systolic And Diastolic Provider Name and Address Organization Details Last Updated DateTime 3 167.64 cm 58.7 kg/m2 050626. 47 g 97 % 97 % 107 /min 97.5 [degF] 140/92 mm[Hg] Doretha Tuttle [facility] 3 14:56:06 Date Recorded Body height Body mass index (BMI) Body weight Body temperature Heart rate Oxygen saturation Oxygen saturation in Arterial blood by Pulse oximetry Systolic And Diastolic Provider Name and Address Organization Details Last Updated DateTime 4 167.64 cm 67 kg/m2 934272. 93 g 98.4 [degF] 103 /min 97 % 97 % 146/80 mm[Hg] Padmini Abraham [facility] 4 09:40:41 Date Recorded Body height Body mass index (BMI) Body weight Oxygen saturation Oxygen saturation in Arterial blood by Pulse oximetry Heart rate Respiratory rate Body temperature Systolic And Diastolic Provider Name and Address Organization Details Last Updated DateTime 3 167.64 cm 59.1 kg/m2 846897. 81 g 97 % 97 % 82 /min 20 /min 98 [degF] 140/80 mm[Hg] LEE WILEY [facility] 3 15:24:51 Social History Question Answer Notes LastModified by Organizat ion Details LastModified Time Tobacco Smoking Status Former Smoker [facility] 04/19/2025 10:02:01 Which Illicit Or Recreational Drugs Have You Used? Marijuana [email or web address] Information not available 04/19/2025 What Was The Date Of Your Most Recent Tobacco Screening? 04/19/2025 [email or web address] Information not available 04/19/2025 Sex: Unknown Functional Status Question Answer Note LastModified by Organizat ion Details LastModified Time Do you use any illicit or recreational drugs? Yes [email or web address] Information not available 04/19/2025 What is your level of alcohol consumption? None [email or web address] Information not available 04/19/2025 Mental Status None recorded. Family History Nothing Reported. Medical History No medical history recorded. Gynecological HistoryNo gynecological history recorded. Obstetrics History GPAL:G 0 P 0 0 0 0 Immunizations Vaccine Type Date Status Note Provider Nam e and Address Organization Details Recorded Time Td(adult) unspecified formulation 6 completed Not Available [facility] 05/15/2023 02:46:01 Influenza, split virus, trivalent, preservative 4 completed Not Available [facility] 05/15/2023 02:46:01 DTaP 5 completed Not Available [facility] 04/19/2025 09:47:28 OPV 5 completed Not Available [facility] 04/19/2025 09:47:28 DTaP 5 completed Not Available [facility] 04/19/2025 09:47:28 OPV 5 completed Not Available [facility] 04/19/2025 09:47:28 DTaP 6 completed Not Available [facility] 04/19/2025 09:47:28 OPV 6 completed Not Available [facility] 04/19/2025 09:47:28 DTaP 0 completed Not Available [facility] 04/19/2025 09:47:28 OPV 0 completed Not Available [facility] 04/19/2025 09:47:28 MMR 0 completed Not Available [facility] 04/19/2025 09:47:28 Td (adult), 2 Lf tetanus toxoid, preservative free, adsorbed 8 completed Not Available [facility] 04/19/2025 09:47:28 MMR 8 completed Not Available [facility] 04/19/2025 09:47:28 Hep B, unspecified formulation 8 completed Not Available [facility] 04/19/2025 09:47:28 Past Encounters Encounter ID Performer Location Encounter Start Date Encounter Closed Date Diagnosis/Indication Diagnosis SNOMED-CT Code Diagnosis ICD10 Code Diagnosis Note [id number] MAKENZIE WHEELER PA-C [facility] ([facility]) [address] [place] [phone] 09/17/2023 14:27:37 09/17/2023 16:25:06 Acute bronchitis 88384374 J20.9 trying to avoid antibiotic s since she is just out of the hospital with c.diff. Lymphedema of lower extremity 351090695 I89.0 [id number] MAKENZIE WHEELER PA-C [facility] ([facility]) [address] [place] [phone] 10/07/2023 14:53:34 10/08/2023 15:46:04 Gastroesophageal reflux disease 656671975 K21.00 Chronic vomiting 9230851 8 R11.10 Chronic diarrhea 2080783 09 K52.9 [id number] MAKENZIE WHEELER PA-C [facility] ([facility]) [address] [place] [phone] 12/23/2023 10:33:17 12/23/2023 17:43:04 Clostridium difficile colitis 280644671 A04.72 reoccurent . positive lactoferri n and c.diff. neg for all other stool bacter, [facility] npatient stay within past 30 days 3490838494 106 Z76.89 Cellulitis of lower limb 793181939 L03.119 resolved. [id number] JENNA HERNANDEZ [facility] ([facility]) [address] [place] [phone] 09/30/2024 09:29:43 09/30/2024 10:20:39 Viral gastroenteritis 622372702 A08.4 [id number] MAKENZIE WHEELER PA-C [facility] ([facility]) [address] [place] [phone] 5 04/19/2025 09:46:48 04/19/2025 11:14:42 Cellulitis of right lower limb 2281255551 9387183 L03.115 resolved. will continue maintainan ce/prophal actic antibiotic s per Dr. Levy Gastro-eso phageal reflux disease with esophagitis 879022098 K21.00 reviewed diet changes Iron defic iency anemia due to blood loss 822033462 D50.0 Hx of hysterecto my. does not eat much red meat. Has been having alot of heart burn lately Essential hypertension 58837551 I10 f/u in 3 weeks with home BP readings Dyspnea 159561580 R06.02 Cardiomegaly 4726323 I51 .7 on cxr. likely combo of untreated HTN and ELISEO Daytime somnolence 07188 81606 00 R40.0 score 6 on STOP bang. Morbid obesity 139782354 E66.01 Pt has tried and failed a 3 month at home weight loss program of counting calories and tracking food.I recommend starting a GLP1 wt lossI explained how GLP1 help to lose weight. We discussed possible SE of nausea, vomiting, bloating and constipati on. Showed how to use self injection pen. All questions were answered to satisfacti on Health Concerns Section Related Observation LastModified by Organization Detai ls LastModified Time None Recorded Concern Status LastModified by Organization Details LastModified Time None Recorded Advance Directives Directive None Recorded Payers Insurance Date Sequence Insurance Name Policy Number Policy Wilson Covered Member ID Wilson Member ID Guarantor Name [id number] 1 [facility] (MEDICAID HMO) Daniela Pulido [id number] Daniela Pulido 2025 1 [facility] [id number] Daniela Puildo [id number] Daniela Pulido Notes Date Note Type Note [...] of illness.just getting over C. diff MAKENZIE WHEELER PA-C [address] [place], [address], [facility], [place] 09/17/2023 15:45:43 3 text/html EdemaReported bypatient.Location:BLE; feet [...] that she is waiting to hear from [facility] therapy dept to get wraps.She eats about 800 juanis a day a vegan diet. MAKENZIE WHEELER PA-C [address] [place], [address], [facility] [place] 10/08/2023 08:24:22 4 text/html DiarrheaReported bypatient.Quality:soft Severity:improving [...] the c.diff tends to be constipated. MAKENZIE WHEELER PA-C [address] [place], [address], [facility] [place] 12/23/2023 17:40:13 4 text/html VomitingReported bypatient.Duration:1 days Associated Symptoms:fever;nausea;[facility], [facility], sinus congestion and diarrhea since yesterday. JENNA HERNANDEZ [address] [place], [address], [facility] [place] 09/30/2024 10:12:34 07/03/202 5 text/html AnemiaReported bypatient.Severity:Microcyt ic (MCV<80) Timing:gradual Context:previous Hemoglobin:;low Iron; 10.8 Associated Symptoms:no melena; no blood in stool;shortness of breath;fatigueDyspneaReport ed bypatient.Quality:pressure; inability to take a deep breath Severity:mild Duration:for 1 months Onset/Timing:daily; at night Context:walking on level ground Pulmonary Disease History:obstructive sleep apnea Alleviating Factors:sitting up Aggravating Factors:activity;when supine Associated Symptoms:no chest pain; no palpitations; no fever; no chills; no wheezing;ankle swelling;decrease in exercise capacityObesityReported bypatient.Diagnosis Summary:age at start of weight gain 12 Comorbidities:acanthosis nigricans; hypertension; obstructive sleep apnea Lifestyle Changes:motivated to make lifestyle changes Medication Education:verbalizes understanding of potential medication side effects yes; verbalizes understanding of medication administration yes; verbalizes understanding of role of diet as primary therapy yesObstructive Sleep ApneaReported bypatient.Severity:moderate Timing:chronic Duration:frequent Context:adequate sleep; observed apnea; cardiovascular disease Aggravating Factors:weight gain; fatigue Alleviating Factors:none Associated Symptoms:morning headache;awakening short of breath;daytime sleepiness;witnessed apnea This is a 39 year old female here to follow up from 2 ER visits, 1 stay for 2 days, diagnosis Cellulitis.First ER visit was for trouble breathing, pt states the ER doctor told her they heard concerns on the right lobe, unknown location. Treatment was Prednisone, Doxycycline. These have been stopped since starting the Ceadroxil.Cellulitis treated with cefadroxil 500 mg capsule. MAKENZIE WHEELER PA-C [address] [place], [address] 04/19/2025 10:52:26 OBGyn Episode No OBEpisode recorded.
--- OUTSIDE RECORDS SUMMARY | 2025-05-01 07:00 | XMS_ITS | Clinical Summary ---
Author Organization [facility] Address [address] [place] [address] Phone Care Team Providers Care Horse Stud Manager Name Role Phone Nevaeh Hernández MD Primary Care Provider [phone] Allergies Active Allergy Reactions Criticality Noted Date [...] Encounters Date Type Department Care Team Description 04/17/2025 External Device Data ST[facility] ABSTRACTION Provider, Abstract 04/17/2025 External Device Data [facility] ABSTRACTION Provider, Abstract 04/10/2025 External Device Data [facility] ABSTRACTION Provider, Abstract 04/10/2025 External Device Data [facility] ABSTRACTION Provider, Abstract 03/09/2025 External Device Data Initial Department [address] MACHADO: [place] [address] [facility], [place] 03/09/2025 Results Follow-Up [address] [phone] Katheryn Singh, RAFY CBC WITH DIFFERENTIAL, FERRITIN, IRON, TIBC, AND PERCENT SATURATION, Additional followed-up results: 2 03/08/2025 2:45 PM CDT Office Visit [address] [phone] Katheryn Singh, RAFY Other fatigue (Primary Dx); Prediabetes; H/O total hysterectomy; Microcytosis; Declined influenza vaccine; Morbid obesity with BMI of 60.0-69.9, adult ([facility]) 03/02/[address] [phone] Nevaeh Hernández MD ED f/u Appointment 02/27/[address] [phone] Daniel Potts PA-C Hospital Follow Up 02/06/2025 External Device Data ST[facility] ABSTRACTION Provider, Abstract 02/06/2025 External Device Data [facility] ABSTRACTION Provider, Abstract 02/06/2025 External Device Data ST[facility] ABSTRACTION Provider, Abstract 01/30/2025 External Device Data STL ABSTRACTION Provider, Abstract from Last 3 Months Immunizations Immunization Administration [...] of 3 - 3-dose series) 09/18/1998 08/21/1998 BREAST CANCER SCREENING 2025 INFLUENZA VACCINE (#1) 2025 , 03/08/2025, 07/28/2023 Pre-Diabetes and Diabetes Screening 03/08/2028 03/08/2025, 02/04/2024 HPV VACCINES Aged Out No longer eligi [...] 03/08/2025 3:08 PM CDT Other fatigue Microcytosis from Last 3 Months Results * VITAMIN B12 AND FOLATE (03/08/2025 3:08 PM CDT) Pathologist [facility] VITAMIN B12 502 200 - 1100 pg/mL [facility] FOLATE, SERUM 13.4 ng/mL [facility] Comment: Reference Range Low: <3.4 Borderline: 3.4-5.4 Normal: >5.4 FASTING:NO FASTING: NO Test Performed at: [facility] [address] [place] [address] Patsy Raymundo MD Blood 03/08/2025 3:08 PM CDT 03/08/2025 3:09 PM CDT us Katheryn Singh NP CHEMISTRY ORDERABLES Final Resul t [facility] [phone] [facility] [address] [place] [address] * IRON, TIBC, AND PERCENT SATURATION (03/08/2025 3:08 PM CDT) IRON 60 40 - 190 mcg/dL [facility] TIBC 353 250 - 450 mcg/dL (calc) [facility] IRON % SATURATION 17 16 - 45 % (calc) [facility] Comment: FASTING:NO FASTING: NO Test Performed at: [facility] [address] [place] [address] Patsy Raymundo MD Blood 03/08/2025 3:08 PM CDT 03/08/2025 3:09 PM CDT us Katheryn Singh NP CHEMISTRY ORDERABLES Final Resul t [facility] [phone] [facility] [place] [address] [place] [address] * (ABNORMAL) CBC WITH DIFFERENTIAL (03/08/2025 3:08 PM CDT) WBC 6.2 3.8 - 10.8 Thousand/u L [...] Comment: FASTING:NO FASTING: NO Test Performed at: [facility] [address] [address] [place] [address] Patsy Raymundo MD Blood 03/08/2025 3:08 PM CDT 03/08/2025 3:09 PM CDT Katheryn Singh HOTEL GUEST SERVICE AGENT HEMATOLOGY ORDERABLES Final Resu lt [facility] [phone] [facility] [address] [address] [place] [address] * (ABNORMAL) HEMOGLOBIN A1C (03/08/2025 3:08 PM [...] Comment: FASTING:NO FASTING: NO Test Performed at: [facility] [address] [place] [address] YolandaLaura Raymundo MD Blood 03/08/2025 3:08 PM CDT 03/08/2025 3:09 PM CDT Katheryn Singh HOTEL GUEST SERVICE AGENT CHEMISTRY ORDERABLES Final Resul t Performing Organization Address City/[facility]/ZIP Co de Phone Number [facility] [phone] [place] [address] * (ABNORMAL) FERRITIN (03/08/2025 3:08 PM CDT) FERRITIN 14(L) 16 - 154 ng/mL [facility] Comment: Test Performed at: [facility] [address] YolandaLaura Raymundo MD Blood 03/08/2025 3:08 PM CDT 03/08/2025 3:09 PM CDT Katheryn Singh HOTEL GUEST SERVICE AGENT CHEMISTRY ORDERABLES Final Resul t Performing Organization Address [facility] Co de Phone Number [facility] [phone] [place] [address] from Last 3 Months Insurance RX [employer] PLANS (INTERNAL) [facility] Internal [facility] RX [facility] Commercial RX [employer] [address] [place] [address] [facility] Advance Directives For more information, please contact: [phone] * Full Code (Latest Code Status on File) Date Activated Date Inactivated Comments 01/09/2025 5:22 PM 01/11/2025 4:11 PM * Full Code Date Activated Date Inactivated Comments 04/08/2024 11:11 PM 04/09/2024 5:15 PM * Full Code Date Activated Date Inactivated Comments 02/03/2024 5:43 PM 02/06/2024 2:34 PM * Full Code Date Activated Date Inactivated Comments 08/15/2023 10:09 PM 08/18/2023 6:07 PM Care Teams Horse Stud Manager Relationship Specialty Start Date End Date Nevaeh Hernández MD [address] [place] [address] PCP - General Internal Medicine 03/09/24
--- OUTSIDE RECORDS SUMMARY | 2025-05-01 07:01 | XMS_ITS | Patient Health Record ---
Author Organization [facility] Address [address] [place] [address] Care Team Providers Care Bracelet And Brooch Maker Name Role Phone Daniel Whiting Unavailable [phone] Reason For Referral No Information Plan Of Treatment No Information
[2025-05-01 07:03] VITALS: BP 167/107; PULSE 120; RESP 20; TEMP 36.8; O2SAT 99; BMI 67.5
--- NOTE | 2025-05-01 07:07 | ED_ITS ---
HPI - Chest Pain 2 General: Chief Complaint: Chest Pain Stated Complaint: Chest pain Time Seen by Provider: 05/01/25 06:56 History of Present Illness: 40-year-old female presents emergency ro om with complaint of chest pain that woke her up from sleep. Is not having any chest pain now she has no known history of coronary disease had a little bit of discomfort with radiation into the axilla she is not having that now no radiation to the neck no shortness of breath diaphoresis or stomach upset associated with this. Associated symptoms: Deny abdominal pain, dyspnea or fever(s) Related Data Previous Rx's ?Medication ?Instructions ?Recorded cefadroxil 500 mg capsule 500 mg PO BID chronic suppre ssion 04/14/25 #30 caps clotrimazole 1 % topical cream 1 applic topical BID 8 weeks #15 04/14/25 grams pantoprazole 40 mg tablet,delayed 40 mg PO DAILY #30 t abs 05/01/25 release (Protonix) Allergies Allergy/AdvReac Type Severity Reaction Status Date / Time amphetamine (From Adderall) Allergy SOB Verified 01/02/25 19:01 dextroamphetamine (From Allergy SOB Verified 01/02/25 19:01 Adderall) morphine Allergy RASH Verified 01/02/25 19:01 Review of Systems 2 Const: Denies: fever(s) or chills Card: Reports: chest pain Resp: Denies: dyspnea GI: Denies: abdominal pain : Denies: dysuria, urinary frequency or urinary urgency Musc: Denies: neck pain or back pain Skin/Breast: Denies: rash PFSH ED 2 PFSH: Medical History (Updated 05/01/25 @ 09:37 by Antonino Jarrett DO) Morbid obesity with BMI of 70 and over, adult Bowel obstruction Essential hypertension Surgical History H/O: hysterectomy History of cholecystectomy Family History Other CAD (coronary artery disease) Diabetes Hypertension Social History (Updated 04/13/25 @ 06:39 by Nikhil Gardiner MD) Smoking and tobacco/nicotine status: former use of tobacco/nicotine Quit status (tobacco/nicotine): has quit using Year quit tobacco: 2020 Alcohol intake: never Substance/Drug Use: never Additional social history: Patient wants full code as discussed 04/12/2025 with Nikhil Gardiner MD Physical Exam 2 Const: COMMON NORMALS: no acute distress GENERAL APPEARANCE: cooperative and comfortable ORIENTATION/CONSCIOUSNESS: Yes awake, Yes oriented to person, Yes oriented to place and Yes oriented to time HENMT: COMMON NORMALS: normocephalic, atraumatic and hearing grossly normal bilaterally HEAD & SCALP: normocephalic and atraumatic Resp: COMMON NORMALS: normal respiratory effort, No retractions, No use of accessory muscles and clear to auscultation bilaterally AUSCULTATION: clear to auscultation bilaterally Cardio: COMMON NORMALS: regular rate, regular rhythm and No murmurs present (Cardio) RATE: regular rate RHYTHM: regular rhythm GI: COMMON NORMALS: Soft to palpation and No hepatosplenomegaly present A USCULTATION: Yes normoactive bowel sounds PALPATION: Yes Soft to palpation, No Tenderness to palpation present (GI), No Guarding due to palpation present (GI) and Yes No hepatosplenomegaly present Extremity: COMMON NORMALS: normal to inspection, capillary refill normal, no clubbing, cyanosis or edema, no calf tenderness and no pedal edema Neuro: SENSORIUM/ORIENTATION: Yes oriented to person, Yes oriented to place and Yes oriented to time Skin: COMMON NORMALS: no rashes or lesions noted GENERAL SKIN EXAM: no rashes or lesions noted Course 2 Vital Signs: Vital signs: Vital Signs Temperature 98.2 F 05/01/25 07:03 Pulse Rate 93 05/01/25 08:23 Respiratory Rate 20 H 05/01/25 07:03 Blood Pressure 129/82 05/01/25 08:23 Pulse Oximetry 96 05/01/25 08:23 Oxygen Delivery Me thod Room Air 05/01/25 07:03 MDM - Chest Pain Medical Decision Making Cardiac enzymes and EKG are negative for any acute changes. Troponin 1 and 2- hour are undetectable. Suspect symptoms may be GI in nature. Reviewing the chart patient has not previously had cardiac workup. Will go ahead and discharge her home started on pantoprazole 40 mg once daily and have her follow- up with her primary care doctor for further evaluation consideration of stress testing. Medical Records I reviewed the patient's medical records. Lab Data I reviewed the patient's lab results. 05/01/25 07:40 05/01/25 07:40 Radiology Impressions Chest X-Ray 05/01/25 06:57 IMPRESSION: Stable chest without acute abnormality. Laboratory Results WBC 5.80 10^3/uL (3.29-11.43) 05/01/25 07:40 RBC 4.44 10^6/uL (3.85-5.65) 05/01/25 07:40 Hgb 11.40 g/dL (11.27-16.99) 05/01/25 07:40 Hct 35.7 % (36-47) L 05/01/25 07:40 MCV 80.4 fl (85-98) L 05/01/25 07:40 MCH 25.7 pg (27-33) L 05/01/25 07:40 MCHC 31.9 g/dL (30-55) 05/01/25 07:40 RDW 14.0 % (12.1-15.1) 05/01/25 07:40 Plt Count 158 10^3/cmm (157-399) 05/01/25 07:40 MPV 8.9 fL (7.4-10.4) 05/01/25 07:40 Neut % (Auto) 67.3 % 05/01/25 07:40 Lymph % (Auto) 25.7 % 05/01/25 07:40 [place] % (Auto) 4.8 % 05/01/25 07:40 Eos % (Auto) 1.6 % 05/01/25 07:40 Baso % (Auto) 0.3 % 05/01/25 07:40 Neut # (Auto) 3.90 10^3/uL (1.8-7.7) 05/01/25 07:40 Lymph # (Auto) 1.5 10^3/uL (0.8-4.8) 05/01/25 07:40 [place] # (Auto) 0.3 10^3/uL (0.2-0.9) 05/01/25 07:40 Eos # (Auto) 0.1 10^3/uL (0.0-0.8) 05/01/25 07:40 Baso # (Auto) 0.0 10^3/uL (0.0-0.1) 05/01/25 07:40 Nucleated RBC % (auto) 0 % 05/01/25 07:40 Nucleated RBCs # 0.0 /100WBC 05/01/25 07:40 Sodium 138 mmol/L (136-145) 05/01/25 07:40 Potassium 3.2 mmol/L (3.5-5.1) L 05/01/25 07:40 Chloride 99 mmol/L (98-107) 05/01/25 07:40 Carbon Dioxide 27 mmol/L (22-29) 05/01/25 07:40 Anion Gap 15.2 (5-19) 05/01/25 07:40 BUN 9 mg/dL (6-20) 05/01/25 07:40 Creatinine 0.5 mg/dL (0.5-0.9) 05/01/25 07:40 GFR Calculation 136.6 mL/min (90-130) H 05/01/25 07:40 Glucose 95 mg/dL (65-115) 05/01/25 07:40 Calculated Osmolality 284 mOsm/kg (285-295) L 05/01/25 07:40 Calcium 8.8 mg/dL (8.5-10.5) 05/01/25 07:40 Total Bilirubin 0.4 mg/dL (0.15-1.2) 05/01/25 07:40 AST 16 U/L (0-32) 05/01/25 07:40 ALT 10 U/L (0-33) 05/01/25 07:40 Alkaline Phosphatase 79 U/L (35-105) 05/01/25 07:40 Troponin T Baseline < 6 ng/L (0-10) 05/01/25 07:40 Troponin T 120 Minute < 6.0 ng/L (0-10) 05/01/25 08:57 Delta Troponin T 0 ABS# (0-10) 05/01/25 08:57 Total Protein 6.9 g/dL (6.6-8.7) 05/01/25 07:40 Albumin 3.7 g/dL (3.5-5.2) 05/01/25 07:40 Globulin 3.2 g/dL (1.3-4.6) 05/01/25 07:40 Urine Color Yellow (Yellow) 05/01/25 08:14 Urine Appearance Clear (CLEAR) 05/01/25 08:14 Urine pH 5.5 (5-7) 05/01/25 08:14 Ur Specific [place]ugio 1.036 (1.005-1.030) H 05/01/25 08:14 Urine Protein Trace (Negative) A 05/01/25 08:14 Urine Glucose (UA) Negative (Normal) 05/01/25 08:14 Urine Ketones 1+ (Negative) H 05/01/25 08:14 Urine Blood Negative (Negative) 05/01/25 08:14 Urine Nitrate Negative (Negative) 05/01/25 08:14 Urine Bilirubin Negative (Negative) 05/01/25 08:14 Urine Urobilinogen 1.0 mg/dL (Negative) 05/01/25 08:14 Ur Leukocyte Esterase Negative (Negative) 05/01/25 08:14 Urine RBC 3-5 /hpf (0-2) 05/01/25 08:14 Urine WBC 11-20 /hpf (0-5) H 05/01/25 08:14 Ur Squamous Epith Cells 21-50 /hpf (0-5) H 05/01/25 08:14 Amorphous Sediment Not Reportable 05/01/25 08:14 Urine Bacteria 4+ /hpf (NONE) H 05/01/25 08:14 Hyaline Casts 2.05 /lpf 05/01/25 08:14 All radiology interpretation(s) finalized by discharge EKG Data EKG 1: Interpretation: EKG May 01, 2025 7 AM. Sinus tachycardia rate of 105 IN interval 180 QT C408. No acute ST changes noted. Compared to EKG 01/03/2025 now has tachycardia but otherwise unchanged EKG 2: Interpretation: EKG 05/01/2025 8:47 AM sinus rhythm. Rate of 83 IN interval 195 QTc [address] elevation or depression. No changes from previous EKG done 7 AM same day Discharge Plan Discharge Patient Disposition: Home Clinical Impression: Atypical chest pain, Lipedema of lower extremity, Chest pain due to gastrointestinal reflux disease Condition: Stable Prescriptions: New pantoprazole [Protonix] 40 mg tablet,delayed release (DR/EC) 40 mg PO DAILY Qty: 30 0RF No Action cefadroxil 500 mg capsule 500 mg PO BID Qty: 30 2RF clotrimazole 1 % cream 1 applic topical BID 56 Days Qty: 15 3RF Discharge Orders: Discharge ED (Routine); Ordered 05/01/25 Ordered By: Antonino Jarrett Referrals: Makenzie Wheeler PA [Primary Care Provider, Physicians Health Care Analyst] Discharge Diet: Usual diet Discharge Activity: Resume usual activity Patient Instructions: Opioid Safety, Pain Management, Patient Portal & Jag Instructions Activity Restrictions/Additional Instructions: [facility]. It is very important that you follow up as instructed or that you return to the Emergency Department should you have concerns or if your condition changes or worsens in any way. You were seen in the emergency room with complaints of chest discomfort. Your cardiac enzymes EKG and chest x-ray were negative. Suspect some of this may be GI related. Will start you on pantoprazole 40 mg once daily. Recommend you follow-up with your primary care doctor to consider further evaluation including stress testing. 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
[2025-05-01 07:50] LABS: Hematocrit 35.7 % (36-47); Hemoglobin 11.40 g/dL (11.27-16.99); Mean Corpuscular HGB Conc 31.9 g/dL (30-55); Mean Corpuscular Hemoglobin 25.7 pg (27-33); Mean Corpuscular Volume 80.4 fl (85-98); Nucleated Red Blood Cells % 0 %; Platelet Count 158 10^3/cmm (157-399); Red Blood Count 4.44 10^6/uL (3.85-5.65); White Blood Count 5.80 10^3/uL (3.29-11.43)
[2025-05-01 08:02] LABS: Troponin(5th) Baseline < 6 ng/L (0-10)
[2025-05-01 08:11] LABS: Alanine Aminotransferase 10 U/L (0-33); Albumin Level 3.7 g/dL (3.5-5.2); Alkaline Phosphatase 79 U/L (35-105); Anion Gap 15.2 (5-19); Aspartate Amino Transferase 16 U/L (0-32); Blood Urea Nitrogen 9 mg/dL (6-20); Calcium 8.8 mg/dL (8.5-10.5); Carbon Dioxide 27 mmol/L (22-29); Chloride 99 mmol/L (98-107); Creatinine Clr Calc Pharmacy 254.6779; Globulin 3.2 g/dL (1.3-4.6); Glucose 95 mg/dL (65-115); Osmolality Calculated 284 mOsm/kg (285-295); Potassium 3.2 mmol/L (3.5-5.1); Sodium 138 mmol/L (136-145); Total Protein 6.9 g/dL (6.6-8.7)
[2025-05-01 08:23] VITALS: BP 129/82; PULSE 93; O2SAT 96
[2025-05-01 08:31] LABS: Glucose Urine UA Negative (Normal); Nitrate Urine Negative (Negative)
[2025-05-01 08:33] LABS: Add Urine Microscopic? YES
[2025-05-01 08:39] LABS: Specific Gravity, Urine 1.036 (1.005-1.030)
--- NOTE | 2025-05-01 08:57 | ECG_ITS ---
[facility] Test Date: 2025-05-01 Pat Name: Daniela Pulido Department: Room: Gender: Female Slot Attendant: : 1985 Requested By: Antonino Suarez Order Number: [id number] Jennifer MD: Gabe Kunz M.D. Measurements Intervals [place] Rate: 83 P: 29 NV: 195 QRS: 8 QRSD: 97 T: 20 QT: 379 QTc: 448 Interpretive Statements SINUS RHYTHM POSSIBLE ANTERIOR MYOCARDIAL INFARCTION , PROBABLY OLD [30 ms Q WAVE IN V3/V4, OR R < 0.2 mV IN V4] Compared to ECG 05/01/2025 07:00:22 Myocardial infarct finding now present Sinus tachycardia no longer present Electronically Signed On 05-01-2025 15:01:01 CDT by Gabe Kunz M.D. [email or web address]
[2025-05-01 09:19] LABS: Troponin 5 2HR < 6.0 ng/L (0-10); Troponin 5 2HR Delta 0 ABS# (0-10)
[2025-05-01 09:41] VITALS: BP 138/66; PULSE 85; O2SAT 99
[2025-05-01 09:42] VITALS: BP 138/66; PULSE 85; O2SAT 99
== END 2025-05-01 09:51 | disposition home or self-care (01) ==
PROVIDERS: Emergency Provider Family Medicine; PCP Physician Assistant
DX: K21.9 Gastro-esophageal reflux disease without esophagitis (principal); R07.89 Other chest pain; I10 Essential (primary) hypertension; R60.0 Localized edema; E66.01 Morbid (severe) obesity due to excess calories; Z68.44 Body mass index [BMI] 60.0-69.9, adult; Z79.899 Other long term (current) drug therapy; Z88.5 Allergy status to narcotic agent; Z88.8 Allergy status to other drugs, medicaments and biological substances; Z87.891 Personal history of nicotine dependence
CPT/HCPCS: 36415; 71045; 80053; 81001; 84484; 85025; 93005; 99285

== ENCOUNTER 2025-05-06 21:41 | Observation (INO) | payer MEDICAID, SELFPAY ==
[2025-05-06 21:43] VITALS: BP 162/82; PULSE 111; RESP 18; TEMP 37; O2SAT 96; BMI 66.5
--- OUTSIDE RECORDS SUMMARY | 2025-05-06 21:48 | XMS_ITS | Clinical Summary ---
Author Organization [facility] Address [address] [place] [address] Phone Care Team Providers Care Winding Lathe Operator Name Role Phone Nevaeh Hernández MD Primary Care Provider [phone] Allergies Active Allergy Reactions Criticality Noted Date [...] 03/09/2025 External Device Data Initial Department [address] MACHADO: [place] [address] [facility], Md 03/09/2025 Results Follow-Up [address] [phone] Katheryn Singh NP CBC WITH DIFFERENTIAL, FERRITIN, IRON, TIBC, AND PERCENT SATURATION, Additional followed-up results: 2 03/08/2025 2:45 PM CDT Office Visit [address] [phone] Katheryn Singh, RAFY Other fatigue (Primary Dx); Prediabetes; H/O total hysterectomy; Microcytosis; Declined influenza vaccine; Morbid obesity with BMI of 60.0-69.9, adult ([facility]) 03/02/[address] [phone] Nevaeh Hernández MD ED f/u Appointment 02/27/[address] [phone] Daniel Potts PA-C Hospital Follow Up 02/06/2025 [...] drink = 0.6 oz pur e alcohol) Comments No Sex and Gender Information Value [...] VITAMIN B12 502 200 - 1100 pg/mL [facility] FOLATE, SERUM 13.4 ng/mL [facility] Comment: Reference Range Low: <3.4 Borderline: 3.4-5.4 Normal: >5.4 FASTING:NO FASTING: NO Test Performed at: [facility] [address] [place] [address] [place] [address] Patsy Raymundo MD Blood 03/08/2025 3:08 PM CDT 03/08/2025 3:09 PM CDT Katheryn Singh DISTRICT OR DISTRICT OFFICE DIRECTOR CHEMISTRY ORDERABLES Final Resul t [facility] [phone] [address] * IRON, TIBC, AND PERCENT SATURATION (03/08/2025 3:08 PM CDT) Pathologist [facility] IRON 60 40 - 190 mcg/dL [facility] TIBC 353 250 - 450 mcg/dL (calc) [facility] IRON % SATURATION 17 16 - 45 % (calc) [facility] Comment: FASTING:NO FASTING: NO Test Performed at: [facility] [address] [place] [address] Patsy Raymundo MD Blood 03/08/2025 3:08 PM CDT 03/08/2025 3:09 PM CDT us Katheryn Roblerowhitney HILLMAN CHEMISTRY ORDERABLES Final Resul t [facility] [phone] [facility] [address] [address] [address] * (ABNORMAL) CBC WITH DIFFERENTIAL (03/08/2025 3:08 [...] Comment: FASTING:NO FASTING: NO Test Performed at: [facility] [address] [address] Patsy Raymundo MD Blood 03/08/2025 3:08 PM CDT 03/08/2025 3:09 PM CDT Katheryn Singh NP HEMATOLOGY ORDERABLES Final Resu lt Performing Organization Address [facility]/ZIP Co de Phone Number [facility] [phone] [facility] [address] [address] [address] * (ABNORMAL) HEMOGLOBIN A1C (03/08/2025 3:08 PM [...] Comment: FASTING:NO FASTING: NO Test Performed at: [facility] [address] [address] [address] Patsy Raymundo MD Blood 03/08/2025 3:08 PM CDT 03/08/2025 3:09 PM CDT Katheryn Singh NP CHEMISTRY ORDERABLES Final Resul t [facility] [phone] [facility] [address] * (ABNORMAL) FERRITIN (03/08/2025 3:08 PM CDT) FERRITIN 14(L) 16 - 154 ng/mL [facility] Comment: Test Performed at: [facility] [address] Patsy Raymundo MD Blood 03/08/2025 3:08 PM CDT 03/08/2025 3:09 PM CDT us Katheryn Singh NP CHEMISTRY ORDERABLES Final Resul t [facility] [phone] [facility] [place] [address] from Last 3 Months Insurance RX [employer] PLANS (INTERNAL) [facility] RX SGF JANIE FUND [place] (INTERNAL) [facility] RX [facility] Commercial RX [employer] [facility] [place] Advance Directives For more information, please contact: [phone] * Full Code (Latest Code Status on File) Date Activated Date Inactivated Comments 01/09/2025 5:22 PM 01/11/2025 4:11 PM * Full Code Date Activated Date Inactivated Comments 04/08/2024 11:11 PM 04/09/2024 5:15 PM * Full Code Date Activated Date Inactivated Comments 02/03/2024 5:43 PM 02/06/2024 2:34 PM * Full Code Date Activated Date Inactivated Comments 08/15/2023 10:09 PM 08/18/2023 6:07 PM Care Teams Winding Lathe Operator Relationship Specialty Start Date End Date Nevaeh Hernández MD [address] [place] [address] PCP - General Internal Medicine 03/09/24
--- OUTSIDE RECORDS SUMMARY | 2025-05-06 21:48 | XMS_ITS | Data Portability ---
Author Organization 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 Plan of Treatment Reminders Order Date Submit Date Provider Last Modified By Organization Details Last Modified Time Details Appointments OFFICE VISIT 2024 08:40A M MAKENZIE WHEELER PA-C Not available Not available Not available Lab calprotec tin, stool 2022 023 [facility] ([facility]), [address] [place], [address], 10/08/2024 05:00:58 H pylori Ag, qual immunoass ay, stool 2022 023 [facility] ([facility]), [address] [place], [address], 10/08/2024 05:00:58 celiac disease comprehen sive panel, serum 2022 023 [facility], [address] [place] [address] 248, [address], [place], [address], 10/08/2023 04:27:31 CMP, serum or plasma 2022 023 [employer] [facility], [address] [place] [address] 248, [address], [place], [address], 10/08/2023 04:27:30 CBC 2022 023 [facility], [address], [facility] 1, [place], [address], 10/07/2023 17:13:27 TSH, serum or plasma 2022 023 [facility], [address] [facility] [address], [address], [place], [address], 10/08/2023 04:27:32 food allergen panel, serum 2022 023 [facility], [address] [facility] [address], [address], [place], [address], 10/08/2023 04:27:32 Referral gastroent erologist referral 2023 024 [email or web address] Not available 02/17/2024 14:21:13 physical therapist referral 2022 023 [email or web address] [facility], [address], [place], [address], 10/25/2023 09:20:48 Procedures polysomno graphy, diagnosti c (PROC) 2024 025 [facility], [address], [place], [address], 2025 12:59:22 Surgeries None recorded. Imaging RF, upper gastroint estinal tract + small bowel, w/ contrast PO 2022 023 [facility] Orders, [address], [place], [address], 11/10/2023 09:09:56 Medication Orders pantopraz ole 40 mg tablet,de layed release [address] [facility] ([place] [place]Pharmacy #[id number], [address], [place], [address], 04/19/2025 10:41:05 Zepbound 2.5 mg/0.5 mL subcutane ous pen injector 2024 025 [id number], [address], [place], [address], 04/19/2025 10:41:06 Zepbound 5 mg/0.5 mL subcutane ous pen injector 2024 025 [id number], [address], [place], [address], 04/19/2025 10:41:04 losartan 50 mg-hydroc hlorothia zide 12.5 mg tablet 2024 025 [id number], [address], [place], [address], 04/19/2025 10:41:05 ferrous sulfate 325 mg (65 mg iron) tablet 2024 025 [id number], [address], [address], [place], [address], 04/19/2025 10:41:05 ondansetr on 4 mg disintegr ating tablet 2023 025 [id number], [address], [place], [address], 04/19/2025 10:00:56 omeprazol e 40 mg capsule,d elayed release 2022 [email or web address] [place], [place] [address]Pharmacy #[id number], [address], [place], [address], 09/30/2024 09:37:31 prednison e 20 mg tablet 2022 023 [email or web address] [facility]/Pharmacy #[id number], [address], [facility] 2, [place], [address], 04/16/2025 18:39:25 ProAir HFA 90 mcg/actua tion aerosol inhaler 2022 023 [email or web address] 76 [facility]/Pharmacy #[id number], [address] [facility], [facility] 2, [place], [address], 09/30/2024 09:37:34 Patient TargetsNo targets recorded. 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 Referral for Clostridium difficile colitis Referring Physician: Makenzie Wheeler [facility] Medicine, Encounter Date: 12/23/2023 Results Created Date Observation Date Name Description Value Unit Range Abnormal Flag Note LastModifiedBy Organization Detail LastModifiedTime 10/07/2010/07/2023 CBC WBC 7.6 x10 4.0-10 .5 Not Available [facility] [address] [facility] 1, [place], [address], 10/07/2023 17:13:27 10/07/20 23 10/07/2023 CBC RBC 4.94 x10 3.50-5 .50 Not Available [facility] [address] [facility], [place], [address], 10/07/2023 17:13:27 10/07/20 23 10/07/2023 CBC HGB 13.2 g/dL 12.0-1 6.0 Not Available [facility] [address] [facility] [address] [facility] 1, [place], [address], 10/07/2023 17:13:27 10/07/20 23 10/07/2023 CBC HCT 40.0 % 37.0-4 7.0 Not Available [facility] [address], [place], [address], 10/07/2023 17:13:27 10/07/20 23 10/07/2023 CBC MCV 80.9 fL 80.0-9 9.9 Not Available [facility] [address] [facility] 1, [place], [address], 10/07/2023 17:13:27 10/07/20 23 10/07/2023 CBC MCH 26.7 pg 27.0-3 2.0 low Not Available [facility] [address] [facility] 1, [place], [address], 10/07/2023 17:13:27 10/07/20 23 10/07/2023 CBC MCHC 33.0 g/dL 32.0-3 6.0 Not Available [facility] [address] [facility] [address] [facility] 1, [place], [address], 10/07/2023 17:13:27 10/07/20 23 10/07/2023 CBC RDW 15.6 % 11.5-1 4.6 high Not Available [facility] [address] [facility] [address] [facility] 1, [place], [address], 10/07/2023 17:13:27 10/07/20 23 10/07/2023 CBC plt 182.9 x10 140.0- 451.0 Not Available [facility] [address] [facility] [address] [facility] 1, [place], [address], 10/07/2023 17:13:27 10/07/20 23 10/07/2023 CBC lymphocytes % 28.6 % 20.0-5 0.0 Not Available [facility] [address] [facility], [place], [address], 10/07/2023 17:13:27 10/07/20 23 10/07/2023 CBC granulcytes % 64.1 % 30.0-7 0.0 Not Available [facility] [address] [facility] 1, [place], [address], 10/07/2023 17:13:27 10/07/20 23 10/07/2023 CBC monocytes % 4.0 % 2.0-10 .0 Not Available [facility] [address] [facility] 1, [place], [address], 10/07/2023 17:13:27 10/07/20 23 10/07/2023 CBC granulcytes# 4.9 x10 Not Mary ilable [facility] [address] [facility] [address], [place], [address], 10/07/2023 17:13:27 10/07/20 23 10/07/2023 CBC lymphocytes # 2.2 x10 Not Available [facility] [address] [facility] [address], [place], [address], 10/07/2023 17:13:27 10/07/20 23 10/07/2023 CBC monocytes # 0.3 x10 Not Avai lable [facility] [address] [facility] [address], [place], [address], 10/07/2023 17:13:27 10/07/20 23 10/08/2023 COMPR EHENS HIMANSHU METAB OLIC PANEL glucose 87 mg/dL 65-99 normal Fasti ng refer ence inter isadora Not Available [facility] [address], [place], [address], 10/08/2023 04:27:30 10/07/20 23 10/08/2023 COMPR EHENS HIMANSHU METAB OLIC PANEL urea nitrogen (BUN) 9 mg/dL 7-25 normal Not Available [address] [place], [address], 10/08/2023 04:27:30 10/07/20 23 10/08/2023 COMPR EHENS HIMANSHU METAB OLIC PANEL creatinine 0.63 mg/dL 0.50-0 .97 normal Not Available [address] [place], [address], 10/08/2023 04:27:30 10/07/20 23 10/08/2023 COMPR EHENS HIMANSHU METAB OLIC PANEL eGFR 116 mL/mi n/1.7 3m2 > or = 60 normal Not Available [address] [address] [place], [address], 10/08/2023 04:27:30 10/07/20 23 10/08/2023 COMPR EHENS HIMANSHU METAB OLIC PANEL BUN/creatini ne ratio SEE NOTE: (calc ) 6-22 Not Repor koffi: BUN and Creat inine are withi n refer ence range . Not Available [address], [address], 10/08/2023 04:27:30 10/07/20 23 10/08/2023 COMPR EHENS HIMANSHU METAB OLIC PANEL sodium 139 mmol/ L 135-14 6 normal Not Available [address], [address], 10/08/2023 04:27:30 10/07/20 23 10/08/2023 COMPR EHENS HIMANSHU METAB OLIC PANEL potassium 3.7 mmol/ L 3.5-5. 3 normal Not Available [address], [address], 10/08/2023 04:27:30 10/07/20 23 10/08/2023 COMPR EHENS HIMANSHU METAB OLIC PANEL chloride 100 mmol/ L 98-110 normal Not Available [address], [place], [address], 10/08/2023 04:27:30 10/07/20 23 10/08/2023 COMPR EHENS HIMANSHU METAB OLIC PANEL carbon dioxide 28 mmol/ L 20-32 normal Not Available [facility] [address], [address], 10/08/2023 04:27:30 10/07/20 23 10/08/2023 COMPR EHENS HIMANSHU METAB OLIC PANEL calcium 9.4 mg/dL 8.6-10 .2 normal Not Available [address], [address], 10/08/2023 04:27:30 10/07/20 23 10/08/2023 COMPR EHENS HIMANSHU METAB OLIC PANEL protein, total 7.8 g/dL 6.1-8. 1 normal Not Available [address], [address], 10/08/2023 04:27:30 10/07/20 23 10/08/2023 COMPR EHENS HIMANSHU METAB OLIC PANEL albumin 3.9 g/dL 3.6-5. 1 normal Not Available [address], [address], 10/08/2023 04:27:30 10/07/20 23 10/08/2023 COMPR EHENS HIMANSHU METAB OLIC PANEL globulin 3.9 g/dL_ (calc ) 1.9-3. 7 high Not Available [facility] [address], [address], 10/08/2023 04:27:30 10/07/20 23 10/08/2023 COMPR EHENS HIMANSHU METAB OLIC PANEL albumin/glob ulin ratio 1.0 (calc ) 1.0-2. 5 normal Not Available [address], [address], 10/08/2023 04:27:30 10/07/20 23 10/08/2023 COMPR EHENS HIMANSHU METAB OLIC PANEL bilirubin, total 0.4 mg/dL 0.2-1. 2 normal Not Available [facility] [employer] [address] [address] [place], [address], 10/08/2023 04:27:30 10/07/20 23 10/08/2023 COMPR EHENS HIMANSHU METAB OLIC PANEL alkaline phosphatase 74 U/L 31-125 normal Not Available [facility] [employer] [address] [address] [place], [address], 10/08/2023 04:27:30 10/07/20 23 10/08/2023 COMPR EHENS HIMANSHU METAB OLIC PANEL AST 12 U/L 10-30 normal Not Available [address] [address] [place], [address], 10/08/2023 04:27:30 10/07/20 23 10/08/2023 COMPR EHENS HIMANSHU METAB OLIC PANEL ALT 8 U/L 6-29 normal Not Available [address], [address], 10/08/2023 04:27:30 10/07/20 23 10/12/2023 BRANDON C DISEA SE COMPR EHENS HIMANSHU PANEL interpretati on No serol ogica l evide nce of brandon c disea se. Total serum IgA is eleva koffi. Consi dona mucos al infla mmato ry condi tions or under lying gammo martha . Not Available [address] [address] [place], [address], 10/12/2023 14:51:33 10/07/20 23 10/12/2023 BRANDON C DISEA SE COMPR EHENS HIMANSHU PANEL tissue transglutami nase Ab, IgA <1.0 U/mL Value Inter preta tion ----- ----- ----- ---- <15.0 Antib emmanuel not detec koffi > or = 15.0 Antib emmanuel detec koffi Not Available [address], [address], 10/12/2023 14:51:33 10/07/20 23 10/12/2023 BRANDON C DISEA SE COMPR EHENS HIMANSHU PANEL immunoglobul in A 609 mg/dL 47-310 high Not Available [address], [address], 10/12/2023 14:51:33 10/07/20 23 10/08/2023 TSH TSH 2.73 mIU/L normal Refer ence Range > or = 20 Years 0.40- 4.50 Pregn gurpreet Range s First trime ster 0.26- 2.66 Secon d trime ster 0.55- 2.73 Third trime ster 0.43- 2.91 Not Available [address], [address], 10/08/2023 07:21:57 10/07/20 23 10/08/2023 FOOD ALLER GY PANEL (REFL ) egg white (F1) IgE Not Available [address], [address], 10/08/2023 04:27:32 10/07/20 23 10/08/2023 FOOD ALLER GY PANEL (REFL ) class Not Available [address], [address], 10/08/2023 04:27:32 10/07/20 23 10/08/2023 FOOD ALLER GY PANEL (REFL ) peanut (F13) IgE Not Available [address], [address], 10/08/2023 04:27:32 10/07/20 23 10/08/2023 FOOD ALLER GY PANEL (REFL ) class Not Available [address], [address], 10/08/2023 04:27:32 10/07/20 23 10/08/2023 FOOD ALLER GY PANEL (REFL ) wheat (F4) IgE Not Available [address], [address], 10/08/2023 04:27:32 10/07/20 23 10/08/2023 FOOD ALLER GY PANEL (REFL ) class Not Available [address], [address], 10/08/2023 04:27:32 10/07/20 23 10/08/2023 FOOD ALLER GY PANEL (REFL ) walnut (F256) IgE Not Available [address], [address], 10/08/2023 04:27:32 10/07/20 23 10/08/2023 FOOD ALLER GY PANEL (REFL ) class Not Available [address], [address], 10/08/2023 04:27:32 10/07/20 23 10/08/2023 FOOD ALLER GY PANEL (REFL ) codfish (F3) IgE Not Available [address], [address], 10/08/2023 04:27:32 10/07/20 23 10/08/2023 FOOD ALLER GY PANEL (REFL ) class Not Available [address] [address] [place], [address], 10/08/2023 04:27:32 10/07/20 23 10/08/2023 FOOD ALLER GY PANEL (REFL ) cow's milk (F2) IgE Not Available [address], [address], 10/08/2023 04:27:32 10/07/20 23 10/08/2023 FOOD ALLER GY PANEL (REFL ) class Not Available [address], [address], 10/08/2023 04:27:32 10/07/20 23 10/08/2023 FOOD ALLER GY PANEL (REFL ) soybean (F14) IgE Not Available [address] [address] [place], [address], 10/08/2023 04:27:32 10/07/20 23 10/08/2023 FOOD ALLER GY PANEL (REFL ) class Not Available [address] [address] [place], [address], 10/08/2023 04:27:32 10/07/20 23 10/08/2023 FOOD ALLER GY PANEL (REFL ) maize/corn (F8) IgE Not Available [address] [address] [place], [address], 10/08/2023 04:27:32 10/07/20 23 10/08/2023 FOOD ALLER GY PANEL (REFL ) class Not Available [address] [address] [place], [address], 10/08/2023 04:27:32 10/07/20 23 10/08/2023 FOOD ALLER GY PANEL (REFL ) shrimp (F24) IgE Not Available [address] [address] [place], [address], 10/08/2023 04:27:32 10/07/20 23 10/08/2023 FOOD ALLER GY PANEL (REFL ) class Not Available [address] [address] [place], [address], 10/08/2023 04:27:32 10/07/20 23 10/08/2023 FOOD ALLER GY PANEL (REFL ) scallop (F338) IgE Not Available [address] [address] [place], [address], 10/08/2023 04:27:32 10/07/20 23 10/08/2023 FOOD ALLER GY PANEL (REFL ) class Not Available [facility] [address] [address] [place], [address], 10/08/2023 04:27:32 10/07/20 23 10/08/2023 FOOD ALLER GY PANEL (REFL ) clam (F207) IgE Not Available [facility] [address] [address] [place], [address], 10/08/2023 04:27:32 10/07/20 23 10/08/2023 FOOD ALLER GY PANEL (REFL ) class Not Available [facility] [address] [address] [place], [address], 10/08/2023 04:27:32 10/07/20 23 10/08/2023 FOOD ALLER GY PANEL (REFL ) sesame seed (F10) IgE Not Available [address] [address] [place], [address], 10/08/2023 04:27:32 10/07/20 23 10/08/2023 FOOD ALLER GY PANEL (REFL ) class Not Available [address] [address] [place], [address], 10/08/2023 04:27:32 10/07/20 23 10/08/2023 INTER PRETA [...] cteri stics have been deter mined by [employer] [facility]. It has not been clear ed or appro lor by the U.S. Food and Drug Admin istra tion. This assay has been valid ated pursu ant to the CLIA regul ation s and is used for clini juanis purpo ses. Not Available [employer] [address] [address] [place], [address], 10/08/2023 17:15:59 10/07/20 23 10/08/2023 FOOD ALLER GY PANEL (REFL ) egg white (F1) IgE Not Available [employer] [address] [address] [place], [address], 10/08/2023 07:21:58 10/07/20 23 10/08/2023 FOOD ALLER GY PANEL (REFL ) class Not Available [employer] [address] [address] [place], [address], 10/08/2023 07:21:58 10/07/20 23 10/08/2023 FOOD ALLER GY PANEL (REFL ) peanut (F13) IgE Not Available [employer] [address] [address] [place], [address], 10/08/2023 07:21:58 10/07/20 23 10/08/2023 FOOD ALLER GY PANEL (REFL ) class Not Available [employer] [address] [address] [place], [address], 10/08/2023 07:21:58 10/07/20 23 10/08/2023 FOOD ALLER GY PANEL (REFL ) wheat (F4) IgE Not Available [employer] [address] [address] [place], [address], 10/08/2023 07:21:58 10/07/20 23 10/08/2023 FOOD ALLER GY PANEL (REFL ) class Not Available [address] [address] [place], [address], 10/08/2023 07:21:58 10/07/20 23 10/08/2023 FOOD ALLER GY PANEL (REFL ) walnut (F256) IgE Not Available [address] [address] [place], [address], 10/08/2023 07:21:58 10/07/20 23 10/08/2023 FOOD ALLER GY PANEL (REFL ) class Not Available [address] [address] [place], [address], 10/08/2023 07:21:58 10/07/20 23 10/08/2023 FOOD ALLER GY PANEL (REFL ) codfish (F3) IgE Not Available [address] [address] [place], [address], 10/08/2023 07:21:58 10/07/20 23 10/08/2023 FOOD ALLER GY PANEL (REFL ) class Not Available [address] [address] [place], [address], 10/08/2023 07:21:58 10/07/20 23 10/08/2023 FOOD ALLER GY PANEL (REFL ) cow's milk (F2) IgE Not Available [address] [address] [place], [address], 10/08/2023 07:21:58 10/07/20 23 10/08/2023 FOOD ALLER GY PANEL (REFL ) class Not Available [address] [address] [place], [address], 10/08/2023 07:21:58 10/07/20 23 10/08/2023 FOOD ALLER GY PANEL (REFL ) soybean (F14) IgE Not Available [address] [address] [place], [address], 10/08/2023 07:21:58 10/07/20 23 10/08/2023 FOOD ALLER GY PANEL (REFL ) class Not Available [address], [address], 10/08/2023 07:21:58 10/07/20 23 10/08/2023 FOOD ALLER GY PANEL (REFL ) maize/corn (F8) IgE Not Available [address], [address], 10/08/2023 07:21:58 10/07/20 23 10/08/2023 FOOD ALLER GY PANEL (REFL ) class Not Available [address], [address], 10/08/2023 07:21:58 10/07/20 23 10/08/2023 FOOD ALLER GY PANEL (REFL ) shrimp (F24) IgE Not Available [address], [address], 10/08/2023 07:21:58 10/07/20 23 10/08/2023 FOOD ALLER GY PANEL (REFL ) class Not Available [address], [address], 10/08/2023 07:21:58 10/07/20 23 10/08/2023 FOOD ALLER GY PANEL (REFL ) scallop (F338) IgE Not Available [address] [address] [place], [address], 10/08/2023 07:21:58 10/07/20 23 10/08/2023 FOOD ALLER GY PANEL (REFL ) class Not Available [address], [address], 10/08/2023 07:21:58 10/07/20 23 10/08/2023 FOOD ALLER GY PANEL (REFL ) clam (F207) IgE Not Available [address] [place], [address], 10/08/2023 07:21:58 10/07/20 23 10/08/2023 FOOD ALLER GY PANEL (REFL ) class Not Available [address], [address], 10/08/2023 07:21:58 10/07/20 23 10/08/2023 FOOD ALLER GY PANEL (REFL ) sesame seed (F10) IgE Not Available [address] [address] [place], [address], 10/08/2023 07:21:58 10/07/20 23 10/08/2023 FOOD ALLER GY PANEL (REFL ) class Not Available [address], [address], 10/08/2023 07:21:58 10/07/20 23 10/08/2023 FOOD ALLER GY PANEL (REFL ) egg white (F1) IgE <0.10 kU/L normal Not Available [address], [address], 10/08/2023 17:15:59 10/07/20 23 10/08/2023 FOOD ALLER GY PANEL (REFL ) class 0 Not Available [address], [address], 10/08/2023 17:15:59 10/07/20 23 10/08/2023 FOOD ALLER GY PANEL (REFL ) peanut (F13) IgE <0.10 kU/L normal Not Available [address], [address], 10/08/2023 17:15:59 10/07/20 23 10/08/2023 FOOD ALLER GY PANEL (REFL ) class 0 Not Available [address], [address], 10/08/2023 17:15:59 10/07/20 23 10/08/2023 FOOD ALLER GY PANEL (REFL ) wheat (F4) IgE <0.10 kU/L normal Not Available [address], [address], 10/08/2023 17:15:59 10/07/20 23 10/08/2023 FOOD ALLER GY PANEL (REFL ) class 0 Not Available [address], [address], 10/08/2023 17:15:59 10/07/20 23 10/08/2023 FOOD ALLER GY PANEL (REFL ) walnut (F256) IgE <0.10 kU/L normal Not Available [address], [address], 10/08/2023 17:15:59 10/07/20 23 10/08/2023 FOOD ALLER GY PANEL (REFL ) class 0 Not Available [address], [address], 10/08/2023 17:15:59 10/07/20 23 10/08/2023 FOOD ALLER GY PANEL (REFL ) codfish (F3) IgE <0.10 kU/L normal Not Available [address], [address], 10/08/2023 17:15:59 10/07/20 23 10/08/2023 FOOD ALLER GY PANEL (REFL ) class 0 Not Available [address] [address] [place], [address], 10/08/2023 17:15:59 10/07/20 23 10/08/2023 FOOD ALLER GY PANEL (REFL ) cow's milk (F2) IgE <0.10 kU/L normal Not Available [address], [address], 10/08/2023 17:15:59 10/07/20 23 10/08/2023 FOOD ALLER GY PANEL (REFL ) class 0 Not Available [address] [address] [place], [address], 10/08/2023 17:15:59 10/07/20 23 10/08/2023 FOOD ALLER GY PANEL (REFL ) soybean (F14) IgE <0.10 kU/L normal Not Available [address], [address], 10/08/2023 17:15:59 10/07/20 23 10/08/2023 FOOD ALLER GY PANEL (REFL ) class 0 Not Available [address], [address], 10/08/2023 17:15:59 10/07/20 23 10/08/2023 FOOD ALLER GY PANEL (REFL ) maize/corn (F8) IgE <0.10 kU/L normal Not Available [address] [address] [place], [address], 10/08/2023 17:15:59 10/07/20 23 10/08/2023 FOOD ALLER GY PANEL (REFL ) class 0 Not Available [address] [address] [place], [address], 10/08/2023 17:15:59 10/07/20 23 10/08/2023 FOOD ALLER GY PANEL (REFL ) shrimp (F24) IgE <0.10 kU/L normal Not Available [address] [address] [place], [address], 10/08/2023 17:15:59 10/07/20 23 10/08/2023 FOOD ALLER GY PANEL (REFL ) class 0 Not Available [address] [address] [place], [address], 10/08/2023 17:15:59 10/07/20 23 10/08/2023 FOOD ALLER GY PANEL (REFL ) scallop (F338) IgE Not Available [address], [address], 10/08/2023 17:15:59 10/07/20 23 10/08/2023 FOOD ALLER GY PANEL (REFL ) class Not Available [address], [address], 10/08/2023 17:15:59 10/07/20 23 10/08/2023 FOOD ALLER GY PANEL (REFL ) clam (F207) IgE <0.10 kU/L normal Not Available [address], [address], 10/08/2023 17:15:59 10/07/20 23 10/08/2023 FOOD ALLER GY PANEL (REFL ) class 0 Not Available [address], [address], 10/08/2023 17:15:59 10/07/20 23 10/08/2023 FOOD ALLER GY PANEL (REFL ) sesame seed (F10) IgE <0.10 kU/L normal Not Available [address], [address], 10/08/2023 17:15:59 10/07/20 23 10/08/2023 FOOD ALLER GY PANEL (REFL ) class 0 Not Available [address], [address], 10/08/2023 17:15:59 10/07/20 23 10/12/2023 FOOD ALLER GY PANEL (REFL ) egg white (F1) IgE <0.10 kU/L normal Not Available [address], [address], 10/12/2023 14:01:44 10/07/20 23 10/12/2023 FOOD ALLER GY PANEL (REFL ) class 0 Not Available [address], [address], 10/12/2023 14:01:44 10/07/20 23 10/12/2023 FOOD ALLER GY PANEL (REFL ) peanut (F13) IgE <0.10 kU/L normal Not Available [address], [address], 10/12/2023 14:01:44 10/07/20 23 10/12/2023 FOOD ALLER GY PANEL (REFL ) class 0 Not Available [address], [address], 10/12/2023 14:01:44 10/07/20 23 10/12/2023 FOOD ALLER GY PANEL (REFL ) wheat (F4) IgE <0.10 kU/L normal Not Available [address], [address], 10/12/2023 14:01:44 10/07/20 23 10/12/2023 FOOD ALLER GY PANEL (REFL ) class 0 Not Available [address], [address], 10/12/2023 14:01:44 10/07/20 23 10/12/2023 FOOD ALLER GY PANEL (REFL ) walnut (F256) IgE <0.10 kU/L normal Not Available [address], [address], 10/12/2023 14:01:44 10/07/20 23 10/12/2023 FOOD ALLER GY PANEL (REFL ) class 0 Not Available [address], [address], 10/12/2023 14:01:44 10/07/20 23 10/12/2023 FOOD ALLER GY PANEL (REFL ) codfish (F3) IgE <0.10 kU/L normal Not Available [address], [address], 10/12/2023 14:01:44 10/07/20 23 10/12/2023 FOOD ALLER GY PANEL (REFL ) class 0 Not Available [address], [address], 10/12/2023 14:01:44 10/07/20 23 10/12/2023 FOOD ALLER GY PANEL (REFL ) cow's milk (F2) IgE <0.10 kU/L normal Not Available [address], [address], 10/12/2023 14:01:44 10/07/20 23 10/12/2023 FOOD ALLER GY PANEL (REFL ) class 0 Not Available [address], [address], 10/12/2023 14:01:44 10/07/20 23 10/12/2023 FOOD ALLER GY PANEL (REFL ) soybean (F14) IgE <0.10 kU/L normal Not Available [address] [place] [address] [place], [address], 10/12/2023 14:01:44 10/07/20 23 10/12/2023 FOOD ALLER GY PANEL (REFL ) class 0 Not Available [address] [address] [place], [address], 10/12/2023 14:01:44 10/07/20 23 10/12/2023 FOOD ALLER GY PANEL (REFL ) maize/corn (F8) IgE <0.10 kU/L normal Not Available [address] [address] [place], [address], 10/12/2023 14:01:44 10/07/20 23 10/12/2023 FOOD ALLER GY PANEL (REFL ) class 0 Not Available [address] [address] [place], [address], 10/12/2023 14:01:44 10/07/20 23 10/12/2023 FOOD ALLER GY PANEL (REFL ) shrimp (F24) IgE <0.10 kU/L normal Not Available [address], [address], 10/12/2023 14:01:44 10/07/20 23 10/12/2023 FOOD ALLER GY PANEL (REFL ) class 0 Not Available [address], [address], 10/12/2023 14:01:44 10/07/20 23 10/12/2023 FOOD ALLER GY PANEL (REFL ) scallop (F338) IgE <0.10 kU/L normal Not Available [address], [address], 10/12/2023 14:01:44 10/07/20 23 10/12/2023 FOOD ALLER GY PANEL (REFL ) class 0 Not Available [address], [address], 10/12/2023 14:01:44 10/07/20 23 10/12/2023 FOOD ALLER GY PANEL (REFL ) clam (F207) IgE <0.10 kU/L normal Not Available [address], [address], 10/12/2023 14:01:44 10/07/20 23 10/12/2023 FOOD ALLER GY PANEL (REFL ) class 0 Not Available [address], [address], 10/12/2023 14:01:44 10/07/20 23 10/12/2023 FOOD ALLER GY PANEL (REFL ) sesame seed (F10) IgE <0.10 kU/L normal Not Available [address], [address], 10/12/2023 14:01:44 10/07/20 23 10/12/2023 FOOD ALLER GY PANEL (REFL ) class 0 Not Available [facility] [address] [place], [address], 10/12/2023 14:01:44 10/07/20 23 10/12/2023 FOOD ALLER GY PANEL (REFL ) egg white (F1) IgE <0.10 kU/L normal Not Available [address], [address], 10/12/2023 14:51:35 10/07/20 23 10/12/2023 FOOD ALLER GY PANEL (REFL ) class 0 Not Available [address], [address], 10/12/2023 14:51:35 10/07/20 23 10/12/2023 FOOD ALLER GY PANEL (REFL ) peanut (F13) IgE <0.10 kU/L normal Not Available [address], [address], 10/12/2023 14:51:35 10/07/20 23 10/12/2023 FOOD ALLER GY PANEL (REFL ) class 0 Not Available [address], [address], 10/12/2023 14:51:35 10/07/20 23 10/12/2023 FOOD ALLER GY PANEL (REFL ) wheat (F4) IgE <0.10 kU/L normal Not Available [address] [address] [place], [address], 10/12/2023 14:51:35 10/07/20 23 10/12/2023 FOOD ALLER GY PANEL (REFL ) class 0 Not Available [address], [address], 10/12/2023 14:51:35 10/07/20 23 10/12/2023 FOOD ALLER GY PANEL (REFL ) walnut (F256) IgE <0.10 kU/L normal Not Available [address] [address] [place], [address], 10/12/2023 14:51:35 10/07/20 23 10/12/2023 FOOD ALLER GY PANEL (REFL ) class 0 Not Available [address] [address] [place], [address], 10/12/2023 14:51:35 10/07/20 23 10/12/2023 FOOD ALLER GY PANEL (REFL ) codfish (F3) IgE <0.10 kU/L normal Not Available [address] [address] [place], [address], 10/12/2023 14:51:35 10/07/20 23 10/12/2023 FOOD ALLER GY PANEL (REFL ) class 0 Not Available [address], [address], 10/12/2023 14:51:35 10/07/20 23 10/12/2023 FOOD ALLER GY PANEL (REFL ) cow's milk (F2) IgE <0.10 kU/L normal Not Available [address], [address], 10/12/2023 14:51:35 10/07/20 23 10/12/2023 FOOD ALLER GY PANEL (REFL ) class 0 Not Available [address], [address], 10/12/2023 14:51:35 10/07/20 23 10/12/2023 FOOD ALLER GY PANEL (REFL ) soybean (F14) IgE <0.10 kU/L normal Not Available [address], [address], 10/12/2023 14:51:35 10/07/20 23 10/12/2023 FOOD ALLER GY PANEL (REFL ) class 0 Not Available [address], [address], 10/12/2023 14:51:35 10/07/20 23 10/12/2023 FOOD ALLER GY PANEL (REFL ) maize/corn (F8) IgE <0.10 kU/L normal Not Available [address] [address] [place], [address], 10/12/2023 14:51:35 10/07/20 23 10/12/2023 FOOD ALLER GY PANEL (REFL ) class 0 Not Available [address] [address] [place], [address], 10/12/2023 14:51:35 10/07/20 23 10/12/2023 FOOD ALLER GY PANEL (REFL ) shrimp (F24) IgE <0.10 kU/L normal Not Available [address], [address], 10/12/2023 14:51:35 10/07/20 23 10/12/2023 FOOD ALLER GY PANEL (REFL ) class 0 Not Available [address] [address] [place], [address], 10/12/2023 14:51:35 10/07/20 23 10/12/2023 FOOD ALLER GY PANEL (REFL ) scallop (F338) IgE <0.10 kU/L normal Not Available [address] [address] [place], [address], 10/12/2023 14:51:35 10/07/20 23 10/12/2023 FOOD ALLER GY PANEL (REFL ) class 0 Not Available [address] [address] [place], [address], 10/12/2023 14:51:35 10/07/20 23 10/12/2023 FOOD ALLER GY PANEL (REFL ) clam (F207) IgE <0.10 kU/L normal Not Available [address] [address] [place], [address], 10/12/2023 14:51:35 10/07/20 23 10/12/2023 FOOD ALLER GY PANEL (REFL ) class 0 Not Available [facility] [address] [place], [address], 10/12/2023 14:51:35 10/07/20 23 10/12/2023 FOOD ALLER GY PANEL (REFL ) sesame seed (F10) IgE <0.10 kU/L normal Not Available [facility] [address] [place], [address], 10/12/2023 14:51:35 10/07/20 23 10/12/2023 FOOD ALLER GY PANEL (REFL ) class 0 Not Available [facility] [address] [address] , [place], [address], 10/12/2023 14:51:35 Result Notes None recorded. Problems Name Problem SNOMED Code Status Onset Date Resolution Date Notes Provider Name and Address Organization Details Recorded Time History of tubal ligation 293736558 Completed 201504/16/2025 Tubal Ligation; 6 10:34AM by Guerline Johnson RN, Office Visit; Promoted; acuity set as *; LEE WILEY [facility] 5 18:38:43 [place] ma [id number] Completed 202104/16/2025 LYMPH EDEMA; of leg; 2 1:08PM by Kiesha Dent, Office Visit; Promoted; acuity set as *; LEE WILEY [facility] 5 18:38:47 Gastroes ophageal reflux disease 991895121 Active [address] [facility] 5 18:38:39 Morbid obesity 972885078 Active [address] [facility] 5 11:20:01 Nausea 621929762 Active [address] [facility] 13:40:27 Problem Notes None recorded. Procedures Surgical History Date Name Laterality Status Provider Name and Address Organization Details Recorded Time 09/17/20 18 Laparoscopy completed MAKENZIE WHEELER PA-C [address] [place], [address], [facility] 10/07/2023 16:15:21 09/17/20 18 cholecystectomy completed MAKENZIE WHEELER PA-C [address] [place], [address], [facility] 10/07/2023 16:15:36 09/17/20 18 Total hysterectomy completed MAKENZIE WHEELER PA-C [address] [place], [address], [facility] 10/07/2023 16:15:59 10/19/19 18 colonoscopy completed LEE WILEY [facility] 12/23/2023 08:10:54 Imaging Results None recorded. Procedure Notes None recorded. Medical Equipment None Reported. Allergies Allergen ID Allergen Name Allergen Category Reaction Reaction Severity Criticality Documentation Date Start Date Code Code System Note Provider Name and Address Organization Details Recorded Time 50926 morphine medicatio n anaphylax is severe high 09/17/2023 7052 RxNorm Doretha Tuttle [facility] 14:56:26 Medications Name Sig Start Date [...] Available ondansetr on HCl 4 mg tablet TAKE 1 TABLET 3 TIMES A DAY BY MOUTH NEEDED. active Not Available Not Available No t [...] Updated DateTime 4 167.64 cm 60.8 kg/m2 552825. 32 g 99 % 99 % 82 /min 20 /min 98.8 [degF] 136/80 mm[Hg] LEE WILEY [facility] 4 10:57:48 Date Recorded Body height Body mass index (BMI) Body weight Body temperature Heart rate Oxygen saturation Oxygen saturation in Arterial blood by Pulse oximetry Systolic And Diastolic Provider Name and Address Organization Details Last Updated DateTime 5 167.64 cm 65.9 kg/m2 849709. 69 g 97.6 [degF] 96 /min 96 % 96 % 166/108 mm[Hg] [facility] 09:54:13 Date Recorded Body height Body mass index (BMI) Body weight Oxygen saturation Oxygen saturation in Arterial blood by Pulse oximetry Heart rate Body temperature Systolic And Diastolic Provider Name and Address Organization Details Last Updated DateTime 3 167.64 cm 58.7 kg/m2 881754. 47 g 97 % 97 % 107 /min 97.5 [degF] 140/92 mm[Hg] Doretha Tuttle [facility] 3 14:56:06 Date Recorded Body height Body mass index (BMI) Body weight Body temperature Heart rate Oxygen saturation Oxygen saturation in Arterial blood by Pulse oximetry Systolic And Diastolic Provider Name and Address Organization Details Last Updated DateTime 4 167.64 cm 67 kg/m2 879567. 93 g 98.4 [degF] 103 /min 97 % 97 % 146/80 mm[Hg] Padmini Abraham [facility] 4 09:40:41 Date Recorded Body height Body mass index (BMI) Body weight Oxygen saturation Oxygen saturation in Arterial blood by Pulse oximetry Heart rate Respiratory rate Body temperature Systolic And Diastolic Provider Name and Address Organization Details Last Updated DateTime 3 167.64 cm 59.1 kg/m2 825183. 81 g 97 % 97 % 82 /min 20 /min 98 [degF] 140/80 mm[Hg] LEE WILEY [facility] 3 15:24:51 Social History Question Answer Notes LastModified by [employer] Details LastModified Time Tobacco Smoking Status Former Smoker Erika Crawford [facility] 04/19/2025 10:02:01 Which Illicit Or Recreational Drugs Have You Used? Marijuana [email or web address] Information not available 04/19/2025 What Was The Date Of Your Most Recent Tobacco Screening? 04/19/2025 [email or web address] Information not available 04/19/2025 Sex: Unknown Functional Status Question Answer Note LastModified by [employer] Details LastModified Time Do you use any illicit or recreational drugs? Yes [email or web address] Information not available 04/19/2025 What is your level of alcohol consumption? None [email or web address] Information not available 04/19/2025 Mental Status None [...] virus, trivalent, preservative 4 completed Not Available [facility] 05/15/2023 02:46:01 DTaP 5 completed Not Available [facility] 04/19/2025 09:47:28 OPV 5 completed Not [facility] 04/19/2025 09:47:28 DTaP 5 completed Not [facility] 04/19/2025 09:47:28 OPV 5 completed Not Available [facility] 04/19/2025 09:47:28 DTaP 6 completed Not Available [facility] 04/19/2025 09:47:28 OPV 6 completed Not Available [facility] 04/19/2025 09:47:28 DTaP 0 completed Not Available [facility] 04/19/2025 09:47:28 OPV 0 completed Not Available [facility] 04/19/2025 09:47:28 MMR 0 completed Not Available [facility] 04/19/2025 09:47:28 Td (adult), 2 Lf tetanus toxoid, preservative free, adsorbed 8 completed Not Available [facility] 04/19/2025 09:47:28 MMR 8 completed Not Available [facility] 04/19/2025 09:47:28 Hep B, unspecified formulation 8 completed Not Available [facility] 04/19/2025 09:47:28 Past Encounters Encounter ID Performer Location Encounter Start Date Encounter Closed Date Diagnosis/Indication Diagnosis SNOMED-CT Code Diagnosis ICD10 Code Diagnosis Note [id number] MAKENZIE WHEELER PA-C [facility] ([facility] [address] [place] [address] 09/17/2023 14:27:37 09/17/2023 16:25:06 Acute bronchitis 44757830 J20.9 trying to avoid antibiotic s since she is just out of the hospital with c.diff. Lymphedema of lower extremity 846399414 I89.0 [id number] MAKENZIE WHEELER PA-C [facility] ([facility]) [address] [place] [address] [place] [address] 10/07/2023 14:53:34 10/08/2023 15:46:04 Gastroesophageal reflux disease 460520135 K21.00 Chronic vomiting 3087935 8 R11.10 Chronic diarrhea 7479300 09 K52.9 [id number] MAKENZIE WHEELER PA-C [facility] ([facility]) [address] [place] [address] 12/23/2023 10:33:17 12/23/2023 17:43:04 Clostridium difficile colitis 406403989 A04.72 reoccurent . positive lactoferri n and c.diff. neg for all other stool bacter, [facility] npatient stay within past 30 days 2967944750 106 Z76.89 Cellulitis of lower limb 538850001 L03.119 resolved. [id number] JENNA HERNANDEZ [facility] ([facility]) [address] [place] [address] 09/30/2024 09:29:43 09/30/2024 10:20:39 Viral gastroenteritis 846866787 A08.4 [id number] MAKENZIE WHEELER PA-C [facility] ([facility]) [address] [place] [address] 04/19/2025 09:46:48 04/19/2025 11:14:42 Cellulitis of right lower limb 1369828980 9058420 L03.115 resolved. will continue maintainan ce/prophal actic antibiotic s per Dr. Levy Gastro-eso phageal reflux disease with esophagitis 777053641 K21.00 reviewed diet changes Iron defic iency anemia due to blood loss 963268401 D50.0 Hx of hysterecto my. does not eat much red meat. Has been having alot of heart burn lately Essential hypertension 37715343 I10 f/u in 3 weeks with home BP readings Dyspnea 950887669 R06.02 Cardiomegaly 9965384 I51 .7 on cxr. likely combo of untreated HTN and ELISEO Daytime somnolence 03152 97819 00 R40.0 score 6 on STOP bang. Morbid obesity 047626648 E66.01 Pt has tried and failed a [...] Concerns Section Related Observation LastModified by Organization Detserene ls LastModified Time None Recorded Concern Status LastModified by Organization Details LastModified Time None Recorded Advance Directives Directive None Recorded Payers Insurance Date Sequence Insurance Name Policy Number Policy Wilson Covered Member ID Wilson Member ID Guarantor Name 2025 1 [facility] (MEDICAID HMO) Daniela Pulido [id number] Daniela Pulido 2025 1 ALIX CASTRO FROM [facility] [id number] Daniela Pulido [id number] Daniela Pulido Notes Date Note Type Note [...] getting over C. diff MAKENZIE WHEELER PA-C [address] [place] [address], [address], [facility] 09/17/2023 15:45:43 3 text/html EdemaReported bypatient.Location:BLE; feet [...] that she is waiting to hear from [facility] therapy dept to get wraps.She eats about 800 juanis a day a vegan diet. MAKENZIE WHEELER PA-C [address] [place], [address], [facility], [place] 10/08/2023 08:24:22 4 text/html DiarrheaReported bypatient.Quality:soft [...] tends to be constipated. MAKENZIE WHEELER PA-C [address] [place], [address], [facility] [place] 12/23/2023 17:40:13 4 text/html VomitingReported bypatient.Duration:1 days Associated Symptoms:fever;nausea;[facility], [facility], sinus congestion and diarrhea since yesterday. JENNA HERNANDEZ [address] [place], [address], [facility] [place] 09/30/2024 10:12:34 5 text/html AnemiaReported bypatient.Severity:Microcyt ic (MCV<80) Timing:gradual [...] 500 mg capsule. MAKENZIE WHEELER PA-C [address] [place], [address], [facility] [place] 04/19/2025 10:52:26 OBGyn Episode No OBEpisode recorded.
--- OUTSIDE RECORDS SUMMARY | 2025-05-06 21:49 | XMS_ITS | Patient Health Record ---
Author Organization [facility] Address [address] [place] [address] Care Team Providers Care Insulation Cupola Charger Name Role Phone Daniel Whiting Unavailable [phone] Reason For Referral No Information Plan Of Treatment No Information
[2025-05-06 22:31] LABS: Hematocrit 35.8 % (36-47); Hemoglobin 11.20 g/dL (11.27-16.99); Mean Corpuscular HGB Conc 31.3 g/dL (30-55); Mean Corpuscular Hemoglobin 25.2 pg (27-33); Mean Corpuscular Volume 80.6 fl (85-98); Nucleated Red Blood Cells % 0 %; Platelet Count 160 10^3/cmm (157-399); Red Blood Count 4.44 10^6/uL (3.85-5.65); White Blood Count 6.15 10^3/uL (3.29-11.43)
[2025-05-06 22:56] LABS: Alanine Aminotransferase 10 U/L (0-33); Albumin Level 3.9 g/dL (3.5-5.2); Alkaline Phosphatase 78 U/L (35-105); Anion Gap 14.6 (5-19); Aspartate Amino Transferase 14 U/L (0-32); Blood Urea Nitrogen 7 mg/dL (6-20); Calcium 8.9 mg/dL (8.5-10.5); Carbon Dioxide 30 mmol/L (22-29); Chloride 96 mmol/L (98-107); Creatinine Clr Calc Pharmacy 210.0893; Globulin 3.5 g/dL (1.3-4.6); Glucose 100 mg/dL (65-115); Osmolality Calculated 284 mOsm/kg (285-295); Sodium 138 mmol/L (136-145); Total Protein 7.4 g/dL (6.6-8.7)
[2025-05-06 22:58] LABS: Lactic Sepsis W/Reflex 0.8 mmol/L (0.5-2.2)
[2025-05-06 23:02] LABS: Potassium 2.6 mmol/L (3.5-5.1)
[2025-05-06] MEDS: ondansetron 2 mg/ML SDV 2 mL 4 MG IVP (23:21)
[2025-05-06] MEDS: ceFAZolin 3,000 MG in sodium chloride 0.9% (plus) 100 ML 200 MG IV (23:28)
--- NOTE | 2025-05-06 23:44 | CTR_ITS ---
PROCEDURE INFORMATION: Exam: CT Right Lower Extremity Without Contrast, Leg Exam date and time: 05/07/2025 1:12 AM Age: 40 years old Clinical indication: Cellulitis; Lower leg; Right; Pain with swelling and redness to distal half of RT lower extremity. ; Additional info: Cellulitis, concern for abscess/deeper involvement TECHNIQUE: Imaging protocol: CT of the right lower extremity without contrast was performed. Exam focused on the lower leg. Radiation optimization: All CT scans at this facility use at least one of these dose optimization techniques: automated exposure control; mA and/or kV adjustment per patient size (includes targeted exams where dose is matched to clinical indication); or iterative reconstruction. COMPARISON: CT lower leg RT wo con* [id number] 12/17/2023 12:46 PM RADIATION DOSE METRICS: Total DLP (mGy-cm): 794.36 FINDINGS: Bones/joints: No acute osseous abnormality. Degenerative changes. No areas of periosteal reactions or acute cortical erosive changes. Soft tissues: There is diffuse subcutaneous soft tissue swelling and cutaneous thickening of the right lower extremity at the calf down to the level of the ankle. Other findings: No focal drainable fluid collections to suggest abscess. The deep myofascial compartments of the right lower extremity are preserved. CT/CT lower leg RT w con [id number] IMPRESSION: Findings related to cellulitis of the right lower extremity without evidence of focal drainable abscess. No acute osseous abnormality.
--- NOTE | 2025-05-06 23:50 | W.ED.EXTPRO ---
HPI - Extremity Problem General: Chief complaint: Extremity Problem,Nontraumatic Stated complaint: Rt Leg Swollen Time Seen by Provider: 05/06/25 21:52 History of Present Illness: Daniela Pulido is a 40-year-old female with a history of recurrent right lower-extremity cellulitis and chronic lymphedema of both legs. She was last admitted 26?29 [facility] for IV antibiotics and discharged on daily suppressive oral antibiotics, which she has been taking. Early this morning she noted mild pink discoloration low on the right leg that has rapidly progressed proximally by presentation. She reports fatigue, multiple episodes of vomiting, and subjective palpitations. She denies fever, light-headedness, or prior trauma. She presented promptly because prior delays led to rapid clinical worsening/sepsis and ICU level care in the past. Related Data Home Medications ?Medication ?Instructions ?Recorded ?Confirmed ferrous sulfate 325 mg (65 mg 325 mg PO DAILY 05/01/25 05/01/25 iron) tablet losartan 50 mg-hydrochlorothiazide 1 tab PO DAILY 05/01/25 05/01/25 12.5 mg tablet pantoprazole 40 mg tablet,delayed 40 mg PO DAILY 05/01/25 05/01/25 release tirzepatide (weight loss) 2.5 2.5 mg SUBCUT Q7D 05/01/25 05/01/25 mg/0.5 mL subcutaneous pen injector (Zepbound) Previous Rx's ?Medication ?Instructions ?Recorded cefadroxil 500 mg capsule 500 mg PO BID chronic suppression 04/14/25 #30 caps clotrimazole 1 % topical cream 1 applic topical BID 8 weeks #15 04/14/25 grams pantoprazole 40 mg tablet,delayed 40 mg PO DAILY #30 tabs 05/01/25 release (Protonix) Allergies Allergy/AdvReac Type Severity Reaction Status Date / Time amphetamine (From Adderall) Allergy SOB Verified 01/02/25 19:01 dextroamphetamine (From Allergy SOB Verified 01/02/25 19:01 Adderall) morphine Allergy RASH Verified 01/02/25 19:01 [facility] ED PFSH: Medical History (Updated 05/06/25 @ 23:04 by Akash Robbins MD) Morbid obesity with BMI of 70 and over, adult Bowel obstruction Essential hypertension Surgical History H/O: hysterectomy History of cholecystectomy Family History Other CAD (coronary artery disease) Diabetes Hypertension Social History (Updated 04/13/25 @ 06:39 by Nikhil Gardiner MD) Smoking and tobacco/nicotine status: former use of tobacco/nicotine Quit status (tobacco/nicotine): has quit using Year quit tobacco: 2019 Alcohol intake: never Substance/Drug Use: never Additional social history: Patient wants full code as discussed 04/12/2025 with Nikhil Gardiner MD Physical Exam Const: COMMON NORMALS: no acute distress, patient oriented x3 and alert HENMT: COMMON NORMALS: normocephalic and atraumatic HEAD & SCALP: normocephalic and atraumatic Eye: COMMON NORMALS: Equal, round and reactive pupils present, EOMs intact bilaterally and no scleral icterus PUPIL: Yes Equal, round and reactive pupils present Resp: OTHER: Lungs clear, no increased work of breathing. Cardio: OTHER: Borderline tachycardic, regular rhythm, no murmur. GI: COMMON NORMALS: Normal to inspection, nondistended, normoactive bowel sounds present, Soft to palpation and non-tender PALPATION: Yes Soft to palpation Extremity: OTHER: Right lower leg erythema and warmth extending from ankle to just below knee, tender to palpation, consistent with cellulitis. Left leg with chronic lymphedema but no erythema. Neuro: COMMON NORMALS: patient oriented x3 SENSORIUM/ORIENTATION: Yes alert Skin: COMMON NORMALS: no rashes or lesions noted GENERAL SKIN EXAM: no rashes or lesions noted Course Vital Signs: Vital signs: Vital Signs Temperature 98.6 F 05/06/25 21:43 Pulse Rate 111 H 05/06/25 21:43 Respiratory Rate 18 05/06/25 21:43 Blood Pressure 162/82 05/06/25 21:43 Pulse Oximetry 96 05/06/25 21:43 Oxygen Delivery Me thod Room Air 05/06/25 21:43 MDM - Extremity (Nontraumatic) Lab Data 05/06/25 22:13 05/06/25 22:13 Laboratory Results WBC 6.15 10^3/uL (3.29-11.43) 05/06/25 22:13 RBC 4.44 10^6/uL (3.85-5.65) 05/06/25 22:13 Hgb 11.20 g/dL (11.27-16.99) L 05/06/25 22:13 Hct 35.8 % (36-47) L 05/06/25 22:13 MCV 80.6 fl (85-98) L 05/06/25 22:13 MCH 25.2 pg (27-33) L 05/06/25 22:13 MCHC 31.3 g/dL (30-55) 05/06/25 22:13 RDW 14.2 % (12.1-15.1) 05/06/25 22:13 Plt Count 160 10^3/cmm (157-399) 05/06/25 22:13 MPV 8.8 fL (7.4-10.4) 05/06/25 22:13 Neut % (Auto) 61.2 % 05/06/25 22:13 Lymph % (Auto) 32.2 % 05/06/25 22:13 Brooke % (Auto) 5.0 % 05/06/25 22:13 Eos % (Auto) 1.0 % 05/06/25 22:13 Baso % (Auto) 0.3 % 05/06/25 22:13 Neut # (Auto) 3.76 10^3/uL (1.8-7.7) 05/06/25 22:13 Lymph # (Auto) 2.0 10^3/uL (0.8-4.8) 05/06/25 22:13 Brooke # (Auto) 0.3 10^3/uL (0.2-0.9) 05/06/25 22:13 Eos # (Auto) 0.1 10^3/uL (0.0-0.8) 05/06/25 22:13 Baso # (Auto) 0.0 10^3/uL (0.0-0.1) 05/06/25 22:13 Nucleated RBC % (auto) 0 % 05/06/25 22:13 Nucleated RBCs # 0.0 /100WBC 05/06/25 22:13 Sodium 138 mmol/L (136-145) 05/06/25 22:13 Potassium 2.6 mmol/L (3.5-5.1) L* 05/06/25 22:13 Chloride 96 mmol/L (98-107) L 05/06/25 22:13 Carbon Dioxide 30 mmol/L (22-29) H 05/06/25 22:13 Anion Gap 14.6 (5-19) 05/06/25 22:13 BUN 7 mg/dL (6-20) 05/06/25 22:13 Creatinine 0.6 mg/dL (0.5-0.9) 05/06/25 22:13 GFR Calculation 110.7 mL/min (90-130) 05/06/25 22:13 Glucose 100 mg/dL (65-115) 05/06/25 22:13 Calculated Osmolality 284 mOsm/kg (285-295) L 05/06/25 22:13 Lactic Acid 0.8 mmol/L (0.5-2.2) 05/06/25 22:13 Calcium 8.9 mg/dL (8.5-10.5) 05/06/25 22:13 Total Bilirubin 0.3 mg/dL (0.15-1.2) 05/06/25 22:13 AST 14 U/L (0-32) 05/06/25 22:13 ALT 10 U/L (0-33) 05/06/25 22:13 Alkaline Phosphatase 78 U/L (35-105) 05/06/25 22:13 Total Protein 7.4 g/dL (6.6-8.7) 05/06/25 22:13 Albumin 3.9 g/dL (3.5-5.2) 05/06/25 22:13 Globulin 3.5 g/dL (1.3-4.6) 05/06/25 22:13 Discharge Plan Discharge Clinical Impression: Cellulitis of right leg without foot, Acute hypokalemia Condition: Stable Prescriptions: No Action cefadroxil 500 mg capsule 500 mg PO BID Qty: 30 2RF clotrimazole 1 % cream 1 applic topical BID 56 Days Qty: 15 3RF pantoprazole [Protonix] 40 mg tablet,delayed release (DR/EC) 40 mg PO DAILY Qty: 30 0RF pantoprazole 40 mg tablet,delayed release (DR/EC) 40 mg PO DAILY ferrous sulfate 325 mg (65 mg iron) tablet 325 mg PO DAILY losartan-hydrochlorothiazide 50-12.5 mg tablet 1 tab PO DAILY Zepbound 2.5 mg/0.5 mL pen injector 2.5 mg SUBCUT Q7D Referrals: Makenzie Wheeler PA [Primary Care Provider, [employer]] Print Language: Mexican Coding Level of Care Code ED Sanitary Engineer for Shanneng Keith
[2025-05-07] VITALS (11 sets, daily range): BP systolic 100–146; BP diastolic 64–83; PULSE 79–97; RESP 11–18; TEMP 36.3–36.8; O2SAT 92–98
[2025-05-07 00:14] LABS: Procalcitonin 0.05 ng/mL (0-0.5)
--- NOTE | 2025-05-07 00:24 | PM.HP ---
Providers/Chief Complaint Admitting Physician: Cristino Kirk MD Primary Care Provider: Makenzie Wheeler Chief Complaint: Rt Leg Swollen History of Present Illness Daniela Pulido is a 40 year old female with a history of morbid obesity (BMI 66.6), chronic bilateral lower-extremity lymphedema, hypertension and prior right lower-extremity cellulitis complicated by sepsis (March 2025) presenting to the ED earlier tonight for rapidly progressive redness of the right leg noticed this morning. She completed a course of cefadroxil and clotrimazole after her March admission. Today she noted mild pink discoloration that progressed quickly, prompting ED visit given prior sepsis history. Associated symptoms: fatigue, multiple episodes of vomiting, palpitations; denies fever at home, diarrhea, hematochezia, melena, dysuria or new rashes elsewhere. In the ED: BP 162/82 mmHg, HR 111 bpm, T 98.6 ?F, RR 18, SpO2 96%. Labs: WBC 6.5, Hgb 11.2 (chronic), platelets WNL, K 2.6, Na WNL, Cl 96, HCO3 30, anion gap 14.6, BUN/Cr WNL, lactate 0.8. Blood glucose 100 (A1c 5.9 on 04/14/25). Procal pending. Imaging of the right leg with contrast ordered to rule out abscess. No open wounds seen; right leg tender. She denies current tobacco, alcohol or recreational drug use; former smoker. Review of Systems Const: Reports: malaise; Denies: fever(s), chills or body aches ENMT: Denies: throat pain Card: Denies: chest pain, edema, pre-syncope or dyspnea on exertion Resp: Denies: dyspnea, productive cough, change in phlegm color or hemoptysis GI: Reports: nausea and vomiting; Denies: abdominal pain, diarrhea, constipation, hematochezia or melena : Denies: flank pain, urinary frequency or hematuria Musc: Denies: back pain, joint swelling or joint redness Skin/Breast: Reports: rash; Denies: new lesions Neuro: Denies: headache(s) or confusion Medications/Allergies Home Medications ?Medication ?Instructions ?Recorded ?Confirmed ?Last Taken ?Type cefadroxil 500 mg capsule 500 mg PO BID chronic suppression 04/14/25 05/01/2504/30/25 Rx #30 caps clotrimazole 1 % topical cream 1 applic topical BID 8 weeks #15 04/14/25 05/01/25 04/30/25 Rx grams ferrous sulfate 325 mg (65 mg 325 mg PO DAILY 05/01/25 05/01/25 04/30/25 History iron) tablet losartan 50 mg-hydrochlorothiazide 1 tab PO DAILY 05/01/25 05/01/25 04/30/25 History 12.5 mg tablet pantoprazole 40 mg tablet,delayed 40 mg PO DAILY 05/01/25 05/01/25 04/30/25 History release pantoprazole 40 mg tablet,delayed 40 mg PO DAILY #30 tabs 05/01/25 Unknown Rx release (Protonix) tirzepatide (weight loss) 2.5 2.5 mg SUBCUT Q7D 05/01/25 05/01/25 04/29/25 History mg/0.5 mL subcutaneous pen injector (Zepbound) Allergies Allergy/AdvReac Type Severity Reaction Status Date / Time amphetamine (From Adderall) Allergy SOB Verified 01/02/25 19:01 dextroamphetamine (From Allergy SOB Verified 01/02/25 19:01 Adderall) morphine Allergy RASH Verified 01/02/25 19:01 PFSH Acute PFSH: Medical History Morbid obesity with BMI of 70 and over, adult Bowel obstruction Essential hypertension Surgical History H/O: hysterectomy History of cholecystectomy Family History Other CAD (coronary artery disease) Diabetes Hypertension Social History Smoking and tobacco/nicotine status: former use of tobacco/nicotine Quit status (tobacco/nicotine): has quit using Year quit tobacco: 2019 Alcohol intake: never Substance/Drug Use: never Additional social history: Patient wants full code as discussed 04/12/2025 with Nikhil Gardiner MD Vitals/I&O/Wt Last Vital Signs Temp 98.6 F 05/06/25 21:43 Pulse 111 H 05/06/25 21:43 Resp 18 05/06/25 21:43 BP 162/82 05/06/25 21:43 Pulse Ox 96 05/06/25 21:43 O2 Del Method Room Air 05/06/25 21:43 05/06/25 05/06/25 05/07/25 14:59 22:59 06:59 Intake Total 0 / 0 Balance 0 / 0 Weight last 48 hrs Weight 181.437 kg Physical Exam Const: COMMON NORMALS: patient oriented x3 and alert GENERAL APPEARANCE: cooperative ORIENTATION/CONSCIOUSNESS: Yes awake HENMT: COMMON NORMALS: oropharynx normal Neck/C-Spine: COMMON NORMALS: no JVD Resp: COMMON NORMALS: normal respiratory effort and clear to auscultation bilaterally AUSCULTATION: clear to auscultation bilaterally Cardio: COMMON NORMALS: no JVD, regular rhythm, S1 normal heart sound present, S2 normal heart sound present and No murmurs present (Cardio) RHYTHM: regular rhythm HEART SOUNDS: S1 normal heart sound present and S2 normal heart sound present GI: COMMON NORMALS: Normal to inspection, nondistended, normoactive bowel sounds present, Soft to palpation and non-tender PALPATION: Yes Soft to palpation Extremity: NARRATIVE EXTREMITY EXAM: Chronic bilateral lymphedema; right lower extremity with pink discoloration and tenderness, no open wounds or drainage; left leg without new findings. Neuro: COMMON NORMALS: patient oriented x3 and moves all extremities SENSORIUM/ORIENTATION: Yes alert Skin: COMMON NORMALS: no rashes or lesions noted RASHES: rashes noted (erythema of ant, med and post aspect of RLE) OTHER: No open sores or blisters Data 05/06/25 22:13 05/06/25 22:13 Micro: Microbiology 05/06/25 22:17 Blood Culture - Preliminary Blood SPECIMEN COLLECTED 05/06/25 22:13 Blood Culture - Preliminary Blood SPECIMEN COLLECTED A&P Assessment and plan 1. Cellulitis of leg, right: Recurrent right lower extremity cellulitis : Recurrence of right-leg cellulitis on background of chronic lymphedema; rapid onset today; afebrile but tachycardic; WBC normal; prior episode complicated by sepsis. Imaging ordered to rule out abscess. Broad-spectrum IV antibiotics initiated. MRSA screening planned. Holding home suppressive cefadroxil during hospitalization. Reviewed vitals, CBC, CMP, lactic acid, procalcitonin, ED provider note, discussed with accepting hospitalist. Previously with sepsis, currently with sinus tachycardia, although otherwise not yet exhibiting signs of sepsis. Monitor for progression. - Continue IV Zosyn plus vancomycin for broad-spectrum/MRSA coverage. Monitor for risk of C. difficile, cytopenia, SJS. - Obtain MRSA PCR swab. - CT right lower leg with contrast to evaluate for collection/abscess is pending. - Monitor renal function for nephrotoxicity from antibiotic combination and IV contrast. - Hold chronic cefadroxil while inpatient; consider resuming after discharge. She takes it 1 tab a day after she completed initial course. - Continue clotrimazole cream to affected area. - Arrange outpatient infectious-disease follow-up post-discharge. Plan: Nausea and vomiting: Suspect related to acute infection. She otherwise denies any nausea or vomiting preceding development of cellulitis, currently she is also feeling better with nausea vomiting resolved. Trial of oral intake. She does not take any NSAIDs. Does not drink alcohol. Continue Protonix. Does have history of GERD. In case of persistent or recurrent symptoms consider follow-up for arrangements for further investigation. Hypokalemia : Serum potassium 2.6 mEq/L on arrival; has received potassium replacement. Check magnesium. Recheck chemistry. Continue losartan. Hypertension : Known HTN on losartan/HCTZ; ED BP 162/82. - Continue home losartan/HCTZ. Morbid obesity : BMI 66.6; on weekly terzipatide for weight management. - Continue terzipatide weekly. GERD : On pantoprazole for acid suppression. - Continue pantoprazole daily. PDMP PDMP Reviewed: Not Reviewed Attestations Medical Necessity Statement*: Place in observation for additional assessment management of recurrence of right lower extremity cellulitis superimposed on chronic lymphedema and lady already on chronic antibiotic suppression, at risk of progression of sepsis due to prior sepsis with cellulitis. and High MDM includes amount and/or complexity of data reviewed/ordered [ previous or external records, resulted lab(s)/test(s), ordered lab(s)/test(s) and other healthcare professional discussion] and described risk of complication, morbidity or mortality of management as documented Diagnoses Cellulitis of leg, right L03.115
[2025-05-07 01:06] LABS: Thyroid Stimulating Hormone 3.05 uIU/mL (0.27-4.20)
[2025-05-07] MEDS: iohexol 350 mg/mL 500 mL Btl (per mL) IV (01:15)
[2025-05-07 02:01] LABS: Vitamin B12 670 pg/mL (232-1245)
[2025-05-07] MEDS: piperacillin-tazobactam 3.375 GM in sodium chloride 0.9% (plus) 50 ML IV ×3 (03:20→16:57)
[2025-05-07] MEDS: heparin 5,000 unit/mL INJ 1 mL 5000 UNIT SUBCUT ×2 (03:33→12:37)
[2025-05-07 04:41] LABS: Glucose Urine UA Negative (Normal); Nitrate Urine Negative (Negative)
[2025-05-07 04:48] LABS: Add Urine Microscopic? YES
[2025-05-07 04:57] LABS: Specific Gravity, Urine 1.067 (1.005-1.030)
[2025-05-07 05:21] LABS: Hematocrit 31.7 % (36-47); Hemoglobin 10.10 g/dL (11.27-16.99); Mean Corpuscular HGB Conc 31.9 g/dL (30-55); Mean Corpuscular Hemoglobin 25.8 pg (27-33); Mean Corpuscular Volume 80.9 fl (85-98); Nucleated Red Blood Cells % 0 %; Platelet Count 119 10^3/cmm (157-399); Red Blood Count 3.92 10^6/uL (3.85-5.65); White Blood Count 4.01 10^3/uL (3.29-11.43)
[2025-05-07 05:42] LABS: Alanine Aminotransferase 9 U/L (0-33); Albumin Level 3.3 g/dL (3.5-5.2); Alkaline Phosphatase 58 U/L (35-105); Anion Gap 13.7 (5-19); Aspartate Amino Transferase 13 U/L (0-32); Blood Urea Nitrogen 6 mg/dL (6-20); Calcium 8.1 mg/dL (8.5-10.5); Carbon Dioxide 29 mmol/L (22-29); Chloride 99 mmol/L (98-107); Creatinine Clr Calc Pharmacy 259.0469; Globulin 3.1 g/dL (1.3-4.6); Glucose 85 mg/dL (65-115); Magnesium 1.7 mg/dL (1.7-2.3); Osmolality Calculated 285 mOsm/kg (285-295); Sodium 139 mmol/L (136-145); Total Protein 6.4 g/dL (6.6-8.7)
[2025-05-07 05:43] LABS: Cholesterol 101 mg/dL (0-200); HDL Cholesterol 47 mg/dL (60-100); Triglycerides 54 mg/dL (0-150)
[2025-05-07 05:49] LABS: Potassium 2.7 mmol/L (3.5-5.1); Procalcitonin 0.06 ng/mL (0-0.5)
[2025-05-07 05:58] LABS: MRSA PCR OZH (swab) NOT DETECTED (Not Detecte)
[2025-05-07] MEDS: magnesium sulfate premix 2 GM/50 ML PIGGYBACK IV (06:36)
--- OUTSIDE RECORDS SUMMARY | 2025-05-07 07:26 | XMS_ITS | Clinical Summary ---
Author Organization [facility] Address [address] [place] [address] Phone Care Team Providers Care Ship Pilot Name Role Phone Nevaeh Hernández MD Primary Care Provider [phone] Allergies Active Allergy Reactions Criticality Noted Date [...] 03/09/2025 External Device Data Initial Department [address] [place]: [place] [address] [facility] 03/09/2025 Results Follow-Up [address] [phone] Katheryn Singh NP CBC WITH DIFFERENTIAL, FERRITIN, IRON, TIBC, AND PERCENT SATURATION, Additional followed-up results: 2 03/08/2025 2:45 PM CDT Office Visit [address] [phone] Katheryn Singh, RAFY Other fatigue (Primary Dx); Prediabetes; H/O total hysterectomy; Microcytosis; Declined influenza vaccine; Morbid obesity with BMI of 60.0-69.9, adult ([facility]) 03/02/[address] [phone] Nevaeh Hernández MD ED f/u Appointment 02/27/[address] [phone] Daniel Potts PA-C Hospital Follow Up 02/06/2025 [...] Comments DTAP/TDAP/TD VACCINES (2 - Tdap) 08/22/1998 08/21/19 98 HEPATITIS B VACCINES (2 of 3 - 3-dose series) 09/18/1998 08/21/1998 HPV VACCINES (1 - 3-dose series) 2000 BREAST CANCER SCREENING 2025 INFLUENZA VACCINE (#1) 2025 , 03/08/2025, 07/28/2023 Pre-Diabetes and Diabetes Screening 03/08/202803/08, 02/04/2024 Procedures Procedure Name Priority Date/Time Associated Diagnosis [...] VITAMIN B12 502 200 - 1100 pg/mL [facility] FOLATE, SERUM 13.4 ng/mL [facility] Comment: Reference Range Low: <3.4 Borderline: 3.4-5.4 Normal: >5.4 FASTING:NO FASTING: NO Test Performed at: [facility] [address] [place] [id number] Patsy Raymundo MD Blood 03/08/2025 3:08 PM CDT 03/08/2025 3:09 PM CDT Katheryn Singh NP CHEMISTRY ORDERABLES Final Resul t [facility] [phone] [address] * IRON, TIBC, AND PERCENT SATURATION (03/08/2025 3:08 PM CDT) Pathologist [facility] IRON 60 40 - 190 mcg/dL [facility] TIBC 353 250 - 450 mcg/dL (calc) [facility] IRON % SATURATION 17 16 - 45 % (calc) [facility] Comment: FASTING:NO FASTING: NO Test Performed at: [facility] [address] [place] [address] [place] [address] Patsy Raymundo MD Blood 03/08/2025 3:08 PM CDT 03/08/2025 3:09 PM CDT us Katheryn Singh MICROBIOLOGICAL LAB TECHNICIAN CHEMISTRY ORDERABLES Final Resul t [facility] [phone] [facility] [address] [address] [phone] * (ABNORMAL) CBC WITH DIFFERENTIAL (03/08/2025 3:08 [...] Comment: FASTING:NO FASTING: NO Test Performed at: [facility] [address] [address] [address] Patsy Raymundo MD Blood 03/08/2025 3:08 PM CDT 03/08/2025 3:09 PM CDT Katheryn Singh MICROBIOLOGICAL LAB TECHNICIAN HEMATOLOGY ORDERABLES Final Resu lt [facility] [phone] [facility] [address] [address] * (ABNORMAL) HEMOGLOBIN A1C (03/08/2025 3:08 PM [...] Comment: FASTING:NO FASTING: NO Test Performed at: [facility] [address] [place] [address] Patsy Raymundo MD Blood 03/08/2025 3:08 PM CDT 03/08/2025 3:09 PM CDT Katheryn Singh MICROBIOLOGICAL LAB TECHNICIAN CHEMISTRY ORDERABLES Final Resul t [facility] [phone] [facility] [address] * (ABNORMAL) FERRITIN (03/08/2025 3:08 PM CDT) FERRITIN 14(L) 16 - 154 ng/mL [facility] Comment: Test Performed at: [facility] [address] Patsy Raymundo MD Blood 03/08/2025 3:08 PM CDT 03/08/2025 3:09 PM CDT us Katheryn Singh MICROBIOLOGICAL LAB TECHNICIAN CHEMISTRY ORDERABLES Final Resul t [facility] [phone] [facility] [address] from Last 3 Months Insurance [address] [place] [address] RX [employer] (INTERNAL) [facility] RX [facility] (INTERNAL) [facility] Internal [facility] RX [facility] Commercial RX [employer] [facility] [place] Advance Directives For more information, please contact: [phone] * Full Code (Latest Code Status on File) Date Activated Date Inactivated Comments 01/09/2025 5:22 PM 01/11/2025 4:11 PM * Full Code Date Activated Date Inactivated Comments 04/08/2024 11:11 PM 04/09/2024 5:15 PM * Full Code Date Activated Date Inactivated Comments 02/03/2024 5:43 PM 02/06/2024 2:34 PM * Full Code Date Activated Date Inactivated Comments 08/15/2023 10:09 PM 08/18/2023 6:07 PM Care Teams Ship Pilot Relationship Specialty Start Date End Date Nevaeh Hernández MD [address] [place] [address] PCP - General Internal Medicine 03/09/24
--- OUTSIDE RECORDS SUMMARY | 2025-05-07 07:27 | XMS_ITS | Patient Health Record ---
Author Organization [facility] Address [address] [place] [address] Care Team Providers Care Point Of Sale Associate Name Role Phone Daniel Whiting Unavailable [phone] Reason For Referral No Information Plan Of Treatment No Information
[2025-05-07] MEDS: ferrous sulfate EC 325 mg Tablet PO (08:57)
--- NOTE | 2025-05-07 09:30 | PC.NURSE ---
AMY HILTON TO HOLD LOSARTAN DUE TO BP.
--- NOTE | 2025-05-07 13:47 | PHA.VACGOAL ---
Vancomycin Goal - Goal Vancomycin Goal:: 10-15 mg/L Vancomycin Indication:: SSTI - Therapy Current therapy:: Pip/Tazo Day of therpy:: Day []of [] . Actual body weight (kg): 416 lb 3 oz - Data Labs: WBC 4.01 10^3/uL (3.29-11.43) 05/07/25 05:16 RBC 3.92 10^6/uL (3.85-5.65) 05/07/25 05:16 Hgb 10.10 g/dL (11.27-16.99) L 05/07/25 05:16 Hct 31.7 % (36-47) L 05/07/25 05:16 MCV 80.9 fl (85-98) L 05/07/25 05:16 MCH 25.8 pg (27-33) L 05/07/25 05:16 MCHC 31.9 g/dL (30-55) 05/07/25 05:16 RDW 14.3 % (12.1-15.1) 05/07/25 05:16 Sodium 139 mmol/L (136-145) 05/07/25 05:16 Potassium 2.7 mmol/L (3.5-5.1) L* 05/07/25 05:16 Chloride 99 mmol/L (98-107) 05/07/25 05:16 Carbon Dioxide 29 mmol/L (22-29) 05/07/25 05:16 Anion Gap 13.7 (5-19) 05/07/25 05:16 BUN 6 mg/dL (6-20) 05/07/25 05:16 Creatinine 0.5 mg/dL (0.5-0.9) 05/07/25 05:16 GFR Calculation 136.6 mL/min (90-130) H 05/07/25 05:16 Last dialysis session:: N/A Treatment plan:: new consult Regimen:: INITIAL MAINTENANCE DOSE OF 2000 MG PER TELEPHARMACY Follow up:: WILL CONTINUE TO MONITOR AND FOLLOW UP DAILY
[2025-05-07 17:45] LABS: Anion Gap 13.8 (5-19); Blood Urea Nitrogen 5 mg/dL (6-20); Calcium 8.5 mg/dL (8.5-10.5); Carbon Dioxide 28 mmol/L (22-29); Chloride 103 mmol/L (98-107); Creatinine Clr Calc Pharmacy 259.0413; Glucose 86 mg/dL (65-115); Osmolality Calculated 289 mOsm/kg (285-295); Potassium 3.8 mmol/L (3.5-5.1); Sodium 141 mmol/L (136-145)
[2025-05-08] MEDS: heparin 5,000 unit/mL INJ 1 mL 5000 UNIT SUBCUT (01:28)
[2025-05-08] MEDS: piperacillin-tazobactam 3.375 GM in sodium chloride 0.9% (plus) 50 ML IV (01:28)
[2025-05-08 04:00] VITALS: BP 104/69; PULSE 79; RESP 14; TEMP 36.6; O2SAT 93
[2025-05-08 05:02] LABS: Hematocrit 33.3 % (36-47); Hemoglobin 10.50 g/dL (11.27-16.99); Mean Corpuscular HGB Conc 31.5 g/dL (30-55); Mean Corpuscular Hemoglobin 26.2 pg (27-33); Mean Corpuscular Volume 83.0 fl (85-98); Nucleated Red Blood Cells % 0 %; Platelet Count 141 10^3/cmm (157-399); Red Blood Count 4.01 10^6/uL (3.85-5.65); White Blood Count 4.43 10^3/uL (3.29-11.43)
[2025-05-08 05:20] LABS: Alanine Aminotransferase 9 U/L (0-33); Albumin Level 3.1 g/dL (3.5-5.2); Alkaline Phosphatase 60 U/L (35-105); Anion Gap 12.8 (5-19); Aspartate Amino Transferase 12 U/L (0-32); Blood Urea Nitrogen 5 mg/dL (6-20); Calcium 8.5 mg/dL (8.5-10.5); Carbon Dioxide 27 mmol/L (22-29); Chloride 104 mmol/L (98-107); Creatinine Clr Calc Pharmacy 258.0619; Globulin 3.4 g/dL (1.3-4.6); Glucose 88 mg/dL (65-115); Magnesium 2.1 mg/dL (1.7-2.3); Osmolality Calculated 287 mOsm/kg (285-295); Potassium 3.8 mmol/L (3.5-5.1); Sodium 140 mmol/L (136-145); Total Protein 6.5 g/dL (6.6-8.7)
[2025-05-08 06:48] VITALS: PULSE 75
[2025-05-08] MEDS: ferrous sulfate EC 325 mg Tablet PO (07:47)
[2025-05-08 08:19] VITALS: BP 123/91; PULSE 80; RESP 14; TEMP 37.1; O2SAT 93
--- NOTE | 2025-05-08 09:13 | P.DS_ITS ---
Discharge Providers Date of Admission: 05/07/25 00:10 Date of Discharge: May 08, 2025 Attending Provider at Admission: Cristino Kirk MD Attending Provider at Discharge: Nidhi Segovia MD Primary Care Provider: Makenzie Wheeler Diagnoses at Discharge Discharge Diagnosis 1. Cellulitis of leg, right: Reason for Visit Reason for Visit: Rt Leg Swollen Brief History: History as per HPI: Daniela Pulido is a 40 year old female with a history of morbid obesity (BMI 66.6), chronic bilateral lower-extremity lymphedema, hypertension and prior right lower-extremity cellulitis complicated by sepsis (March 2025) presenting to the ED earlier tonight for rapidly progressive redness of the right leg noticed this morning. She completed a course of cefadroxil and clotrimazole after her March admission. Today she noted mild pink discoloration that progressed quickly, prompting ED visit given prior sepsis history. Associated symptoms: fatigue, multiple episodes of vomiting, palpitations; denies fever at home, diarrhea, hematochezia, melena, dysuria or new rashes elsewhere. In the ED: BP 162/82 mmHg, HR 111 bpm, T 98.6 ?F, RR 18, SpO2 96%. Labs: WBC 6.5, Hgb 11.2 (chronic), platelets WNL, K 2.6, Na WNL, Cl 96, HCO3 30, anion gap 14.6, BUN/Cr WNL, lactate 0.8. Blood glucose 100 (A1c 5.9 on 04/14/25). Procal pending. Imaging of the right leg with contrast ordered to rule out abscess. No open wounds seen; right leg tender. She denies current tobacco, alcohol or recreational drug use; former smoker. Hospital Course Hospital Course Patient was admitted to the hospital further evaluation and management of recurrent cellulitis with failure to outpatient suppressive therapy. She was started on broad-spectrum antibiotics. MRSA swab was negative. CT lower limb was negative for collection/abscess or deep tissue infection. Her cellulitis improved with IV antibiotics. She has been discharged back to stable condition with oral Augmentin and Levaquin for next 1 week. She has to follow-up with ID clinic on 05/15 at 10:30 AM. She is to continue using antifungal cream as before. Safe discharge plan were discussed in detail with the patient and she verbalized understanding. Physical Exam Const: COMMON NORMALS: patient oriented x3 and alert GENERAL APPEARANCE: cooperative ORIENTATION/CONSCIOUSNESS: Yes awake HENMT: COMMON NORMALS: oropharynx normal Neck/C-Spine: COMMON NORMALS: no JVD Resp: COMMON NORMALS: normal respiratory effort and clear to auscultation bilaterally AUSCULTATION: clear to auscultation bilaterally Cardio: COMMON NORMALS: no JVD, regular rhythm, S1 normal heart sound present, S2 normal heart sound present and No murmurs present (Cardio) RHYTHM: regular rhythm HEART SOUNDS: S1 normal heart sound present and S2 normal heart sound present GI: COMMON NORMALS: Normal to inspection, nondistended, normoactive bowel sounds present, Soft to palpation and non-tender PALPATION: Yes Soft to palpation Extremity: NARRATIVE EXTREMITY EXAM: Chronic bilateral lymphedema; right lower extremity with pink discoloration and tenderness, no open wounds or drainage; left leg without new findings. Neuro: COMMON NORMALS: patient oriented x3 and moves all extremities SENSORIUM/ORIENTATION: Yes alert Skin: COMMON NORMALS: no rashes or lesions noted GENERAL SKIN EXAM: no rashes or lesions noted RASHES: rashes noted (erythema of ant, med and post aspect of RLE) OTHER: No open sores or blisters Discharge Data Studies Completed and Pending Completed Studies During Hospitalization Category Date Time Status CT lower leg RT w con [id number] Stat Cat Scan 05/06/25 23:44 Completed Pending at discharge Category Date Time Status Blood Culture Stat Lab 05/06/25 22:17 Results Complete Blood Count w/Auto AM LABS Lab 05/09/25 04:00 Ordered Comprehensive Metabolic Panel AM LABS Lab 05/09/25 04:00 Ordered Magnesium AM LABS Lab 05/09/25 04:00 Ordered Phosphorus AM LABS Lab 05/09/25 04:00 Ordered Vancomycin Trough Timed Lab 05/09/25 07:00 Ordered Radiology Impressions Lower Extremity CT 05/06/25 23:44 IMPRESSION: Findings related to cellulitis of the right lower extremity without evidence of focal drainable abscess. No acute osseous abnormality. Laboratory Results WBC 4.43 10^3/uL (3.29-11.43) 05/08/25 04:18 RBC 4.01 10^6/uL (3.85-5.65) 05/08/25 04:18 Hgb 10.50 g/dL (11.27-16.99) L 05/08/25 04:18 Hct 33.3 % (36-47) L 05/08/25 04:18 MCV 83.0 fl (85-98) L 05/08/25 04:18 MCH 26.2 pg (27-33) L 05/08/25 04:18 MCHC 31.5 g/dL (30-55) 05/08/25 04:18 RDW 14.4 % (12.1-15.1) 05/08/25 04:18 Plt Count 141 10^3/cmm (157-399) L 05/08/25 04:18 MPV 8.9 fL (7.4-10.4) 05/08/25 04:18 Neut % (Auto) 53.2 % 05/08/25 04:18 Lymph % (Auto) 35.9 % 05/08/25 04:18 [place] % (Auto) 6.3 % 05/08/25 04:18 Eos % (Auto) 3.6 % 05/08/25 04:18 Baso % (Auto) 0.5 % 05/08/25 04:18 Neut # (Auto) 2.36 10^3/uL (1.8-7.7) 05/08/25 04:18 Lymph # (Auto) 1.6 10^3/uL (0.8-4.8) 05/08/25 04:18 [place] # (Auto) 0.3 10^3/uL (0.2-0.9) 05/08/25 04:18 Eos # (Auto) 0.2 10^3/uL (0.0-0.8) 05/08/25 04:18 Baso # (Auto) 0.0 10^3/uL (0.0-0.1) 05/08/25 04:18 Nucleated RBC % (auto) 0 % 05/08/25 04:18 Nucleated RBCs # 0.0 /100WBC 05/08/25 04:18 Sodium 140 mmol/L (136-145) 05/08/25 04:18 Potassium 3.8 mmol/L (3.5-5.1) 05/08/25 04:18 Chloride 104 mmol/L (98-107) 05/08/25 04:18 Carbon Dioxide 27 mmol/L (22-29) 05/08/25 04:18 Anion Gap 12.8 (5-19) 05/08/25 04:18 BUN 5 mg/dL (6-20) L 05/08/25 04:18 Creatinine 0.5 mg/dL (0.5-0.9) 05/08/25 04:18 GFR Calculation 136.6 mL/min (90-130) H 05/08/25 04:18 Glucose 88 mg/dL (65-115) 05/08/25 04:18 Calculated Osmolality 287 mOsm/kg (285-295) 05/08/25 04:18 Lactic Acid 0.8 mmol/L (0.5-2.2) 05/06/25 22:13 Calcium 8.5 mg/dL (8.5-10.5) 05/08/25 04:18 Phosphorus 3.3 mg/dL (2.5-4.5) 05/08/25 04:18 Magnesium 2.1 mg/dL (1.7-2.3) 05/08/25 04:18 Total Bilirubin 0.2 mg/dL (0.15-1.2) 05/08/25 04:18 AST 12 U/L (0-32) 05/08/25 04:18 ALT 9 U/L (0-33) 05/08/25 04:18 Alkaline Phosphatase 60 U/L (35-105) 05/08/25 04:18 Total Protein 6.5 g/dL (6.6-8.7) L 05/08/25 04:18 Albumin 3.1 g/dL (3.5-5.2) L 05/08/25 04:18 Globulin 3.4 g/dL (1.3-4.6) 05/08/25 04:18 Triglycerides 54 mg/dL (0-150) 05/07/25 05:16 Cholesterol 101 mg/dL (0-200) 05/07/25 05:16 LDL Cholesterol, Calc 43 mg/dL (50-129) L 05/07/25 05:16 HDL Cholesterol 47 mg/dL (60-100) L 05/07/25 05:16 LDL/HDL Ratio 0.91 RATIO (0.00-3.22) 05/07/25 05:16 Cholesterol/HDL Ratio 2.15 mg/dL (0.0-4.40) 05/07/25 05:16 Vitamin B12 670 pg/mL (232-1245) 05/06/25 22:13 Folate 13.9 ng/mL (4.8-37.3) 05/07/25 05:16 Procalcitonin 0.06 ng/mL (0-0.5) 05/07/25 05:16 TSH 3.05 uIU/mL (0.27-4.20) 05/06/25 22:13 Urine Color Yellow (Yellow) 05/07/25 04:27 Urine Appearance Cloudy (CLEAR) A 05/07/25 04:27 Urine pH 5.5 (5-7) 05/07/25 04:27 Ur Specific [place] 1.067 (1.005-1.030) H 05/07/25 04:27 Urine Protein Negative (Negative) 05/07/25 04:27 Urine Glucose (UA) Negative (Normal) 05/07/25 04:27 Urine Ketones Trace (Negative) 05/07/25 04:27 Urine Blood Negative (Negative) 05/07/25 04:27 Urine Nitrate Negative (Negative) 05/07/25 04:27 Urine Bilirubin Negative (Negative) 05/07/25 04:27 Urine Urobilinogen 1.0 mg/dL (Negative) 05/07/25 04:27 Ur Leukocyte Esterase Negative (Negative) 05/07/25 04:27 Urine RBC 0-2 /hpf (0-2) 05/07/25 04:27 Urine WBC 6-10 /hpf (0-5) 05/07/25 04:27 Ur Squamous Epith Cells 6-10 /hpf (0-5) 05/07/25 04:27 Amorphous Sediment Not Reportable 05/07/25 04:27 Urine Bacteria 2+ /hpf (NONE) H 05/07/25 04:27 Hyaline Casts 0-4 /lpf H 05/07/25 04:27 Nasal MRSA (PCR) Not detected (Not Detecte) 05/07/25 04:44 Vitals Last Vital Signs Temp 98.7 F 05/08/25 08:19 Pulse 80 05/08/25 08:19 Resp 14 05/08/25 08:19 BP 123/91 05/08/25 08:19 Pulse Ox 93 05/08/25 08:19 O2 Del Method Room Air 05/08/25 08:19 O2 Flow Rate 2 05/07/25 03:19 Discharge Plan Discharge Patient Disposition: Home Condition: Stable Prescriptions: New levofloxacin 750 mg tablet 750 mg PO Q24H 7 Days Qty: 7 0RF amoxicillin-pot clavulanate 875-125 mg tablet 1 tab PO BID 7 Days Qty: 14 0RF Continued clotrimazole 1 % cream 1 applic topical BID 56 Days Qty: 15 3RF pantoprazole [Protonix] 40 mg tablet,delayed release (DR/EC) 40 mg PO DAILY Qty: 30 0RF ferrous sulfate 325 mg (65 mg iron) tablet 325 mg PO DAILY losartan-hydrochlorothiazide 50-12.5 mg tablet 1 tab PO DAILY Zepbound 2.5 mg/0.5 mL pen injector 2.5 mg SUBCUT Q7D Rx Instructions: Wednesday ondansetron HCl 4 mg tablet 4 mg PO TID PRN (Reason: Nausea And Vomiting) albuterol sulfate 90 mcg/actuation HFA aerosol inhaler 2 puff INHALATION Q6H PRN (Reason: Shortness Of Breath) Discontinued cefadroxil 500 mg Capsule 500 mg PO DAILY Discharge Order = DC NOW: Discharge Order (Routine); Ordered 05/08/25 Ordered By: Cristino Kirk Referrals: [facility] [Provider Group, Infectious Disease] - 05/15/25 10:30 am Makenzie Wheeler PA [Primary Care Provider, [employer]] - 05/15/25 2:20 pm Patient Instructions: Amoxicillin/Clavulanate Potassium (By mouth), Levofloxacin (By mouth) (Levaquin, Levaquin Leva-alex), Cellulitis (GEN), Opioid Safety, Patient Portal & Jag Instructions Activity Restrictions/Additional Instructions: It is very important to avoid injury or infections of your affected limb. To avoid injury: ?Keep your skin clean. Wash with a mild soap every day. ?Be careful with your nails. Don't pick at the skin around your nails or cut your cuticles. ?Use lotion to keep your skin from getting dry and cracked ?Use an electric razor instead of a razor blade to shave ?Always use sunscreen when you go outside ?If an arm is affected, wear gloves when gardening, cooking, or doing other things that could hurt your skin ?If a leg is affected, wear hard-soled shoes when outside ?If you do get a small cut, scrape, or bite on your arm, hand, leg, or foot, clean it well with soap and water. Then use an antibiotic cream, such as bacitracin. Call your doctor or nurse if it does not heal quickly or if you have signs of an infection. ?When possible, avoid shots, blood draws, or IV lines in the limb with lymphedema. Avoid other procedures that puncture the skin, like acupuncture or tattooing. ?If you have lymphedema in an arm, avoid routinely having your blood pressure taken on that side ?Avoid saunas, steam baths, and hot tubs To help reduce the amount of swelling: ?Wear loose-fitting clothes and jewelry, unless it is a special garment or bandage your doctor or nurse gives you ?Keep your weight under control ?Do not let your arm hang at your side for long periods of time without moving it. If your leg is affected, avoid standing for long periods of time. ?Keep your limb raised on pillows when you're sitting or lying down Discharge Attestations Time Spent in Discharge Care*: greater than 30 min Specific Discharge Activities: educating patient, educating and/or supporting family/caregiver, discussing with pcp/other providers, discussing with top case assembler/social workers/dc planners, documenting/other paperwork and evaluating patient/reviewing data Status at Discharge: Cognitive status at discharge: cognitively intact , Behavioral status at discharge: cooperative , Functional status at discharge: independent ambulation , Overall status at discharge: patient is progressing back to baseline Quality Metrics Clinical Quality Measures [ No reported AMI, CVA or VTE this stay] Coding Level of Care Code 01830 Total time (in minutes) for Discharge: 60 Diagnoses Cellulitis of leg, right L03.115
[2025-05-08 11:20] VITALS: BP 123/91; PULSE 80; RESP 14; TEMP 37.1; O2SAT 93
== END 2025-05-08 11:51 | disposition home or self-care (01) ==
LOC: ER 23:04 → ER IP 05-07 01:29 → MEDSURG 05-07 11:41
PROVIDERS: Admitting Provider Student in an Organized Health Care Education/Training Program; Emergency Provider Student in an Organized Health Care Education/Training Program; PCP Physician Assistant; Visit Provider Internal Medicine
DX: L03.115 Cellulitis of right lower limb (principal); K21.9 Gastro-esophageal reflux disease without esophagitis; E66.01 Morbid (severe) obesity due to excess calories; Z68.44 Body mass index [BMI] 60.0-69.9, adult; I10 Essential (primary) hypertension; I87.323 Chronic venous hypertension (idiopathic) with inflammation of bilateral lower extremity; Z87.891 Personal history of nicotine dependence; E87.6 Hypokalemia
CPT/HCPCS: 36415; 73701; 80048; 80053; 80061; 81001; 82607; 82746; 83605; 83735; 84100; 84145; 84443; 85025; 87040; 94664; 96365; 96366; 96367; 96372; 96375; 99285; G0378; J0690; J1644; J2405; J2543; J3372; J3475; J7030; J9999

== ENCOUNTER 2025-06-05 13:40 | Outpatient (CLI) | payer MEDICAID, SELFPAY | END 2025-06-05 13:41 | disposition home or self-care (01) | LOC: RT 13:41 | PROVIDERS: PCP Physician Assistant; Visit Provider Physician Assistant | DX: R06.02 Shortness of breath (principal); R94.2 Abnormal results of pulmonary function studies | CPT/HCPCS: 94010; 94726; 94729 ==

== ENCOUNTER 2025-06-06 08:46 | Outpatient (CLI) | payer MEDICAID, SELFPAY ==
--- NOTE | 2025-06-06 08:49 | USCV_ITS ---
Daniela Pulido Age: 40 Gender: F : 1985 Exam Date: 06/06/2025 09:11 Ordering Phys: Makenzie Wheeler Technologist: Exam Location: [facility] Indication: cp sob BP: 140 / 110 HR: 113 Rhythm: Sinus Technical Quality: Adequate MEASUREMENTS (Male / Female) Normal Values 2D ECHO LV Diastolic Diameter PLAX 4.8 cm 4.2 - 5.9 / 3.9 - 5.3 cm IVS Diastolic Thickness 1.7 cm 0.6 - 1.0 / 0.6 - 0.9 cm IVS Systolic Thickness 1.5 cm LVPW Diastolic Thickness 1.1 cm 0.6 - 1.0 / 0.6 - 0.9 cm LVPW Systolic Thickness 1.8 cm LVOT Diameter 2.0 cm LV Ejection Fraction 2D Teich 73.1 % LV Ejection Fraction MOD 2C 60.1 % LV Ejection Fraction 2C AL 60.7 % LA Diameter 4.0 cm RA Systolic Volume 4C AL 71.2 ml RA Systolic Volume 4C MOD 69.7 ml Aorta at Sinotubular Diameter 3.4 cm M-MODE LA Ao Ratio MM 1.3 AV Cusp Separation MM 2.5 cm DOPPLER AV Peak Velocity 131.0 cm/s LVOT Peak Velocity 116.0 cm/s AV Area Cont Eq vti 2.9 cm squared AV Area Cont Eq pk 2.8 cm squared MV Peak Velocity 91.0 cm/s MV Area PHT 7.5 cm squared Mitral E to A Ratio 0.8 TV Peak Velocity 238.5 cm/s TR Peak Velocity 263.0 cm/s TR Peak Gradient 27.7 mmHg TV Peak E Velocity 87.0 cm/s PV Peak Velocity 104.0 cm/s FINDINGS Left Ventricle Normal left ventricular size, systolic function and wall thickness, with no regional wall motion abnormalities. Left ventricular ejection fraction is estimated at 60%. Grade I/IV diastolic dysfunction (abnormal relaxation filling pattern), normal to mildly elevated filling pressures. Right Ventricle The right ventricle is normal in size and function. Right Atrium The right atrium is normal in size. Left Atrium The left atrium is normal in size. Mitral Valve Structurally normal mitral valve without significant stenosis or prolapse. There is no mitral regurgitation. Aortic Valve Structurally normal aortic valve without significant sclerosis or stenosis. There is no aortic regurgitation. Tricuspid Valve Structurally normal tricuspid valve without significant stenosis or regurgitation. Pulmonary artery systolic pressure is normal. Pulmonic Valve Structurally normal pulmonic valve without significant stenosis. There is no pulmonic regurgitation. Pericardium Normal pericardium without effusion. Aorta Normal ascending aorta dimension. IVC The inferior vena cava appears normal. CONCLUSIONS Normal left ventricular size, systolic function and wall thickness, with no regional wall motion abnormalities. Left ventricular ejection fraction is estimated at 60%. Grade I/IV diastolic dysfunction (abnormal relaxation filling pattern), normal to mildly elevated filling pressures. There is no pericardial effusion. No significant valve abnormalities. Right atrial pressure is around 5 mm of mercury. Khadijah Elizalde MD (Electronically Signed) Final Date: 13 June 2025 20:15 S
== END 2025-06-06 08:47 | disposition home or self-care (01) ==
LOC: RAD 08:46
PROVIDERS: PCP Physician Assistant; Visit Provider Physician Assistant
DX: I51.7 Cardiomegaly (principal); R93.1 Abnormal findings on diagnostic imaging of heart and coronary circulation
CPT/HCPCS: 93306

== ENCOUNTER 2025-06-12 20:00 | Outpatient (CLI) | payer MEDICAID, SELFPAY | END 2025-06-12 20:01 | disposition home or self-care (01) | LOC: SLEEP 06-15 05:50 | PROVIDERS: PCP Physician Assistant; Visit Provider Internal Medicine Pulmonary Disease | DX: G47.33 Obstructive sleep apnea (adult) (pediatric) (principal) | CPT/HCPCS: 95810 ==

== ENCOUNTER 2025-06-13 18:38 | Emergency (ER) | payer MEDICAID, SELFPAY ==
[2025-06-13 18:39] VITALS: BP 90/60; PULSE 98; RESP 18; TEMP 36.7; O2SAT 97
--- OUTSIDE RECORDS SUMMARY | 2025-06-13 18:42 | XMS_ITS | Encounter Summary ---
Author Organization [facility] Address [address] [place] [address] Care Team Providers Care Consulting Sales Executive Name Role Phone Nevaeh Hernández MD Primary Care Provider [phone] Encounter Details Date Type Department Care Team (Late st Contact Info) Description 06/05/2025 External Device Data [facility] ABSTRACTION Provider, Abstract [...] on filedocumented in this encounter Care Teams Consulting Sales Executive Relationship Specialty Start Date End Date Nevaeh Hernández MD [address] [place] [address] PCP - General Internal Medicine 03/09/24 documented as of this encounter
--- OUTSIDE RECORDS SUMMARY | 2025-06-13 18:42 | XMS_ITS | Clinical Summary ---
Author Organization [facility] Address [address] [place] [address] Phone Care Team Providers Care Repairer Kiln Car Name Role Phone Nevaeh Hernández MD Primary Care Provider [phone] Allergies Active Allergy Reactions Criticality Noted Date [...] Encounters Date Type Department Care Team Description 06/05/2025 External Device Data [facility] ABSTRACTION Provider, Abstract 06/05/2025 External Device Data [facility] ABSTRACTION Provider, Abstract 05/23/2025 External Device Data [facility] ABSTRACTION Provider, Abstract 05/15/2025 External Device Data [facility] ABSTRACTION Provider, Abstract [...] DTAP/TDAP/TD VACCINES (2 - Tdap) 08/22/1998 08/21/19 HEPATITIS B VACCINES (2 of 3 - 3-dose series) 09/18/1998 08/21/1998 HPV VACCINES (1 - 3-dose SCDM series) 2012 Preventative Visit- Commercial 10/18/2024 03/09/2024 , 08/26/2023 BREAST CANCER SCREENING 2025 INFLUENZA VACCINE (#1) 2025 , 03/08/2025, 07/28/2023 Pre-Diabetes and Diabetes Screening 03/08/202803/08, 02/04/2024 Procedures Procedure Name Priority Date/Time Associated Diagnosis Comments HEMOGLOBIN A1C Routine 03/08/2025 3:08 PM CDT Prediabetes from Last 3 Months or Most Recently Relevant to Health Maintenance Results * (ABNORMAL) HEMOGLOBIN A1C (03/08/2025 3:08 PM [...] [place] ESTIMATED AVERAGE GLUCOSE (MMOL/L) 6.6 mmol/L [facility] Comment: FASTING:NO FASTING: NO Test Performed at: [facility] [id number] [id number] Patsy Raymundo MD Blood 03/08/2025 3:08 PM CDT 03/08/2025 3:09 PM CDT us Katheryn Singh PARTS PERSON CHEMISTRY ORDERABLES Final Resul t [facility] [phone] [facility] [id number] [phone] from Last 3 Months or Most Recently Relevant to Health Maintenance Insurance RX [employer] (INTERNAL) [facility] RX SGF [employer] [place] (INTERNAL) [facility] RX [facility] Commercial RX [facility] Advance Directives For more information, please contact: [phone] * Full Code (Latest Code Status on File) Date Activated Date Inactivated Comments 01/09/2025 5:22 PM 01/11/2025 4:11 PM * Full Code Date Activated Date Inactivated Comments 04/08/2024 11:11 PM 04/09/2024 5:15 PM * Full Code Date Activated Date Inactivated Comments 02/03/2024 5:43 PM 02/06/2024 2:34 PM * Full Code Date Activated Date Inactivated Comments 08/15/2023 10:09 PM 08/18/2023 6:07 PM Care Teams Repairer Kiln Car Relationship Specialty Start Date End Date Nevaeh Hernández MD [address] [place] [address] PCP - General Internal Medicine 03/09/24
--- OUTSIDE RECORDS SUMMARY | 2025-06-13 18:42 | XMS_ITS | Patient Health Record ---
Author Organization [facility] Address [address] [place] [address] Care Team Providers Care Preparation Plant Supervisor Name Role Phone Daniel Whiting Unavailable [phone] Reason For Referral No Information Plan Of Treatment No Information
[2025-06-13 19:16] LABS: Hematocrit 39.9 % (36-47); Hemoglobin 12.50 g/dL (11.27-16.99); Mean Corpuscular HGB Conc 31.3 g/dL (30-55); Mean Corpuscular Hemoglobin 24.8 pg (27-33); Mean Corpuscular Volume 79.0 fl (85-98); Nucleated Red Blood Cells % 0 %; Platelet Count 169 10^3/cmm (157-399); Red Blood Count 5.05 10^6/uL (3.85-5.65); White Blood Count 8.10 10^3/uL (3.29-11.43)
[2025-06-13 19:37] LABS: Alanine Aminotransferase 10 U/L (0-33); Albumin Level 3.9 g/dL (3.5-5.2); Alkaline Phosphatase 89 U/L (35-105); Anion Gap 14.4 (5-19); Aspartate Amino Transferase 13 U/L (0-32); Blood Urea Nitrogen 12 mg/dL (6-20); Calcium 8.9 mg/dL (8.5-10.5); Carbon Dioxide 26 mmol/L (22-29); Chloride 102 mmol/L (98-107); Creatinine Clr Calc Pharmacy 212.5881; Globulin 3.8 g/dL (1.3-4.6); Glucose 104 mg/dL (65-115); Lipase 29 U/L (13-60); Osmolality Calculated 288 mOsm/kg (285-295); Potassium 3.4 mmol/L (3.5-5.1); Sodium 139 mmol/L (136-145); Total Protein 7.7 g/dL (6.6-8.7)
[2025-06-13 19:48] LABS: HCG, Serum Qual Negative (Negative)
--- NOTE | 2025-06-13 20:04 | CTR_ITS ---
PROCEDURE INFORMATION: Exam: CT Abdomen And Pelvis With Contrast Exam date and time: 06/13/2025 8:37 PM Age: 40 years old Clinical indication: Abdominal pain; Generalized; Prior surgery; Surgery date: 6+ months; Surgery type: Hysterectomy, gallbladder, colon TECHNIQUE: Imaging protocol: Computed tomography of the abdomen and pelvis with contrast. Radiation optimization: All CT scans at this facility use at least one of these dose optimization techniques: automated exposure control; mA and/or kV adjustment per patient size (includes targeted exams where dose is matched to clinical indication); or iterative reconstruction. Contrast material: OMNI PAQUE 350; Contrast volume: 100 ml; Contrast route: INTRAVENOUS (IV); COMPARISON: CT abdomen pelvis w con* [id number] 01/02/2025 8:52 PM RADIATION DOSE METRICS: Total DLP (mGy-cm): 1401.23 FINDINGS: Lungs: Clear basilar lung parenchyma. Pleural spaces: No pleural fluid. Heart: Normal heart size. Diaphragm: Small sliding hiatal hernia. Liver: Homogeneous low attenuation throughout the liver is compatible with fatty infiltration. Liver measures 24.3 cm in length. Gallbladder and biliary ducts: Prior cholecystectomy. No biliary tree dilation. Pancreas: Fatty atrophy of the pancreas without visible edema or mass. Spleen: Spleen measures 12.9 cm in length. Adrenal glands: Normal configuration. Kidneys and ureters: Kidneys enhance symmetrically and demonstrate no evidence of mass, calculus, obstruction, or inflammation. Stomach and bowel: Postprandial stomach. Normal caliber small bowel. Distal colonic diverticulosis without evidence of acute diverticulitis. Appendix: Normal appendix is confirmed. Intraperitoneal space: No free air. No significant fluid collection. Vasculature: Normal caliber arterial structures. Lymph nodes: No enlarged lymph nodes. Urinary bladder: Unremarkable as visualized. Reproductive: Prior hysterectomy. No evidence of vaginal cuff or adnexal mass. Bones/joints: No fracture or destructive lesion. Soft tissues: Small fat containing supraumbilical ventral hernia neck measures 2.4 x 1.9 cm. Surgical clips are noted in the ventral abdominal wall. No perineal/perianal abscess or inflammation. CT/CT abdomen pelvis w con* [id number] IMPRESSION: 1. No findings to explain patient's abdomen pain. A normal appendix is confirmed and there is no evidence of urolithiasis or bowel obstruction. There is diverticulosis, but no findings of acute diverticulitis. 2. Enlarged mildly fatty liver. Spleen is normal in size.
--- NOTE | 2025-06-13 20:11 | W.ED.ABDPA2 ---
HPI - Abdominal Pain General: Chief Complaint: Abdominal Pain Stated Complaint: abd pain, diarrhea, constipation Time Seen by Provider: 06/13/25 18:41 History of Present Illness: 40-year-old female with a history of morbid obesity, history of bowel obstruction and hypertension who presents the emergency room with left lower quadrant abdominal pain, diarrhea and nausea and vomiting that started this morning. Said she has been having trouble with constipation since she started taking Zepbound. Semaglutide. She has not thrown up since about 4 PM about 4 hours ago. No fever. No altered mental status. No chest pain. Related Data Home Medications ?Medication ?Instructions ?Recorded ?Confirmed ferrous sulfate 325 mg (65 mg 325 mg PO DAILY 05/01/25 05/07/25 iron) tablet losartan 50 mg-hydrochlorothiazide 1 tab PO DAILY 05/01/25 05/07/25 12.5 mg tablet tirzepatide (weight loss) 2.5 2.5 mg SUBCUT Q7D 05/01/25 05/07/25 mg/0.5 mL subcutaneous pen injector (Zepbound) albuterol sulfate 90 mcg/actuation 2 puff inhalation Q6H PRN 05/07/25 05/07/25 aerosol inhaler Shortness Of Breath ondansetron HCl 4 mg tablet 4 mg PO TID PRN Nausea And Vomiting 05/07/25 05/07/25 Previous Rx's ?Medication ?Instructions ?Recorded clotrimazole 1 % topical cream 1 applic topical BID 8 weeks #15 04/14/25 grams pantoprazole 40 mg tablet,delayed 40 mg PO DAILY #30 tabs 05/01/25 release (Protonix) ondansetron 8 mg disintegrating 8 mg PO Q6H #14 tabs 06/13/25 tablet Allergies Allergy/AdvReac Type Severity Reaction Status Date / Time amphetamine (From Adderall) Allergy SOB Verified 05/07/25 03:52 dextroamphetamine (From Allergy SOB Verified 05/07/25 03:52 Adderall) morphine Allergy RASH Verified 05/07/25 03:52 Review of Systems Narrative: Constitutional symptoms: Negative except as documented in HPI. Skin symptoms: Negative except as documented in HPI. Eye symptoms: Negative except as documented in HPI. ENMT symptoms: Negative except as documented in HPI. Respiratory symptoms: Negative except as documented in HPI. Cardiovascular symptoms: Negative except as documented in HPI. Gastrointestinal symptoms: Negative except as documented in HPI. Genitourinary symptoms: Negative except as documented in HPI. Musculoskeletal symptoms: Negative except as documented in HPI. Neurologic symptoms: Negative except as documented in HPI. Psychiatric symptoms: Negative except as documented in HPI. Endocrine symptoms: Negative except as documented in HPI. PFSH ED PFSH: Medical History (Updated 06/13/25 @ 21:18 by Nicol Montano MD) Morbid obesity with BMI of 70 and over, adult Bowel obstruction Essential hypertension Surgical History H/O: hysterectomy History of cholecystectomy Family History Other CAD (coronary artery disease) Diabetes Hypertension Social History Smoking and tobacco/nicotine status: former use of tobacco/nicotine Quit status (tobacco/nicotine): has quit using Year quit tobacco: 2019 Alcohol intake: never Substance/Drug Use: never Additional social history: Patient wants full code as discussed 04/12/2025 with Nikhil Gardiner MD Physical Exam Narrative: EXAM NARRATIVE: General: Alert, no acute distress. Skin: Warm, dry. Head: Normocephalic, atraumatic. Neck: Supple, trachea midline. Eye: Extraocular movements are intact. Ears, nose, mouth and throat: Tacky oral mucosa Cardiovascular: Regular, Normal peripheral perfusion. Respiratory: Lungs are clear to auscultation, respirations are non-labored, breath sounds are equal, Symmetrical chest wall expansion. Gastrointestinal: Soft, left lower quadrant tenderness, Non distended Musculoskeletal: Normal ROM, no deformity. Neurological: Alert and oriented, No focal neurological deficit observed. Psychiatric: Cooperative, appropriate mood & affect. Course Vital Signs: Vital signs: Vital Signs Temperature 98.1 F 06/13/25 18:39 Pulse Rate 93 06/13/25 21:30 Respiratory Rate 18 06/13/25 21:30 Blood Pressure 115/66 06/13/25 21:30 Pulse Oximetry 97 06/13/25 21:30 Oxygen Delivery Me thod Room Air 06/13/25 18:39 MDM - Abdominal Pain Medical Decision Making Medical decision making: Differential diagnosis for a patient who presents with left lower quadrant abdominal pain including but not limited to and based on the above HPI, review of systems and physical exam: Diverticulitis. Constipation Ureterolithiasis. Urinary tract infection. colitis. small bowel obstruction. Crohn's flare. Orders placed to evaluate differential diagnosis based on the above differential, HPI and physical exam Lab Review: Laboratory results were reviewed and interpreted by myself the emergency room physician. Lab work is unremarkable. No leukocytosis. No anemia. No renal failure. CT of the abdomen pelvis shows no acute process. Diverticulosis but no diverticulitis. This was reviewed and interpreted by myself the emergency room physician. I also reviewed the radiology report. I reviewed the patient's medical record. Reexamination: Patient is now tolerating p.o. She says she feels a bit better. Fluids and Zofran were given. Assessment and plan: Gastroenteritis Dehydration ? Normal saline bolus and IV Zofran. - Discharged home - Discussed plan with patient. Answered any questions. - Evaluation and treatment of this problem were appropriate in the emergency setting. Lab Data 06/13/25 19:03 06/13/25 19:03 Labs/Radiology: Radiology Impressions Abdomen/Pelvis CT 06/13/25 20:04 IMPRESSION: 1. No findings to explain patient's abdomen pain. A normal appendix is confirmed and there is no evidence of urolithiasis or bowel obstruction. There is diverticulosis, but no findings of acute diverticulitis. 2. Enlarged mildly fatty liver. Spleen is normal in size. Laboratory Results WBC 8.10 10^3/uL (3.29-11.43) 06/13/25 19:03 RBC 5.05 10^6/uL (3.85-5.65) 06/13/25 19:03 Hgb 12.50 g/dL (11.27-16.99) 06/13/25 19:03 Hct 39.9 % (36-47) 06/13/25 19:03 MCV 79.0 fl (85-98) L 06/13/25 19:03 MCH 24.8 pg (27-33) L 06/13/25 19:03 MCHC 31.3 g/dL (30-55) 06/13/25 19:03 RDW 13.5 % (12.1-15.1) 06/13/25 19:03 Plt Count 169 10^3/cmm (157-399) 06/13/25 19:03 MPV 9.0 fL (7.4-10.4) 06/13/25 19:03 Neut % (Auto) 78.7 % 06/13/25 19:03 Lymph % (Auto) 17.0 % 06/13/25 19:03 [place] % (Auto) 2.8 % 06/13/25 19:03 Eos % (Auto) 1.1 % 06/13/25 19:03 Baso % (Auto) 0.0 % 06/13/25 19:03 Neut # (Auto) 6.37 10^3/uL (1.8-7.7) 06/13/25 19:03 Lymph # (Auto) 1.4 10^3/uL (0.8-4.8) 06/13/25 19:03 [place] # (Auto) 0.2 10^3/uL (0.2-0.9) 06/13/25 19:03 Eos # (Auto) 0.1 10^3/uL (0.0-0.8) 06/13/25 19:03 Baso # (Auto) 0.0 10^3/uL (0.0-0.1) 06/13/25 19:03 Nucleated RBC % (auto) 0 % 06/13/25 19:03 Nucleated RBCs # 0.0 /100WBC 06/13/25 19:03 Sodium 139 mmol/L (136-145) 06/13/25 19:03 Potassium 3.4 mmol/L (3.5-5.1) L 06/13/25 19:03 Chloride 102 mmol/L (98-107) 06/13/25 19:03 Carbon Dioxide 26 mmol/L (22-29) 06/13/25 19:03 Anion Gap 14.4 (5-19) 06/13/25 19:03 BUN 12 mg/dL (6-20) 06/13/25 19:03 Creatinine 0.6 mg/dL (0.5-0.9) 06/13/25 19:03 GFR Calculation 110.7 mL/min (90-130) 06/13/25 19:03 Glucose 104 mg/dL (65-115) 06/13/25 19:03 Calculated Osmolality 288 mOsm/kg (285-295) 06/13/25 19:03 Calcium 8.9 mg/dL (8.5-10.5) 06/13/25 19:03 Total Bilirubin 0.3 mg/dL (0.15-1.2) 06/13/25 19:03 AST 13 U/L (0-32) 06/13/25 19:03 ALT 10 U/L (0-33) 06/13/25 19:03 Alkaline Phosphatase 89 U/L (35-105) 06/13/25 19:03 Total Protein 7.7 g/dL (6.6-8.7) 06/13/25 19:03 Albumin 3.9 g/dL (3.5-5.2) 06/13/25 19:03 Globulin 3.8 g/dL (1.3-4.6) 06/13/25 19:03 Lipase 29 U/L (13-60) 06/13/25 19:03 HCG, Qual Negative (Negative) 06/13/25 19: Urine Color Yellow (Yellow) 06/13/25 20: Urine Appearance Clear (CLEAR) 06/13/25: Urine pH 5.0 (5-7) 06/13/25: Ur Specific [place] 1.032 (1.005-1.030) H 06/13/25: Urine Protein Negative (Negative) 06/13/25: Urine Glucose (UA) Negative (Normal) 06/13/25 20: Urine Ketones Trace (Negative) 06/13/25: Urine Blood Negative (Negative) 06/13/25: Urine Nitrate Negative (Negative) 06/13/25 20: Urine Bilirubin Negative (Negative) 06/13/25: Urine Urobilinogen 1.0 mg/dL (Negative) 06/13/25: Ur Leukocyte Esterase 1+ (Negative) A 06/13/25 20: Urine RBC 0-2 /hpf (0-2) 06/13/25 20: Urine WBC 6-10 /hpf (0-5) 06/13/25 20:27 Ur Squamous Epith Cells 6-10 /hpf (0-5) 06/13/25 20: Amorphous Sediment Not Reportable 06/13/25 20:27 Urine Bacteria 1+ /hpf (NONE) H 06/13/25 20:27 Hyaline Casts 2.05 /lpf 06/13/25 20:27 All radiology interpretation(s) finalized by discharge Discharge Plan Discharge Patient Disposition: Home Clinical Impression: Abdominal pain, Dehydration, Gastroenteritis Condition: Stable Prescriptions: New ondansetron 8 mg tablet,disintegrating 8 mg PO Q6H Qty: 14 0RF Rx Instructions: Take 1/2-1 tab every 6 hours as needed for nausea and vomiting No Action clotrimazole 1 % cream 1 applic topical BID 56 Days Qty: 15 3RF pantoprazole [Protonix] 40 mg tablet,delayed release (DR/EC) 40 mg PO DAILY Qty: 30 0RF ferrous sulfate 325 mg (65 mg iron) tablet 325 mg PO DAILY losartan-hydrochlorothiazide 50-12.5 mg tablet 1 tab PO DAILY Zepbound 2.5 mg/0.5 mL pen injector 2.5 mg SUBCUT Q7D Rx Instructions: Wednesday ondansetron HCl 4 mg tablet 4 mg PO TID PRN (Reason: Nausea And Vomiting) albuterol sulfate 90 mcg/actuation HFA aerosol inhaler 2 puff INHALATION Q6H PRN (Reason: Shortness Of Breath) Discharge Orders: Discharge ED (Routine); Ordered 06/13/25 Ordered By: Nicol Montano Referrals: Makenzie Wheeler PA [Primary Care Provider, [employer] Teacher] Discharge Diet: Advance as tolerated Discharge Activity: Increase activity as tolerated Patient Instructions: Abdominal Pain (ED), Opioid Safety, Pain Management, Patient Portal & Jag Instructions Activity Restrictions/Additional Instructions: Thank you for choosing [facility] for your healthcare needs today. You have been screened and evaluated and felt safe for discharge. Health conditions do change or evolve sometimes and as such it is important that you follow up with your Primary Doctor to be re checked, 3-5 days is a general good time frame for follow up. 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
[2025-06-13] MEDS: ondansetron 2 mg/ML SDV 2 mL 8 MG IVP (20:24)
[2025-06-13] MEDS: iohexol 350 mg/mL 500 mL Btl (per mL) IV (20:42)
[2025-06-13 20:48] LABS: Glucose Urine UA Negative (Normal); Nitrate Urine Negative (Negative)
[2025-06-13 20:53] LABS: Add Urine Microscopic? YES
[2025-06-13 21:12] LABS: Specific Gravity, Urine 1.032 (1.005-1.030)
[2025-06-13 21:30] VITALS: BP 115/66; PULSE 93; RESP 18; O2SAT 97
== END 2025-06-13 21:31 | disposition home or self-care (01) ==
PROVIDERS: Physician Assistant; Emergency Provider Emergency Medicine; PCP Physician Assistant
DX: R10.9 Unspecified abdominal pain (principal); E86.0 Dehydration; K52.9 Noninfective gastroenteritis and colitis, unspecified; Z87.891 Personal history of nicotine dependence; I10 Essential (primary) hypertension
CPT/HCPCS: 36415; 74177; 80053; 81001; 83690; 84703; 85025; 96374; 99285; J2405; J7030

== ENCOUNTER 2025-07-05 17:08 | Emergency (ER) | payer MEDICAID, SELFPAY ==
--- OUTSIDE RECORDS SUMMARY | 2025-07-05 17:13 | XMS_ITS | Clinical Summary ---
Author Organization [facility] Address [address] [place] [address] Phone Care Team Providers Care Belt Measurer Name Role Phone Nevaeh Hernández MD Primary Care Provider [phone] Allergies Active Allergy Reactions Criticality Noted Date [...] Encounters Date Type Department Care Team Description 06/19/2025 External Device Data [facility] ABSTRACTION Provider, Abstract [...] VACCINES (1 - 3-dose SCDM series) 2012 BREAST CANCER SCREENING 2025 INFLUENZA VACCINE (#1) 2025 03/08/2025, 2022 Pre-Diabetes and Diabetes Screening 03/08/202803/08, 02/04/2024 Procedures [...] Comment: FASTING:NO FASTING: NO Test Performed at: [facility] [address] [address], [place] [address] Patsy Raymundo MD Blood 03/08/2025 3:08 PM CDT 03/08/2025 3:09 PM CDT us Katheryn Singh CLINICAL UNIT EDUCATOR CHEMISTRY ORDERABLES Final Resul t [facility] [phone] [facility] [address] [place] [phone] from Last 3 Months or Most Recently Relevant to Health Maintenance Insurance RX [facility] RX [facility] Commercial RX [employer] [place] Advance Directives For more information, please contact: [phone] * Full Code (Latest Code Status on File) Date Activated Date Inactivated Comments 01/09/2025 5:22 PM 01/11/2025 4:11 PM * Full Code Date Activated Date Inactivated Comments 04/08/2024 11:11 PM 04/09/2024 5:15 PM * Full Code Date Activated Date Inactivated Comments 02/03/2024 5:43 PM 02/06/2024 2:34 PM * Full Code Date Activated Date Inactivated Comments 08/15/2023 10:09 PM 08/18/2023 6:07 PM Care Teams Belt Measurer Relationship Specialty Start Date End Date Nevaeh Hernández MD [address] [place] [id number] PCP - General Internal Medicine 03/09/24
[2025-07-05 17:14] VITALS: BP 141/92; PULSE 100; TEMP 36.7; O2SAT 96; BMI 66.5
[2025-07-05 19:09] LABS: Respiratory Syncytial Virus Ce NEGATIVE (Negative)
[2025-07-05 19:21] LABS: SARS-CoV-2 PCR Positive (Negative)
[2025-07-05 19:24] VITALS: BP 139/97; O2SAT 96
--- NOTE | 2025-07-05 19:55 | W.ED.URI ---
HPI - URI/Sore Throat General: Chief Complaint: Upper Respiratory Infection Stated Complaint: N/V Body ach can't smell hard to breath Time Seen by Provider: 07/05/25 19:12 History of Present Illness: Patient presenting to the emergency department with 1 day history of cough, nasal congestion, generalized fatigue/malaise, loss of sense of smell and decreased sense of taste, fever 102.5, no abdominal pain, 1 episode vomiting, no diarrhea, no urinary symptoms, no neck stiffness, mild headache, no loss of consciousness, no vision loss, no ear symptoms, recently in contact with a younger family member that tested COVID-positive Related Data Home Medications ?Medication ?Instructions ?Recorded ?Confirmed ferrous sulfate 325 mg (65 mg 325 mg PO DAILY 05/01/25 05/07/25 iron) tablet losartan 50 mg-hydrochlorothiazide 1 tab PO DAILY 05/01/25 05/07/25 12.5 mg tablet tirzepatide (weight loss) 2.5 2.5 mg SUBCUT Q7D 05/01/25 05/07/25 mg/0.5 mL subcutaneous pen injector (Zepbound) albuterol sulfate 90 mcg/actuation 2 puff inhalation Q6H PRN 05/07/25 05/07/25 aerosol inhaler Shortness Of Breath ondansetron HCl 4 mg tablet 4 mg PO TID PRN Nausea And Vomiting 05/07/25 05/07/25 Previous Rx's ?Medication ?Instructions ?Recorded clotrimazole 1 % topical cream 1 applic topical BID 8 weeks #15 04/14/25 grams pantoprazole 40 mg tablet,delayed 40 mg PO DAILY #30 tabs 05/01/25 release (Protonix) ondansetron 8 mg disintegrating 8 mg PO Q6H #14 tabs 06/13/25 tablet Allergies Allergy/AdvReac Type Severity Reaction Status Date / Time amphetamine (From Adderall) Allergy SOB Verified 07/05/25 17:19 dextroamphetamine (From Allergy SOB Verified 07/05/25 17:19 Adderall) morphine Allergy RASH Verified 07/05/25 17:19 [facility] ED PFSH: Medical History Morbid obesity with BMI of 70 and over, adult Bowel obstruction Essential hypertension Surgical History H/O: hysterectomy History of cholecystectomy Family History Other CAD (coronary artery disease) Diabetes Hypertension Social History Smoking and tobacco/nicotine status: former use of tobacco/nicotine Quit status (tobacco/nicotine): has quit using Year quit tobacco: 2019 Alcohol intake: never Substance/Drug Use: never Additional social history: Patient wants full code as discussed 04/12/2025 with Nikhil Gardiner MD Physical Exam Narrative: EXAM NARRATIVE: Gen: A&Ox4, no acute distress, nontoxic appearing HEENT: Normocephalic, atraumatic, no scleral icterus, external ears normal, nasal turbinates erythematous, posterior oropharynx mildly erythematous no exudates, no trismus, no stridor, no hoarse voice, tolerating secretions, 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 Normal color per patient. Neuro: Alert and oriented, no slurred speech, sensation and strength grossly intact all 4 extremities Psych: Appropriate for situation. Course Vital Signs: Vital signs: Vital Signs Temperature 98.1 F 07/05/25 17:14 Pulse Rate 100 07/05/25 17:14 Blood Pressure 139/97 07/05/25 19:24 Pulse Oximetry 96 07/05/25 19:24 Oxygen Delivery Me thod Room Air 07/05/25 19:24 MDM - URI/Sore Throat Medical Decision Making 40-year-old female presenting with 1 day history of viral symptoms with positive sick contact tested positive for COVID, patient COVID-positive, no hypoxia, stable vital signs with borderline tachycardia, generally well-appearing, recommend supportive management with instructions for OTC medications for management of her symptoms, return precautions for worsening respiratory symptoms for repeat evaluation. At this time I have very low clinical concern for superimposed bacterial pneumonia and do not think a chest x-ray is indicated based on normal pulse ox no tachypnea and normal breath sounds Lab Data COVID-positive Laboratory Results Influenza A (PCR) Negative (Negative) 07/05/25 17:20 Influenza Type B (PCR) Negative (Negative) 07/05/25 17:20 RSV (PCR) Negative (Negative) 07/05/25 17:20 SARS-CoV-2 (PCR) Positive (Negative) A 07/05/25 17:20 No radiology studies performed this visit Discharge Plan Discharge Patient Disposition: Home Clinical Impression: COVID-19 Condition: Stable Prescriptions: No Action ondansetron 8 mg tablet,disintegrating 8 mg PO Q6H Qty: 14 0RF Rx Instructions: Take 1/2-1 tab every 6 hours as needed for nausea and vomiting clotrimazole 1 % cream 1 applic topical BID 56 Days Qty: 15 3RF pantoprazole [Protonix] 40 mg tablet,delayed release (DR/EC) 40 mg PO DAILY Qty: 30 0RF ferrous sulfate 325 mg (65 mg iron) tablet 325 mg PO DAILY losartan-hydrochlorothiazide 50-12.5 mg tablet 1 tab PO DAILY Zepbound 2.5 mg/0.5 mL pen injector 2.5 mg SUBCUT Q7D Rx Instructions: Wednesday ondansetron HCl 4 mg tablet 4 mg PO TID PRN (Reason: Nausea And Vomiting) albuterol sulfate 90 mcg/actuation HFA aerosol inhaler 2 puff INHALATION Q6H PRN (Reason: Shortness Of Breath) Discharge Orders: Discharge ED (Routine); Ordered 07/05/25 Ordered By: Ta Bledsoe Referrals: Makenzie Wheeler PA [Primary Care Provider, [employer] Worker] Patient Instructions: Patient Portal & Jag Instructions, COVID-19 (Coronavirus Disease 2019) (ED) Activity Restrictions/Additional Instructions: For medications I recommend you take [id number] medications for your symptoms, specifically I recommend you take Benadryl at night and Claritin or nondrowsy antihistamine during the daytime for your congestion, Mucinex to help mobilize your secretions, Robitussin DM as needed for cough at nighttime, Tylenol or Motrin as needed for body aches or fever. Return to the ER if you experience progressively worsening symptoms specifically if your breathing acutely worsens. 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
[2025-07-05 20:32] VITALS: BP 119/103; PULSE 88; O2SAT 98
== END 2025-07-05 20:34 | disposition home or self-care (01) ==
PROVIDERS: Emergency Provider Student in an Organized Health Care Education/Training Program; PCP Physician Assistant
DX: U07.1 COVID-19 (principal); Z11.52 Encounter for screening for COVID-19; Z87.891 Personal history of nicotine dependence; I10 Essential (primary) hypertension
CPT/HCPCS: 87637; 99283; J9999; Q0163

== ENCOUNTER 2025-08-03 20:58 | Emergency (ER) | payer MEDICAID, SELFPAY ==
[2025-08-03 21:03] VITALS: BP 146/98; PULSE 118; RESP 18; TEMP 36.9; O2SAT 99; BMI 63.7
--- OUTSIDE RECORDS SUMMARY | 2025-08-03 21:03 | XMS_ITS | Patient Health Record ---
Author Organization [facility] Address [address] [place] [address] Care Team Providers Care Pl Sql Programmer Name Role Phone Daniel Whiting Unavailable [phone] Reason For Referral No Information Plan Of Treatment No Information
--- OUTSIDE RECORDS SUMMARY | 2025-08-03 21:03 | XMS_ITS | Data Portability ---
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 Plan of Treatment Reminders Order Date Submit Date Provider Last Modified By Organization Details Last Modified Time Details Appointments OFFICE VISIT 20 2024 08:00A M NANI HARDY PA-C Not available Not available Not available Lab fecal occult blood, immunoass ay, stool 2024 025 [email or web address] Not available 08/02/2025 07:15:17 Referral None recorded. Procedures polysomno graphy, diagnosti c (PROC) - (G47.33) Obstructi ve Sleep Apnea [email or web address] [place], [place] [address]al Scheduling, [address] [place], [address], 06/07/2025 15:17:09 Surgeries None recorded. Imaging None recorded. Medication Orders cyclobenz aprine 5 mg tablet 2024 025 [facility]Pharmacy #[id number], [address], [facility] [address], [place], [address], 07/31/2025 05:01:15 albuterol sulfate HFA 90 mcg/actua tion aerosol inhaler 2024 025 [facility]/Pharmacy #[id number], [address], [facility] [address], [place], [address], 07/06/2025 18:02:42 Miralax 17 gram/dose oral powder 2024 025 [id number], [address], [address], [place], [address], 06/12/2025 10:34:08 lactulose 10 gram/15 mL oral solution 2024 025 [id number], [address], [address], [place], [address], 06/12/2025 10:34:08 Zepbound 7.5 mg/0.5 mL subcutane ous pen injector 2024 025 [id number], [address], [address], [place], [address], 07/06/2025 17:50:53 Zepbound 10 mg/0.5 mL subcutane ous pen injector 2024 025 [id number], [address], [address], [place], [address], 06/12/2025 10:34:07 pantopraz ole 40 mg tablet,de layed release 2024 025 [id number], [address], [address], [place], [address], 04/19/2025 10:41:05 Zepbound 2.5 mg/0.5 mL subcutane ous pen injector 2024 025 [email or web address] [id number], [address], [address], [place], [address], 06/12/2025 09:55:34 Zepbound 5 mg/0.5 mL subcutane ous pen injector 2024 025 [id number], [address], [facility] [address], [place], [address], 07/06/2025 17:50:54 losartan 50 mg-hydroc hlorothia zide 12.5 mg tablet 2024 025 [id number], [address], [address], [place], [address], 04/19/2025 10:41:05 ferrous sulfate 325 mg (65 mg iron) tablet 2024 025 [id number], [address], [facility] [address], [place], [address], 04/19/2025 10:41:05 Patient TargetsNo targets recorded. Patient InstructionsNo instructions recorded. Reason for Referral None Reported. Results Created Date Observation Date Name Description Value Unit Range Abnormal Flag Note LastModifiedBy Organization Detail LastModifiedTime 06/13/2006/06/2025 , [facility] ardio gram No observ ation record ed. [address] [place], [address], 06/14/2025 12:41:16 06/15/2006/12/2025 art metry , pre and post [facility] hodil ation No observ ation record ed. [email or web address] [facility] Imaging Orders [address] [place], [address], 06/15/2025 17:02:36 06/20/2006/12/2025 polys omnog jj , diagn ostic (PROC ) No observ ation record ed. [address] [place], [address], 06/20/2025 14:06:04 Result Notes None recorded. Problems Name Problem SNOMED Code Status Onset Date Resolution Date Notes Provider Name and Address Organization Details Recorded Time History of tubal ligation 463984633 Completed 201504/16/2025 Tubal Ligation; 6 10:34AM by Guerline Johnson RN, Office Visit; Promoted; acuity set as *; [facility] 18:38:43 [place] ma 139204626 Completed 202104/16/2025 LYMPH EDEMA; of leg; 2 1:08PM by Kiesha Dent, Office Visit; Promoted; acuity set as *; LEE WILEY [facility] 5 18:38:47 Gastroes ophageal reflux disease 570121483 Active [address] [facility] 5 18:38:39 Morbid obesity 016262941 Active [address] [facility] 5 11:20:01 Nausea 536599259 Active [address] [facility] 5 19:24:12 Problem Notes None recorded. Procedures Surgical History Date Name Laterality Status Provider Name and Address Organization Details Recorded Time 06/06/20 25 measurement of respiratory function completed NANI HARDY PA-C [address] [place], [address], [facility] 06/12/2025 10:37:06 09/17/20 18 Laparoscopy completed NANI HARDY PA-C [address] [place] [address], [address], [facility] 10/07/2023 16:15:21 09/17/20 18 cholecystectomy completed NANI HARDY PA-C [address] [place], [address], [facility], LCompaLCompaCCompa 10/07/2023 16:15:36 09/17/20 18 Total hysterectomy completed NANI HARDY PA-C [address] [place], [address], [facility], LCompaLYsabel 10/07/2023 16:15:59 10/19/19 18 colonoscopy completed LEE WILEY [facility] 12/23/2023 08:10:54 Imaging Results None recorded. Procedure Notes None recorded. Medical Equipment None Reported. Allergies Allergen ID Allergen Name Allergen Category Reaction Reaction Severity Criticality Documentation Date Start Date Code Code System Note Provider Name and Address Organization Details Recorded Time 27911 morphine medicatio n anaphylax is severe high 09/17/2023 7052 RxNorm Doretha whitman [facility] LCompaLCompaCCompa 14:56:26 Medications Name Sig Start Date Stop Date Status Note LastModified by Organization Details LastModified Time Prescript ion - Renewal 05/07 completed Not Available Not Available Not Available doxycycli [...] HCl 4 mg tablet TAKE 1 TABLET BY MOUTH THREE TIMES A DAY NEEDED 2024 active Not Available Not Available Not Avai lable prednison e 20 mg tablet TAKE 3 [...] MOUTH TWICE DAILY FOR CHRONIC SUPPRESS ION 05/10 completed Not Available Not Available Not Available pantopraz ole 40 mg tablet,de layed release TAKE 1 TABLET BY MOUTH EVERY DAY FOR 30 DAYS active Not Available Not Available No t Available ferrous sulfate 325 mg (65 mg iron) tablet TAKE 1 TABLET BY MOUTH EVERY DAY FOR 30 DAYS active Not Available Not Available No t Available polyethyl anu glycol 3350 17 gram/dose oral powder TAKE 17 G TWICE A DAY BY ORAL ROUTE FOR 30 DAYS. active Not Available Not Available No t Available levofloxa risa 750 mg tablet TAKE 1 TABLET BY MOUTH EVERY DAY FOR 7 DAYS 06/12 completed Not Available Not Available Not Available losartan 50 mg-hydroc hlorothia zide 12.5 [...] tablet TAKE 1 TABLET BY MOUTH TWICE A DAY FOR 7 DAYS 05/15 completed Not Available Not Available Not Available Ventolin HFA 90 mcg/actua tion aerosol inhaler INHALE 2 PUFFS EVERY 4 HOURS BY INHALATI ON ROUTE NEEDED, FOR COUGH, SOB, WHEEZING . active Not Available Not Available No t Available cyclobenz aprine 5 mg tablet Take 1 tablet 3 times a day by oral route as needed for 5 days. 07/31 completed Not Available Not Available Not Available lactulose 10 gram/15 mL oral solution Take 30 mL twice a day by oral route as needed for 15 days, for constipa tion. 2024 active Not Available Not Available Not Avai lable aspirin daily 10/07 completed 0; Recorded 07/14/20 1:06PM by Kiesha Dent, Office Visit; Not Available Not Available Not Available Zepbound 10 mg/0.5 mL subcutane ous pen injector INJECT 10 MG SUBCUTAN EOUSLY ONE TIME PER WEEK FOR 28 DAYS active Not Available Not Available No t Available Zepbound 5 mg/0.5 mL subcutane ous pen injector INJECT 5 MG SUBCUTAN EOUSLY WEEKLY FOR 28 DAYS 07/06 completed Not Available Not Available Not Available Zepbound 2.5 mg/0.5 mL subcutane ous pen injector INJECT 2.5 MG SUBCUTAN EOUSLY WEEKLY FOR 28 DAYS 06/12 completed Not Available Not Available Not Available Zepbound 7.5 mg/0.5 mL subcutane ous pen injector INJECT 7.5 MG SUBCUTAN EOUSLY ONE TIME PER WEEK FOR 28 DAYS 07/06 completed Not Available Not Available Not Available Vitals Date Recorded Body height Body mass index (BMI) Body weight Body temperature Heart rate Oxygen saturation Oxygen saturation in Arterial blood by Pulse oximetry Systolic And Diastolic Provider Name and Address Organization Details Last Updated DateTime 5 167.64 cm 65.9 kg/m2 217878. 69 g 97.6 [degF] 96 /min 96 % 96 % 166/108 mm[Hg] [facility]ly [facility] 5 09:54:13 Date Recorded Body height Body mass index (BMI) Body weight Oxygen saturation Oxygen saturation in Arterial blood by Pulse oximetry Heart rate Respiratory rate Body temperature Systolic And Diastolic Provider Name and Address Organization Details Last Updated DateTime 5 167.64 cm 67.4 kg/m2 602611. 89 g 99 % 99 % 92 /min 20 /min 97.6 [degF] 116/80 mm[Hg] Chio Perez [facility] 5 09:52:10 Date Recorded Body height Body mass index (BMI) Body weight Oxygen saturation Oxygen saturation in Arterial blood by Pulse oximetry Heart rate Respiratory rate Body temperature Systolic And Diastolic Provider Name and Address Organization Details Last Updated DateTime 5 167.64 cm 65.7 kg/m2 266305. 09 g 98 % 98 % 88 /min 18 /min 97 [degF] 122/70 mm[Hg] LEE AVALOSDONAL [facility] 5 09:53:24 Date Recorded Body height Body mass index (BMI) Body weight Oxygen saturation Oxygen saturation in Arterial blood by Pulse oximetry Heart rate Respiratory rate Body temperature Systolic And Diastolic Provider Name and Address Organization Details Last Updated DateTime 5 167.64 cm 63.1 kg/m2 058734. 62 g 98 % 98 % 108 /min 18 /min 98.1 [degF] 130/80 mm[Hg] Ana Gala [facility] 5 17:56:33 Date Recorded Body height Body mass index (BMI) Body weight Oxygen saturation Oxygen saturation in Arterial blood by Pulse oximetry Heart rate Respiratory rate Body temperature Systolic And Diastolic Provider Name and Address Organization Details Last Updated DateTime 5 167.64 cm 63.6 kg/m2 581596. 39 g 98 % 98 % 76 /min 18 /min 98.2 [degF] 138/84 mm[Hg] Ana Cedeño [facility] 5 09:54:00 Social History Question Answer Notes LastModified by Organizat ion Details LastModified Time Tobacco Smoking Status Former Smoker Erika Crawford antonette [facility] 04/19/2025 10:02:01 Which Illicit Or Recreational Drugs Have You Used? Marijuana Information not available 04/19/2025 When Did You Quit Smoking? 6-10yearssinc elastcigarett e Stopped 2014 [email or web address] Information not available 05/10/2025 What Was The Date Of Your Most Recent Tobacco Screening? 07/19/2025 [email or web address] Information not available 07/19/2025 At What Age Did You Start Smoking Tobacco? 16 [email or web address] Information not available 05/10/2025 Sex: Unknown Functional Status Question Answer Note LastModified by Organizat ion Details LastModified Time Do you use any illicit or recreational drugs? Yes Information not available 04/19/2025 What is your level of alcohol consumption? None Information not available 04/19/2025 Mental Status None recorded. Family History Nothing Reported. Medical History No medical history recorded. Gynecological HistoryNo gynecological history recorded. Obstetrics History GPAL:G 0 P 0 0 0 0 Immunizations Vaccine Type Date Status Note Provider Nam e and Address Organization Details Recorded Time Td(adult) unspecified formulation 6 completed Not Available Counts include 234 beds at the [facility] 05/15/2023 02:46:01 Influenza, split virus, trivalent, preservative 4 completed Not Available Counts include 234 beds at the [facility] 05/15/2023 02:46:01 DTaP 5 completed Not Available Counts include 234 beds at the [facility] 06/12/2025 09:31:55 OPV, trivalent 5 completed Not Available [facility] 06/12/2025 09:31:55 DTaP 5 completed Not Available Counts include 234 beds at the [facility] 06/12/2025 09:31:55 OPV, trivalent 5 completed Not Available Counts include 234 beds at the [facility] 06/12/2025 09:31:55 DTaP 6 completed Not Available [facility] 06/12/2025 09:31:55 OPV, trivalent 6 completed Not Available Counts include 234 beds at the [facility] 06/12/2025 09:31:55 DTaP 0 completed Not Available [facility] 06/12/2025 09:31:55 OPV, trivalent 0 completed Not Available [facility] 06/12/2025 09:31:55 MMR 0 completed Not Available [facility] 06/12/2025 09:31:55 Td (adult), 2 Lf tetanus toxoid, preservative free, adsorbed 8 completed Not Available [facility] 06/12/2025 09:31:55 MMR 8 completed Not Available [facility] 06/12/2025 09:31:55 Hep B, unspecified formulation 8 completed Not Available Counts include 234 beds at the [facility] 06/12/2025 09:31:55 Past Encounters Encounter ID Performer Location Encounter Start Date Encounter Closed Date Diagnosis/Indication Diagnosis SNOMED-CT Code Diagnosis ICD10 Code Diagnosis IMO Codes Diagnosis Note [id number] NANI HARDY PA-C [facility] ([facility]) [address] [place] [phone] 5 09/17/2023 14:27:37 09/17/2023 16:25:06 Acute bronchitis 98353428 J20.9 trying to avoid antibiotic s since she is just out of the hospital with c.diff. Lymphedema of lower extremity 947015595 I89.0 [id number] NANI HARDY PA-C [facility] ([facility]) [address] [place] [address] 5 10/07/2023 14:53:34 10/08/2023 15:46:04 Gastroesophageal reflux disease 612757530 K21.00 Chronic vomiting 1272104 8 R11.10 Chronic diarrhea 0714570 09 K52.9 [id number] NANI HARDY PA-C [facility] ([facility]) [address] [place] [address]75[address]861 5 12/23/2023 10:33:17 12/23/2023 17:43:04 Clostridium difficile colitis 413609345 A04.72 reoccurent . positive lactoferri n and c.diff. neg for all other stool bacter, [facility] npatient stay within past 30 days 8935700525 106 Z76.89 Cellulitis of lower limb 445122749 L03.119 resolved. [id number] JENNA HERNANDEZ [facility] ([facility]) [address] [place] [address] 5 09/30/2024 09:29:43 09/30/2024 10:20:39 Viral gastroenteritis 348758461 A08.4 [id number] NANI HARDY PA-C [facility] ([facility]) [address] [place] [phone] 5 04/19/2025 09:46:48 04/19/2025 11:14:42 Cellulitis of right lower limb 0462015343 0946402 L03.115 [id number] resolved. will continue maintainan ce/prophal actic antibiotic s per Dr. Levy Gastro-eso phageal reflux disease with esophagitis 809700686 K21.00 [id number] reviewed diet changes Iron defic iency anemia due to blood loss 573405402 D50.0 638092 Hx of hysterecto my. does not eat much red meat. Has been having alot of heart burn lately Essential hypertension 46243926 I10 37912 f/u in 3 weeks with home BP readings Dyspnea 461783693 R06.02 17423 Cardiomegaly 6279786 I51 .7 3592 on cxr. likely combo of untreated HTN and ELISEO Daytime somnolence 02934 97793 00 R40.0 6497577 score 6 on STOP bang. Morbid obesity 031420848 E66.01 47205 Pt has tried and failed a 3 month at home weight loss program of counting calories and tracking food.I recommend starting a GLP1 wt lossI explained how GLP1 help to lose weight. We discussed possible SE of nausea, vomiting, bloating and constipati on. Showed how to use self injection pen. All questions were answered to satisfacti on [id number] NANI HARDY PA-C [facility] ([facility]) [address] [place] [address] 05/10/2025 09:37:11 05/10/2025 11:06:57 Hypersomnia 98425619 G47.10 01946 Morbid obesity 110966774 E66.01 09807 Pt has tried and failed a 3 month at home weight loss program of counting calories and tracking food.I recommend starting a GLP1 wt lossI explained how GLP1 help to lose weight. We discussed possible SE of nausea, vomiting, bloating and constipati on. Showed how to use self injection pen. All questions were answered to satisfacti on Snoring 90035618 R06.83 06118 Lymphedema 085341893 I89 .[address] Levy next week. try compressio n sock and rivera wraps. Post-disch arge follow-up 307824356 Z09 140136 [id number] NANI HARDY PA-C [facility] ([facility]) [address] [place] [id number] 5 06/12/2025 09:31:32 06/12/2025 10:49:17 Morbid obesity 283338443 E66.01 Pt has tried and failed a 3 month at home weight loss program of counting calories and tracking food.I recommend starting a GLP1 wt lossI explained how GLP1 help to lose weight. We discussed possible SE of nausea, vomiting, bloating and constipati on. Showed how to use self injection pen. 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 Discussed continued use of otc meds. Sleep in a recliner or propped up. Breath sounds clear and VSS. [id number] JENNA HERNANDEZ [facility] ([facility]) [address] [place] [id number] 5 07/19/2025 09:46:25 07/19/2025 10:25:40 [facility] 27949138 M62.838 [id number] Patient advised to take medication as directed here. Patient advised to rest initially and then slowly increase activity level. Monitor changes in symptoms such as numbness, tingling or weakness in legs, changes in bowel or bladder habits or worsening back pain. RTC with any new or worsening symptoms. Health Concerns Section Related Observation LastModified by Organization Detai ls LastModified Time None Recorded Concern Status LastModified by Organization Details LastModified Time None Recorded Advance Directives Directive None Recorded Payers Insurance Date Sequence Insurance Name Policy Number Policy Wilson Covered Member ID Wilson Member ID Guarantor Name 07/19/2025 1 [facility] (MEDICAID HMO) Daniela Pulido [id number] Daniela Pulido 07/19/2025 1 ALIX CASTRO FROM [facility] (EPO) [id number] Daniela Buckleynis [id number] 1 Daniela Jose Ashok 07/19/2025 [facility] (MEDICAID HMO) Daniela Garcia Ashok [id number] Daniela Garcia Ashok 07/19/2025 MEDICAID-DE: [facility] (INSTITUTIONAL) Daniela Jose Ashok [id number] Daniela Pulido Notes Date Note Type Note Provider Name and Address Organization Details Recorded Time 04/19/20 25 text/htm l Obstructive Sleep ApneaReported by PatientHPIFor associated symptoms, patient reportsmorning headache,awakening short of breath,daytime sleepiness, andwitnessed apnea. For severity, patient reportsmoderate. For timing, patient reportschronic. For duration, patient reportsfrequent. For context, patient reportsadequate sleep,observed apnea, andcardiovascular disease. For aggravating factors, patient reportsweight gainandfatigue. For alleviating factors, patient reportsnone. DyspneaReported by PatientHPIFor quality, patient reportspressureandinability to take a deep breath. For context, patient reportswalking on level ground. For aggravating factors, patient reportsactivityandwhen supine. For associated symptoms, patient reportsankle swellinganddecrease in exercise capacitybut reportsno chest pain,no palpitations,no fever,no chills, andno wheezing. For severity, patient reportsmild. For duration, patient reportsfor 1 months. For onset/timing, patient reportsdailyandat night. For pulmonary disease history, patient reportsobstructive sleep apnea. For alleviating factors, patient reportssitting up. ObesityReported by PatientHPIFor diagnosis summary, patient reportsage at start of weight gain 12. For comorbidities, patient reportsacanthosis nigricans,hypertension, andobstructive sleep apnea. For lifestyle changes, patient reportsmotivated to make lifestyle changes. For medication education, patient reportsverbalizes understanding of potential medication side effects yes,verbalizes understanding of medication administration yes, andverbalizes understanding of role of diet as primary therapy yes. AnemiaReported by PatientHPIFor context, patient reportsprevious hemoglobin:andlow iron(10.8). For associated symptoms, patient reportsshortness of breathandfatiguebut reportsno melenaandno blood in stool. For severity, patient reportsmicrocytic (mcv<80). For timing, patient reportsgradual. This is a 39 year old female here to follow up from 2 ER visits, 1 stay for 2 days, diagnosis Cellulitis.First ER visit was for trouble breathing, pt states the ER doctor told her they heard concerns on the right lobe, unknown location. Treatment was Prednisone, Doxycycline. These have been stopped since starting the Ceadroxil.Cellulitis treated with cefadroxil 500 mg capsule. NANI HARDY PA-C [address] [place], [address], [facility] 04/19/2025 10:52:26 05/10/20 25 text/htm l Hypertension F/UReported by PatientHPIFor associated symptoms, patient reportsshortness of breathbut reportsno dizziness,no lightheadedness, andno chest pain(has had trouble taking a deep breath). For medications, patient reportstaking medications as directedandchecks blood pressure at home, range:. For lifestyle, patient reportsregular exercise(has been trying to walk daily). f/u on zepbound her weight is up today and she reports having no appetite, hypertension when she checks her blood pressure at home and in the hospital the readings were really goodand she got out of the hospital yesterday for right lower extremity cellulitis they scheduled her a hospital f/u on [facility]. NANI HARDY PA-C [address] [place], [address], [facility] 05/15/2025 21:34:38 06/12/20 25 text/htm l ConstipationReported by PatientHPIFor quality, patient reportsworsening,hard,dry,strai marquita,painful,decreased frequency, anddecreased amount. For associated symptoms, patient reportsabdominal painandweight loss (10 lbs). For severity, patient reportsmoderate. For duration, patient reportspresent for 1-6 months. For onset/timing, patient reportsone bowel movement weekly. For alleviating factors, patient reportshaving bowel movement. For aggravating factors, patient reportsmedication:. ObesityReported by PatientHPIFor diagnosis summary, patient reportsage at start of weight gain 1. For comorbidities, patient reportshypertension. For lifestyle changes, patient reportsmotivated to continue lifestyle changes,motivated to make lifestyle changes,losing weight, andexercising more. For nutrition, patient reportslow-fat diet yes,low-carbohydrate diet yes,balanced low-calorie diet yes,high-protein diet yes,very low calorie diet yes, andintermittent fasting yes. For physical activity, patient [email or web address] minutes of moderate exercise per weekandweekly screen time (electronics) : 2 hours. For medication education, patient reportsverbalizes understanding of potential medication side effects yes,verbalizes understanding of medication administration yes, andverbalizes understanding of role of diet as primary therapy yes. Normal PFTs ECHO not reviewed NANI HARDY PA-C [address] [place] [address], [address], [facility], LInocente 06/12/2025 10:39:32 07/06/20 25 text/htm l CoughReported by PatientROS as noted in the HPI walk in patientpatient is here today for a positive covid from the ER yesterday, patient said that the ER did not give her anything when she was there. Patient is having nausea, shortness breath and cough. gerhard amanda claritin HILDA NEWELL, [address], [address], [facility], LVeroniqueC. 07/08/2025 18:23:34 07/19/20 25 text/htm l Musculoskeletal PainReported by PatientROS as noted in the HPI walk in patientpatient is here today for back pain after slipping in the shower but not falling this happened 3 days ago and the pain has not gotten any better. Pain is made worse with movement especially bending over. Patient has used tylenol for pain which has not helped much. Pain lasts 2-3 seconds at a time and is sharp. NICOLETTE GOULD [address], [address], [facility], Marlo 07/19/2025 10:16:26 OBGyn Episode No OBEpisode recorded.
--- OUTSIDE RECORDS SUMMARY | 2025-08-03 21:03 | XMS_ITS | Clinical Summary ---
Author Organization [facility] Address [address] [place] [address] Phone Care Team Providers Care Rn Chronic Name Role Phone Nevaeh Hernández MD Primary Care Provider [phone] Allergies Active Allergy Reactions Criticality Noted Date [...] Encounters Date Type Department Care Team Description 07/24/2025 External Device Data STL ABSTRACTION Provider, Abstract 06/19/2025 External Device Data STL ABSTRACTION Provider, [...] PM CDT) HEMOGLOBIN A1C 5.8(H) <5.7 % [facility] Comment: For someone without known diabetes, [...] Comment: FASTING:NO FASTING: NO Test Performed at: [facility] [address] [place] [address] Patsy Raymundo MD Blood 03/08/2025 3:08 PM CDT 03/08/2025 3:09 PM CDT us Katheryn Singh DIRECTOR OF QUALITY CHEMISTRY ORDERABLES Final Resul t [facility] [phone] [facility] [address] [place] [address] from Last 3 Months or Most Recently Relevant to Health Maintenance Insurance RX SGF [facility] (INTERNAL) [facility] Internal Plans RX [facility] Commercial RX [facility] Express [facility] Advance Directives For more information, please contact: [phone] * Full Code (Latest Code Status on File) Date Activated Date Inactivated Comments 01/09/2025 5:22 PM 01/11/2025 4:11 PM * Full Code Date Activated Date Inactivated Comments 04/08/2024 11:11 PM 04/09/2024 5:15 PM * Full Code Date Activated Date Inactivated Comments 02/03/2024 5:43 PM 02/06/2024 2:34 PM * Full Code Date Activated Date Inactivated Comments 08/15/2023 10:09 PM 08/18/2023 6:07 PM Care Teams Rn Chronic Relationship Specialty Start Date End Date Nevaeh Hernández MD [address] [place] [address] PCP - General Internal Medicine 03/09/24
[2025-08-03 23:39] LABS: Hematocrit 38.4 % (36-47); Hemoglobin 12.10 g/dL (11.27-16.99); Mean Corpuscular HGB Conc 31.5 g/dL (30-55); Mean Corpuscular Hemoglobin 25.4 pg (27-33); Mean Corpuscular Volume 80.5 fl (85-98); Nucleated Red Blood Cells % 0 %; Platelet Count 169 10^3/cmm (157-399); Red Blood Count 4.77 10^6/uL (3.85-5.65); White Blood Count 9.00 10^3/uL (3.29-11.43)
--- NOTE | 2025-08-04 00:17 | W.ED.EXTPRO ---
HPI - Extremity Problem General: Chief complaint: Extremity Problem,Nontraumatic Stated complaint: RT leg having cellulitis flare up Time Seen by Provider: 08/04/25 00:14 Source: patient Mode of arrival: ambulatory Limitations: no limitations History of Present Illness: 40-year-old female states been having erythema to right lower leg over the last few days. Denies any pain or swelling. States she has had a history of cellulitis in the past. She denies any fevers denies any vomiting denies any worse improved factors. Related Data Home Medications ?Medication ?Instructions ?Recorded ?Confirmed ferrous sulfate 325 mg (65 mg 325 mg PO DAILY 05/01/25 05/07/25 iron) tablet losartan 50 mg-hydrochlorothiazide 1 tab PO DAILY 05/01/25 05/07/25 12.5 mg tablet tirzepatide (weight loss) 2.5 2.5 mg SUBCUT Q7D 05/01/25 05/07/25 mg/0.5 mL subcutaneous pen injector (Zepbound) albuterol sulfate 90 mcg/actuation 2 puff inhalation Q6H PRN 05/07/25 05/07/25 aerosol inhaler Shortness Of Breath ondansetron HCl 4 mg tablet 4 mg PO TID PRN Nausea And Vomiting 05/07/25 05/07/25 Previous Rx's ?Medication ?Instructions ?Recorded clotrimazole 1 % topical cream 1 applic topical BID 8 weeks #15 04/14/25 grams pantoprazole 40 mg tablet,delayed 40 mg PO DAILY #30 tabs 05/01/25 release (Protonix) ondansetron 8 mg disintegrating 8 mg PO Q6H #14 tabs 06/13/25 tablet cephalexin 500 mg capsule 500 mg PO TID 7 days #21 caps 08/04/25 Allergies Allergy/AdvReac Type Severity Reaction Status Date / Time amphetamine (From Adderall) Allergy SOB Verified 08/03/25 21:07 dextroamphetamine (From Allergy SOB Verified 08/03/25 21:07 Adderall) morphine Allergy RASH Verified 08/03/25 21:07 Review of Systems Skin/Breast: Reports: erythema PFSH ED PFSH: Medical History Morbid obesity with BMI of 70 and over, adult Bowel obstruction Essential hypertension Surgical History H/O: hysterectomy History of cholecystectomy Family History Other CAD (coronary artery disease) Diabetes Hypertension Social History Smoking and tobacco/nicotine status: former use of tobacco/nicotine Quit status (tobacco/nicotine): has quit using Year quit tobacco: 2019 Alcohol intake: never Substance/Drug Use: never Additional social history: Patient wants full code as discussed 04/12/2025 with Nikhil Gardiner MD Physical Exam Const: COMMON NORMALS: no acute distress, patient oriented x3 and healthy appearing HENMT: COMMON NORMALS: normocephalic and atraumatic HEAD & SCALP: normocephalic and atraumatic Neck/C-Spine: COMMON NORMALS: full ROM and supple Chest: COMMONS NORMALS: normal inspection of the chest Resp: COMMON NORMALS: normal respiratory effort Cardio: COMMON NORMALS: regular rate, regular rhythm and No murmurs present (Cardio) RATE: regular rate RHYTHM: regular rhythm Extremity: COMMON NORMALS: full ROM NARRATIVE EXTREMITY EXAM: erythema to right lower leg Neuro: COMMON NORMALS: patient oriented x3, moves all extremities and no focal motor deficits Psych: COMMON NORMALS: mental status grossly normal, Normal thought process present and cooperative THOUGHT PROCESS: Normal thought process present Skin: COMMON NORMALS: no rashes or lesions noted and no wounds GENERAL SKIN EXAM: no rashes or lesions noted Course Vital Signs: Vital signs: Vital Signs Temperature 98.5 F 08/03/25 21:03 Pulse Rate 118 H 08/03/25 21:03 Respiratory Rate 18 08/03/25 21:03 Blood Pressure 146/98 08/03/25 21:03 Pulse Oximetry 99 08/03/25 21:03 Oxygen Delivery Me thod Room Air 08/03/25 21:03 MDM - Extremity (Nontraumatic) Medical Decision Making Patient presents here with erythema to right lower leg. Consistent with likely has mild cellulitis. She has no signs of DVT distal pulses sensation intact. Her white count here is normal no signs of sepsis. Did give her Rocephin shot here will prescribe her Keflex she is to follow-up with PCP and return if worsening she understands agrees to plan. Medical Records I reviewed the patient's medical records. Lab Data I reviewed the patient's lab results. 08/03/25 23:08/03/25 23: Laboratory Results WBC 9.00 10^3/uL (3.29-11.43) 08/03/25 23: RBC 4.77 10^6/uL (3.85-5.65) 08/03/25 23: Hgb 12.10 g/dL (11.27-16.99) 08/03/25 23: Hct 38.4 % (36-47) 08/03/25 23: MCV 80.5 fl (85-98) L 08/03/25: MCH 25.4 pg (27-33) L 08/03/25: MCHC 31.5 g/dL (30-55) 08/03/25 23: RDW 14.8 % (12.1-15.1) 08/03/25: Plt Count 169 10^3/cmm (157-399) 08/03/25 23: MPV 8.7 fL (7.4-10.4) 08/03/25 23: Neut % (Auto) 68.4 % 08/03/25 23: Lymph % (Auto) 24.8 % 08/03/25 23: [place] % (Auto) 4.6 % 08/03/25 23: Eos % (Auto) 1.4 % 08/03/25: Baso % (Auto) 0.2 % 08/03/25: Neut # (Auto) 6.16 10^3/uL (1.8-7.7) 08/03/25 23: Lymph # (Auto) 2.2 10^3/uL (0.8-4.8) 08/03/25: [place] # (Auto) 0.4 10^3/uL (0.2-0.9) 08/03/25 23: Eos # (Auto) 0.1 10^3/uL (0.0-0.8) 08/03/25 23: Baso # (Auto) 0.0 10^3/uL (0.0-0.1) 08/03/25 23:26 Nucleated RBC % (auto) 0 % 08/03/25 23:26 Nucleated RBCs # 0.0 /100WBC 08/03/25 23:26 Sodium 139 mmol/L (136-145) 08/03/25 23:26 Potassium 3.1 mmol/L (3.5-5.1) L 08/03/25 23:26 Chloride 99 mmol/L (98-107) 08/03/25 23:26 Carbon Dioxide 30 mmol/L (22-29) H 08/03/25 23:26 Anion Gap 13.1 (5-19) 08/03/25 23:26 BUN 10 mg/dL (6-20) 08/03/25 23:26 Creatinine 0.7 mg/dL (0.5-0.9) 08/03/25 23:26 GFR Calculation 92.7 mL/min (90-130) 08/03/25 23:26 Glucose 113 mg/dL (65-115) 08/03/25 23:26 Calculated Osmolality 288 mOsm/kg (285-295) 08/03/25 23:26 Calcium 8.8 mg/dL (8.5-10.5) 08/03/25 23:26 Total Bilirubin 0.3 mg/dL (0.15-1.2) 08/03/25 23:26 AST 14 U/L (0-32) 08/03/25 23:26 ALT 10 U/L (0-33) 08/03/25 23:26 Alkaline Phosphatase 85 U/L (35-105) 08/03/25 23:26 Total Protein 8.1 g/dL (6.6-8.7) 08/03/25 23:26 Albumin 4.0 g/dL (3.5-5.2) 08/03/25 23:26 Globulin 4.1 g/dL (1.3-4.6) 08/03/25 23:26 No radiology studies performed this visit Discharge Plan Discharge Patient Disposition: Home Clinical Impression: Cellulitis Qualifiers: Site of cellulitis: extremity Site of cellulitis of extremity: lower extremity Laterality: right Qualified Code(s): L03.115 - Cellulitis of right lower limb Condition: Stable Prescriptions: New cephalexin 500 mg capsule 500 mg PO TID 7 Days Qty: 21 0RF No Action ondansetron 8 mg tablet,disintegrating 8 mg PO Q6H Qty: 14 0RF Rx Instructions: Take 1/2-1 tab every 6 hours as needed for nausea and vomiting clotrimazole 1 % cream 1 applic topical BID 56 Days Qty: 15 3RF pantoprazole [Protonix] 40 mg tablet,delayed release (DR/EC) 40 mg PO DAILY Qty: 30 0RF ferrous sulfate 325 mg (65 mg iron) tablet 325 mg PO DAILY losartan-hydrochlorothiazide 50-12.5 mg tablet 1 tab PO DAILY Zepbound 2.5 mg/0.5 mL pen injector 2.5 mg SUBCUT Q7D Rx Instructions: Wednesday ondansetron HCl 4 mg tablet 4 mg PO TID PRN (Reason: Nausea And Vomiting) albuterol sulfate 90 mcg/actuation HFA aerosol inhaler 2 puff INHALATION Q6H PRN (Reason: Shortness Of Breath) Discharge Orders: Discharge ED (Routine); Ordered 08/04/25 Ordered By: Alessia Macdonald Referrals: Makenzie Wheeler PA [Primary Care Provider, Physicians Staying Machine Operator] - 4-7 days Discharge Diet: Advance as tolerated Discharge Activity: Resume usual activity Patient Instructions: Cellulitis (ED) Print Language: Polish Coding Level of Care Code ED Spinning Mule Operator for Lissette Parker
[2025-08-04 00:40] LABS: Alanine Aminotransferase 10 U/L (0-33); Albumin Level 4.0 g/dL (3.5-5.2); Alkaline Phosphatase 85 U/L (35-105); Anion Gap 13.1 (5-19); Aspartate Amino Transferase 14 U/L (0-32); Blood Urea Nitrogen 10 mg/dL (6-20); Calcium 8.8 mg/dL (8.5-10.5); Carbon Dioxide 30 mmol/L (22-29); Chloride 99 mmol/L (98-107); Creatinine Clr Calc Pharmacy 180.8739; Globulin 4.1 g/dL (1.3-4.6); Glucose 113 mg/dL (65-115); Osmolality Calculated 288 mOsm/kg (285-295); Potassium 3.1 mmol/L (3.5-5.1); Sodium 139 mmol/L (136-145); Total Protein 8.1 g/dL (6.6-8.7)
[2025-08-04] MEDS: cefTRIAXone 1,000 MG in water for injection-sterile 2.1 ML 0.01 MG IM (00:50)
[2025-08-04 01:04] VITALS: BP 108/65; PULSE 97; RESP 18; O2SAT 97
== END 2025-08-04 01:21 | disposition home or self-care (01) ==
PROVIDERS: Emergency Provider Emergency Medicine; PCP Physician Assistant
DX: L03.115 Cellulitis of right lower limb (principal); Z87.891 Personal history of nicotine dependence; I10 Essential (primary) hypertension
CPT/HCPCS: 36415; 80053; 85025; 99284; J0696

== ENCOUNTER 2025-10-11 20:22 | Emergency (ER) | payer MEDICAID, SELFPAY ==
--- OUTSIDE RECORDS SUMMARY | 2025-10-11 20:30 | XMS_ITS | Clinical Summary ---
Author Organization [facility] Address [address] [place] [address] Phone Care Team Providers Care Ground School Instructor Name Role Phone Nevaeh Hernández MD Primary Care Provider [phone] Allergies Active Allergy Reactions Criticality Noted Date [...] Encounters Date Type Department Care Team Description 09/18/2025 External Device Data STL ABSTRACTION Provider, Abstract 08/21/2025 External Device Data STL ABSTRACTION Provider, Abstract 08/14/2025 External Device Data STL ABSTRACTION Provider, Abstract 08/08/2025 External Device Data STL ABSTRACTION Provider, Abstract 08/07/2025 External Device Data STL ABSTRACTION Provider, Abstract 07/24/2025 External Device Data STL ABSTRACTION Provider, [...] 2022 Pre-Diabetes and Diabetes Screening 03/08/202803/08, 02/04/2024 HPV VACCINES (No Doses Required) Completed Procedures Procedure Name Priority Date/Time Associated Diagnosis Comments HEMOGLOBIN A1C Routine 03/08/2025 3:08 PM CDT Prediabetes from Last 3 Months or Most Recently Relevant to Health Maintenance Results * (ABNORMAL) HEMOGLOBIN A1C (03/08/2025 3:08 PM CDT) HEMOGLOBIN A1C 5.8(H) <5.7 % [facility] Comment: For someone without known diabetes, [...] Comment: FASTING:NO FASTING: NO Test Performed at: [facility] [id number], [place] [address] Patsy Raymundo MD Blood 03/08/2025 3:08 PM CDT 03/08/2025 3:09 PM CDT us Katheryn Singh NP CHEMISTRY ORDERABLES Final Resul t [facility] [phone] [facility] [address] [place] [address] from Last 3 Months or Most Recently Relevant to Health Maintenance Insurance RX SGF [facility] (INTERNAL) [facility] Internal Plans RX [facility] Commercial RX [employer] Express [facility] [place] [address] [place] [phone] Advance Directives For more information, please contact: [phone] * Full Code (Latest Code Status on File) Date Activated Date Inactivated Comments 01/09/2025 5:22 PM 01/11/2025 4:11 PM * Full Code Date Activated Date Inactivated Comments 04/08/2024 11:11 PM 04/09/2024 5:15 PM * Full Code Date Activated Date Inactivated Comments 02/03/2024 5:43 PM 02/06/2024 2:34 PM * Full Code Date Activated Date Inactivated Comments 08/15/2023 10:09 PM 08/18/2023 6:07 PM Care Teams Ground School Instructor Relationship Specialty Start Date End Date Nevaeh Hernández MD [address] [place] [address] PCP - General Internal Medicine 03/09/24
--- OUTSIDE RECORDS SUMMARY | 2025-10-11 20:30 | XMS_ITS | Continuity of Care Document ---
Author Organization [facility] Dylan, L.L.CCompa, [facility] ([facility]) Address [address] [place] [address] Care Team Providers Care Certified Pesticide Applicator Name Role Phone NANI HARDY Primary Care Provider [phone] Assessment No assessment recorded. Plan of Treatment Reminders Order Date Submit Date Provider Last Modified By Organization Details Last Modified Time Details Appointments OFFICE VISIT 2025 08:00A Broderick HARDY PA-C Not available Not available Not available Lab None recorded. Referral None recorded. Procedures None recorded. Surgeries None recorded. Imaging None recorded. Medication Orders Zepbound 10 mg/0.5 mL subcutane ous pen injector 2024 025 [facility][id number], [address] [facility] [address], [address], 08/14/2025 09:28:43 Patient TargetsNo targets recorded. Patient InstructionsNo instructions recorded. Reason for Referral None Reported. Problems Name Problem SNOMED Code Status Onset Date Resolution Date Notes Provider Name and Address Organization Details Recorded Time History of tubal ligation 772058298 Completed 201504/16/2025 Tubal Ligation; 6 10:34AM by Guerline Johnson RN, Office Visit; Promoted; acuity set as *; LEE whitman [facility], L.L.CCompa 18:38:43 [place] [id number] Completed 202104/16/2025 LYMPH EDEMA; of leg; 2 1:08PM by Kiesha Dent, Office Visit; Promoted; acuity set as *; LEE WILEY [facility], L.L.C. 5 18:38:47 Gastroes ophageal reflux disease 105593444 Active 2023 LEE WILEY [facility] 5 18:38:39 Morbid obesity 889947282 Active 2024 Erika Crawford [facility] 5 11:20:01 Nausea 224281589 Active 2024 LEE WILEY [facility] 5 19:24:12 Problem Notes None recorded. Procedures Surgical History Date Name Laterality Status Provider Name and Address Organization Details Recorded Time 06/06/20 25 measurement of respiratory function completed NANI HARDY PA-C [address] [place], [address], [facility], L[facility] 06/12/2025 10:37:06 09/17/20 18 Laparoscopy completed NANI HARDY PA-C [address] [place], [address], [facility], L[facility] 10/07/2023 16:15:21 09/17/20 18 cholecystectomy completed NANI HARDY PA-C [address] [place], [address], [facility] L[facility] 10/07/2023 16:15:36 09/17/20 18 Total hysterectomy completed NANI HARDY PA-C [address] [place], [address], [facility] L[facility] 10/07/2023 16:15:59 10/19/19 18 colonoscopy completed LEE WILEY [facility], L[facility] 12/23/2023 08:10:54 Imaging Results None recorded. Procedure Notes None recorded. Medical Equipment None Reported. Allergies Allergen ID Allergen Name Allergen Category Reaction Reaction Severity Criticality Documentation Date Start Date Code Code System Note Provider Name and Address Organization Details Recorded Time 64629 morphine medicatio n anaphylax is severe high 09/17/2023 7052 [facility]Norm Doretha whitman, [facility] 14:56:26 Medications Name Sig Start Date Stop [...] BY MOUTH THREE TIMES A DAY NEEDED active Not Available Not Available No [...] BY MOUTH EVERY DAY FOR 30 DAYS 08/14 completed Not Available Not Available Not Available polyethyl anu glycol 3350 17 gram/dose [...] BY MOUTH EVERY DAY FOR 30 DAYS 2024 active Not Available Not Available Not Avai lable ondansetr on 4 mg disintegr ating tablet Place 2 tablets twice a day by translin gual route as needed. 04/19 completed Not Available Not Available Not Available clotrimaz ole 1 % topical cream APPLY CREAM TOPICALL Y TO AFFECTED AREA TWICE DAILY FOR 8 WEEKS 08/06 completed Not Available Not Available Not Available doxycycli ne hyclate 100 mg tablet [...] mass index (BMI) Body weight Oxygen saturation Heart rate Respiratory rate Body temperature Systolic And Diastolic Provider Name and Address Organization Details Last Updated DateTime 167.64 cm 63.1 kg/m2 878311. 62 g 99 % 90 /min 18 /min 98 [degF] 136/88 mm[Hg] LEE WILEY [facility], L[facility] 09:03:33 Social History Question Answer Notes LastModified by Organizat ion Details LastModified Time Tobacco Smoking Status Former Smoker Erika [facility] 04/19/2025 10:02:01 Which Illicit Or Recreational Drugs Have You Used? Marijuana [email or web address] Information not available 04/19/2025 When Did You Quit Smoking? 6-10yearssinc elastcigarett e Stopped 2014 Information not available 05/10/2025 What Was The Date Of Your Most Recent Tobacco Screening? 07/19/2025 [email or web address] Information not available 07/19/2025 At What Age Did You Start Smoking Tobacco? 16 [email or web address] Information not available 05/10/2025 Sex: Unknown Functional Status Question Answer Note LastModified by Organizat ion Details LastModified Time Do you use any illicit or recreational drugs? Yes [email or web address] Information not available 04/19/2025 What is your [...] Td(adult) unspecified formulation 6 completed Not Available [facility] 05/15/2023 02:46:01 Influenza, split virus, trivalent, preservative 4 completed Not Available [facility] 05/15/2023 02:46:01 Influenza, split virus, trivalent, PF 5 completed LEE whitman [facility] 08/14/2025 09:38:15 DTaP 5 completed Not Available [facility] 08/14/2025 08:40:55 OPV, trivalent 5 completed Not Available [facility] 08/14/2025 08:40:55 DTaP 5 completed Not Available [facility] 08/14/2025 08:40:55 OPV, trivalent 5 completed Not Available [facility] 08/14/2025 08:40:55 DTaP 6 completed Not Available [facility] 08/14/2025 08:40:55 OPV, trivalent 6 completed Not Available [facility] 08/14/2025 08:40:55 DTaP 0 completed Not Available [facility] 08/14/2025 08:40:55 OPV, trivalent 0 completed Not Available [facility] 08/14/2025 08:40:55 MMR 0 completed Not Available [facility] 08/14/2025 08:40:55 Td (adult), 2 Lf tetanus toxoid, preservative free, adsorbed 8 completed Not Available [facility] 08/14/2025 08:40:55 MMR 8 completed Not Available [facility] 08/14/2025 08:40:55 Hep B, unspecified formulation 8 completed Not Available [facility] 08/14/2025 08:40:55 Past Encounters Encounter ID Performer Location Encounter Start Date Encounter Closed Date Diagnosis/Indication Diagnosis SNOMED-CT Code Diagnosis ICD10 Code Diagnosis IMO Codes Diagnosis Note [id number] JENNA HERNANDEZ [facility] ([facility]) [address] [place] [address] 07/19/2025 09:46:25 07/19/2025 10:25:40 [facility] [id number] M62.838 90508 Patient advised to take medication as directed here. Patient advised to rest initially and then slowly increase activity level. Monitor changes in symptoms such as numbness, tingling or weakness in legs, changes in bowel or bladder habits or worsening back pain. RTC with any new or worsening symptoms. [id number] NANI HARDY PA-C [facility] ([facility]) [address] [place] [address] 08/14/2025 08:37:51 08/14/2025 09:38:59 Morbid obesity 957272947 E66.01 55440 successful ly titrated up to 10mg. so far 30 lb wt loss Lymphedema 210593669 I89 .[address] Levy next week. try compressio n sock and rivera wraps. Requires i nfluenza virus vaccination 746858296 Z23 257119 Health Concerns Section Related Observation LastModified by Organization Detai ls LastModified Time None Recorded Concern Status LastModified by Organization Details LastModified Time None Recorded Payers Encounter Date Sequence Insurance Name Policy Number Policy Wilson Covered Member ID Wilson Member ID Guarantor Name 08/14/2025 1 [facility] (MEDICAID HMO) Daniela Pulido [id number] Daniela Pulido Notes Date Note Type Note Provider Name and Address Organization Details Recorded Time 08/14/2025 text/html ObesityReported by PatientHPIFor comorbidities, patient reportshypertension. For lifestyle changes, patient reportsmotivated to continue lifestyle changes,motivated to make lifestyle changes,losing weight, andexercising more. For nutrition, patient reportslow-fat diet yes,low-carbohydrate diet yes,balanced low-calorie diet yes,high-protein diet yes,very low calorie diet yes, andintermittent fasting yes. For physical activity, patient [email or web address] minutes of moderate exercise per weekandweekly screen time (electronics) : 7 hours. For medication education, patient reportsverbalizes understanding of potential medication side effects yes,verbalizes understanding of medication administration yes, andverbalizes understanding of role of diet as primary therapy yes.titrated up to 10 mg and doing well. so belching and diarrhea but all tolerable. 28# wt loss so far. er follow up from 08-03-28 leg pain cellulitis responded well to IM rocephin and po [id number] covid no tx but improved on own. NANI HARDY PA-C [address] [place], [address], [facility] - [facility], Gauri. 08/14/2025 09:33:02 OBGyn Episode No OBEpisode recorded.
--- OUTSIDE RECORDS SUMMARY | 2025-10-11 20:30 | XMS_ITS | Data Portability ---
Author Organization SCOTT Ballard [facility], [place], [facility] Address [address] [address] Care Team Providers Care Solution Engineer Name Role Phone NANI HARDY Primary Care Provider Assessment No assessment recorded. Plan of Treatment Reminders Order Date Submit Date Provider Last Modified By Organization Details Last Modified Time Details Appointments OFFICE VISIT 2025 08:00A M NANI HARDY PA-C Not available Not available Not available Lab None recorded. Referral None recorded. Procedures None recorded. Surgeries None recorded. Imaging None recorded. Medication Orders Zepbound 10 mg/0.5 mL subcutane ous pen injector 2024 025 [facility]/Pharmacy #[id number], [address] [facility], [facility] [address], [address], 08/14/2025 09:28:43 cyclobenz aprine 5 mg tablet 2024 025 [facility]/Pharmacy #[id number], [address], [facility] [address], [address], 07/31/2025 05:01:15 albuterol sulfate HFA 90 mcg/actua tion aerosol inhaler 2024 025 [facility]/Pharmacy #[id number], [address], [facility] [address], [address], 07/06/2025 18:02:42 Miralax 17 gram/dose oral powder 2024 025 [facility]/Pharmacy #[id number], [address], [address], [place], [address], 06/12/2025 10:34:08 lactulose 10 gram/15 mL oral solution 2024 025 [facility]/Pharmacy #[id number], [address], [address], [place], [address], 06/12/2025 10:34:08 Zepbound 7.5 mg/0.5 mL subcutane ous pen injector 2024 025 [facility]/Pharmacy #[id number], [address], [address], [place], [address], 07/06/2025 17:50:53 Zepbound 10 mg/0.5 mL subcutane ous pen injector 2024 025 [facility]/Pharmacy #[id number], [address], [address], [place], [address], 06/12/2025 10:34:07 Patient TargetsNo targets recorded. Patient InstructionsNo instructions recorded. Reason for Referral None Reported. Results Created Date Observation Date Name Description Value Unit Range Abnormal Flag Note LastModifiedBy Organization Detail LastModifiedTime 06/13/2006/06/2025 , [facility]dio gram No observ ation record ed. [email or web address] [facility] [address] [facility], [place], [address], 06/14/2025 12:41:16 06/15/2006/12/2025 art metry , [facility] hodil ation No observ ation record ed. [email or web address] [facility] Imaging Orders [address], [place], [address], 06/15/2025 17:02:36 09/03/20 25 06/12/2025 polys omnog jj , diagn ostic (PROC ) No observ ation record ed. [email or web address] [facility] [address] [place], [address], 06/20/2025 14:06:04 Result Notes None recorded. Problems Name Problem SNOMED Code Status Onset Date Resolution Date Notes Provider Name and Address Organization Details Recorded Time History of tubal ligation 667730531 Completed 201504/16/2025 Tubal Ligation; 6 10:34AM by Guerline Johnson, RN, Office Visit; Promoted; acuity set as *; LEE whitman [facility] 5 18:38:43 [place] [id number] Completed 202104/16/2025 LYMPH EDEMA; of leg; 2 1:08PM by Kiesha Dent, Office Visit; Promoted; acuity set as *; LEE whitman, [facility] 5 18:38:47 Gastroes ophageal reflux disease 109057249 Active 2023 LEE WILEY [facility] 5 18:38:39 Morbid obesity 498699739 Active 2024 Erika Crawford [facility] 5 11:20:01 Nausea 141693470 Active 2024 LEE WILEY [facility] 5 19:24:12 Problem Notes None recorded. Procedures Surgical History Date Name Laterality Status Provider Name and Address Organization Details Recorded Time 06/06/20 25 measurement of respiratory function completed NANI HARDY PA-C [address] [place], [address], [facility] 06/12/2025 10:37:06 09/17/20 18 Laparoscopy completed NANI HARDY PA-C [address] [place], [address], [facility] 10/07/2023 16:15:21 09/17/20 18 cholecystectomy completed NANI HARDY PA-C [address] [place], [address], [facility] 10/07/2023 16:15:36 09/17/20 18 Total hysterectomy completed NANI HARDY PA-C [address] [place], [address], [facility] 10/07/2023 16:15:59 10/19/19 18 colonoscopy completed LEE WILEY [facility] 12/23/2023 08:10:54 Imaging Results None recorded. Procedure Notes None recorded. Medical Equipment None Reported. Allergies Allergen ID Allergen Name Allergen Category Reaction Reaction Severity Criticality Documentation Date Start Date Code Code System Note Provider Name and Address Organization Details Recorded Time 75137 morphine medicatio n anaphylax is severe high 09/17/2023 7052 RxNorm Doretha Tuttle [facility] 14:56:26 Medications Name Sig [...] Updated DateTime 5 167.64 cm 67.4 kg/m2 538672. 89 g 99 % 92 /min 20 /min 97.6 [degF] 116/80 mm[Hg] Chio Perez [facility] 5 09:52:10 Date Recorded Body height Body mass index (BMI) Body weight Oxygen saturation Heart rate Respiratory rate Body temperature Systolic And Diastolic Provider Name and Address Organization Details Last Updated DateTime 5 167.64 cm 65.7 kg/m2 255158. 09 g 98 % 88 /min 18 /min 97 [degF] 122/70 mm[Hg] LEE WILEY [facility] 5 09:53:24 Date Recorded Body height Body mass index (BMI) Body weight Oxygen saturation Heart rate Respiratory rate Body temperature Systolic And Diastolic Provider Name and Address Organization Details Last Updated DateTime 5 167.64 cm 63.1 kg/m2 721995. 62 g 98 % 108 /min 18 /min 98.1 [degF] 130/80 mm[Hg] [facility] 5 17:56:33 Date Recorded Body height Body mass index (BMI) Body weight Oxygen saturation Heart rate Respiratory rate Body temperature Systolic And Diastolic Provider Name and Address Organization Details Last Updated DateTime 5 167.64 cm 63.6 kg/m2 401845. 39 g 98 % 76 /min 18 /min 98.2 [degF] 138/84 mm[Hg] [facility] 5 09:54:00 Date Recorded Body height Body mass index (BMI) Body weight Oxygen saturation Heart rate Respiratory rate Body temperature Systolic And Diastolic Provider Name and Address Organization Details Last Updated DateTime 5 167.64 cm 63.1 kg/m2 207009. 62 g 99 % 90 /min 18 /min 98 [degF] 136/88 mm[Hg] LEE JUAREZKADIE [facility] 5 09:03:33 Social History Question Answer Notes LastModified by Organizat ion Details LastModified Time Tobacco Smoking Status Former Smoker Erika Ty [facility] 04/19/2025 10:02:01 Which Illicit Or Recreational Drugs Have You Used? Marijuana [email or web address] Information not available 04/19/2025 When Did You Quit Smoking? 6-10yearssinc elastcigarett e Stopped 2015 [email or web address] Information not available 05/10/2025 What Was The Date Of Your Most Recent Tobacco Screening? 07/19/2025 [email or web address] Information not available 07/19/2025 At What Age Did You Start Smoking Tobacco? 16 Information not available 05/10/2025 Sex: Unknown Functional Status Question Answer Note LastModified by Organizat ion Details LastModified Time Do you use any illicit or recreational drugs? Yes [email or web address] Information not available 04/19/2025 What is your level of alcohol consumption? None [email or web address] Information not available 04/19/2025 Mental Status None recorded. Family History Nothing Reported. Medical History No medical history recorded. Gynecological HistoryNo gynecological history recorded. Obstetrics History GPAL:G 0 P 0 0 0 0 Immunizations Vaccine Type Date Status Note Provider Nam e and Address Organization Details Recorded Time Td(adult) unspecified formulation 6 completed Not Available [facility] 05/15/2023 02:46:01 Influenza, split virus, trivalent, preservative 4 completed Not Available [facility] 05/15/2023 02:46:01 Influenza, split virus, trivalent, PF 5 completed LEE whitman, [facility], [facility] 08/14/2025 09:38:15 DTaP 5 completed Not Available [facility] 08/14/2025 08:40:55 OPV, trivalent 5 completed Not Available [facility] 08/14/2025 08:40:55 DTaP 5 completed Not Available [facility] 08/14/2025 08:40:55 OPV, trivalent 5 completed Not Available [facility] 08/14/2025 08:40:55 DTaP 6 completed Not Available [facility] 08/14/2025 08:40:55 OPV, trivalent 6 completed Not Available [facility] 08/14/2025 08:40:55 DTaP 0 completed Not Available [facility] 08/14/2025 08:40:55 OPV, trivalent 0 completed Not Available [facility] 08/14/2025 08:40:55 MMR 0 completed Not Available [facility] 08/14/2025 08:40:55 Td (adult), 2 Lf tetanus toxoid, preservative free, adsorbed 8 completed Not Available [facility] 08/14/2025 08:40:55 MMR 8 completed Not Available [facility] 08/14/2025 08:40:55 Hep B, unspecified formulation 8 completed Not Available [facility] 08/14/2025 08:40:55 Past Encounters Encounter ID Performer Location Encounter Start Date Encounter Closed Date Diagnosis/Indication Diagnosis SNOMED-CT Code Diagnosis ICD10 Code Diagnosis IMO Codes Diagnosis Note [id number] NANI HARDY PA-C [facility] [address] [place] [address] 09/17/2023 14:27:37 09/17/2023 16:25:06 Acute bronchitis 62276252 J20.9 trying to avoid antibiotic s since she is just out of the hospital with c.diff. Lymphedema of lower extremity 868988542 I89.0 [id number] NANI HARDY PA-C [facility] ([facility]) [address] [place] [address] 5 10/07/2023 14:53:34 10/08/2023 15:46:04 Gastroesophageal reflux disease 320335426 K21.00 Chronic vomiting 0121172 8 R11.10 Chronic diarrhea 4399575 09 K52.9 [id number] NANI HARDY PA-C [facility] ([facility]) [address] [place] [id number] 5 12/23/2023 10:33:17 12/23/2023 17:43:04 Clostridium difficile colitis 992418177 A04.72 reoccurent . positive lactoferri n and c.diff. neg for all other stool bacter, [facility] npatient stay within past 30 days 9263676045 106 Z76.89 Cellulitis of lower limb 527358437 L03.119 resolved. [id number] JENNA HERNANDEZ [facility] ([facility]) [address] [place] [address] 09/30/2024 09:29:43 09/30/2024 10:20:39 Viral gastroenteritis 005521528 A08.4 [id number] NANI HARDY PA-C [facility] ([facility]) [address] [place] [id number] 04/19/2025 09:46:48 04/19/2025 11:14:42 Cellulitis of right lower limb 4497519531 9190821 L03.115 084828 resolved. will continue maintainan ce/prophal actic antibiotic s per Dr. Levy Gastro-eso phageal reflux disease with esophagitis 442261542 K21.00 1075127575 reviewed diet changes Iron defic iency anemia due to blood loss 062225792 D50.0 567818 Hx of hysterecto my. does not eat much red meat. Has been having alot of heart burn lately Essential hypertension 42888733 I10 54745 f/u in 3 weeks with home BP readings Dyspnea 531712721 R06.02 53258 Cardiomegaly 1713848 I51 .7 3592 on cxr. likely combo of untreated HTN and ELISEO Daytime somnolence 28562 00260 00 R40.0 8908762 score 6 on STOP bang. Morbid obesity 355106250 E66.01 30125 Pt has tried and failed a 3 month at home weight loss program of counting calories and tracking food.I recommend starting a GLP1 wt lossI explained how GLP1 help to lose weight. We discussed possible SE of nausea, vomiting, bloating and constipati on. Showed how to use self injection pen. All questions were answered to satisfacti on [id number] NANI HARDY PA-C [facility] ([facility]) [address] [place] [id number] 05/10/2025 09:37:11 05/10/2025 11:06:57 Hypersomnia 87974608 G47.10 35596 Morbid obesity 097760576 E66.01 20145 Pt has tried and failed a 3 month at home weight loss program of counting calories and tracking food.I recommend starting a GLP1 wt lossI explained how GLP1 help to lose weight. We discussed possible SE of nausea, vomiting, bloating and constipati on. Showed how to use self injection pen. All questions were answered to satisfacti on Snoring 07604948 R06.83 28144 Lymphedema 425139048 I89 .[address] Levy next week. try compressio n sock and rivera wraps. Post-disch arge follow-up 504194950 Z09 137972 [id number] NANI HARDY PA-C [facility] ([facility]) [address] [place] [id number] 06/12/2025 09:31:32 06/12/2025 10:49:17 Morbid obesity 790019953 E66.01 Pt has tried and failed a 3 month at home weight loss program of counting calories and tracking food.I recommend starting a GLP1 wt lossI explained how GLP1 help to lose weight. We discussed possible SE of nausea, vomiting, bloating and constipati on. Showed how to use self injection pen. All questions were answered to satisfacti on Chronic constipation 236 872662 K59.09 968023 [id number] JENNA GARCIA [facility] ([facility]) [address] [place] [id number] 07/06/2025 17:47:12 07/09/2025 16:35:08 Acute COVID-19 8834486847 U07.0 8564936089 Provided refill of albuterol inhaler. Discussed continued use of otc meds. Sleep in a recliner or propped up. Breath sounds clear and VSS. [id number] JENNA HERNANDEZ [facility]) [address] [place] [id number] 07/19/2025 09:46:25 07/19/2025 10:25:40 [facility] 67346884 M62.838 57446 Patient advised to take medication as directed here. Patient advised to rest initially and then slowly increase activity level. Monitor changes in symptoms such as numbness, tingling or weakness in legs, changes in bowel or bladder habits or worsening back pain. RTC with any new or worsening symptoms. [id number] NANI HARDY PA-C [facility] ([facility]) [address] [place] [address] [place] [address] 08/14/2025 08:37:51 08/14/2025 09:38:59 Morbid obesity 889054513 E66.01 91524 successful ly titrated up to 10mg. so far 30 lb wt loss Lymphedema 989435174 I89 .[address] Levy next week. try compressio n sock and rivera wraps. Requires i nfluenza virus vaccination 068520922 Z23 502457 Health Concerns Section Related Observation LastModified by Organization Detai ls LastModified Time None Recorded Concern Status LastModified by Organization Details LastModified Time None Recorded Advance Directives Directive None Recorded Payers Insurance Date Sequence Insurance Name Policy Number Policy Wilson Covered Member ID Wilson Member ID Guarantor Name 08/11/2025 1 [facility] (MEDICAID HMO) Daniela Pulido [id number] Daniela Pulido 07/19/2025 1 ALIX CASTRO FROM [facility] [id number] Daniela Pulido [id number] Daniela Pulido 08/11/2025 [facility] (MEDICAID HMO) Daniela Pulido [id number] Daniela Pulido 08/14/2025 [place] [facility] (INSTITUTIONAL) Daniela Pulido [id number] Daniela Pulido Notes Date Note Type Note Provider Name and Address Organization Details Recorded Time 5 text/html Hypertension F/UReported by PatientHPIFor associated symptoms, patient [...] scheduled her a hospital f/u on the and for discharge. NANI HARDY PA-C [address] [place], [address], [facility], Gauri. 05/15/2025 21:34:38 5 text/html ConstipationReported by PatientHPIFor quality, patient reportsworsening,hard,dry ,straining,painful,decrea sed frequency, anddecreased amount. For associated symptoms, patient [...] andintermittent fasting yes. For physical activity, patient [id number] minutes of moderate exercise per weekandweekly screen time (electronics) : 2 hours. For medication education, patient reportsverbalizes understanding of potential medication side effects yes,verbalizes understanding of medication administration yes, andverbalizes understanding of role of diet as primary therapy yes. Normal PFTs ECHO not reviewed NANI HARDY PA-C [address] [place], [address], [facility], Gauri. 06/12/2025 10:39:32 5 text/html CoughReported by PatientROS as noted in the HPI walk in patientpatient is here today for a positive covid from the ER yesterday, patient said that the ER did not give her anything when she was there. Patient is having nausea, shortness breath and cough. mucinex, benadryl, claritin JENNA GARCIA [address] [place], [address], [facility] [place] 07/08/2025 18:23:34 5 text/html Musculoskeletal PainReported by PatientROS as noted in [...] seconds at a time and is sharp. JENNA HERNANDEZ [address] [place], [address], [facility], LCompaLAmena. 07/19/2025 10:16:26 5 text/html ObesityReported by PatientHPIFor comorbidities, patient reportshypertension. For lifestyle changes, patient reportsmotivated to continue lifestyle changes,motivated to make lifestyle changes,losing weight, andexercising more. For nutrition, patient reportslow-fat diet yes,low-carbohydrate diet yes,balanced low-calorie diet yes,high-protein diet yes,very low calorie diet yes, andintermittent fasting yes. For physical activity, patient [id number] minutes of moderate exercise per weekandweekly screen [...] responded well to IM rocephin and po [id number] covid no tx but improved on own. NANI HARDY PA-C [address] [place], [address], [facility], LCom[facility]C. 08/14/2025 09:33:02 OBGyn Episode No OBEpisode recorded.
--- OUTSIDE RECORDS SUMMARY | 2025-10-11 20:30 | XMS_ITS | Clinical Summary ---
Author Organization [facility] Address [address] [place] [address] Phone Care Team Providers Care Uniform Attendant Name Role Phone Nevaeh Hernández MD Primary Care Provider [phone] Allergies Active Allergy Reactions Criticality Noted Date Comments Morphine Itching Low 07/09/2022 Medications furosemide (Lasix) 40 mg tablet Take 1 tablet (40 mg total) by mouth 1 (one) time each day. 30 tablet Active Additional Information Patient not taking.Reported on 02/23/2025 esomeprazole (NexIUM) [address] capsule Take 20 mg by mouth 1 (one) time each day if needed. Do not open capsule. Active Social History Tobacco Use Types Packs/Day Years Used Date Smoking Tobacco: Never Smokeless Tobacco: Never Tobacco Cessation:Counseling Given: Not Answered Comments Unknown Sex and Gender Information Value Date Recorded Sex Assigned at Not on file Legal Sex Female 4:05 PM CDT Gender Identity Not on file Sexual Orientation Not on file Last Filed Vital Signs Vital Sign Reading Time Taken Comments Blood Pressure 135/82 02/23/2025 4:30 AM CDT Pulse 96 02/23/2025 4:30 AM CDT Temperature 36.7 C (98 F) 02/23/2025 1:04 AM CDT Respiratory Rate 13 02/23/2025 4:30 AM CDT Oxygen Saturation 95% 02/23/2025 4:30 AM CDT Inhaled Oxygen Concentration - - Weight 197 kg (434 lb 9.6 oz) 02/23/2025 1:15 AM CDT Height 165.1 cm (5' 5 ) 02/23/2025 1:15 AM CDT Body Mass Index 72.32 02/23/2025 1:15 AM CDT Plan of Treatment Health Maintenance Due Date Last Done Comments Lipid Panel 1985 MMR Vaccines (1 of 1 - Standard series) 1986 Varicella Vaccines (1 of 2 - 13+ 2-dose series) 1998 DTaP,Tdap,and Td Vaccines (5 - Tdap) 08/22/1998 08/21/1998, 12/29/1989, 06/04/1986, Additional history exists Depression Screening 2003 Diabetes Screening 2003 Hepatitis C Screening 2003 Social Drivers of Health (SDoH) 2003 Hepatitis B Vaccines (1 of 3 - 19+ 3-dose series) 2004 HPV Vaccines (1 - 3-dose SCDM series) 2012 Mammogram 2025 COVID-19 Vaccines (1 - 2024- season) 2025 Influenza Vaccine (#1) 2025 07/28/2023 Zoster Vaccines (1 of 2) 2035 RSV Vaccines (1 - 1-dose 75+ series) 2060 IPV Vaccines Completed 12/29/1989, 05/18, 1985, Additional history exists HIB Vaccines Aged Out No longer eligi ble based on patient's age to complete this topic Hepatitis A Vaccines Aged Out No long er eligible based on patient's age to complete this topic Meningococcal B Vaccine Aged Out No l onger eligible based on patient's age to complete this topic Meningococcal Vaccine Aged Out No gerson miryam eligible based on patient's age to complete this topic Pneumococcal Vaccines Aged Out No gerson miryam eligible based on patient's age to complete this topic Rotavirus Vaccines Aged Out No longer eligible based on patient's age to complete this topic Insurance [address] [place] [address] [employer] Care Teams Uniform Attendant Relationship Specialty Start Date End Date Nevaeh Hernández MD [address] [place] [address] PCP - General Internal Medicine 03/14/24
--- OUTSIDE RECORDS SUMMARY | 2025-10-11 20:30 | XMS_ITS | Continuity of Care Document ---
Author Organization [facility], [place], [facility] (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 Plan of Treatment Reminders Order Date Submit Date Provider Last Modified By Organization Details Last Modified Time Details Appointments OFFICE VISIT 2025 08:00A Broderick HARDY PA-C Not available Not available Not available Lab None recorded. Referral None recorded. Procedures None recorded. Surgeries None recorded. Imaging None recorded. Medication Orders cyclobenz aprine 5 mg tablet 2024 025 [id number], [address] [facility] [address], [address], 07/31/2025 05:01:15 Patient TargetsNo targets recorded. Patient InstructionsNo instructions recorded. Reason for Referral None Reported. Results Created Date Observation Date Name Description Value Unit Range Abnormal Flag Note LastModifiedBy Organization Detail LastModifiedTime 06/20/2006/12/2025 polys omnog jj , diagn ostic (PROC ) No observ ation record ed. [email or web address] [facility] [address] [place], [address], 06/20/2025 14:06:04 Result Notes None recorded. Problems Name Problem SNOMED Code Status Onset Date Resolution Date Notes Provider Name and Address Organization Details Recorded Time History of tubal ligation 079877699 Completed 201504/16/2025 Tubal Ligation; 6 10:34AM by Guerline Johnson RN, Office Visit; Promoted; acuity set as *; LEE ROBBIEDONAL [facility] 5 18:38:43 [place] ma [id number] Completed 202104/16/2025 LYMPH EDEMA; of leg; 2 1:08PM by Kiesha Dent, Office Visit; Promoted; acuity set as *; LEE FRYEKADIE [facility] 5 18:38:47 Gastroes ophageal reflux disease 748801764 Active 2023 LEE WILEY [facility] 5 18:38:39 Morbid obesity 739011640 Active 2024 Erikacandi Crawford [facility] 5 11:20:01 Nausea 904049565 Active 2024 LEE WILEY [facility] 5 19:24:12 Problem Notes None recorded. Procedures Surgical History Date Name Laterality Status Provider Name and Address Organization Details Recorded Time 06/06/20 25 measurement of respiratory function completed NANI HARDY PA-C [address] [place], [address], [facility] 06/12/2025 10:37:06 09/17/20 18 Laparoscopy completed NANI HARDY PA-C [address] [place], [address], [facility] 10/07/2023 16:15:21 09/17/20 18 cholecystectomy completed NANI HARDY PA-C [address] [place], [address], [facility] 10/07/2023 16:15:36 09/17/20 18 Total hysterectomy completed NANI HARDY PA-C [address] [place], [address], [facility] [place] 10/07/2023 16:15:59 10/19/19 18 colonoscopy completed LEE IWLEY [facility] [place] 12/23/2023 08:10:54 Imaging Results None recorded. Procedure Notes None recorded. Medical Equipment None Reported. Allergies Allergen ID Allergen Name Allergen Category Reaction Reaction Severity Criticality Documentation Date Start Date Code Code System Note Provider Name and Address Organization Details Recorded Time 71814 morphine medicatio n anaphylax is severe high 09/17/2023 7052 RxNorm Doretha [facility] [place] 14:56:26 Medications Name Sig Start Date Stop [...] Organization Details Last Updated DateTime 167.64 cm 63.6 kg/m2 361623. 39 g 98 % 76 /min 18 /min 98.2 [degF] 138/84 mm[Hg] Ana Cedeño [facility] 09:54:00 Social History Question Answer Notes LastModified by Organizat ion Details LastModified Time Tobacco Smoking Status Former Smoker Erika Ty whitman [facility] 04/19/2025 10:02:01 Which Illicit Or Recreational Drugs Have You Used? Marijuana [email or web address] Information not available 04/19/2025 When Did You Quit Smoking? 6-10yearssinc elastcigarett e Stopped 2014 [email or web address] Information not available 05/10/2025 What Was The Date Of Your Most Recent Tobacco Screening? 07/19/2025 [email or web address] Information not available 07/19/2025 At What Age Did You Start Smoking Tobacco? 16 [email or web address] Information not available 05/10/2025 Sex: Unknown Functional Status Question Answer Note LastModified by Organizat ion Details LastModified Time Do you use any illicit or recreational drugs? Yes [email or web address] Information not available 04/19/2025 What is your [...] unspecified formulation 6 completed Not Available [facility] 05/15/2023 02:46:01 Influenza, split virus, trivalent, preservative 4 completed Not Available [facility] 05/15/2023 02:46:01 Influenza, split virus, trivalent, PF 5 [facility] 09:38:15 DTaP 5 completed [facility] Available [facility] 08/14/2025 08:40:55 OPV, trivalent 5 completed Not Available [facility] 08/14/2025 08:40:55 DTaP 5 completed Not Available [facility] 08/14/2025 08:40:55 OPV, trivalent 5 completed Not Available [facility] 08/14/2025 08:40:55 DTaP 6 completed Not Available [facility] 08/14/2025 08:40:55 OPV, trivalent 6 completed Not Available [facility] 08/14/2025 08:40:55 DTaP 0 completed Not Available [facility] 08/14/2025 08:40:55 OPV, trivalent 0 completed Not Available [facility] 08/14/2025 08:40:55 MMR 0 completed Not Available [facility] 08/14/2025 08:40:55 Td (adult), 2 Lf tetanus toxoid, preservative free, adsorbed 8 completed Not Available [facility] 08/14/2025 08:40:55 MMR 8 completed Not Available [facility] 08/14/2025 08:40:55 Hep B, unspecified formulation 8 completed Not Available [facility] 08/14/2025 08:40:55 Past Encounters Encounter ID Performer Location Encounter Start Date Encounter Closed Date Diagnosis/Indication Diagnosis SNOMED-CT Code Diagnosis ICD10 Code Diagnosis IMO Codes Diagnosis Note [id number] JENNA GARCIA [facility] ([facility]) [address] [place] [address] 07/06/2025 17:47:12 07/09/2025 16:35:08 Acute COVID-19 7192924804 U07.4 [id number] Provided refill of albuterol inhaler. Discussed continued use of otc meds. Sleep in a recliner or propped up. Breath sounds clear and VSS. [id number] JENNA HERNANDEZ [facility] ([facility]) [address] [place] [phone] 5 07/19/2025 09:46:25 07/19/2025 10:25:40 [facility] [id number] M62.838 [id number] Patient advised to take medication as directed [...] Wilson Member ID Guarantor Name 07/19/2025 1 [facility] (MEDICAID HMO) Daniela Pulido [id number] Daniela Pulido Notes Date Note Type Note Provider Name and Address Organization Details Recorded Time 07/19/2025 text/html Musculoskeletal PainReported by PatientROS as noted [...] at a time and is sharp. NICOLETTE GOULD, [facility] [place], [address], [facility] [place] 07/19/2025 10:16:26 OBGyn Episode No OBEpisode recorded.
--- OUTSIDE RECORDS SUMMARY | 2025-10-11 20:30 | XMS_ITS | Patient Health Record ---
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
[2025-10-11 20:38] VITALS: BP 160/117; PULSE 109; RESP 20; TEMP 37.1; O2SAT 98; BMI 61.3
--- NOTE | 2025-10-11 21:04 | W.ED.SKABFB ---
HPI - Skin/Abscess/Foreign Bdy General: Chief complaint: Skin/Abscess/Foreign Body Stated complaint: celulitis in R leg flare Time Seen by Provider: 10/11/25 20:57 Source: patient and old records reviewed Mode of arrival: ambulatory Limitations: no limitations History of Present Illness: Patient is a 40-year-old female reporting to the emergency department complaining of cellulitis to right lower extremity. She reports a history of similar in the past, reviewing past medical history appears that she was admitted to the hospital in April of this year for cellulitis where she received IV antibiotics and was switched to outpatient Augmentin and Levaquin. Patient states that she is having similar symptoms, that she has a history of being septic from her cellulitis, and is here for prophylactic purposes. Reports objective chills and fevers at home, afebrile at this time. She has chronic lymphedema bilateral lower extremities, notes that her right lower extremity is becoming more red and warm to the touch. States that she had some old Keflex that she has been taking at home. No other symptoms reported this time, no nausea or vomiting. MD complaint: other (Cellulitis right lower extremity) Severity: similar to previous episodes Associated symptoms: Reports chills and fever(s); Deny nausea or vomiting Related Data Home Medications ?Medication ?Instructions ?Recorded ?Confirmed ferrous sulfate 325 mg (65 mg 325 mg PO DAILY 05/01/25 05/07/25 iron) tablet losartan 50 mg-hydrochlorothiazide 1 tab PO DAILY 05/01/25 05/07/25 12.5 mg tablet tirzepatide (weight loss) 2.5 2.5 mg SUBCUT Q7D 05/01/25 05/07/25 mg/0.5 mL subcutaneous pen injector (Zepbound) albuterol sulfate 90 mcg/actuation 2 puff inhalation Q6H PRN 05/07/25 05/07/25 aerosol inhaler Shortness Of Breath ondansetron HCl 4 mg tablet 4 mg PO TID PRN Nausea And Vomiting 05/07/25 05/07/25 Previous Rx's ?Medication ?Instructions ?Recorded clotrimazole 1 % topical cream 1 applic topical BID 8 weeks #15 04/14/25 grams pantoprazole 40 mg tablet,delayed 40 mg PO DAILY #30 tabs 05/01/25 release (Protonix) ondansetron 8 mg disintegrating 8 mg PO Q6H #14 tabs 06/13/25 tablet amoxicillin 875 mg-potassium 1 tab PO BID 7 days #14 tabs 10/11/25 clavulanate 125 mg tablet levofloxacin 750 mg tablet 750 mg PO DAILY 7 days #7 tabs 10/11/25 Allergies Allergy/AdvReac Type Severity Reaction Status Date / Time amphetamine (From Adderall) Allergy SOB Verified 08/03/25 21:07 dextroamphetamine (From Allergy SOB Verified 08/03/25 21:07 Adderall) morphine Allergy RASH Verified 08/03/25 21:07 Review of Systems General: Reports: 10 or more systems reviewed and unremarkable except in HPI and below Const: Reports: fever(s) and chills Card: Denies: chest pain Resp: Denies: dyspnea GI: Denies: abdominal pain, nausea, vomiting or diarrhea Musc: Denies: extremity pain or joint pain Skin/Breast: Reports: erythema, skin pain, skin tenderness and other (Warmth of skin to right lower extremity); Denies: rash Neuro: Denies: headache(s) PFSH ED PFSH: Medical History Morbid obesity with BMI of 70 and over, adult Bowel obstruction Essential hypertension Surgical History H/O: hysterectomy History of cholecystectomy Family History Other CAD (coronary artery disease) Diabetes Hypertension Social History Smoking and tobacco/nicotine status: former use of tobacco/nicotine Quit status (tobacco/nicotine): has quit using Year quit tobacco: 2019 Alcohol intake: never Substance/Drug Use: never Additional social history: Patient wants full code as discussed 04/12/2025 with Nikhil Gardiner MD Physical Exam Const: COMMON NORMALS: no acute distress, no limitations, alert and well nourished OTHER: Morbid obesity, nontoxic-appearing HENMT: COMMON NORMALS: normocephalic and atraumatic HEAD & SCALP: normocephalic and atraumatic Neck/C-Spine: COMMON NORMALS: full ROM, no lymphadenopathy, supple and no meningeal signs Resp: COMMON NORMALS: normal respiratory effort, No use of accessory muscles and clear to auscultation bilaterally AUSCULTATION: clear to auscultation bilaterally Cardio: COMMON NORMALS: regular rate and regular rhythm RATE: regular rate RHYTHM: regular rhythm Extremity: COMMON NORMALS: full ROM and capillary refill normal NARRATIVE EXTREMITY EXAM: Chronic lymphedema bilateral lower extremities. The right lower extremity is swollen compared to the left, is warm to the touch, and there is area of erythema that is spreading towards the proximal right todd. No significant tenderness to palpation. Distal sensations are intact. No weeping or oozing. Neuro: COMMON NORMALS: moves all extremities, no focal motor deficits and no sensory deficits noted SENSORIUM/ORIENTATION: Yes alert MENINGEAL SIGNS: Yes no meningeal signs Course Vital Signs: Vital signs: Vital Signs Temperature 98.8 F 10/11/25 20:38 Pulse Rate 104 H 10/11/25 21:56 Respiratory Rate 20 H 10/11/25 20:38 Blood Pressure 140/86 10/11/25 21:56 Pulse Oximetry 98 10/11/25 21:56 Oxygen Delivery Me thod Room Air 10/11/25 20:38 MDM - Skin/Abscess/Foreign Bdy Medicial Decision Making Patient presented for evaluation of cellulitis to right lower extremity, which she reports a history of similar in reviewing past medical history. She was hospitalized twice in April of this year for this. She is requesting IV antibiotics here, stating that the symptoms that she is having is similar to early onset presentation of what brought her in in April. IV established cultures obtained due to her reports of fevers and chills at home, and then IV Vanco is administered after exam findings positive for what appears to be a mild cellulitis of the right lower extremity. However she does not appear clinically toxic, she is morbid obese and there is underlying lymphedema to bilateral lower extremities. She has no leukocytosis, her lactic acid is normal, and overall lab work is unremarkable. Spoke to Dr. Mclain, hospitalist, stating that this is capable of treatment at home being that she has been taking Keflex and likely adequately covered, reviewing her prior hospitalization she was discharged subsequently on Levaquin and Augmentin so patient will be started on this. Patient is counseled on signs and symptoms that would warrant return to the emergency department, and she agrees with discharge home and outpatient plan. Lab Data 10/11/25 21:38 10/11/25 21:38 Laboratory Results WBC 8.32 10^3/uL (3.29-11.43) 10/11/25 21: RBC 4.45 10^6/uL (3.85-5.65) 10/11/25 21: Hgb 11.30 g/dL (11.27-16.99) 10/11/25 21: Hct 35.7 % (36-47) L 10/11/25 21: MCV 80.2 fl (85-98) L 10/11/25 21: MCH 25.4 pg (27-33) L 10/11/25: MCHC 31.7 g/dL (30-55) 10/11/25 21: RDW 14.8 % (12.1-15.1) 10/11/25 21: Plt Count 167 10^3/cmm (157-399) 10/11/25 21: MPV 9.0 fL (7.4-10.4) 10/11/25 21: Neut % (Auto) 67.6 % 10/11/25 21: Lymph % (Auto) 24.0 % 10/11/25 21: Coleman % (Auto) 5.6 % 10/11/25 21: Eos % (Auto) 2.2 % 10/11/25: Baso % (Auto) 0.1 % 10/11/25: Neut # (Auto) 5.62 10^3/uL (1.8-7.7) 10/11/25 21: Lymph # (Auto) 2.0 10^3/uL (0.8-4.8) 10/11/25 21: Coleman # (Auto) 0.5 10^3/uL (0.2-0.9) 10/11/25: Eos # (Auto) 0.2 10^3/uL (0.0-0.8) 10/11/25: Baso # (Auto) 0.0 10^3/uL (0.0-0.1) 10/11/25: Nucleated RBC % (auto) 0 % 10/11/25 21:38 Nucleated RBCs # 0.0 /100WBC 10/11/25 21:38 ESR 22 mm/hr (0-15) H 10/11/25 21:38 Sodium 139 mmol/L (136-145) 10/11/25 21:38 Potassium 3.2 mmol/L (3.5-5.1) L 10/11/25 21:38 Chloride 100 mmol/L (98-107) 10/11/25 21:38 Carbon Dioxide 30 mmol/L (22-29) H 10/11/25 21:38 Anion Gap 12.2 (5-19) 10/11/25 21:38 BUN 12 mg/dL (6-20) 10/11/25 21:38 Creatinine 0.6 mg/dL (0.5-0.9) 10/11/25 21:38 GFR Calculation 110.7 mL/min (90-130) 10/11/25 21:38 Glucose 98 mg/dL (65-115) 10/11/25 21:38 Calculated Osmolality 288 mOsm/kg (285-295) 10/11/25 21:38 Lactic Acid 0.6 mmol/L (0.5-2.2) 10/11/25 21:38 Calcium 9.1 mg/dL (8.5-10.5) 10/11/25 21:38 Total Bilirubin 0.3 mg/dL (0.15-1.2) 10/11/25 21:38 AST 13 U/L (0-32) 10/11/25 21:38 ALT 10 U/L (0-33) 10/11/25 21:38 Alkaline Phosphatase 89 U/L (35-105) 10/11/25 21:38 C-Reactive Protein 111.9 mg/L (0.0-4.9) H 10/11/25 21:38 Total Protein 7.7 g/dL (6.6-8.7) 10/11/25 21:38 Albumin 4.0 g/dL (3.5-5.2) 10/11/25 21:38 Globulin 3.7 g/dL (1.3-4.6) 10/11/25 21:38 No radiology studies performed this visit Discharge Plan Discharge Patient Disposition: Home Clinical Impression: Cellulitis of right leg without foot Condition: Stable Prescriptions: New levofloxacin 750 mg tablet 750 mg PO DAILY 7 Days Qty: 7 0RF amoxicillin-pot clavulanate 875-125 mg tablet 1 tab PO BID 7 Days Qty: 14 0RF No Action ondansetron 8 mg tablet,disintegrating 8 mg PO Q6H Qty: 14 0RF Rx Instructions: Take 1/2-1 tab every 6 hours as needed for nausea and vomiting clotrimazole 1 % cream 1 applic topical BID 56 Days Qty: 15 3RF pantoprazole [Protonix] 40 mg tablet,delayed release (DR/EC) 40 mg PO DAILY Qty: 30 0RF ferrous sulfate 325 mg (65 mg iron) tablet 325 mg PO DAILY losartan-hydrochlorothiazide 50-12.5 mg tablet 1 tab PO DAILY Zepbound 2.5 mg/0.5 mL pen injector 2.5 mg SUBCUT Q7D Rx Instructions: Wednesday ondansetron HCl 4 mg tablet 4 mg PO TID PRN (Reason: Nausea And Vomiting) albuterol sulfate 90 mcg/actuation HFA aerosol inhaler 2 puff INHALATION Q6H PRN (Reason: Shortness Of Breath) Discharge Orders: Discharge ED (Routine); Ordered 10/11/25 Ordered By: Darrel Torres Referrals: Makenize Wheeler PA [Primary Care Provider, [facility]] Patient Instructions: Patient Portal & Jag Instructions Activity Restrictions/Additional Instructions: Discharge Instructions: Recurrent Cellulitis of Right Lower Extremity DIAGNOSIS: Recurrent cellulitis of the right lower extremity EMERGENCY DEPARTMENT TREATMENT: You received intravenous (IV) vancomycin antibiotic treatment in the emergency department. Your blood work, including complete blood count, metabolic panel, and inflammatory markers, were all reassuring and at your baseline levels. MEDICATIONS: STOP taking: Keflex (cephalexin) - do not take any more doses of this medication START taking the following antibiotics: - Levaquin (levofloxacin) 750 mg: Take ONE tablet by mouth ONCE daily for 7 days - Augmentin (amoxicillin-clavulanate) 875 mg: Take ONE tablet by mouth TWICE daily for 7 days Important: Take both antibiotics exactly as prescribed. Complete the full 7-day course even if you start feeling better. Take Augmentin with food to reduce stomach upset. HOME CARE INSTRUCTIONS: 1. Elevate your right leg above the level of your heart as much as possible while resting to reduce swelling 2. Keep the affected area clean and dry 3. Check your feet daily, especially between your toes, for any cracks, scaling, or moisture. Keep the toe web spaces clean and dry 4. Landon the borders of the redness on your leg with a pen so you can monitor if it is spreading 5. Monitor your symptoms closely over the next 24-48 hours - you should see improvement in pain, redness, swelling, and warmth MANAGING UNDERLYING RISK FACTORS: To help prevent future episodes of cellulitis: - Treat any athlete's foot or fungal infections between your toes - Moisturize dry, cracked skin on your legs and feet daily - Manage any leg swelling with elevation and compression stockings if recommended - Maintain good skin hygiene - Protect your legs from cuts, scrapes, and insect bites RETURN TO THE EMERGENCY DEPARTMENT IMMEDIATELY IF YOU DEVELOP ANY OF THE FOLLOWING: - Fever (temperature greater than 100.4?F or 38?C) or chills - Worsening redness that spreads beyond the marked borders or moves up your leg - Increased pain, swelling, or warmth in the affected area - Red streaks extending from the affected area - Blisters, pus, or drainage from the skin - Severe pain that is not controlled with [id number] pain medication - Numbness or tingling in your leg or foot - Difficulty walking or bearing weight on your leg - Feeling confused, dizzy, or lightheaded - Rapid heartbeat (greater than 90 beats per minute at rest) - Difficulty breathing or shortness of breath - Nausea, vomiting, or severe diarrhea (especially if you cannot keep down your antibiotics) - No improvement in your symptoms within 24-48 hours of starting antibiotics - Worsening symptoms at any time despite taking antibiotics FOLLOW-UP: Contact your primary care doctor within 2-3 days to schedule a follow-up appointment. Discuss your recurrent cellulitis and potential strategies to prevent future episodes, which may include long-term preventive antibiotics if you continue to have frequent recurrences. ADDITIONAL INFORMATION: If you develop a rash, severe itching, facial swelling, or difficulty breathing after taking your antibiotics, stop the medication immediately and call 911 or go to the emergency department, as these may be signs of an allergic reaction. Print Language: Dominican Coding Level of Care Code ED Electronic Engineering Draftsperson for Lissette Parker
[2025-10-11] MEDS: ondansetron 2 mg/ML SDV 2 mL 4 MG IVP (21:35)
[2025-10-11 21:56] VITALS: BP 140/86; PULSE 104; O2SAT 98
[2025-10-11 22:10] LABS: Hematocrit 35.7 % (36-47); Hemoglobin 11.30 g/dL (11.27-16.99); Lactic Sepsis W/Reflex 0.6 mmol/L (0.5-2.2); Mean Corpuscular HGB Conc 31.7 g/dL (30-55); Mean Corpuscular Hemoglobin 25.4 pg (27-33); Mean Corpuscular Volume 80.2 fl (85-98); Nucleated Red Blood Cells % 0 %; Platelet Count 167 10^3/cmm (157-399); Red Blood Count 4.45 10^6/uL (3.85-5.65); White Blood Count 8.32 10^3/uL (3.29-11.43)
[2025-10-11 22:11] LABS: Alanine Aminotransferase 10 U/L (0-33); Albumin Level 4.0 g/dL (3.5-5.2); Alkaline Phosphatase 89 U/L (35-105); Anion Gap 12.2 (5-19); Aspartate Amino Transferase 13 U/L (0-32); Blood Urea Nitrogen 12 mg/dL (6-20); Calcium 9.1 mg/dL (8.5-10.5); Carbon Dioxide 30 mmol/L (22-29); Chloride 100 mmol/L (98-107); Globulin 3.7 g/dL (1.3-4.6); Glucose 98 mg/dL (65-115); Osmolality Calculated 288 mOsm/kg (285-295); Potassium 3.2 mmol/L (3.5-5.1); Sodium 139 mmol/L (136-145); Total Protein 7.7 g/dL (6.6-8.7)
[2025-10-11 23:45] VITALS: PULSE 110; O2SAT 97
[2025-10-12 00:02] VITALS: BP 116/72; PULSE 63; O2SAT 97
[2025-10-12 01:23] VITALS: BP 102/63; PULSE 100; O2SAT 94
[2025-10-12 01:24] VITALS: BP 102/63; PULSE 100; O2SAT 92
[2025-10-12 03:25] VITALS: BP 105/69; PULSE 98; O2SAT 96
== END 2025-10-12 03:28 | disposition home or self-care (01) ==
PROVIDERS: Emergency Provider Physician Assistant; PCP Physician Assistant
DX: L03.115 Cellulitis of right lower limb (principal)
CPT/HCPCS: 80053; 83605; 85025; 85651; 86140; 87040; 96374; 99284; J2405; J3372; J7030; J9999